=== PATIENT | female | born 1985 | race Two or more races ===

== ENCOUNTER → 2016-07-12 | Outpatient (REF) | payer OTHER ==
[~2016-07-12] MED LIST: ALBU17IN INH; ALBU17IN2; BREO1INH IN; FERR325T3 PO; METH75TA PO; NEUR300C PO; NORC5TAB PO; ONDA4TAB6 PO; ORTHTAB5 PO; PEPC1TAB2 PO; SING10TA32 PO; TAMS0.4C2 PO; TRAM50TA2 PO; VITA50003 PO
== END ==
LOC: M LAB REF 09:48
PROVIDERS: ATTEND Physician Assistant
DX: M54.5 Low back pain (principal)

== ENCOUNTER → 2016-07-21 | Outpatient (CLI) | payer OTHER ==
--- NOTE | 2016-07-28 00:07 | ECWPNPC ---
PATIENT NAME: ABEL COOMBS : 1985 GENDER: FEMALE VISIT DATE: 07/21/2016 DISCHARGE DATE: 07/21/16 1616 VISIT LOCKED DATE TIME: PHYSICIAN: CARTER JAIN RESOURCE: CARTER JAIN REASON FOR APPOINTMENT 1. 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 FALL RISK SCREENING: SCREENING :NO FALLS IN THE PAST YEAR CURRENT MEDICATIONS TAKING ALBUTEROL SULFATE HFA 108 (90 BASE) MCG/ACT AEROSOL SOLUTION 2 PUFFS NEEDED INHALATION EVERY 4 HRS TAKING SINGULAIR 10 MG TABLET 1 ORALLY ONCE A DAY TAKING PEPCID 20 MG TABLET 1 TABLET ORALLY DAILY TAKING BREO ELLIPTA 100-25 MCG/INH AEROSOL POWDER BREATH ACTIVATED 1 PUFF INHALATION ONCE A DAY TAKING VITAMIN D 07107 U TABLET ORALLY WEEKLY TAKING ORTHO TRI-CYCLEN (28) 0.18/0.215/0.25 MG-35 MCG TABLET 1 TABLET ORALLY ONCE A DAY TAKING FERROUS SULFATE TABLET 3 ORALLY ONCE DAILY TAKING ROBAXIN-750 750 MG TABLET 1 TABLET ORALLY BEFORE BEDTIME TAKING TRAMADOL HCL 50 MG TABLET 1-2 ORALLY Q4-6 HR PRN MDD4 TAKING CYMBALTA 30 MG CAPSULE DELAYED RELEASE PARTICLES 1 CAPSULE ORALLY ONCE A DAY TAKING MELOXICAM 7.5 MG TABLET 1 TABLET ORALLY ONCE A DAY NOT-TAKING VALIUM 10 MG TABLET 2 ORALLY 2 TAB 1HR PRE PROC. MDD2 NOT-TAKING OXYCODONE-ACETAMINOPHEN 10-325 MG TABLET 2 ORALLY 2 TAB 1HR PRE PROFC. MDD2 NOT-TAKING KETOROLAC TROMETHAMINE 10 MG TABLET 1 TABLET NEEDED ORALLY EVERY 6 HRS NOT-TAKING HYDROCODONE-ACETAMINOPHEN 5-325 MG TABLET 1 TABLET NEEDED ORALLY EVERY 6 HRS NOT-TAKING ROBAXIN-750 750 MG TABLET 1 TABLET ORALLY EVERY 6 HRS NEEDED, NOTES: LAST WEEK NOT-TAKING LIDOCAINE 5 % OINTMENT 1 APPLICATION TO AFFECTED AREA NEEDED EXTERNALLY NEEDED, NOTES: 2 WEEKS AGO MEDICATION LIST REVIEWED AND RECONCILED WITH THE PATIENT PAST MEDICAL HISTORY ASTHMA SEASONAL ALLERGIES KIDNEY STONE CHRONIC BACK PAIN ALLERGIES LATEX (FOR ALLERGY USE ONLY): RASH: ALLERGY LOBSTER AND CRABMEAT: DIARRHEA: ALLERGY COCONUT OIL: ANAPHYLAXIS: ALLERGY CATS, DOGS: EYES SWELL, ITCHY: ALLERGY SOCIAL HISTORY GENERAL: TOBACCO USE ARE YOU A:NONSMOKER LEARNING BARRIERS / SPECIAL NEEDS ORIENTED TO PLAN OF CARE: PATIENT, PAIN MANAGEMENT PATIENT, ORIENTED TO PLAN OF CARE: PATIENT, PAIN MANAGEMENT PATIENT. NEW PATIENT PAIN DIARY TODAY'S VISITNOTES FROM 0-10, WHAT LEVEL IS YOUR PAIN TODAY?0 PAIN CLINIC PFS, CLERGY, PUBLIC HEALTH REFERRALS PFS REFERRAL NEEDED?NO CLERGY REFERRAL NEEDED?NO PUBLIC HEALTH REFERRAL NEEDED?NO WAS THE PROVIDER NOTIFIED OF ANY PERTINENT INFO?NO PFS REFERRAL NEEDED?NO CLERGY REFERRAL NEEDED?NO PUBLIC HEALTH REFERRAL NEEDED?NO WAS THE PROVIDER NOTIFIED OF ANY PERTINENT INFO?NO REVIEW OF SYSTEMS CONSTITUTIONAL: ANY CHANGE IN YOUR MEDICAL CONDITION? NO . RECENT ILLNESS DENIES . CHILLS NO . FEVER NO . WEIGHT LOSS DENIES . INFECTION: DO YOU HAVE NEW INFECTIONS? NO . DO YOU HAVE HISTORY OF MRSA? NO . MUSCULOSKELETAL: ANY NEW PATTERNS OF PAIN OR NUMBNESS? YES, BACK WENT OUT AND PAIN WON'T FULLY GO AWAY&NBSP;. GASTROENTEROLOGY: ANY NEW CHANGE IN BOWEL CONTROL? NO . GENITOURINARY: ANY NEW CHANGE IN BLADDER CONTROL? NO . IS THERE A CHANCE YOU COULD BE ? NO . HEMATOLOGY/LYMPH: DO YOU TAKE ANY BLOOD THINNERS? (FOR EXAMPLE- COUMADIN, PLAVIX, AGGRENOX, PLATEL, PRADAXA, OR XARELTO) NO . WHEN WAS YOUR LAST DOSE? DATE: TIME: . NEUROLOGY: HAVE YOU FALLEN IN THE PAST 6 MONTHS? NO . ANY NEW EXTREMITY NUMBNESS OR WEAKNESS? NO . CARDIOLOGY: DO YOU HAVE A PACEMAKER OR DEFIBRILLATOR? NO . CHEST PAIN DENIES . SHORTNESS OF BREATH DENIES . RESPIRATORY: HAVE YOU BEEN SICK IN THE PAST WEEK? YES, COLD AND LOST VOICE . FEVER NO . FLU LIKE SYMPTOMS? NO . COUGH NO, DENIES . SHORTNESS OF BREATH DENIES . INTEGUMENTARY: DO YOU HAVE ANY RASHES OR OPEN SORES? NO . ALLERGIC/IMMUNO: ARE YOU ALLERGIC TO SHELLFISH OR IV DYE? YES, SOME SHELLFISH . ANY NEW ALLERGIES? NO . PSYCHIATRIC: DO YOU HAVE THOUGHTS OF HURTING YOURSELF OR SOMEONE ELSE? NO . ARE YOU ABUSED, NEGLECTED, OR IN AN UNSAFE ENVIRONMENT? NO . ENDOCRINOLOGY: ARE YOU DIABETIC? NO . OTHER: DO YOU NEED ANY PRESCRIPTIONS? YES . IF YES, PLEASE LIST: TRAMADOL-NEED A NEW SCRIPT AT PHARMACY . ANY NEW PROBLEMS WITH YOUR MEDICATIONS? NO . WHEN DID YOU LAST EAT? ____ . WHEN DID YOU LAST DRINK? ____ . WHAT DID YOU LAST DRINK? ____ . NAME OF PERSON DRIVING YOU HOME? ____ . DO YOU HAVE ANY OTHER QUESTIONS OR CONCERNS NO . REVIEWED BY: PROVIDER: CARTER LUNA . VITAL SIGNS WT 187 LBS, HT 68 IN, BMI 28.43 INDEX, BP 159/96 MM HG, HR 104 /MIN, RR 16 /MIN, TEMP 97.6 F, OXYGEN SAT % 96, NA INITIALS TL 1516, REVIEWED BY: CS. EXAMINATION GENERAL EXAMINATION: LUNGS:LUNG SOUNDS ARE CLEAR. HEART:HEART RATE REGULAR. MUSCULOSKELETAL:*, MUSCLE STRENGTH TESTING 5/5 BILATERAL LOWER EXTREMITIES.PALPATION:POSITIVE FOR PAIN OVER MID TO LOWER THORACIC SPINE WITH LIGHT PALPATION.OTHERWIS NONTENDER WITH PALPATION OF SPINE.. DIAGNOSTIC: . ASSESSMENTS PAIN IN THORACIC SPINE - M54.6 (PRIMARY) MYALGIA - M79.1 TREATMENT PAIN IN THORACIC SPINE REFILL ROBAXIN-750 TABLET, 750 MG, 1 TABLET, ORALLY, BEFORE BEDTIME, 30 DAY(S), 15, REFILLS 2 INCREASE TRAMADOL HCL TABLET, 50 MG, 2, ORALLY, TID MDD6, 30 DAY(S), 180, REFILLS 0 REFILL CYMBALTA CAPSULE DELAYED RELEASE PARTICLES, 30 MG, 1 CAPSULE, ORALLY, ONCE A DAY, 30 DAY(S), 30 CAPSULE, REFILLS 2 STOP MELOXICAM TABLET, 7.5 MG, 1 TABLET, ORALLY, ONCE A DAY START IBUPROFEN TABLET, 600 MG, 1 TABLET, ORALLY, THREE TIMES A DAY, 30 DAY(S), 90, REFILLS 1 [facility] MRI SPINE,THORACIC WITHOUT [id number] PROCEDURE CODES FA211 ESTABILISHED PATIENT [facility] CHARGE FOLLOW UP 4 WEEKS (REASON: MRI THORACIC SPINE) ELECTRONICALLY SIGNED BY JEREMY COREAS ON 07/27/2016 AT 03:54 PM EST DISCLAIMER : THIS IS A VISIT SUMMARY EXTRACTED FROM THE [employer] CHART. IT IS NOT A COPY OF THE [employer] PROGRESS NOTE. CHARLIE
== END ==
LOC: M PAIN 15:00
PROVIDERS: ATTEND Nurse Practitioner Family
DX: M54.6 Pain in thoracic spine (principal); M79.1 Myalgia; Z79.891 Long term (current) use of opiate analgesic; Z79.899 Other long term (current) drug therapy; Z91.040 Latex allergy status; Z91.018 Allergy to other foods; Z91.09 Other allergy status, other than to drugs and biological substances

== ENCOUNTER → 2016-09-08 | Outpatient (CLI) | payer OTHER ==
--- NOTE | 2016-09-08 23:37 | ECWPNPC ---
PATIENT NAME: ABEL COOMBS : 1985 GENDER: FEMALE VISIT DATE: 09/08/2016 DISCHARGE DATE: 09/08/16 1535 VISIT LOCKED DATE TIME: PHYSICIAN: CARTER JAIN RESOURCE: CARTER JAIN REASON FOR APPOINTMENT 1. 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 PAIN THE PATIENT DESCRIBES THE PAIN... FALL RISK SCREENING: SCREENING :NO FALLS IN THE PAST YEAR CURRENT MEDICATIONS TAKING ALBUTEROL SULFATE HFA 108 (90 BASE) MCG/ACT AEROSOL SOLUTION 2 PUFFS NEEDED INHALATION EVERY 4 HRS TAKING SINGULAIR 10 MG TABLET 1 ORALLY ONCE A DAY TAKING PEPCID 20 MG TABLET 1 TABLET ORALLY DAILY TAKING BREO ELLIPTA 100-25 MCG/INH AEROSOL POWDER BREATH ACTIVATED 1 PUFF INHALATION ONCE A DAY TAKING VITAMIN D 56876 U TABLET ORALLY WEEKLY TAKING ORTHO TRI-CYCLEN (28) 0.18/0.215/0.25 MG-35 MCG TABLET 1 TABLET ORALLY ONCE A DAY TAKING FERROUS SULFATE TABLET 3 ORALLY ONCE DAILY TAKING ROBAXIN-750 750 MG TABLET 1 TABLET ORALLY BEFORE BEDTIME TAKING CYMBALTA 30 MG CAPSULE DELAYED RELEASE PARTICLES 1 CAPSULE ORALLY ONCE A DAY TAKING IBUPROFEN 600 MG TABLET 1 TABLET ORALLY THREE TIMES A DAY NOT-TAKING TRAMADOL HCL 50 MG TABLET 2 ORALLY TID MDD6 NOT-TAKING VALIUM 10 MG TABLET 2 ORALLY 2 TAB 1HR PRE PROC. MDD2 NOT-TAKING OXYCODONE-ACETAMINOPHEN 10-325 MG TABLET 2 ORALLY 2 TAB 1HR PRE PROFC. MDD2 NOT-TAKING KETOROLAC TROMETHAMINE 10 MG TABLET 1 TABLET NEEDED ORALLY EVERY 6 HRS NOT-TAKING HYDROCODONE-ACETAMINOPHEN 5-325 MG TABLET 1 TABLET NEEDED ORALLY EVERY 6 HRS NOT-TAKING ROBAXIN-750 750 MG TABLET 1 TABLET ORALLY EVERY 6 HRS NEEDED, NOTES: LAST WEEK NOT-TAKING LIDOCAINE 5 % OINTMENT 1 APPLICATION TO AFFECTED AREA NEEDED EXTERNALLY NEEDED, NOTES: 2 WEEKS AGO MEDICATION LIST REVIEWED AND RECONCILED WITH THE PATIENT PAST MEDICAL HISTORY ASTHMA SEASONAL ALLERGIES KIDNEY STONE CHRONIC BACK PAIN ALLERGIES LATEX (FOR ALLERGY USE ONLY): RASH: ALLERGY LOBSTER AND CRABMEAT: DIARRHEA: ALLERGY COCONUT OIL: ANAPHYLAXIS: ALLERGY CATS, DOGS: EYES SWELL, ITCHY: ALLERGY SOCIAL HISTORY GENERAL: TOBACCO USE ARE YOU A:NONSMOKER LEARNING BARRIERS / SPECIAL NEEDS ORIENTED TO PLAN OF CARE: PATIENT, PAIN MANAGEMENT PATIENT, ORIENTED TO PLAN OF CARE: PATIENT, PAIN MANAGEMENT PATIENT. NEW PATIENT PAIN DIARY TODAY'S VISITNOTES FROM 0-10, WHAT LEVEL IS YOUR PAIN TODAY?0 PAIN CLINIC PFS, CLERGY, PUBLIC HEALTH REFERRALS PFS REFERRAL NEEDED?NO CLERGY REFERRAL NEEDED?NO PUBLIC HEALTH REFERRAL NEEDED?NO WAS THE PROVIDER NOTIFIED OF ANY PERTINENT INFO?NO PFS REFERRAL NEEDED?NO CLERGY REFERRAL NEEDED?NO PUBLIC HEALTH REFERRAL NEEDED?NO WAS THE PROVIDER NOTIFIED OF ANY PERTINENT INFO?NO REVIEW OF SYSTEMS CONSTITUTIONAL: ANY CHANGE IN YOUR MEDICAL CONDITION? NO . CHILLS NO . FEVER NO . INFECTION: DO YOU HAVE NEW INFECTIONS? NO . DO YOU HAVE HISTORY OF MRSA? NO . MUSCULOSKELETAL: ANY NEW PATTERNS OF PAIN OR NUMBNESS? NO . GASTROENTEROLOGY: ANY NEW CHANGE IN BOWEL CONTROL? NO . GENITOURINARY: ANY NEW CHANGE IN BLADDER CONTROL? NO . IS THERE A CHANCE YOU COULD BE ? NO . HEMATOLOGY/LYMPH: DO YOU TAKE ANY BLOOD THINNERS? (FOR EXAMPLE- COUMADIN, PLAVIX, AGGRENOX, PLATEL, PRADAXA, OR XARELTO) NO . WHEN WAS YOUR LAST DOSE? DATE: TIME: . NEUROLOGY: HAVE YOU FALLEN IN THE PAST 6 MONTHS? NO . ANY NEW EXTREMITY NUMBNESS OR WEAKNESS? NO . CARDIOLOGY: DO YOU HAVE A PACEMAKER OR DEFIBRILLATOR? NO . RESPIRATORY: HAVE YOU BEEN SICK IN THE PAST WEEK? NO . FEVER NO . FLU LIKE SYMPTOMS? NO . COUGH NO . INTEGUMENTARY: DO YOU HAVE ANY RASHES OR OPEN SORES? NO . ALLERGIC/IMMUNO: ARE YOU ALLERGIC TO SHELLFISH OR IV DYE? YES . ANY NEW ALLERGIES? NO . PSYCHIATRIC: DO YOU HAVE THOUGHTS OF HURTING YOURSELF OR SOMEONE ELSE? NO . ARE YOU ABUSED, NEGLECTED, OR IN AN UNSAFE ENVIRONMENT? NO . ENDOCRINOLOGY: ARE YOU DIABETIC? NO . OTHER: DO YOU NEED ANY PRESCRIPTIONS? YES TRAMADOL? . IF YES, PLEASE LIST: ____ . ANY NEW PROBLEMS WITH YOUR MEDICATIONS? NO . WHEN DID YOU LAST EAT? ____ . WHEN DID YOU LAST DRINK? ____ . WHAT DID YOU LAST DRINK? ____ . NAME OF PERSON DRIVING YOU HOME? ____ . DO YOU HAVE ANY OTHER QUESTIONS OR CONCERNS NO . REVIEWED BY: PROVIDER: CARTER LUNA . VITAL SIGNS WT 196.2 LBS, HT 68 IN, BMI 29.83 INDEX, BP 152/96 MM HG, HR 99 /MIN, RR 16 /MIN, TEMP 98.0 F, OXYGEN SAT % 92%, NA INITIALS SC 14:45, REVIEWED BY: YES. EXAMINATION GENERAL EXAMINATION: LUNGS:LUNG SOUNDS ARE CLEAR. HEART:HEART RATE REGULAR. MUSCULOSKELETAL:*, MUSCLE STRENGTH TESTING 5/5 BILATERAL LOWER EXTREMITIES.PALPATION:POSITIVE FOR PAIN OVER MID TO LOWER THORACIC SPINE WITH LIGHT PALPATION.OTHERWIS NONTENDER WITH PALPATION OF SPINE.. DIAGNOSTIC: . ASSESSMENTS CHRONIC BILATERAL LOW BACK PAIN WITH RIGHT-SIDED SCIATICA - M54.41 (PRIMARY) PROTRUSION OF INTERVERTEBRAL DISC OF LUMBOSACRAL REGION - M51.27 CHRONIC PRESCRIPTION OPIATE USE - Z79.899 SACROILIAC JOINT PAIN - M53.3 TREATMENT CHRONIC BILATERAL LOW BACK PAIN WITH RIGHT-SIDED SCIATICA CONTINUE CYMBALTA CAPSULE DELAYED RELEASE PARTICLES, 30 MG, 1 CAPSULE, ORALLY, ONCE A DAY, 30 DAY(S), 30 CAPSULE, REFILLS 3 CONTINUE IBUPROFEN TABLET, 600 MG, 1 TABLET, ORALLY, THREE TIMES A DAY, 30 DAY(S), 90 TABLET, REFILLS 2 REFILL TRAMADOL HCL TABLET, 50 MG, 2, ORALLY, TID MDD6, 30 DAY(S), 180, REFILLS 0 PROCEDURE CODES FA211 ESTABILISHED PATIENT [facility] CHARGE DISPOSITION & COMMUNICATION FOLLOW UP 2 MONTHS (REASON: PLEASE CHECK ON AUTH FOR MRI) ELECTRONICALLY SIGNED BY JEREMY COREAS ON 09/08/2016 AT 03:29 PM EST DISCLAIMER : THIS IS A VISIT SUMMARY EXTRACTED FROM THE [employer] CHART. IT IS NOT A COPY OF THE [employer] PROGRESS NOTE. MTDD
== END ==
LOC: M PAIN 14:20
PROVIDERS: ATTEND Nurse Practitioner Family
DX: M54.41 Lumbago with sciatica, right side (principal); M51.27 Other intervertebral disc displacement, lumbosacral region; Z79.899 Other long term (current) drug therapy; M53.3 Sacrococcygeal disorders, not elsewhere classified; M46.1 Sacroiliitis, not elsewhere classified; G89.29 Other chronic pain; Z79.891 Long term (current) use of opiate analgesic; Z91.040 Latex allergy status; Z91.013 Allergy to seafood; J30.81 Allergic rhinitis due to animal (cat) (dog) hair and dander; Z91.018 Allergy to other foods; J30.2 Other seasonal allergic rhinitis

== ENCOUNTER → 2016-10-01 | Outpatient (CLI) | payer OTHER ==
[2016-10-01 09:20] LABS: BASO % 0.5 % (0.0-1.0); EOS # 0.1 K/mm3 (0.0-0.50); EOS % 1.8 % (0.0-3.0); LYMPH # 1.8 K/mm3 (1.5-4.5); MEAN CORPUSCULAR HEMOGLOBIN 28.9 pg (27.0-33.0); MEAN CORPUSCULAR HGB CONC 32.6 g/dl (32.0-36.5); MEAN CORPUSCULAR VOLUME 88.6 fl (80.0-96.0); MONO # 0.4 K/mm3 (0.0-0.8); MONO % 6.1 % (0.0-5.0); NEUTROPHILS # 4.2 K/mm3 (1.8-7.7); NEUTROPHILS % 62.7 % (36.0-66.0); RED CELL DISTRIBUTION WIDTH 12.3 % (11.5-14.5); WHITE BLOOD COUNT 6.7 K/mm3 (4.0-10.0)
[2016-10-01 09:52] LABS: ALBUMIN 3.3 GM/DL (3.2-5.2); ALKALINE PHOSPHATASE 69 U/L (45-117); ALT/SGPT 29 U/L (12-78); ANION GAP 6 MEQ/L (8-16); AST/SGOT 13 U/L (15-37); BILIRUBIN,TOTAL 0.3 MG/DL (0.2-1.0); BLOOD UREA NITROGEN 14 MG/DL (7-18); CALCIUM LEVEL 8.2 MG/DL (8.5-10.1); CARBON DIOXIDE LEVEL 29 MEQ/L (21-32); CHLORIDE LEVEL 106 MEQ/L (98-107); CHOLESTEROL LEVEL 188 MG/DL (<200); CREATININE FOR GFR 0.61 MG/DL (0.55-1.02); FERRITIN 106 NG/ML (8-252); GLOMERULAR FILTRATION RATE > 60.0 (>60); GLUCOSE, FASTING 88 MG/DL (70-105); POTASSIUM SERUM 3.9 MEQ/L (3.5-5.1); SODIUM LEVEL 141 MEQ/L (136-145); TOTAL PROTEIN 6.6 GM/DL (6.4-8.2); TRIGLYCERIDES LEVEL 126 MG/DL (<150)
== END ==
LOC: M LAB 08:33
PROVIDERS: ATTEND Physician Assistant Medical
DX: D64.9 Anemia, unspecified (principal); E78.2 Mixed hyperlipidemia; E55.9 Vitamin D deficiency, unspecified

== ENCOUNTER → 2016-10-20 | Outpatient (CLI) | payer OTHER ==
[~2016-10-20] MED LIST changes: +CYMB1CAP4 PO; +NORC1TAB4 PO; -NORC5TAB PO; +OMEP40CA2 PO
--- NOTE | 2016-10-21 09:09 | REP ---
MRI thoracic spine without contrast: History: Thoracic pain, mid back pain. Progressive. No comparison thoracic spine imaging. Comparison lateral chest x-ray May 26, 2016. Technique: Sagittal and axial T1 and T2-weighted scans are acquired in the usual fashion with and without fat saturation. Sequences include spin echo, turbo spin-echo, and STIR imaging sequences. MRI findings: Thoracic vertebral body heights are preserved and alignment is normal. There is a hemangioma in the T8 vertebral body to the left of midline. Cortical and medullary bone signal intensity are otherwise normal. Thoracic cord is normal in coarse, caliber and signal intensity on T1 and T2-weighted scans. No cord compressive lesion is seen. No neural foraminal narrowing is seen. There is mild degenerative disc narrowing at the T11-12 disc level with mild diffuse disc bulging at this level. No focal disc herniation is seen. The T8-9 disc shows mild narrowing as well consistent with early degenerative disc disease. Conus medullaris is normal in position and appearance at T12-L1. Exam is otherwise unremarkable. Impression: Minimal degenerative disc changes T8-9 and T11-12. Small hemangioma T8 vertebral body. Otherwise normal. Signed by Sravan Cevallos MD 10/21/2016 01:09 P
== END ==
LOC: M RAD 17:12
PROVIDERS: ATTEND Nurse Practitioner Family
DX: M51.34 Other intervertebral disc degeneration, thoracic region (principal)

== ENCOUNTER 2016-10-25 08:50 | Emergency (ER) | payer OTHER ==
[~2016-10-25] VITALS: Ht 172.7 cm; Wt 91.6 kg
[~2016-10-25 08:50] MED LIST changes: -CYMB1CAP4 PO; -OMEP40CA2 PO
[2016-10-25] MEDS ORDERED: OMEP40CA2 PO (09:31)
[2016-10-25] MEDS ORDERED: CYMB1CAP4 PO (09:31)
[2016-10-25] MEDS ORDERED: KETOROLAC 30 MG/ML VIAL (J1885) IV ONE (10:30)
[2016-10-25 11:48] VITALS: BP 140/82
== END 2016-10-25 12:09 | disposition home or self-care (01) ==
LOC: M ED 10:34
DX: G89.29 Other chronic pain (principal); M54.5 Low back pain; M62.830 Muscle spasm of back; J45.909 Unspecified asthma, uncomplicated; M41.9 Scoliosis, unspecified; Z87.442 Personal history of urinary calculi; Z79.899 Other long term (current) drug therapy; Z79.51 Long term (current) use of inhaled steroids; Z91.040 Latex allergy status; Z91.013 Allergy to seafood; Z91.018 Allergy to other foods
CPT/HCPCS: 96374; 99282; J1885

== ENCOUNTER → 2016-10-29 | Outpatient (CLI) | payer OTHER ==
[~2016-10-29] MED LIST changes: +CYMB1CAP4 PO; +OMEP40CA2 PO
--- NOTE | 2016-11-12 00:01 | ECWPNPC ---
PATIENT NAME: ABEL COOMBS : 1985 GENDER: FEMALE VISIT DATE: 10/29/2016 DISCHARGE DATE: 10/29/16 1553 VISIT LOCKED DATE TIME: PHYSICIAN: CARTER JAIN RESOURCE: CARTER JAIN REASON FOR APPOINTMENT 1. 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 PAIN THE PATIENT DESCRIBES THE PAIN... THE PATIENT DESCRIBES THE PAIN... FALL RISK SCREENING: SCREENING :NO FALLS IN THE PAST YEAR CURRENT MEDICATIONS TAKING ALBUTEROL SULFATE HFA 108 (90 BASE) MCG/ACT AEROSOL SOLUTION 2 PUFFS NEEDED INHALATION EVERY 4 HRS TAKING SINGULAIR 10 MG TABLET 1 ORALLY ONCE A DAY TAKING PEPCID 20 MG TABLET 1 TABLET ORALLY DAILY TAKING BREO ELLIPTA 100-25 MCG/INH AEROSOL POWDER BREATH ACTIVATED 1 PUFF INHALATION ONCE A DAY TAKING VITAMIN D 79144 U TABLET ORALLY WEEKLY TAKING ORTHO TRI-CYCLEN (28) 0.18/0.215/0.25 MG-35 MCG TABLET 1 TABLET ORALLY ONCE A DAY TAKING FERROUS SULFATE TABLET 3 ORALLY ONCE DAILY TAKING IBUPROFEN 600 MG TABLET 1 TABLET ORALLY THREE TIMES A DAY TAKING ROBAXIN-750 750 MG TABLET 1 TABLET ORALLY BEFORE BEDTIME TAKING TRAMADOL HCL 50 MG TABLET 2 ORALLY TID MDD6 TAKING CYMBALTA 30 MG CAPSULE DELAYED RELEASE PARTICLES 1 CAPSULE ORALLY ONCE A DAY TAKING OMEPRAZOLE 10 MG CAPSULE DELAYED RELEASE 1 CAPSULE ORALLY ONCE A DAY NOT-TAKING VALIUM 10 MG TABLET 2 ORALLY 2 TAB 1HR PRE PROC. MDD2 NOT-TAKING OXYCODONE-ACETAMINOPHEN 10-325 MG TABLET 2 ORALLY 2 TAB 1HR PRE PROFC. MDD2 NOT-TAKING KETOROLAC TROMETHAMINE 10 MG TABLET 1 TABLET NEEDED ORALLY EVERY 6 HRS NOT-TAKING HYDROCODONE-ACETAMINOPHEN 5-325 MG TABLET 1 TABLET NEEDED ORALLY EVERY 6 HRS NOT-TAKING ROBAXIN-750 750 MG TABLET 1 TABLET ORALLY EVERY 6 HRS NEEDED, NOTES: LAST WEEK NOT-TAKING LIDOCAINE 5 % OINTMENT 1 APPLICATION TO AFFECTED AREA NEEDED EXTERNALLY NEEDED, NOTES: 2 WEEKS AGO MEDICATION LIST REVIEWED AND RECONCILED WITH THE PATIENT PAST MEDICAL HISTORY ASTHMA SEASONAL ALLERGIES KIDNEY STONE CHRONIC BACK PAIN ALLERGIES LATEX (FOR ALLERGY USE ONLY): RASH: ALLERGY LOBSTER AND CRABMEAT: DIARRHEA: ALLERGY COCONUT OIL: ANAPHYLAXIS: ALLERGY CATS, DOGS: EYES SWELL, ITCHY: ALLERGY SOCIAL HISTORY GENERAL: PAIN CLINIC PFS, CLERGY, PUBLIC HEALTH REFERRALS CLERGY REFERRAL NEEDED?NO WAS THE PROVIDER NOTIFIED OF ANY PERTINENT INFO?NO PFS REFERRAL NEEDED?NO PUBLIC HEALTH REFERRAL NEEDED?NO PATIENT: ____. REVIEW OF SYSTEMS CONSTITUTIONAL: ANY CHANGE IN YOUR MEDICAL CONDITION? NO . CHILLS NO . FEVER NO . INFECTION: DO YOU HAVE NEW INFECTIONS? NO . DO YOU HAVE HISTORY OF MRSA? NO . MUSCULOSKELETAL: ANY NEW PATTERNS OF PAIN OR NUMBNESS? NO . GASTROENTEROLOGY: ANY NEW CHANGE IN BOWEL CONTROL? NO . GENITOURINARY: ANY NEW CHANGE IN BLADDER CONTROL? NO . IS THERE A CHANCE YOU COULD BE ? NO . HEMATOLOGY/LYMPH: DO YOU TAKE ANY BLOOD THINNERS? (FOR EXAMPLE- COUMADIN, PLAVIX, AGGRENOX, PLATEL, PRADAXA, OR XARELTO) NO . WHEN WAS YOUR LAST DOSE? DATE: TIME: . NEUROLOGY: HAVE YOU FALLEN IN THE PAST 6 MONTHS? YES THIS PAST TUESDAY, FELL TO HER KNEES BACK GAVE OUT . ANY NEW EXTREMITY NUMBNESS OR WEAKNESS? NO . CARDIOLOGY: DO YOU HAVE A PACEMAKER OR DEFIBRILLATOR? NO . RESPIRATORY: HAVE YOU BEEN SICK IN THE PAST WEEK? NO . FEVER NO . FLU LIKE SYMPTOMS? NO . COUGH NO . INTEGUMENTARY: DO YOU HAVE ANY RASHES OR OPEN SORES? NO . ALLERGIC/IMMUNO: ARE YOU ALLERGIC TO SHELLFISH OR IV DYE? YES . ANY NEW ALLERGIES? NO . PSYCHIATRIC: DO YOU HAVE THOUGHTS OF HURTING YOURSELF OR SOMEONE ELSE? NO . ARE YOU ABUSED, NEGLECTED, OR IN AN UNSAFE ENVIRONMENT? NO . ENDOCRINOLOGY: ARE YOU DIABETIC? NO . OTHER: DO YOU NEED ANY PRESCRIPTIONS? NO . IF YES, PLEASE LIST: ____ . ANY NEW PROBLEMS WITH YOUR MEDICATIONS? NO . WHEN DID YOU LAST EAT? ____ . WHEN DID YOU LAST DRINK? ____ . WHAT DID YOU LAST DRINK? ____ . NAME OF PERSON DRIVING YOU HOME? ____ . DO YOU HAVE ANY OTHER QUESTIONS OR CONCERNS NO . REVIEWED BY: PROVIDER: CARTER LUNA . VITAL SIGNS WT 200.0 LBS, HT 68 IN, BMI 30.41 INDEX, BP 185/91 MM HG, HR 86 /MIN, RR 20 /MIN, TEMP 97.9 F, OXYGEN SAT % 98%, NA INITIALS SC 15:03. EXAMINATION GENERAL EXAMINATION: LUNGS:LUNG SOUNDS ARE CLEAR. HEART:HEART RATE REGULAR. MUSCULOSKELETAL:*, MUSCLE STRENGTH TESTING 5/5 BILATERAL LOWER EXTREMITIES.PALPATION:POSITIVE FOR PAIN OVER MID TO LOWER THORACIC SPINE WITH LIGHT PALPATION., TRIGGER POINTS:RIGHT LUMBAR PARASPINAL.. DIAGNOSTIC: . ASSESSMENTS CHRONIC BILATERAL LOW BACK PAIN WITH RIGHT-SIDED SCIATICA - M54.41 (PRIMARY) MYALGIA - M79.1 TREATMENT CHRONIC BILATERAL LOW BACK PAIN WITH RIGHT-SIDED SCIATICA CONTINUE ROBAXIN-750 TABLET, 750 MG, 1 TABLET, ORALLY, BEFORE BEDTIME CONTINUE TRAMADOL HCL TABLET, 50 MG, 2, ORALLY, TID MDD6 CONTINUE CYMBALTA CAPSULE DELAYED RELEASE PARTICLES, 30 MG, 1 CAPSULE, ORALLY, ONCE A DAY CONTINUE IBUPROFEN TABLET, 600 MG, 1 TABLET, ORALLY, THREE TIMES A DAY PROCEDURE CODES FA211 ESTABILISHED PATIENT [facility] CHARGE DISPOSITION & COMMUNICATION FOLLOW UP HAS SCHEDULED F/U ELECTRONICALLY SIGNED BY JEREMY COREAS ON 11/11/2016 AT 05:24 PM EDT DISCLAIMER : THIS IS A VISIT SUMMARY EXTRACTED FROM THE [employer] CHART. IT IS NOT A COPY OF THE [employer] PROGRESS NOTE. MTDD
== END ==
LOC: M PAIN 14:40
PROVIDERS: ATTEND Nurse Practitioner Family
DX: G89.29 Other chronic pain (principal); M54.41 Lumbago with sciatica, right side; M79.1 Myalgia; J45.909 Unspecified asthma, uncomplicated; Z91.040 Latex allergy status; Z91.013 Allergy to seafood; Z91.018 Allergy to other foods; L23.81 Allergic contact dermatitis due to animal (cat) (dog) dander; Z79.51 Long term (current) use of inhaled steroids; Z79.1 Long term (current) use of non-steroidal anti-inflammatories (NSAID); Z79.891 Long term (current) use of opiate analgesic; Z79.899 Other long term (current) drug therapy

== ENCOUNTER → 2016-12-02 | Outpatient (CLI) | payer OTHER ==
--- NOTE | 2016-12-25 01:02 | ECWPNPC ---
PATIENT NAME: ABEL COOMBS : 1985 GENDER: FEMALE VISIT DATE: 12/02/2016 DISCHARGE DATE: 12/02/16 1129 VISIT LOCKED DATE TIME: PHYSICIAN: CARTER JAIN RESOURCE: CARTER JAIN REASON FOR APPOINTMENT 1. BACK HISTORY OF PRESENT ILLNESS HISTORY OF PRESENT ILLNESS: HERE FOR F/U OF CHRONIC LOW BACK PAIN.PAIN HAS RETURNED TO BASELINE AFTER RECENT FLARE UP.FINDING CURRENT CHRONIC PAIN MEDIATION ROBAXIN,TRAMADOL,CYMBALTA AND IBUPROFEN EFFECTIVE AT REDUCING PAIN AND KEEPING HER FUNCTIONAL.DESCRIBES PAIN CONSTANT,BUNING AND ACHING.RATING PAIN VAS 4/10. PAIN THE PATIENT DESCRIBES THE PAIN... FALL RISK SCREENING: SCREENING :NO FALLS IN THE PAST YEAR CURRENT MEDICATIONS TAKING ALBUTEROL SULFATE HFA 108 (90 BASE) MCG/ACT AEROSOL SOLUTION 2 PUFFS NEEDED INHALATION EVERY 4 HRS TAKING SINGULAIR 10 MG TABLET 1 ORALLY ONCE A DAY TAKING BREO ELLIPTA 100-25 MCG/INH AEROSOL POWDER BREATH ACTIVATED 1 PUFF INHALATION ONCE A DAY TAKING VITAMIN D 47094 U TABLET ORALLY WEEKLY TAKING FERROUS SULFATE TABLET 3 ORALLY ONCE DAILY TAKING OMEPRAZOLE 10 MG CAPSULE DELAYED RELEASE 1 CAPSULE ORALLY ONCE A DAY TAKING CYMBALTA 30 MG CAPSULE DELAYED RELEASE PARTICLES 1 CAPSULE ORALLY ONCE A DAY TAKING IBUPROFEN 600 MG TABLET 1 TABLET ORALLY THREE TIMES A DAY TAKING TRAMADOL HCL 50 MG TABLET 2 ORALLY TID MDD6 TAKING ROBAXIN-750 750 MG TABLET 1 TABLET ORALLY BEFORE BEDTIME TAKING JULEBER 0.15-30 MG-MCG TABLET 1 TABLET ORALLY ONCE A DAY NOT-TAKING PEPCID 20 MG TABLET 1 TABLET ORALLY DAILY NOT-TAKING ORTHO TRI-CYCLEN (28) 0.18/0.215/0.25 MG-35 MCG TABLET 1 TABLET ORALLY ONCE A DAY NOT-TAKING VALIUM 10 MG TABLET 2 ORALLY 2 TAB 1HR PRE PROC. MDD2 NOT-TAKING OXYCODONE-ACETAMINOPHEN 10-325 MG TABLET 2 ORALLY 2 TAB 1HR PRE PROFC. MDD2 NOT-TAKING KETOROLAC TROMETHAMINE 10 MG TABLET 1 TABLET NEEDED ORALLY EVERY 6 HRS NOT-TAKING HYDROCODONE-ACETAMINOPHEN 5-325 MG TABLET 1 TABLET NEEDED ORALLY EVERY 6 HRS NOT-TAKING ROBAXIN-750 750 MG TABLET 1 TABLET ORALLY EVERY 6 HRS NEEDED, NOTES: LAST WEEK NOT-TAKING LIDOCAINE 5 % OINTMENT 1 APPLICATION TO AFFECTED AREA NEEDED EXTERNALLY NEEDED, NOTES: 2 WEEKS AGO MEDICATION LIST REVIEWED AND RECONCILED WITH THE PATIENT PAST MEDICAL HISTORY ASTHMA SEASONAL ALLERGIES KIDNEY STONE CHRONIC BACK PAIN ALLERGIES LATEX (FOR ALLERGY USE ONLY): RASH: ALLERGY LOBSTER AND CRABMEAT: DIARRHEA: ALLERGY COCONUT OIL: ANAPHYLAXIS: ALLERGY CATS, DOGS: EYES SWELL, ITCHY: ALLERGY SURGICAL HISTORY D & C 09/15 T & A 2010 TEETH EXTRACTION LEEP CERVICAL BIOPSY URETERAL STONE REMOVAL 01/14/2016 HOSPITALIZATION/MAJOR DIAGNOSTIC PROCEDURE ASTHMA [facility] REVIEW OF SYSTEMS CONSTITUTIONAL: ANY CHANGE IN YOUR MEDICAL CONDITION? YES, LEFT MANDIBLE TOOTH PULLED LAST WEEK. . CHILLS NO . FEVER NO . INFECTION: DO YOU HAVE NEW INFECTIONS? NO . DO YOU HAVE HISTORY OF MRSA? NO . MUSCULOSKELETAL: ANY NEW PATTERNS OF PAIN OR NUMBNESS? YES, LEFT MANDIBLE PAIN. LEFT HEEL PAIN, PT STATES FROM WEARING ILL-FITTED BOOTS . GASTROENTEROLOGY: ANY NEW CHANGE IN BOWEL CONTROL? NO . GENITOURINARY: ANY NEW CHANGE IN BLADDER CONTROL? NO . IS THERE A CHANCE YOU COULD BE ? NO . HEMATOLOGY/LYMPH: DO YOU TAKE ANY BLOOD THINNERS? (FOR EXAMPLE- COUMADIN, PLAVIX, AGGRENOX, PLATEL, PRADAXA, OR XARELTO) NO . WHEN WAS YOUR LAST DOSE? DATE: TIME: . NEUROLOGY: HAVE YOU FALLEN IN THE PAST 6 MONTHS? YES. 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 PT STATES SHE WAS TAKEN BY AMBULANCE TO [facility] ER, TX'D WITH TORADOL, DX WITH PULLED BACK MUSCLE.&NBSP;. ANY NEW EXTREMITY NUMBNESS OR WEAKNESS? &NBSP;&NBSP; NO&NBSP;. CARDIOLOGY: DO YOU HAVE A PACEMAKER OR DEFIBRILLATOR? NO, PT STATES HER PCP GRETCHEN CANELA IS AWARE OF ELEVATED BP . RESPIRATORY: HAVE YOU BEEN SICK IN THE PAST WEEK? NO . FEVER NO . FLU LIKE SYMPTOMS? NO . COUGH NO . INTEGUMENTARY: DO YOU HAVE ANY RASHES OR OPEN SORES? YES LEFT HEEL . ALLERGIC/IMMUNO: ARE YOU ALLERGIC TO SHELLFISH OR IV DYE? YES SHELLFISH . ANY NEW ALLERGIES? NO . PSYCHIATRIC: DO YOU HAVE THOUGHTS OF HURTING YOURSELF OR SOMEONE ELSE? NO . ARE YOU ABUSED, NEGLECTED, OR IN AN UNSAFE ENVIRONMENT? NO . ENDOCRINOLOGY: ARE YOU DIABETIC? NO . OTHER: DO YOU NEED ANY PRESCRIPTIONS? NO . IF YES, PLEASE LIST: ____ . ANY NEW PROBLEMS WITH YOUR MEDICATIONS? NO . WHEN DID YOU LAST EAT? ____ . WHEN DID YOU LAST DRINK? ____ . WHAT DID YOU LAST DRINK? ____ . NAME OF PERSON DRIVING YOU HOME? ____ . DO YOU HAVE ANY OTHER QUESTIONS OR CONCERNS NO . REVIEWED BY: PROVIDER: CARTER LUNA . VITAL SIGNS WT 200.6 LBS, HT 68 IN, BMI 30.50 INDEX, BP 164/95 MM HG, HR 94 /MIN, RR 18 /MIN, TEMP 97.0 F, OXYGEN SAT % 97%, SAFE IN ENV? (Y/N) Y, NA INITIALS IL 10:42, REVIEWED BY: EM. EXAMINATION GENERAL EXAMINATION: LUNGS:LUNG SOUNDS ARE CLEAR. HEART:HEART RATE REGULAR. MUSCULOSKELETAL:*, MUSCLE STRENGTH TESTING 5/5 BILATERAL LOWER EXTREMITIES.PALPATION:POSITIVE FOR PAIN OVER MID TO LOWER THORACIC SPINE WITH LIGHT PALPATION., TRIGGER POINTS:RIGHT LUMBAR PARASPINAL.. DIAGNOSTIC: MRI L/S SPINE -07-15-15-REVIEWED. 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 PROCEDURE CODES FA211 ESTABILISHED PATIENT [facility] CHARGE DISPOSITION & COMMUNICATION FOLLOW UP 2WK POST (REASON: I AM GOING TO REQUEST A LUMBAR INTERLAMINAR EPIDURAL STEROID INJECTION L4/5) ELECTRONICALLY SIGNED BY JEREMY COREAS ON 12/24/2016 AT 08:01 PM EDT DISCLAIMER : THIS IS A VISIT SUMMARY EXTRACTED FROM THE [employer] CHART. IT IS NOT A COPY OF THE [employer] PROGRESS NOTE. MTDD
== END ==
LOC: M PAIN 10:20
PROVIDERS: ATTEND Nurse Practitioner Family
DX: G89.29 Other chronic pain (principal); M54.41 Lumbago with sciatica, right side; J45.909 Unspecified asthma, uncomplicated; Z91.040 Latex allergy status; Z91.013 Allergy to seafood; Z91.018 Allergy to other foods; L23.81 Allergic contact dermatitis due to animal (cat) (dog) dander; Z79.51 Long term (current) use of inhaled steroids; Z79.1 Long term (current) use of non-steroidal anti-inflammatories (NSAID); Z79.899 Other long term (current) drug therapy

== ENCOUNTER → 2016-12-20 | Outpatient (CLI) | payer OTHER ==
[~2016-12-20] MED LIST changes: +ISOVUE-M 300 61% 15ML VIAL (Q9967) As Ordered ONE; +LIDOCAINE 1% SDV INJ 30 ML VIAL As Ordered ONE; +diazePAM 5 MG TAB As Ordered ONE; +methylPREDNISolone SUSP 40 MG/ML (DEPO-medrol) VIAL (J1030) As Ordered ONE; +oxyCODONE 5MG TAB As Ordered ONE
--- NOTE | 2016-12-20 14:48 | REP ---
FLUOROSCOPIC-GUIDED SPINAL INJECTION: The films were reviewed with Dr. Aguilar. The patient has a history of low back pain. The portable C-arm was provided in the OR for Dr. Rausch for fluoroscopic guidance. Two intraoperative fluoroscopic spot films were obtained for needle placement verification for lumbar epidural injection. The films are on PACS and are available for review. 8 seconds fluoroscopic time was utilized for this procedure. Reviewed by FABY Almaraz 12/20/2016 05:05 PEdited and Signed by Jack Aguilar MD 12/20/2016 05:15 P
--- NOTE | 2016-12-31 00:45 | ECWPNPC ---
PATIENT NAME: ABEL COOMBS : 1985 GENDER: FEMALE VISIT DATE: 12/20/2016 DISCHARGE DATE: 12/20/16 1328 VISIT LOCKED DATE TIME: PHYSICIAN: MARILEE GAINES RESOURCE: MARILEE GAINES REASON FOR APPOINTMENT 1. INTRALAMINAL LUMBAR EPIDURAL HISTORY OF PRESENT ILLNESS HISTORY OF PRESENT ILLNESS: PAIN THE PATIENT DESCRIBES THE PAIN... FALL RISK SCREENING: SCREENING :NO FALLS IN THE PAST YEAR CURRENT MEDICATIONS TAKING ALBUTEROL SULFATE HFA 108 (90 BASE) MCG/ACT AEROSOL SOLUTION 2 PUFFS NEEDED INHALATION EVERY 4 HRS, NOTES: 1 WEEK AGO TAKING SINGULAIR 10 MG TABLET 1 ORALLY ONCE A DAY, NOTES: 12/20/16614 TAKING BREO ELLIPTA 100-25 MCG/INH AEROSOL POWDER BREATH ACTIVATED 1 PUFF INHALATION ONCE A DAY, NOTES: 12/20/16614 TAKING VITAMIN D 41506 U TABLET ORALLY WEEKLY, NOTES: 12/20/16629 TAKING FERROUS SULFATE TABLET 3 ORALLY ONCE DAILY, NOTES: 12/21/16629 TAKING OMEPRAZOLE 10 MG CAPSULE DELAYED RELEASE 1 CAPSULE ORALLY ONCE A DAY, NOTES: 12/21/16629 TAKING ROBAXIN-750 750 MG TABLET 1 TABLET ORALLY BEFORE BEDTIME, NOTES: 12/20/16 2100 TAKING JULEBER 0.15-30 MG-MCG TABLET 1 TABLET ORALLY ONCE A DAY, NOTES: 12/21/16629 TAKING CYMBALTA 30 MG CAPSULE DELAYED RELEASE PARTICLES 1 CAPSULE ORALLY ONCE A DAY, NOTES: 12/20/16629 TAKING IBUPROFEN 600 MG TABLET 1 TABLET ORALLY THREE TIMES A DAY, NOTES: 12/20/16 1030 TAKING TRAMADOL HCL 50 MG TABLET 2 ORALLY TID MDD6, NOTES: 12/20/16 1020 NOT-TAKING PEPCID 20 MG TABLET 1 TABLET ORALLY DAILY NOT-TAKING ORTHO TRI-CYCLEN (28) 0.18/0.215/0.25 MG-35 MCG TABLET 1 TABLET ORALLY ONCE A DAY NOT-TAKING VALIUM 10 MG TABLET 2 ORALLY 2 TAB 1HR PRE PROC. MDD2 NOT-TAKING OXYCODONE-ACETAMINOPHEN 10-325 MG TABLET 2 ORALLY 2 TAB 1HR PRE PROFC. MDD2 NOT-TAKING KETOROLAC TROMETHAMINE 10 MG TABLET 1 TABLET NEEDED ORALLY EVERY 6 HRS NOT-TAKING HYDROCODONE-ACETAMINOPHEN 5-325 MG TABLET 1 TABLET NEEDED ORALLY EVERY 6 HRS NOT-TAKING ROBAXIN-750 750 MG TABLET 1 TABLET ORALLY EVERY 6 HRS NEEDED, NOTES: LAST WEEK NOT-TAKING LIDOCAINE 5 % OINTMENT 1 APPLICATION TO AFFECTED AREA NEEDED EXTERNALLY NEEDED, NOTES: 2 WEEKS AGO MEDICATION LIST REVIEWED AND RECONCILED WITH THE PATIENT PAST MEDICAL HISTORY ASTHMA SEASONAL ALLERGIES KIDNEY STONE CHRONIC BACK PAIN ALLERGIES LATEX (FOR ALLERGY USE ONLY): RASH: ALLERGY LOBSTER AND CRABMEAT: DIARRHEA: ALLERGY COCONUT OIL: ANAPHYLAXIS: ALLERGY CATS, DOGS: EYES SWELL, ITCHY: ALLERGY SURGICAL HISTORY D & C 09/15 T & A 2010 TEETH EXTRACTION LEEP CERVICAL BIOPSY URETERAL STONE REMOVAL 01/14/2016 SOCIAL HISTORY GENERAL: TOBACCO USE ARE YOU A:NONSMOKER PAIN CLINIC PFS, CLERGY, PUBLIC HEALTH REFERRALS CLERGY REFERRAL NEEDED?NO WAS THE PROVIDER NOTIFIED OF ANY PERTINENT INFO?NO PFS REFERRAL NEEDED?NO PUBLIC HEALTH REFERRAL NEEDED?NO PATIENT: ____. M. HOSPITALIZATION/MAJOR DIAGNOSTIC PROCEDURE ASTHMA [facility] REVIEW OF SYSTEMS REVIEWED BY: PROVIDER: . CONSTITUTIONAL: ANY CHANGE IN YOUR MEDICAL CONDITION? NO . CHILLS NO . FEVER NO . INFECTION: DO YOU HAVE NEW INFECTIONS? NO . DO YOU HAVE HISTORY OF MRSA? NO . MUSCULOSKELETAL: ANY NEW PATTERNS OF PAIN OR NUMBNESS? NO . GASTROENTEROLOGY: ANY NEW CHANGE IN BOWEL CONTROL? NO . GENITOURINARY: ANY NEW CHANGE IN BLADDER CONTROL? NO . IS THERE A CHANCE YOU COULD BE ? NO . HEMATOLOGY/LYMPH: DO YOU TAKE ANY BLOOD THINNERS? (FOR EXAMPLE- COUMADIN, PLAVIX, AGGRENOX, PLATEL, PRADAXA, OR XARELTO) NO . WHEN WAS YOUR LAST DOSE? DATE: TIME: . NEUROLOGY: HAVE YOU FALLEN IN THE PAST 6 MONTHS? YES . ANY NEW EXTREMITY NUMBNESS OR WEAKNESS? NO . CARDIOLOGY: DO YOU HAVE A PACEMAKER OR DEFIBRILLATOR? NO . RESPIRATORY: HAVE YOU BEEN SICK IN THE PAST WEEK? NO . FEVER NO . FLU LIKE SYMPTOMS? NO . COUGH NO . INTEGUMENTARY: DO YOU HAVE ANY RASHES OR OPEN SORES? NO . ALLERGIC/IMMUNO: ARE YOU ALLERGIC TO SHELLFISH OR IV DYE? YES, SOME SHELLFISH, STATES NOT ALLERGIC TO IV DYE, BETADINE, OR IODINE . ANY NEW ALLERGIES? NO . PSYCHIATRIC: DO YOU HAVE THOUGHTS OF HURTING YOURSELF OR SOMEONE ELSE? NO . ARE YOU ABUSED, NEGLECTED, OR IN AN UNSAFE ENVIRONMENT? NO . ENDOCRINOLOGY: ARE YOU DIABETIC? NO . OTHER: DO YOU NEED ANY PRESCRIPTIONS? NO . IF YES, PLEASE LIST: ____ . ANY NEW PROBLEMS WITH YOUR MEDICATIONS? NO . WHEN DID YOU LAST EAT? 2129 . WHEN DID YOU LAST DRINK? 619 . WHAT DID YOU LAST DRINK? [place] . NAME OF PERSON DRIVING YOU HOME? WILLIAM COOMBS JR (FATHER) . DO YOU HAVE ANY OTHER QUESTIONS OR CONCERNS NO . VITAL SIGNS WT 202.4 LBS, HT 68 IN, BMI 30.77 INDEX, BP 154/91 MM HG, HR 91 /MIN, RR 16 /MIN, TEMP 97.0 F, OXYGEN SAT % 96%, NA INITIALS TL 1104, REVIEWED BY: MEKHI. ASSESSMENTS INTERVERTEBRAL DISC DISORDERS WITH RADICULOPATHY, LUMBOSACRAL REGION - M51.17 (PRIMARY) PROCEDURES PRE PROCEDURE DIAGNOSIS LUMBOSACRAL DISC DISORDER WITH RADICULOPATHY POST PROCEDURE DIAGNOSIS LUMBOSACRAL DISC DISORDER WITH RADICULOPATHY PROCEDURE LUMBAR EPIDURAL STEROID INJECTION UNDER FLUOROSCOPIC GUIDANCE SURGEON DR. MARILEE GAINES MOBILE UI/UX DESIGNER NONE ANESTHESIA LOCAL PRE PROCEDURE NOTE THE PATIENT HAS A HISTORY OF CHRONIC LOW BACK PAIN. I EVALUATE THE PATIENT AND REVIEWED THE CHART. I WENT OVER THE RISKS, ALTERNATIVES, AND BENEFITS ASSOCIATED WITH THIS PROCEDURE. THE PATIENT WOULD LIKE TO PROCEED AND GIVE CONSENT TO PERFORMED THE PROCEDURE. THE PATIENT DENIES UNEXPLAINABLE WEIGHT LOSS, FEVER, CHILLS, OR NEW CHANGES IN URINARY OR BOWEL CONTROL DESCRIPTION OF PROCEDURE THE PATIENT WAS BROUGHT TO THE PROCEDURE ROOM AND PLACED IN THE PRONE POSITION. THE LUMBOSACRAL AREA WAS CLEANED WITH BETADINE SOLUTION AND DRAPED ASEPTICALLY. THE PROCEDURE WAS DONE UNDER STERILE CONDITIONS. I CHECKED LATERALITY AND THE LEVEL WHERE THE PROCEDURE WAS GOING TO BE PERFORMED WITH THE PATIENT AND THE SUPPORTING STAFF AT THE MOMENT OF THE TIME OUT IN THE PROCEDURE ROOM. UNDER FLUOROSCOPIC GUIDANCE, THE TARGET POINT WAS SELECTED AT THE INTERLAMINAR LEVEL OF L5-S1. LIDOCAINE WAS USED TO NUMB THE SKIN AND THE SUBCUTANEOUS TISSUE BELOW IT. EPIDURAL TUOHY NEEDLE, 17-GAUGE, WAS ADVANCED UNDER FLUOROSCOPIC GUIDANCE AND FOLLOWING PATIENT FEEDBACK UNTIL THE EPIDURAL SPACE WAS REACHED, 7 CM DEEP INTO THE SKIN BY THE LOSS OF RESISTANCE TECHNIQUE. ISOVUE M DYE 30%, 0.25 ML, WAS INJECTED SHOWING ADEQUATE SPREAD OF THE DYE. THEN, A SOLUTION OF 3 ML OF NORMAL SALINE WITH DEPO-MEDROL 60 MG WAS INJECTED SLOWLY FOLLOWING PATIENT FEEDBACK. THERE WAS NO EVIDENCE OF BLOOD, PARESTHESIA OR CEREBROSPINAL FLUID DURING THE PROCEDURE. THE PATIENT WAS SENT TO THE RECOVERY ROOM. THE PATIENT WAS MOVING THE EXTREMITIES AND DOING WELL. THERE WAS NO COMPLICATION DURING THE PROCEDURE. FLUOROSCOPY TIME WAS 8 SECONDS POST PROCEDURE NOTE THE PATIENT WILL BE SEEN IN A FOLLOW UP IN THE NEXT FEW WEEKS. INSTRUCTIONS WERE GIVEN, QUESTIONS WERE ANSWERED, AND THE PATIENT EXPRESSED UNDERSTANDING AND AGREES WITH THE PLAN. I, JERMAINE YORK, DOCUMENTED THE ABOVE INFORMATION ACTING A SCRIBE FOR DR. GAINES. I HAVE REVIEWED THE ABOVE DOCUMENT, WRITTEN BY JERMAINE YORK SCRIBE AND I VERIFY THAT IT IS [facility] DIAGNOST[facility] FLUORO GUIDE SPINE INJECTION (PAIN)[id number] PROCEDURE CODES 53475 LUMBAR/SACRAL W/ IMAGING 6045F RADXPS IN END [id number] PXD DISPOSITION & COMMUNICATION FOLLOW UP 3 WEEKS ELECTRONICALLY SIGNED BY MARILEE GAINES MD ON 12/30/2016 AT 10:51 AM EDT DISCLAIMER : THIS IS A VISIT SUMMARY EXTRACTED FROM THE [employer] CHART. IT IS NOT A COPY OF THE [employer] PROGRESS NOTE. MTDD
== END ==
LOC: M PAIN 11:00
PROVIDERS: ATTEND Anesthesiology
DX: G89.29 Other chronic pain (principal); M51.17 Intervertebral disc disorders with radiculopathy, lumbosacral region; J45.909 Unspecified asthma, uncomplicated; Z91.040 Latex allergy status; Z91.013 Allergy to seafood; Z91.018 Allergy to other foods; L23.81 Allergic contact dermatitis due to animal (cat) (dog) dander; Z79.51 Long term (current) use of inhaled steroids; Z79.1 Long term (current) use of non-steroidal anti-inflammatories (NSAID); Z79.891 Long term (current) use of opiate analgesic; Z79.899 Other long term (current) drug therapy

== ENCOUNTER → 2016-12-28 | Outpatient (CLI) | payer OTHER ==
[~2016-12-28] MED LIST changes: -ISOVUE-M 300 61% 15ML VIAL (Q9967) As Ordered ONE; -LIDOCAINE 1% SDV INJ 30 ML VIAL As Ordered ONE; -diazePAM 5 MG TAB As Ordered ONE; -methylPREDNISolone SUSP 40 MG/ML (DEPO-medrol) VIAL (J1030) As Ordered ONE; -oxyCODONE 5MG TAB As Ordered ONE
[2016-12-28 14:10] LABS: BASO % 0.4 % (0.0-1.0); EOS # 0.1 K/mm3 (0.0-0.50); EOS % 1.1 % (0.0-3.0); LYMPH # 2.8 K/mm3 (1.5-4.5); MEAN CORPUSCULAR HEMOGLOBIN 29.6 pg (27.0-33.0); MEAN CORPUSCULAR HGB CONC 33.1 g/dl (32.0-36.5); MEAN CORPUSCULAR VOLUME 89.2 fl (80.0-96.0); MONO # 0.6 K/mm3 (0.0-0.8); MONO % 5.4 % (0.0-5.0); NEUTROPHILS # 7.3 K/mm3 (1.8-7.7); NEUTROPHILS % 67.1 % (36.0-66.0); RED CELL DISTRIBUTION WIDTH 12.5 % (11.5-14.5); WHITE BLOOD COUNT 10.8 K/mm3 (4.0-10.0)
[2016-12-28 14:42] LABS: ALBUMIN 3.7 GM/DL (3.2-5.2); ALBUMIN/GLOBULIN RATIO 1.12 (1.00-1.93); ALKALINE PHOSPHATASE 87 U/L (45-117); ALT/SGPT 31 U/L (12-78); ANION GAP 6 MEQ/L (8-16); AST/SGOT 14 U/L (15-37); BILIRUBIN,TOTAL 0.4 MG/DL (0.2-1.0); BLOOD UREA NITROGEN 18 MG/DL (7-18); CALCIUM LEVEL 9.1 MG/DL (8.5-10.1); CARBON DIOXIDE LEVEL 28 MEQ/L (21-32); CHLORIDE LEVEL 107 MEQ/L (98-107); CHOLESTEROL LEVEL 177 MG/DL (<200); CREATININE FOR GFR 0.61 MG/DL (0.55-1.02); FERRITIN 144 NG/ML (8-252); GLOMERULAR FILTRATION RATE > 60.0 (>60); GLUCOSE, FASTING 78 MG/DL (70-105); POTASSIUM SERUM 4.4 MEQ/L (3.5-5.1); SODIUM LEVEL 141 MEQ/L (136-145); TRIGLYCERIDES LEVEL 88 MG/DL (<150)
== END ==
LOC: M LAB 13:10
PROVIDERS: ATTEND Physician Assistant Medical
DX: E78.2 Mixed hyperlipidemia (principal); D64.9 Anemia, unspecified; E55.9 Vitamin D deficiency, unspecified

== ENCOUNTER → 2017-01-03 | Outpatient (CLI) | payer OTHER ==
[~2017-01-03] MED LIST changes: +ORTHTAB14 PO; -ORTHTAB5 PO; +VITA1CAP40 PO; -VITA50003 PO
--- NOTE | 2017-01-04 00:39 | ECWPNPC ---
PATIENT NAME: ABEL COOMBS : 1985 GENDER: FEMALE VISIT DATE: 01/03/2017 DISCHARGE DATE: 01/03/17 1544 VISIT LOCKED DATE TIME: PHYSICIAN: CARTER JAIN RESOURCE: CARTER JAIN REASON FOR APPOINTMENT 1. POST PROCEDURE HISTORY OF PRESENT ILLNESS HISTORY OF PRESENT ILLNESS: HERE FOR FOLLOW UP OF CHRONIC LOW BACK PAIN.HAD LESI L5/S1 ON 12-20-16.REPORTS NO IMPROVEMENT AND SOME AGGREVATION IN PAIN.RATING PAIN VAS 7/10.PAIN HAS GOTTEN WORSE SINCE INJECTION.USING TRAMADOL,ROBAXIN AND IBUPROFEN WITHOUT MUCH IMPROVEMENT.DOES FIND CYMBALTA SOMEWHAT HELPFUL.DISCUSSED MEDICATION AND TREATMENT OPTIONS. PAIN THE PATIENT DESCRIBES THE PAIN... FALL RISK SCREENING: SCREENING :NO FALLS IN THE PAST YEAR CURRENT MEDICATIONS TAKING ALBUTEROL SULFATE HFA 108 (90 BASE) MCG/ACT AEROSOL SOLUTION 2 PUFFS NEEDED INHALATION EVERY 4 HRS TAKING SINGULAIR 10 MG TABLET 1 ORALLY ONCE A DAY TAKING BREO ELLIPTA 100-25 MCG/INH AEROSOL POWDER BREATH ACTIVATED 1 PUFF INHALATION ONCE A DAY TAKING VITAMIN D 40006 U TABLET ORALLY WEEKLY TAKING FERROUS SULFATE TABLET 3 ORALLY ONCE DAILY TAKING OMEPRAZOLE 10 MG CAPSULE DELAYED RELEASE 1 CAPSULE ORALLY ONCE A DAY TAKING ROBAXIN-750 750 MG TABLET 1 TABLET ORALLY BEFORE BEDTIME TAKING JULEBER 0.15-30 MG-MCG TABLET 1 TABLET ORALLY ONCE A DAY TAKING CYMBALTA 30 MG CAPSULE DELAYED RELEASE PARTICLES 1 CAPSULE ORALLY ONCE A DAY TAKING IBUPROFEN 600 MG TABLET 1 TABLET ORALLY THREE TIMES A DAY TAKING TRAMADOL HCL 50 MG TABLET 2 ORALLY TID MDD6 TAKING LISINOPRIL 10 MG TABLET 1 TABLET ORALLY ONCE A DAY NOT-TAKING PEPCID 20 MG TABLET 1 TABLET ORALLY DAILY NOT-TAKING ORTHO TRI-CYCLEN (28) 0.18/0.215/0.25 MG-35 MCG TABLET 1 TABLET ORALLY ONCE A DAY NOT-TAKING VALIUM 10 MG TABLET 2 ORALLY 2 TAB 1HR PRE PROC. MDD2 NOT-TAKING OXYCODONE-ACETAMINOPHEN 10-325 MG TABLET 2 ORALLY 2 TAB 1HR PRE PROFC. MDD2 NOT-TAKING KETOROLAC TROMETHAMINE 10 MG TABLET 1 TABLET NEEDED ORALLY EVERY 6 HRS NOT-TAKING HYDROCODONE-ACETAMINOPHEN 5-325 MG TABLET 1 TABLET NEEDED ORALLY EVERY 6 HRS NOT-TAKING ROBAXIN-750 750 MG TABLET 1 TABLET ORALLY EVERY 6 HRS NEEDED, NOTES: LAST WEEK NOT-TAKING LIDOCAINE 5 % OINTMENT 1 APPLICATION TO AFFECTED AREA NEEDED EXTERNALLY NEEDED, NOTES: 2 WEEKS AGO MEDICATION LIST REVIEWED AND RECONCILED WITH THE PATIENT PAST MEDICAL HISTORY ASTHMA SEASONAL ALLERGIES KIDNEY STONE CHRONIC BACK PAIN HTN ALLERGIES LATEX (FOR ALLERGY USE ONLY): RASH: ALLERGY LOBSTER AND CRABMEAT: DIARRHEA: ALLERGY COCONUT OIL: ANAPHYLAXIS: ALLERGY CATS, DOGS: EYES SWELL, ITCHY: ALLERGY SURGICAL HISTORY D & C 09/15 T & A 2010 TEETH EXTRACTION LEEP CERVICAL BIOPSY URETERAL STONE REMOVAL 01/14/2016 HOSPITALIZATION/MAJOR DIAGNOSTIC PROCEDURE [facility] [place]VIEW OF SYSTEMS REVIEWED BY: PROVIDER: CARTER LUNA . CONSTITUTIONAL: ANY CHANGE IN YOUR MEDICAL CONDITION? NO . CHILLS NO . FEVER NO . INFECTION: DO YOU HAVE NEW INFECTIONS? YES, TUESDAY N/V/D X 3 DAYS . DO YOU HAVE HISTORY OF MRSA? NO . MUSCULOSKELETAL: ANY NEW PATTERNS OF PAIN OR NUMBNESS? NO, PT STATES SHE HAD LESI ON 12/20/16. PT STATES PAIN PRE PROCEDURE WAS 11/17. PT STATES PAIN GOT WORSE POST PROCEDURE NOW 01/17. . GASTROENTEROLOGY: ANY NEW CHANGE IN BOWEL CONTROL? NO . GENITOURINARY: ANY NEW CHANGE IN BLADDER CONTROL? NO . IS THERE A CHANCE YOU COULD BE ? NO . HEMATOLOGY/LYMPH: DO YOU TAKE ANY BLOOD THINNERS? (FOR EXAMPLE- COUMADIN, PLAVIX, AGGRENOX, PLATEL, PRADAXA, OR XARELTO) NO . WHEN WAS YOUR LAST DOSE? DATE: TIME: . NEUROLOGY: HAVE YOU FALLEN IN THE PAST 6 MONTHS? NO . ANY NEW EXTREMITY NUMBNESS OR WEAKNESS? NO . CARDIOLOGY: DO YOU HAVE A PACEMAKER OR DEFIBRILLATOR? NO . RESPIRATORY: HAVE YOU BEEN SICK IN THE PAST WEEK? NO . FEVER NO . FLU LIKE SYMPTOMS? NO . COUGH NO . INTEGUMENTARY: DO YOU HAVE ANY RASHES OR OPEN SORES? NO . ALLERGIC/IMMUNO: ARE YOU ALLERGIC TO SHELLFISH OR IV DYE? YES, SHELLFISH . ANY NEW ALLERGIES? NO . PSYCHIATRIC: DO YOU HAVE THOUGHTS OF HURTING YOURSELF OR SOMEONE ELSE? NO . ARE YOU ABUSED, NEGLECTED, OR IN AN UNSAFE ENVIRONMENT? NO . ENDOCRINOLOGY: ARE YOU DIABETIC? NO . OTHER: DO YOU NEED ANY PRESCRIPTIONS? NO, NOT SURE . IF YES, PLEASE LIST: ____ . ANY NEW PROBLEMS WITH YOUR MEDICATIONS? NO . WHEN DID YOU LAST EAT? ____ . WHEN DID YOU LAST DRINK? ____ . WHAT DID YOU LAST DRINK? ____ . NAME OF PERSON DRIVING YOU HOME? ____ . DO YOU HAVE ANY OTHER QUESTIONS OR CONCERNS NO . VITAL SIGNS WT 199.6 LBS, HT 68 IN, BMI 30.35 INDEX, BP 140/68 MANUAL, HR 93 /MIN, RR 18 /MIN, TEMP 96.9 F, OXYGEN SAT % 98%, SAFE IN ENV? (Y/N) Y, NA INITIALS TL 1440, REVIEWED BY: EM. EXAMINATION GENERAL EXAMINATION: LUNGS:LUNG SOUNDS ARE CLEAR. HEART:HEART RATE REGULAR. MUSCULOSKELETAL:*, MUSCLE STRENGTH TESTING 5/5 BILATERAL LOWER EXTREMITIES.PALPATION:POSITIVE FOR PAIN OVER MID TO LOWER THORACIC SPINE WITH LIGHT PALPATION., TRIGGER POINTS:RIGHT LUMBAR PARASPINAL.. DIAGNOSTIC: MRI L/S SPINE -07-15-15-REVIEWED. ASSESSMENTS CHRONIC BILATERAL LOW BACK PAIN WITH RIGHT-SIDED SCIATICA - M54.41 (PRIMARY) TREATMENT CHRONIC BILATERAL LOW BACK PAIN WITH RIGHT-SIDED SCIATICA INCREASE CYMBALTA CAPSULE DELAYED RELEASE PARTICLES, 60 MG, 1 CAPSULE, ORALLY, ONCE A DAY, 30 DAY(S), 30 CAPSULE, REFILLS 2 REFILL ROBAXIN-750 TABLET, 750 MG, 1 TABLET, ORALLY, BEFORE BEDTIME, 30 DAY(S), 30, REFILLS 3 REFILL TRAMADOL HCL TABLET, 50 MG, 1-2, ORALLY, BID PRN MDD4, 30 DAY(S), 100, REFILLS 1 PROCEDURE CODES FA211 ESTABILISHED PATIENT [facility] CHARGE DISPOSITION & COMMUNICATION FOLLOW UP 6 WEEKS ELECTRONICALLY SIGNED BY JEREMY COREAS ON 01/03/2017 AT 04:23 PM EDT DISCLAIMER : THIS IS A VISIT SUMMARY EXTRACTED FROM THE [employer] CHART. IT IS NOT A COPY OF THE [employer] PROGRESS NOTE. CHARLIE
== END ==
LOC: M PAIN 14:20
PROVIDERS: ATTEND Nurse Practitioner Family
DX: G89.29 Other chronic pain (principal); M54.41 Lumbago with sciatica, right side; J45.909 Unspecified asthma, uncomplicated; J30.2 Other seasonal allergic rhinitis; I10 Essential (primary) hypertension; Z87.442 Personal history of urinary calculi; Z79.51 Long term (current) use of inhaled steroids; Z79.891 Long term (current) use of opiate analgesic; Z79.899 Other long term (current) drug therapy; Z91.040 Latex allergy status; Z91.013 Allergy to seafood

== ENCOUNTER → 2017-03-25 | Outpatient (CLI) | payer OTHER ==
--- NOTE | 2017-04-11 00:36 | ECWPNPC ---
PATIENT NAME: ABEL COOMBS : 1985 GENDER: FEMALE VISIT DATE: 03/25/2017 DISCHARGE DATE: 03/25/17 1610 VISIT LOCKED DATE TIME: PHYSICIAN: CARTER JAIN RESOURCE: CARTER JAIN REASON FOR APPOINTMENT 1. LOW BACK HISTORY OF PRESENT ILLNESS HISTORY OF PRESENT ILLNESS: HERE FOR FOLLOW UP OF CHRONIC LOW BACK PAIN.HAD LESI L5/S1 ON 12-20-16.REPORTED NO IMPROVEMENT AND SOME AGGREVATION IN PAIN.RATING PAIN VAS 5/10.USING TRAMADOL,ROBAXIN ,CYMBALTA AND IBUPROFEN WITH SOME IMPROVEMENT..DISCUSSED MEDICATION AND TREATMENT OPTIONS.DESCRIBES PAIN CONSTANT ACHING AND SORE. PAIN THE PATIENT DESCRIBES THE PAIN... THE PATIENT DESCRIBES THE PAIN... FALL RISK SCREENING: SCREENING :NO FALLS IN THE PAST YEAR CURRENT MEDICATIONS TAKING ALBUTEROL SULFATE HFA 108 (90 BASE) MCG/ACT AEROSOL SOLUTION 2 PUFFS NEEDED INHALATION EVERY 4 HRS TAKING SINGULAIR 10 MG TABLET 1 ORALLY ONCE A DAY TAKING BREO ELLIPTA 100-25 MCG/INH AEROSOL POWDER BREATH ACTIVATED 1 PUFF INHALATION ONCE A DAY TAKING VITAMIN D 37353 U TABLET ORALLY WEEKLY TAKING FERROUS SULFATE TABLET 3 ORALLY ONCE DAILY TAKING OMEPRAZOLE 10 MG CAPSULE DELAYED RELEASE 1 CAPSULE ORALLY ONCE A DAY TAKING JULEBER 0.15-30 MG-MCG TABLET 1 TABLET ORALLY ONCE A DAY TAKING LISINOPRIL 10 MG TABLET 1 TABLET ORALLY ONCE A DAY TAKING TRAMADOL HCL 50 MG TABLET 1-2 ORALLY Q 4 HRS PRN PAIN MDD=6 TAKING CYMBALTA 60 MG CAPSULE DELAYED RELEASE PARTICLES 1 CAPSULE ORALLY ONCE A DAY TAKING IBUPROFEN 600 MG TABLET 1 TABLET ORALLY THREE TIMES A DAY TAKING ROBAXIN-750 750 MG TABLET 1 TABLET ORALLY BEFORE BEDTIME NOT-TAKING PEPCID 20 MG TABLET 1 TABLET ORALLY DAILY NOT-TAKING ORTHO TRI-CYCLEN (28) 0.18/0.215/0.25 MG-35 MCG TABLET 1 TABLET ORALLY ONCE A DAY NOT-TAKING VALIUM 10 MG TABLET 2 ORALLY 2 TAB 1HR PRE PROC. MDD2 NOT-TAKING OXYCODONE-ACETAMINOPHEN 10-325 MG TABLET 2 ORALLY 2 TAB 1HR PRE PROFC. MDD2 NOT-TAKING KETOROLAC TROMETHAMINE 10 MG TABLET 1 TABLET NEEDED ORALLY EVERY 6 HRS NOT-TAKING HYDROCODONE-ACETAMINOPHEN 5-325 MG TABLET 1 TABLET NEEDED ORALLY EVERY 6 HRS NOT-TAKING ROBAXIN-750 750 MG TABLET 1 TABLET ORALLY EVERY 6 HRS NEEDED, NOTES: LAST WEEK NOT-TAKING LIDOCAINE 5 % OINTMENT 1 APPLICATION TO AFFECTED AREA NEEDED EXTERNALLY NEEDED, NOTES: 2 WEEKS AGO MEDICATION LIST REVIEWED AND RECONCILED WITH THE PATIENT PAST MEDICAL HISTORY ASTHMA SEASONAL ALLERGIES KIDNEY STONE CHRONIC BACK PAIN HTN ALLERGIES LATEX (FOR ALLERGY USE ONLY): RASH: ALLERGY LOBSTER AND CRABMEAT: DIARRHEA: ALLERGY COCONUT OIL: ANAPHYLAXIS: ALLERGY CATS, DOGS: EYES SWELL, ITCHY: ALLERGY SURGICAL HISTORY D & C 09/15 T & A 2010 TEETH EXTRACTION LEEP CERVICAL BIOPSY URETERAL STONE REMOVAL 01/14/2016 HOSPITALIZATION/MAJOR DIAGNOSTIC PROCEDURE [facility] REVIEW OF SYSTEMS REVIEWED BY: PROVIDER: CARTER LUNA . CONSTITUTIONAL: ANY CHANGE IN YOUR MEDICAL CONDITION? NO . CHILLS NO . FEVER NO . INFECTION: DO YOU HAVE NEW INFECTIONS? NO . DO YOU HAVE HISTORY OF MRSA? NO . MUSCULOSKELETAL: ANY NEW PATTERNS OF PAIN OR NUMBNESS? NO . GASTROENTEROLOGY: ANY NEW CHANGE IN BOWEL CONTROL? NO . GENITOURINARY: ANY NEW CHANGE IN BLADDER CONTROL? NO . IS THERE A CHANCE YOU COULD BE ? NO . HEMATOLOGY/LYMPH: DO YOU TAKE ANY BLOOD THINNERS? (FOR EXAMPLE- COUMADIN, PLAVIX, AGGRENOX, PLATEL, PRADAXA, OR XARELTO) NO . WHEN WAS YOUR LAST DOSE? DATE: TIME: . NEUROLOGY: HAVE YOU FALLEN IN THE PAST 6 MONTHS? NO . ANY NEW EXTREMITY NUMBNESS OR WEAKNESS? NO . CARDIOLOGY: DO YOU HAVE A PACEMAKER OR DEFIBRILLATOR? NO . RESPIRATORY: HAVE YOU BEEN SICK IN THE PAST WEEK? NO . FEVER NO . FLU LIKE SYMPTOMS? NO . COUGH NO . INTEGUMENTARY: DO YOU HAVE ANY RASHES OR OPEN SORES? NO . ALLERGIC/IMMUNO: ARE YOU ALLERGIC TO SHELLFISH OR IV DYE? YES, SHELLFISH . ANY NEW ALLERGIES? NO . PSYCHIATRIC: DO YOU HAVE THOUGHTS OF HURTING YOURSELF OR SOMEONE ELSE? NO . ARE YOU ABUSED, NEGLECTED, OR IN AN UNSAFE ENVIRONMENT? NO . ENDOCRINOLOGY: ARE YOU DIABETIC? NO . OTHER: DO YOU NEED ANY PRESCRIPTIONS? NO, PT HAS QUESTIONS ON FREQUENCY OF TRAMADOL . IF YES, PLEASE LIST: ____ . ANY NEW PROBLEMS WITH YOUR MEDICATIONS? NO . WHEN DID YOU LAST EAT? ____ . WHEN DID YOU LAST DRINK? ____ . WHAT DID YOU LAST DRINK? ____ . NAME OF PERSON DRIVING YOU HOME? ____ . DO YOU HAVE ANY OTHER QUESTIONS OR CONCERNS NO . VITAL SIGNS WT 203 LBS, HT 68 IN, BMI 30.86 INDEX, BP 131/76 MM HG, HR 80 /MIN, RR 16 /MIN, TEMP 97.7 F, OXYGEN SAT % 96, REVIEWED BY: EM. EXAMINATION GENERAL EXAMINATION: LUNGS:LUNG SOUNDS ARE CLEAR. HEART:HEART RATE REGULAR. MUSCULOSKELETAL:*, MUSCLE STRENGTH TESTING 5/5 BILATERAL LOWER EXTREMITIES.PALPATION:POSITIVE FOR PAIN OVER MID TO LOWER THORACIC SPINE WITH LIGHT PALPATION., TRIGGER POINTS:RIGHT LUMBAR PARASPINAL.. DIAGNOSTIC: MRI L/S SPINE -07-15-15-REVIEWED. ASSESSMENTS CHRONIC BILATERAL LOW BACK PAIN WITH RIGHT-SIDED SCIATICA - M54.41 (PRIMARY) TREATMENT CHRONIC BILATERAL LOW BACK PAIN WITH RIGHT-SIDED SCIATICA REFILL TRAMADOL HCL TABLET, 50 MG, 1-2, ORALLY, BID MDD4, 30 DAY(S), 120, REFILLS 2 REFILL CYMBALTA CAPSULE DELAYED RELEASE PARTICLES, 60 MG, 1 CAPSULE, ORALLY, ONCE A DAY, 30 DAY(S), 30 CAPSULE, REFILLS 2 REFILL IBUPROFEN TABLET, 600 MG, 1 TABLET, ORALLY, THREE TIMES A DAY, 30 DAY(S), 90 TABLET, REFILLS 1 REFILL ROBAXIN-750 TABLET, 750 MG, 1 TABLET, ORALLY, BEFORE BEDTIME, 30 DAY(S), 30, REFILLS 3 PROCEDURE CODES FA211 ESTABILISHED PATIENT [facility] CHARGE DISPOSITION & COMMUNICATION FOLLOW UP 2 MONTHS ELECTRONICALLY SIGNED BY JEREMY COREAS ON 04/10/2017 AT 08:46 PM EDT DISCLAIMER : THIS IS A VISIT SUMMARY EXTRACTED FROM THE [employer] CHART. IT IS NOT A COPY OF THE [employer] PROGRESS NOTE. CHARLIE
== END ==
LOC: M PAIN 14:45
PROVIDERS: ATTEND Nurse Practitioner Family
DX: G89.29 Other chronic pain (principal); M54.41 Lumbago with sciatica, right side; J45.909 Unspecified asthma, uncomplicated; I10 Essential (primary) hypertension; Z91.040 Latex allergy status; Z91.013 Allergy to seafood; L23.81 Allergic contact dermatitis due to animal (cat) (dog) dander; Z91.048 Other nonmedicinal substance allergy status; Z79.51 Long term (current) use of inhaled steroids; Z79.891 Long term (current) use of opiate analgesic; Z79.1 Long term (current) use of non-steroidal anti-inflammatories (NSAID); Z79.899 Other long term (current) drug therapy

== ENCOUNTER → 2017-05-25 | Outpatient (CLI) | payer OTHER ==
--- NOTE | 2017-06-17 01:22 | ECWPNPC ---
PATIENT NAME: ABEL COOMBS : 1985 GENDER: FEMALE VISIT DATE: 05/25/2017 DISCHARGE DATE: 05/25/17 1348 VISIT LOCKED DATE TIME: PHYSICIAN: CARTER JAIN RESOURCE: CARTER JAIN REASON FOR APPOINTMENT 1. LOW BACK HISTORY OF PRESENT ILLNESS HISTORY OF PRESENT ILLNESS: HERE FOR FOLLOW UP OF CHRONIC LOW BACK PAIN.HAD LESI L5/S1 ON 12-20-16.REPORTED NO IMPROVEMENT AND SOME AGGREVATION IN PAIN.RATING PAIN VAS 7/10.USING TRAMADOL,ROBAXIN ,CYMBALTA AND IBUPROFEN WITH SOME IMPROVEMENT..DISCUSSED MEDICATION AND TREATMENT OPTIONS.DESCRIBES PAIN CONSTANT ACHING AND SORE. PAIN THE PATIENT DESCRIBES THE PAIN... THE PATIENT DESCRIBES THE PAIN... THE PATIENT DESCRIBES THE PAIN... FALL RISK SCREENING: SCREENING :NO FALLS IN THE PAST YEAR CURRENT MEDICATIONS TAKING ALBUTEROL SULFATE HFA 108 (90 BASE) MCG/ACT AEROSOL SOLUTION 2 PUFFS NEEDED INHALATION EVERY 4 HRS TAKING SINGULAIR 10 MG TABLET 1 ORALLY ONCE A DAY TAKING BREO ELLIPTA 100-25 MCG/INH AEROSOL POWDER BREATH ACTIVATED 1 PUFF INHALATION ONCE A DAY TAKING VITAMIN D 00292 U TABLET ORALLY WEEKLY TAKING FERROUS SULFATE TABLET 3 ORALLY ONCE DAILY TAKING OMEPRAZOLE 10 MG CAPSULE DELAYED RELEASE 1 CAPSULE ORALLY ONCE A DAY TAKING JULEBER 0.15-30 MG-MCG TABLET 1 TABLET ORALLY ONCE A DAY TAKING LISINOPRIL 10 MG TABLET 1 TABLET ORALLY ONCE A DAY TAKING TRAMADOL HCL 50 MG TABLET 1-2 ORALLY BID MDD4 TAKING CYMBALTA 60 MG CAPSULE DELAYED RELEASE PARTICLES 1 CAPSULE ORALLY ONCE A DAY TAKING IBUPROFEN 600 MG TABLET 1 TABLET ORALLY THREE TIMES A DAY TAKING ROBAXIN-750 750 MG TABLET 1 TABLET ORALLY BEFORE BEDTIME DISCONTINUED PEPCID 20 MG TABLET 1 TABLET ORALLY DAILY DISCONTINUED ORTHO TRI-CYCLEN (28) 0.18/0.215/0.25 MG-35 MCG TABLET 1 TABLET ORALLY ONCE A DAY DISCONTINUED VALIUM 10 MG TABLET 2 ORALLY 2 TAB 1HR PRE PROC. MDD2 DISCONTINUED OXYCODONE-ACETAMINOPHEN 10-325 MG TABLET 2 ORALLY 2 TAB 1HR PRE PROFC. MDD2 DISCONTINUED KETOROLAC TROMETHAMINE 10 MG TABLET 1 TABLET NEEDED ORALLY EVERY 6 HRS DISCONTINUED HYDROCODONE-ACETAMINOPHEN 5-325 MG TABLET 1 TABLET NEEDED ORALLY EVERY 6 HRS DISCONTINUED ROBAXIN-750 750 MG TABLET 1 TABLET ORALLY EVERY 6 HRS NEEDED, NOTES: LAST WEEK DISCONTINUED LIDOCAINE 5 % OINTMENT 1 APPLICATION TO AFFECTED AREA NEEDED EXTERNALLY NEEDED, NOTES: 2 WEEKS AGO MEDICATION LIST REVIEWED AND RECONCILED WITH THE PATIENT PAST MEDICAL HISTORY ASTHMA SEASONAL ALLERGIES KIDNEY STONE CHRONIC BACK PAIN HTN SPINAL STENOSIS CHRONIC LBP ALLERGIES LATEX (FOR ALLERGY USE ONLY): RASH: ALLERGY LOBSTER AND CRABMEAT: DIARRHEA: ALLERGY COCONUT OIL: ANAPHYLAXIS: ALLERGY CATS, DOGS: EYES SWELL, ITCHY: ALLERGY SURGICAL HISTORY D & C 09/15 T & A 2010 TEETH EXTRACTION LEEP CERVICAL BIOPSY URETERAL STONE REMOVAL 01/14/2016 SOCIAL HISTORY GENERAL: TOBACCO USE ARE YOU A:NONSMOKER LATTER DAY [id number] OTHER LANGUAGE LANGUAGES SPOKEN:[place] EDUCATION LEVEL OF EDUCATION:NOT FINISHED HIGH SCHOOL LEARNING BARRIERS / SPECIAL NEEDS BARRIERS TO LEARNING?NO HEARING IMPAIRED?NO VISION IMPAIRED?YES :CORRECTIVE LENSES COGNITIVELY IMPAIRED?NO READINESS TO LEARN?YES LEARNING PREFERENCES?YES :BOOKLETS, HANDOUTS SPECIAL DEVICES?NO PAIN CLINIC PFS, CLERGY, PUBLIC HEALTH REFERRALS PFS REFERRAL NEEDED?NO CLERGY REFERRAL NEEDED?NO PUBLIC HEALTH REFERRAL NEEDED?NO WAS THE PROVIDER NOTIFIED OF ANY PERTINENT INFO?NO HAS THE PATIENT BEEN EDUCATED REGARDING HIS/HER PLAN OF CARE?YES HAS THE PATIENT BEEN EDUCATED REGARDING PAIN, THE RISK FOR PAIN, THE IMPORTANCE OF EFFECTIVE PAIN MANAGEMENT, AND THE PAIN ASSESSMENT PROCESS?YES PATIENT: ____. ADVANCE DIRECTIVES HEALTH CARE PROXY?NO DO YOU HAVE A DNR?NO LIVING WILL?NO POWER OF BUS WASHER?NO M. HOSPITALIZATION/MAJOR DIAGNOSTIC PROCEDURE [facility] REVIEW OF SYSTEMS REVIEWED BY: PROVIDER: CARTER LUNA . CONSTITUTIONAL: ANY CHANGE IN YOUR MEDICAL CONDITION? NO . CHILLS NO . FEVER NO . INFECTION: DO YOU HAVE NEW INFECTIONS? NO . DO YOU HAVE HISTORY OF MRSA? NO . MUSCULOSKELETAL: ANY NEW PATTERNS OF PAIN OR NUMBNESS? NO . GASTROENTEROLOGY: ANY NEW CHANGE IN BOWEL CONTROL? NO . GENITOURINARY: ANY NEW CHANGE IN BLADDER CONTROL? NO . IS THERE A CHANCE YOU COULD BE ? NO . HEMATOLOGY/LYMPH: DO YOU TAKE ANY BLOOD THINNERS? (FOR EXAMPLE- COUMADIN, PLAVIX, AGGRENOX, PLATEL, PRADAXA, OR XARELTO) NO . WHEN WAS YOUR LAST DOSE? DATE: TIME: . NEUROLOGY: HAVE YOU FALLEN IN THE PAST 6 MONTHS? NO . ANY NEW EXTREMITY NUMBNESS OR WEAKNESS? NO . CARDIOLOGY: DO YOU HAVE A PACEMAKER OR DEFIBRILLATOR? NO . RESPIRATORY: HAVE YOU BEEN SICK IN THE PAST WEEK? YES, RESOLVING . FEVER NO . FLU LIKE SYMPTOMS? NO . COUGH NO . INTEGUMENTARY: DO YOU HAVE ANY RASHES OR OPEN SORES? NO . ALLERGIC/IMMUNO: ARE YOU ALLERGIC TO SHELLFISH OR IV DYE? YES, SHELLFISH . ANY NEW ALLERGIES? NO . PSYCHIATRIC: DO YOU HAVE THOUGHTS OF HURTING YOURSELF OR SOMEONE ELSE? NO . ARE YOU ABUSED, NEGLECTED, OR IN AN UNSAFE ENVIRONMENT? NO . ENDOCRINOLOGY: ARE YOU DIABETIC? NO . OTHER: DO YOU NEED ANY PRESCRIPTIONS? YES, TRAMADOL . IF YES, PLEASE LIST: ____ . ANY NEW PROBLEMS WITH YOUR MEDICATIONS? NO . WHEN DID YOU LAST EAT? ____ . WHEN DID YOU LAST DRINK? ____ . WHAT DID YOU LAST DRINK? ____ . NAME OF PERSON DRIVING YOU HOME? ____ . DO YOU HAVE ANY OTHER QUESTIONS OR CONCERNS NO, PT DENIES RECEIVING FLU VACCINE THIS SEASON, NOR DOES SHE PLAN TO. DISCUSSED AVOIDING FLU SHOT WITHIN 1 MONTH OF PROCEDURES WITH US . VITAL SIGNS WT 212.0 LBS, HT 68 IN, BMI 32.23 INDEX, BP 148/95 MM HG, HR 97 /MIN, RR 16 /MIN, TEMP 97.3 F, OXYGEN SAT % 98%, NA INITIALS TL 1318, REVIEWED BY: EM. EXAMINATION GENERAL EXAMINATION: LUNGS:LUNG SOUNDS ARE CLEAR. HEART:HEART RATE REGULAR. MUSCULOSKELETAL:*, MUSCLE STRENGTH TESTING 5/5 BILATERAL LOWER EXTREMITIES.PALPATION:POSITIVE FOR PAIN OVER MID TO LOWER THORACIC SPINE WITH LIGHT PALPATION., TRIGGER POINTS:RIGHT LUMBAR PARASPINAL.. DIAGNOSTIC: MRI L/S SPINE -07-15-15-REVIEWED. ASSESSMENTS CHRONIC BILATERAL LOW BACK PAIN WITH RIGHT-SIDED SCIATICA - M54.41 (PRIMARY) MYALGIA - M79.1 TREATMENT CHRONIC BILATERAL LOW BACK PAIN WITH RIGHT-SIDED SCIATICA REFILL TRAMADOL HCL TABLET, 50 MG, 1-2, ORALLY, BID MDD4, 30 DAY(S), 120, REFILLS 2 CONTINUE CYMBALTA CAPSULE DELAYED RELEASE PARTICLES, 60 MG, 1 CAPSULE, ORALLY, ONCE A DAY CONTINUE IBUPROFEN TABLET, 600 MG, 1 TABLET, ORALLY, THREE TIMES A DAY CONTINUE ROBAXIN-750 TABLET, 750 MG, 1 TABLET, ORALLY, BEFORE BEDTIME NOTES: PT 2XWK X 6WK FOR MYOFASCIAL RELEASE. PROCEDURE CODES FA211 ESTABILISHED PATIENT [facility] CHARGE DISPOSITION & COMMUNICATION FOLLOW UP 2 MONTHS ELECTRONICALLY SIGNED BY JEREMY COREAS ON 06/16/2017 AT 09:13 AM EST DISCLAIMER : THIS IS A VISIT SUMMARY EXTRACTED FROM THE [employer] CHART. IT IS NOT A COPY OF THE [employer] PROGRESS NOTE. CHARLIE
== END ==
LOC: M PAIN 13:00
PROVIDERS: ATTEND Nurse Practitioner Family
DX: M54.41 Lumbago with sciatica, right side (principal); M79.1 Myalgia; G89.29 Other chronic pain; I10 Essential (primary) hypertension; J45.909 Unspecified asthma, uncomplicated; Z79.899 Other long term (current) drug therapy; Z79.891 Long term (current) use of opiate analgesic; Z91.040 Latex allergy status; Z91.013 Allergy to seafood; Z91.018 Allergy to other foods

== ENCOUNTER 2017-06-06 13:24 | Outpatient (RCR) | payer OTHER | END 2017-06-09 | LOC: M PT 13:24 | PROVIDERS: ATTEND Nurse Practitioner Family | DX: Z51.89 Encounter for other specified aftercare (principal); M54.41 Lumbago with sciatica, right side; M79.1 Myalgia ==

== ENCOUNTER 2017-06-15 13:53 | Outpatient (RCR) | payer OTHER | END 2017-07-10 | LOC: M PT 13:53 | DX: Z51.89 Encounter for other specified aftercare (principal); M54.41 Lumbago with sciatica, right side; M79.1 Myalgia | CPT/HCPCS: 97110 ==

== ENCOUNTER → 2017-07-25 | Outpatient (CLI) | payer OTHER ==
[2017-07-25 16:27] LABS: BASO # 0.1 10^3/uL (0.0-0.2); BASO % 0.5 % (0.0-1.0); EOS # 0.1 10^3/uL (0.0-0.50); EOS % 1.1 % (0.0-3.0); HEMATOCRIT 38.3 % (36.0-47.0); HEMOGLOBIN 12.6 g/dl (12.0-16.0); IMMATURE GRANULOCYTE # 0.1 10^3/uL (0-0); IMMATURE GRANULOCYTE % 0.4 % (0-0); LYMPH # 2.6 10^3/uL (1.5-4.5); LYMPH % 21.9 % (24.0-44.0); MEAN CORPUSCULAR HEMOGLOBIN 29.2 pg (27.0-33.0); MEAN CORPUSCULAR HGB CONC 32.9 g/dl (32.0-36.5); MEAN CORPUSCULAR VOLUME 88.7 fl (80.0-96.0); MONO # 0.9 10^3/uL (0.0-0.8); MONO % 7.2 % (0.0-5.0); NEUTROPHILS # 8.1 10^3/uL (1.8-7.7); NEUTROPHILS % 68.9 % (36.0-66.0); PLATELET COUNT, AUTOMATED 267 10^3/uL (150-450); RED BLOOD COUNT 4.32 10^6/uL (4.00-5.40); RED CELL DISTRIBUTION WIDTH 12.6 % (11.5-14.5); WHITE BLOOD COUNT 11.7 10^3/uL (4.0-10.0)
[2017-07-25 18:07] LABS: ALBUMIN 3.8 GM/DL (3.2-5.2); ALBUMIN/GLOBULIN RATIO 1.09 (1.00-1.93); ALKALINE PHOSPHATASE 73 U/L (45-117); ALT/SGPT 29 U/L (12-78); ANION GAP 7 MEQ/L (8-16); AST/SGOT 15 U/L (7-37); BILIRUBIN,TOTAL 0.3 MG/DL (0.2-1.0); BLOOD UREA NITROGEN 15 MG/DL (7-18); CALCIUM LEVEL 8.8 MG/DL (8.5-10.1); CARBON DIOXIDE LEVEL 24 MEQ/L (21-32); CHLORIDE LEVEL 107 MEQ/L (98-107); CHOLESTEROL LEVEL 167 MG/DL (<200); CHOLESTEROL RISK RATIO 3.036 (<5); CREATININE FOR GFR 0.57 MG/DL (0.55-1.02); GLOMERULAR FILTRATION RATE > 60.0 (>60); GLUCOSE, FASTING 109 MG/DL (70-105); HDL CHOLESTEROL 55 MG/DL (>40); LDL CHOLESTEROL 78.8 MG/DL (<100); NON-HDL-C 112 MG/DL; POTASSIUM SERUM 3.9 MEQ/L (3.5-5.1); SODIUM LEVEL 138 MEQ/L (136-145); THYROID STIMULATING HORMONE 0.632 uIU/ML (0.358-3.740); TOTAL PROTEIN 7.3 GM/DL (6.4-8.2); TRIGLYCERIDES LEVEL 166 MG/DL (<150)
== END ==
LOC: M LAB 15:30
DX: I10 Essential (primary) hypertension (principal)
CPT/HCPCS: 84443

== ENCOUNTER → 2017-07-25 | Outpatient (CLI) | payer OTHER | LOC: M PAIN 14:00 | DX: G89.29 Other chronic pain (principal); M46.1 Sacroiliitis, not elsewhere classified; M54.41 Lumbago with sciatica, right side; M79.1 Myalgia; J45.909 Unspecified asthma, uncomplicated; I10 Essential (primary) hypertension; M48.00 Spinal stenosis, site unspecified; Z79.51 Long term (current) use of inhaled steroids; Z79.891 Long term (current) use of opiate analgesic; Z79.1 Long term (current) use of non-steroidal anti-inflammatories (NSAID); Z79.899 Other long term (current) drug therapy; Z91.018 Allergy to other foods; Z91.040 Latex allergy status; Z91.013 Allergy to seafood | CPT/HCPCS: G0463 ==

== ENCOUNTER → 2017-08-09 | Outpatient (CLI) | payer OTHER ==
[~2017-08-09] MED LIST changes: -ALBU17IN INH; -ALBU17IN2; -BREO1INH IN; +BUPIVACAINE HCL 0.25% 30 ML VIAL As Ordered; -CYMB1CAP4 PO; -FERR325T3 PO; +ISOVUE-M 300 61% 15ML VIAL (Q9967) As Ordered; +LIDOCAINE 1% SDV INJ 30 ML VIAL As Ordered; -METH75TA PO; -NEUR300C PO; -NORC1TAB4 PO; -OMEP40CA2 PO; -ONDA4TAB6 PO; -ORTHTAB14 PO; -PEPC1TAB2 PO; -SING10TA32 PO; -TAMS0.4C2 PO; -TRAM50TA2 PO; +TRIAMCINOLONE ACETONIDE SUSP 40 MG/ML VIAL (J3301) As Ordered; -VITA1CAP40 PO; +diazePAM 5 MG TAB As Ordered; +oxyCODONE 5MG TAB As Ordered
== END ==
LOC: M PAIN 10:00
DX: G89.29 Other chronic pain (principal); M46.1 Sacroiliitis, not elsewhere classified; J45.909 Unspecified asthma, uncomplicated; I10 Essential (primary) hypertension; M54.5 Low back pain; Z91.040 Latex allergy status; Z91.013 Allergy to seafood; Z91.048 Other nonmedicinal substance allergy status; Z79.891 Long term (current) use of opiate analgesic; Z79.899 Other long term (current) drug therapy
CPT/HCPCS: J3301

== ENCOUNTER 2017-09-03 09:23 | Emergency (ER) | payer OTHER ==
[2017-09-03] MEDS: LIDOCAINE 1% MDV 20ML VIAL SC (10:03)
[2017-09-03] MEDS: ADACEL/BOOSTRIX VACCINE (DIPHTH/PERTUSS/ACELL/TETANUS)0.5ML SYR (90715) IM (10:04)
[2017-09-03] MEDS: IBUPROFEN 800 MG TAB PO (10:43)
== END 2017-09-03 11:04 | disposition home or self-care (01) ==
LOC: M ED 09:23
DX: S61.012A Laceration without foreign body of left thumb without damage to nail, initial encounter (principal); I10 Essential (primary) hypertension; M79.645 Pain in left finger(s); W26.8XXA Contact with other sharp object(s), not elsewhere classified, initial encounter; Y92.9 Unspecified place or not applicable; Y93.9 Activity, unspecified; Y99.0 Civilian activity done for income or pay; J45.909 Unspecified asthma, uncomplicated; K21.9 Gastro-esophageal reflux disease without esophagitis; Z87.442 Personal history of urinary calculi; Z79.899 Other long term (current) drug therapy; Z79.3 Long term (current) use of hormonal contraceptives; Z91.018 Allergy to other foods; Z91.013 Allergy to seafood; Z91.040 Latex allergy status
CPT/HCPCS: 90715

== ENCOUNTER 2017-09-12 13:54 | Emergency (ER) | payer OTHER | END 2017-09-12 16:00 | disposition home or self-care (01) | LOC: M ED 13:54 | DX: Z48.02 Encounter for removal of sutures (principal) | CPT/HCPCS: 99284 ==

== ENCOUNTER 2017-09-14 20:23 | Emergency (ER) | payer OTHER | END 2017-09-14 23:20 | disposition home or self-care (01) | LOC: M ED 20:23 | DX: A08.4 Viral intestinal infection, unspecified (principal) | CPT/HCPCS: 99283 ==

== ENCOUNTER 2017-12-28 08:00 | Emergency (ER) | payer OTHER ==
[2017-12-28] MEDS: ONDANSETRON 4MG/2ML VIAL (J2405) IV (09:25)
[2017-12-28] MEDS: NS 1,000 ML IV (09:25)
[2017-12-28 09:36] LABS: BASO # 0.1 10^3/uL (0.0-0.2); BASO % 0.6 % (0.0-1.0); EOS # 0.1 10^3/uL (0.0-0.50); EOS % 1.1 % (0.0-3.0); HEMATOCRIT 45.1 % (36.0-47.0); HEMOGLOBIN 14.6 g/dl (12.0-15.5); IMMATURE GRANULOCYTE % 0.5 % (0-3.0); LYMPH # 2.5 10^3/uL (1.5-4.5); LYMPH % 25.5 % (24.0-44.0); MEAN CORPUSCULAR HEMOGLOBIN 28.5 pg (27.0-33.0); MEAN CORPUSCULAR HGB CONC 32.4 g/dl (32.0-36.5); MEAN CORPUSCULAR VOLUME 88.1 fl (80.0-96.0); MONO # 0.8 10^3/uL (0.0-0.8); MONO % 7.6 % (0.0-5.0); NEUTROPHILS # 6.4 10^3/uL (1.8-7.7); NEUTROPHILS % 64.7 % (36.0-66.0); PLATELET COUNT, AUTOMATED 282 10^3/uL (150-450); RED BLOOD COUNT 5.12 10^6/uL (4.00-5.40); RED CELL DISTRIBUTION WIDTH 12.9 % (11.5-14.5)
[2017-12-28 09:42] LABS: KETONE, URINE AUTO RFX TRACE mg/dL (NEGATIVE); LEUKOCYTE ESTERASE UR AUTO RFX NEGATIVE (NEGATIVE); MUCUS, URINE RFX MODERATE (NEGATIVE); NITRITE, URINE AUTO RFX NEGATIVE (NEGATIVE); RBC, URINE AUTO RFX 4 /HPF (0-3); SPECIFIC GRAVITY UR AUTO RFX 1.048 (1.002-1.035); SQUAM EPITHELIAL CELL UR AURFX 2 /HPF (0-6); WBC, URINE AUTO RFX 2 /HPF (0-3)
[2017-12-28 09:46] LABS: CONTROL LINE HCG INT CTR LINE PRESENT; HCG, SERUM QUALITATIVE POSITIVE (NEGATIVE)
[2017-12-28 09:53] LABS: ALBUMIN 3.9 GM/DL (3.2-5.2); ALBUMIN/GLOBULIN RATIO 0.85 (1.00-1.93); ALKALINE PHOSPHATASE 90 U/L (45-117); ALT/SGPT 53 U/L (12-78); AMYLASE 35 U/L (25-115); ANION GAP 10 MEQ/L (8-16); AST/SGOT 18 U/L (7-37); BILIRUBIN,DIRECT < 0.1 MG/DL (0.0-0.2); BILIRUBIN,TOTAL 0.4 MG/DL (0.2-1.0); BLOOD UREA NITROGEN 18 MG/DL (7-18); CARBON DIOXIDE LEVEL 27 MEQ/L (21-32); CHLORIDE LEVEL 104 MEQ/L (98-107); CREATININE FOR GFR 0.78 MG/DL (0.55-1.30); GLOMERULAR FILTRATION RATE > 60.0 (>60); GLUCOSE, FASTING 98 MG/DL (70-100); LIPASE 123 U/L (73-393); SODIUM LEVEL 141 MEQ/L (136-145); TOTAL PROTEIN 8.5 GM/DL (6.4-8.2)
[2017-12-28 11:13] LABS: HCG, SERUM QUANTITATIVE 31 MIU/ML
== END 2017-12-28 12:28 | disposition home or self-care (01) ==
LOC: M ED 08:00
DX: R11.2 Nausea with vomiting, unspecified (principal); R19.7 Diarrhea, unspecified; Z32.01 Encounter for pregnancy test, result positive; R93.5 Abnormal findings on diagnostic imaging of other abdominal regions, including retroperitoneum; Z91.018 Allergy to other foods; Z91.040 Latex allergy status; Z91.013 Allergy to seafood
CPT/HCPCS: J2405

== ENCOUNTER → 2017-12-30 | Outpatient (CLI) | payer OTHER ==
[2017-12-30 11:33] LABS: HCG, SERUM QUANTITATIVE 17 MIU/ML
== END ==
LOC: M LAB 10:28
DX: R10.9 Unspecified abdominal pain (principal)
CPT/HCPCS: 84702

== ENCOUNTER 2017-12-31 08:29 | Emergency (ER) | payer OTHER ==
[2017-12-31] MEDS: NS 1,000 ML IV (09:11)
[2017-12-31 09:15] LABS: HEMATOCRIT 41.8 % (36.0-47.0); HEMOGLOBIN 13.6 g/dl (12.0-15.5); MEAN CORPUSCULAR HEMOGLOBIN 28.5 pg (27.0-33.0); MEAN CORPUSCULAR HGB CONC 32.5 g/dl (32.0-36.5); MEAN CORPUSCULAR VOLUME 87.4 fl (80.0-96.0); PLATELET COUNT, AUTOMATED 303 10^3/uL (150-450); RED BLOOD COUNT 4.78 10^6/uL (4.00-5.40); RED CELL DISTRIBUTION WIDTH 12.9 % (11.5-14.5); WHITE BLOOD COUNT 10.7 10^3/uL (4.0-10.0)
[2017-12-31 09:31] LABS: KETONE, URINE AUTO RFX NEGATIVE (NEGATIVE); LEUKOCYTE ESTERASE UR AUTO RFX NEGATIVE (NEGATIVE); MUCUS, URINE RFX SMALL (NEGATIVE); NITRITE, URINE AUTO RFX NEGATIVE (NEGATIVE); RBC, URINE AUTO RFX 4 /HPF (0-3); SPECIFIC GRAVITY UR AUTO RFX 1.027 (1.002-1.035); SQUAM EPITHELIAL CELL UR AURFX 3 /HPF (0-6); WBC, URINE AUTO RFX 2 /HPF (0-3)
[2017-12-31 09:43] LABS: HCG, SERUM QUANTITATIVE 8 MIU/ML
== END 2017-12-31 11:04 | disposition home or self-care (01) ==
LOC: M ED 08:29
DX: O03.9 Complete or unspecified spontaneous abortion without complication (principal); I10 Essential (primary) hypertension; K21.9 Gastro-esophageal reflux disease without esophagitis; Z87.442 Personal history of urinary calculi; J45.909 Unspecified asthma, uncomplicated; Z79.3 Long term (current) use of hormonal contraceptives; Z79.899 Other long term (current) drug therapy; Z91.013 Allergy to seafood; Z91.040 Latex allergy status; Z91.018 Allergy to other foods
CPT/HCPCS: 76801

== ENCOUNTER 2018-01-22 18:15 | Emergency (ER) | payer OTHER | END 2018-01-22 19:42 | disposition home or self-care (01) | LOC: M ED 18:15 | DX: Z76.0 Encounter for issue of repeat prescription (principal); I10 Essential (primary) hypertension; J45.909 Unspecified asthma, uncomplicated; K21.9 Gastro-esophageal reflux disease without esophagitis; D64.9 Anemia, unspecified; Z79.899 Other long term (current) drug therapy | CPT/HCPCS: 99282 ==

== ENCOUNTER 2018-05-19 06:27 | Emergency (ER) | payer OTHER ==
[2018-05-19] MEDS: IPRATROPIUM 0.5MG/ALBUTEROL 2.5MG INH SOL UD 3ML (DUONEB)(J7620) NEB (07:01)
== END 2018-05-19 07:39 | disposition home or self-care (01) ==
LOC: M ED 06:27
DX: J06.9 Acute upper respiratory infection, unspecified (principal); H66.92 Otitis media, unspecified, left ear; I10 Essential (primary) hypertension; J45.909 Unspecified asthma, uncomplicated; K21.9 Gastro-esophageal reflux disease without esophagitis; D64.9 Anemia, unspecified; M54.9 Dorsalgia, unspecified; Z87.442 Personal history of urinary calculi; Z91.018 Allergy to other foods; Z91.013 Allergy to seafood; Z91.040 Latex allergy status; Z79.899 Other long term (current) drug therapy
CPT/HCPCS: 71046

== ENCOUNTER → 2018-07-12 | Outpatient (CLI) | payer OTHER ==
[~2018-07-12] MED LIST changes: +ALBU17IN INH; +ALBU17IN2; +ALBU83IN NEB; +AMOX500C PO; +BREO1INH IN; +BREO1INH PO; -BUPIVACAINE HCL 0.25% 30 ML VIAL As Ordered; +CYMB1CAP4 PO; +FERR325T3 PO; -ISOVUE-M 300 61% 15ML VIAL (Q9967) As Ordered; +JULE1TAB; -LIDOCAINE 1% SDV INJ 30 ML VIAL As Ordered; +LISI10TA4; +LISI10TA4 PO; +METH1TAB40 PO; +METH75TA PO; +NEUR300C PO; +NORC1TAB4 PO; +OMEP40CA2 PO; +ONDA4TAB6 PO; +ORTH1TAB16 PO; +PEPC1TAB2 PO; +PRENTAB7 PO; +PROM25TA12 PO; +SING10TA32 PO; +TAMS0.4C2 PO; +TRAM50TA2 PO; -TRIAMCINOLONE ACETONIDE SUSP 40 MG/ML VIAL (J3301) As Ordered; +VENTAER INH; +VITA50005 PO; +ZOFR4TAB14 PO; -diazePAM 5 MG TAB As Ordered; -oxyCODONE 5MG TAB As Ordered
--- NOTE | 2018-07-18 12:33 | SLEEPHOME ---
DATE OF PROCEDURE: 07/12/2018 ORDERED BY: Lashon Briseno NP Diagnostic home sleep testing was performed due to concern for the obstructive sleep apnea syndrome in this patient with a history of excessive somnolence, snoring and nonrestorative sleep. For testing a nocturnal T3 respiratory monitoring device was used. Continuous record was made of pulse, oxygen saturation, airflow, chest and abdominal strain and body position. 9 hours and 59 minutes of data were reviewed. There were 8 hours and 25 minutes marked as time in bed. During the interval marked time in bed, there were 45 respiratory events identified of 10 seconds in duration or greater for a respiratory event index of 5.3. The events were primarily obstructive; 5 central and mixed apneas were seen. Baseline pulse rate was 84 beats per minute. Pulse rate ranged from 61-121. Baseline saturation was 94%. Saturations fell to 90%. Testing was performed in both the supine and nonsupine positions. Respiratory events were more frequent but not exclusive to the supine posture. IMPRESSION: Abnormal home sleep testing with repetitive respiratory events and oxygen desaturation to 90% with a respiratory event index of 5.3 is consistent with the obstructive sleep apnea syndrome. RECOMMENDATIONS: Sleep position retraining for avoidance of the supine posture may be sufficient to address the patient's symptoms. If symptoms persist, referral back to the sleep disorder center for pressure titration would be recommended.
== END ==
LOC: M SLEEP HO 11:36
PROVIDERS: ATTEND Nurse Practitioner Adult Health
DX: G47.30 Sleep apnea, unspecified (principal)

== ENCOUNTER → 2018-11-16 | Outpatient (CLI) | payer OTHER ==
[~2018-11-16] MED LIST changes: -NORC1TAB4 PO; +NORC1TAB7 PO; +ORTH1TAB15 PO; -ORTH1TAB16 PO; -PEPC1TAB2 PO; +PEPC40TA12 PO
[2018-11-16 16:52] LABS: BASO # 0.1 10^3/uL (0.0-0.2); BASO % 0.6 % (0.0-1.0); EOS # 0.3 10^3/uL (0.0-0.50); EOS % 2.5 % (0.0-3.0); HEMATOCRIT 44.6 % (36.0-47.0); HEMOGLOBIN 13.7 g/dl (12.0-15.5); LYMPH % 18.6 % (24.0-44.0); MEAN CORPUSCULAR HEMOGLOBIN 27.5 pg (27.0-33.0); MEAN CORPUSCULAR HGB CONC 30.7 g/dl (32.0-36.5); MEAN CORPUSCULAR VOLUME 89.4 fl (80.0-96.0); MONO # 0.7 10^3/uL (0.0-0.8); MONO % 6.7 % (0.0-5.0); NEUTROPHILS # 7.5 10^3/uL (1.8-7.7); NEUTROPHILS % 71.2 % (36.0-66.0); PLATELET COUNT, AUTOMATED 276 10^3/uL (150-450); RED BLOOD COUNT 4.99 10^6/uL (4.00-5.40); WHITE BLOOD COUNT 10.5 10^3/uL (4.0-10.0)
[2018-11-16 17:10] LABS: ALBUMIN 3.5 GM/DL (3.2-5.2); ALT/SGPT 70 U/L (12-78); BILIRUBIN,TOTAL 0.4 MG/DL (0.2-1.0); BLOOD UREA NITROGEN 14 MG/DL (7-18); CALCIUM LEVEL 9.2 MG/DL (8.5-10.1); CARBON DIOXIDE LEVEL 27 MEQ/L (21-32); CHLORIDE LEVEL 105 MEQ/L (98-107); CREATININE FOR GFR 0.64 MG/DL (0.55-1.30); FREE T4 0.96 NG/DL (0.76-1.46); GLOMERULAR FILTRATION RATE > 60.0 (>60); GLUCOSE, FASTING 87 MG/DL (70-100); POTASSIUM SERUM 4.1 MEQ/L (3.5-5.1); SODIUM LEVEL 139 MEQ/L (136-145); THYROID STIMULATING HORMONE 0.553 uIU/ML (0.358-3.740); TOTAL PROTEIN 7.4 GM/DL (6.4-8.2)
--- NOTE | 2018-11-17 02:48 | REP ---
clinical: Cough . Comparison: 05/19/2018 . Technique: PA and lateral. Findings: The mediastinum and cardiac silhouette are normal. The lung castro are clear and without acute consolidation, effusion, or pneumothorax. The skeletal structures are intact and normal. Impression: 1. No acute cardiopulmonary process. Electronically Signed by Idris Weiss MD 11/17/2018 02:40 A
== END ==
LOC: M WUC 12:07
PROVIDERS: ATTEND Physician Assistant
DX: R05 Cough (principal)

== ENCOUNTER → 2019-01-01 | Outpatient (CLI) | payer OTHER ==
--- NOTE | 2019-01-01 12:05 | REP ---
Left lower extremity deep vein duplex ultrasound for left lower extremity pain, stat request: The deep veins of the left lower extremity demonstrate normal compression, normal Doppler color flow and normal Doppler waveforms with respiration and augmentation from the popliteal vein to the common femoral vein. Impression: There is no left lower extremity deep vein thrombus. Electronically Signed by Jack Ureña MD 01/01/2019 11:55 A
== END ==
LOC: M RAD 11:19
PROVIDERS: ATTEND Physician Assistant
DX: M79.662 Pain in left lower leg (principal)

== ENCOUNTER → 2019-01-18 | Outpatient (CLI) | payer OTHER ==
[~2019-01-18] MED LIST changes: +METH750T2 PO; -METH75TA PO; -ORTH1TAB15 PO; +ORTH1TAB8 PO
[2019-01-18 14:28] LABS: BASO % 0.4 % (0.0-1.0); EOS # 0.1 10^3/uL (0.0-0.50); HEMATOCRIT 39.4 % (36.0-47.0); HEMOGLOBIN 12.5 g/dl (12.0-15.5); LYMPH # 2.9 10^3/uL (1.5-4.5); LYMPH % 29.1 % (24.0-44.0); MEAN CORPUSCULAR HEMOGLOBIN 27.4 pg (27.0-33.0); MEAN CORPUSCULAR HGB CONC 31.7 g/dl (32.0-36.5); MEAN CORPUSCULAR VOLUME 86.4 fl (80.0-96.0); MONO # 0.7 10^3/uL (0.0-0.8); MONO % 7.3 % (0.0-5.0); NEUTROPHILS # 6.2 10^3/uL (1.8-7.7); NEUTROPHILS % 61.9 % (36.0-66.0); PLATELET COUNT, AUTOMATED 283 10^3/uL (150-450); RED BLOOD COUNT 4.56 10^6/uL (4.00-5.40); WHITE BLOOD COUNT 10.1 10^3/uL (4.0-10.0)
[2019-01-18 15:05] LABS: ALBUMIN 3.8 GM/DL (3.2-5.2); ALT/SGPT 65 U/L (12-78); BILIRUBIN,TOTAL 0.4 MG/DL (0.2-1.0); BLOOD UREA NITROGEN 16 MG/DL (7-18); CALCIUM LEVEL 9.4 MG/DL (8.5-10.1); CARBON DIOXIDE LEVEL 26 MEQ/L (21-32); CHLORIDE LEVEL 106 MEQ/L (98-107); CHOLESTEROL LEVEL 179 MG/DL (<200); CHOLESTEROL RISK RATIO 2.934 (<5); CREATININE FOR GFR 0.73 MG/DL (0.55-1.30); FERRITIN 193 NG/ML (8-252); FREE T4 1.04 NG/DL (0.76-1.46); GLOMERULAR FILTRATION RATE > 60.0 (>60); GLUCOSE, FASTING 73 MG/DL (70-100); HDL CHOLESTEROL 61 MG/DL (>40); IRON (FE) 61 UG/DL (50-170); LDL CHOLESTEROL 92 MG/DL (<100); NON-HDL-C 118 MG/DL; SODIUM LEVEL 140 MEQ/L (136-145); THYROID STIMULATING HORMONE 0.675 uIU/ML (0.358-3.740); TOTAL PROTEIN 7.6 GM/DL (6.4-8.2); TRIGLYCERIDES LEVEL 129 MG/DL (<150)
[2019-01-18 15:08] LABS: TOTAL 25(OH) VITAMIN D 29.9 NG/ML (30.0-100.0)
[2019-01-18 15:42] LABS: HEMOGLOBIN A1c 6.1 %
== END ==
LOC: M LAB 13:47
PROVIDERS: ATTEND Nurse Practitioner Family
DX: Z00.00 Encounter for general adult medical examination without abnormal findings (principal); D64.9 Anemia, unspecified; E55.9 Vitamin D deficiency, unspecified

== ENCOUNTER → 2019-04-19 | Outpatient (CLI) | payer OTHER, SELFPAY ==
[~2019-04-19] MED LIST changes: -OMEP40CA2 PO; +OMEP40CA97 PO
--- NOTE | 2019-04-21 09:55 | ECGEPIP ---
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
== END ==
LOC: M EKG 13:56
PROVIDERS: ATTEND Orthopaedic Surgery Hand Surgery
DX: Z01.810 Encounter for preprocedural cardiovascular examination (principal); G56.03 Carpal tunnel syndrome, bilateral upper limbs; G56.21 Lesion of ulnar nerve, right upper limb

== ENCOUNTER 2019-06-03 20:39 | Emergency (ER) | payer MEDICAID ==
[~2019-06-03] VITALS: Ht 172.7 cm; Wt 102.3 kg
[2019-06-03] MEDS ORDERED: CYMB60CA3 PO (20:49)
[2019-06-03] MEDS ORDERED: ENSK1TAB3 PO (20:49)
[2019-06-03 21:24] VITALS: BP 143/81
== END 2019-06-03 21:25 | disposition home or self-care (01) ==
LOC: M ED 20:39
DX: Z32.02 Encounter for pregnancy test, result negative (principal); Z79.3 Long term (current) use of hormonal contraceptives; Z79.899 Other long term (current) drug therapy; Z91.040 Latex allergy status; Z91.018 Allergy to other foods; Z91.013 Allergy to seafood

== ENCOUNTER → 2019-06-19 | Outpatient (CLI) | payer OTHER ==
[~2019-06-19] MED LIST changes: +CYMB60CA3 PO; +ENSK1TAB3 PO
--- NOTE | 2019-06-19 16:57 | REP ---
Left foot: Four views. History: Pain. Findings: Overall mineralization pattern is normal. There is a large plantar calcaneal spur. No erosive changes seen. No fractures noted. Impression: Large plantar calcaneal spur. Otherwise negative. Electronically Signed by Sravan Cevallos MD 06/19/2019 04:48 P
== END ==
LOC: M WUC 14:34
PROVIDERS: ATTEND Nurse Practitioner Family
DX: M77.32 Calcaneal spur, left foot (principal)

== ENCOUNTER 2019-08-08 08:28 | Emergency (ER) | payer OTHER ==
[~2019-08-08] VITALS: Ht 172.7 cm; Wt 110.4 kg
[~2019-08-08 08:28] MED LIST changes: -LISI10TA4
[2019-08-08] MEDS ORDERED: BENZ-18 PO (08:39)
[2019-08-08] MEDS ORDERED: ARNU1INH INH (08:39)
[2019-08-08] MEDS ORDERED: methylPREDNISolone INJ 125 MG/2 ML VIAL (J2930) IV ONE (09:00)
[2019-08-08 09:41] LABS: BASO % 0.4 % (0.0-1.0); EOS # 0.1 10^3/uL (0.0-0.5); EOS % 0.9 % (0.0-3.0); HEMATOCRIT 40.3 % (36.0-47.0); HEMOGLOBIN 12.2 g/dl (12.0-15.5); LYMPH # 1.9 10^3/uL (1.5-5.0); LYMPH % 18.9 % (24.0-44.0); MEAN CORPUSCULAR HEMOGLOBIN 26.5 pg (27.0-33.0); MEAN CORPUSCULAR HGB CONC 30.3 g/dl (32.0-36.5); MEAN CORPUSCULAR VOLUME 87.4 fl (80.0-96.0); MONO # 0.8 10^3/uL (0.0-0.8); MONO % 8.4 % (0.0-5.0); NEUTROPHILS # 7.1 10^3/uL (1.5-8.5); NEUTROPHILS % 70.9 % (36.0-66.0); PLATELET COUNT, AUTOMATED 290 10^3/uL (150-450); RED BLOOD COUNT 4.61 10^6/uL (4.00-5.40); WHITE BLOOD COUNT 9.9 10^3/uL (4.0-10.0)
[2019-08-08 10:05] LABS: INFLUENZA A AMPLIFICATION NEGATIVE (NEGATIVE); INFLUENZA B AMPLIFICATION NEGATIVE (NEGATIVE)
[2019-08-08 10:11] LABS: HCG, SERUM QUALITATIVE NEGATIVE (NEGATIVE)
[2019-08-08 10:18] LABS: BLOOD UREA NITROGEN 12 MG/DL (7-18); CALCIUM LEVEL 8.5 MG/DL (8.5-10.1); CARBON DIOXIDE LEVEL 22 MEQ/L (21-32); CHLORIDE LEVEL 109 MEQ/L (98-107); CK-MB VALUE MASS < 1.0 NG/ML (<3.6); CPK CREATINE PHOSPHOKINASE 76 U/L (26-192); CREATININE FOR GFR 0.68 MG/DL (0.55-1.30); GLOMERULAR FILTRATION RATE > 60.0 (>60); GLUCOSE, FASTING 130 MG/DL (70-100); MB/CK RELATIVE INDEX 1.32 (< OR =4); NT-PRO BNP 36 PG/ML (<125); POTASSIUM SERUM 4.1 MEQ/L (3.5-5.1); SODIUM LEVEL 140 MEQ/L (136-145); THYROID STIMULATING HORMONE 0.775 uIU/ML (0.358-3.740); TROPONIN I < 0.02 NG/ML (< 0.10)
[2019-08-08] MEDS ORDERED: ISOVUE-370 76% 100ML VIAL (Q9967) As Ordered ONE (10:20)
[2019-08-08] MEDS ORDERED: GI COCKTAIL 50ML BTL(HYOSCYAMINE/MAALOX/LIDOCAINE VISCOUS)(1:3:1) PO ONE (11:15)
--- NOTE | 2019-08-08 11:21 | REP ---
CT ANGIOGRAM CHEST: TECHNIQUE: Axial contrast enhanced images from the thoracic inlet to the upper abdomen using 100 mL Isovue 370 intravenous contrast material with multiplanar reformations. There is no CT evidence of pulmonary embolism. There is no thoracic aneurysm or dissection. The heart is normal in size. There is no mediastinal, hilar or chest wall lymphadenopathy. There is no pleural or pericardial effusion. No infiltrate is seen in either lung. There is diffuse fatty infiltration of the liver. IMPRESSION: No CT evidence of pulmonary embolism. Diffuse fatty infiltration of the liver. Electronically Signed by Jack Aguilar MD 08/08/2019 10:59 P
[2019-08-08] MEDS ORDERED: MEDR4PAK PO (12:01)
[2019-08-08 12:21] VITALS: BP 132/72
--- NOTE | 2019-08-08 14:45 | ECGEPIP ---
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
== END 2019-08-08 12:22 | disposition home or self-care (01) ==
LOC: M ED 08:28
DX: J45.901 Unspecified asthma with (acute) exacerbation (principal); R94.31 Abnormal electrocardiogram [ECG] [EKG]; K76.0 Fatty (change of) liver, not elsewhere classified; I10 Essential (primary) hypertension; G47.33 Obstructive sleep apnea (adult) (pediatric); M54.9 Dorsalgia, unspecified; G89.29 Other chronic pain; Z79.51 Long term (current) use of inhaled steroids; Z79.899 Other long term (current) drug therapy; Z83.2 Family history of diseases of the blood and blood-forming organs and certain disorders involving the immune mechanism; Z91.018 Allergy to other foods; Z88.0 Allergy status to penicillin; Z91.040 Latex allergy status; Z91.013 Allergy to seafood
CPT/HCPCS: 71275; 80048; 82550; 82553; 83880; 84443; 84703; 85025; 87502; 87880; 93005; 94760; 96374; 99284; J2930; Q9967

== ENCOUNTER 2019-08-08 23:04 | Emergency (ER) | payer OTHER ==
[~2019-08-08] VITALS: Ht 172.7 cm; Wt 110.4 kg
[~2019-08-08 23:04] MED LIST changes: +ARNU1INH INH; +BENZ-18 PO; +MEDR4PAK PO
[2019-08-09 00:12] LABS: ABG BASE EXCESS -5.8 (-2.0-2.0); ABG HCO3 17.9 MEQ/L (22.0-26.0); ABG O2 SATURATION 99.3 % (95.0-99.0); ABG PARTIAL PRESSURE CO2 30.1 mmHg (35.0-45.0); ABG PARTIAL PRESSURE O2 179.2 mmHg (75.0-100.0); ABG STANDARD HCO3 19.8 MEQ/L (22.0-26.0); ABG TOTAL CO2 18.9 MEQ/L (22.0-29.0); ABG pH (ARTERIAL) 7.393 UNITS (7.350-7.450)
[2019-08-09] MEDS ORDERED: methylPREDNISolone INJ 125 MG/2 ML VIAL (J2930) IM ONE (00:45)
--- NOTE | 2019-08-09 01:05 | REP ---
Clinical: Cough and dyspnea. Technique: PA and lateral. Findings: A mild bronchitis / viral pneumonia cannot be excluded. No discrete focal consolidation. No effusion. No pneumothorax. Skeletal structures intact. Impression: No focal consolidation. Very subtle basilar bronchitis cannot be excluded. Electronically Signed by Idris Weiss MD 08/09/2019 12:56 A
[2019-08-09 01:50] VITALS: BP 143/80
== END 2019-08-09 01:58 | disposition home or self-care (01) ==
LOC: M ED 23:04
DX: R06.4 Hyperventilation (principal); I10 Essential (primary) hypertension; J45.909 Unspecified asthma, uncomplicated; F41.9 Anxiety disorder, unspecified; F33.9 Major depressive disorder, recurrent, unspecified; Z79.51 Long term (current) use of inhaled steroids; Z79.899 Other long term (current) drug therapy; Z91.018 Allergy to other foods; Z88.0 Allergy status to penicillin; Z91.040 Latex allergy status; Z91.013 Allergy to seafood
CPT/HCPCS: 36600; 71046; 82803; 96372; 99284; J2930

== ENCOUNTER 2019-08-24 17:27 | Emergency (ER) | payer OTHER ==
[2019-08-24 17:47] VITALS: BP 136/77
[2019-08-24] MEDS ORDERED: OMEP-218 (17:50)
[2019-08-24] MEDS ORDERED: ADACEL/BOOSTRIX VACCINE (DIPHTH/PERTUSS/ACELL/TETANUS)0.5ML SYR (90715) IM ONE (18:15)
--- NOTE | 2019-08-24 18:27 | REP ---
Nickel: Trauma. Technique: AP and lateral views of the left tibia / fibula. Findings: Age-related changes are appreciated at the knee and ankle. Heal spur noted. No acute fracture or dislocation. No subcutaneous emphysema or foreign body. Impression: No acute fracture or dislocation. Electronically Signed by Idris Weiss MD 08/24/2019 06:17 P
[2019-08-24] MEDS ORDERED: NORCO, ANEXSIA 5/325MG TABLET (HYDROcodone/ACETAMINOPHEN) PO ONE (18:30)
== END 2019-08-24 18:52 | disposition home or self-care (01) ==
LOC: EDBD 17:27 → M ED 17:27
DX: S80.12XA Contusion of left lower leg, initial encounter (principal); W22.8XXA Striking against or struck by other objects, initial encounter; Y92.89 Other specified places as the place of occurrence of the external cause; Y93.9 Activity, unspecified; Y99.0 Civilian activity done for income or pay; Z79.3 Long term (current) use of hormonal contraceptives; Z79.899 Other long term (current) drug therapy; Z88.0 Allergy status to penicillin; Z91.013 Allergy to seafood; Z91.040 Latex allergy status; Z91.018 Allergy to other foods

== ENCOUNTER 2019-09-10 14:22 | Emergency (ER) | payer OTHER ==
[~2019-09-10] VITALS: Ht 172.7 cm; Wt 109.1 kg
[~2019-09-10 14:22] MED LIST changes: +OMEP-218
[2019-09-10 15:29] LABS: BASO # 0.1 10^3/uL (0.0-0.2); BASO % 0.5 % (0.0-1.0); EOS # 0.1 10^3/uL (0.0-0.5); EOS % 0.7 % (0.0-3.0); HEMATOCRIT 40.3 % (36.0-47.0); HEMOGLOBIN 12.6 g/dl (12.0-15.5); LYMPH # 3.2 10^3/uL (1.5-5.0); LYMPH % 22.1 % (24.0-44.0); MEAN CORPUSCULAR HEMOGLOBIN 26.8 pg (27.0-33.0); MEAN CORPUSCULAR HGB CONC 31.3 g/dl (32.0-36.5); MEAN CORPUSCULAR VOLUME 85.7 fl (80.0-96.0); MONO # 0.9 10^3/uL (0.0-0.8); MONO % 6.2 % (0.0-5.0); NEUTROPHILS # 10.1 10^3/uL (1.5-8.5); NEUTROPHILS % 69.7 % (36.0-66.0); PLATELET COUNT, AUTOMATED 350 10^3/uL (150-450); WHITE BLOOD COUNT 14.4 10^3/uL (4.0-10.0)
--- NOTE | 2019-09-10 15:52 | REP ---
CHEST, TWO VIEWS: There is no evidence of acute infiltrate. No pleural effusion is seen. The heart is normal in size. The mediastinal silhouette is unremarkable. The visualized osseous structures are intact. IMPRESSION: No acute pulmonary disease. Electronically Signed by Jack Aguilar MD 09/11/2019 07:47 P
[2019-09-10 15:53] LABS: ALBUMIN 3.5 GM/DL (3.2-5.2); ALT/SGPT 49 U/L (12-78); BILIRUBIN,DIRECT < 0.1 MG/DL (0.0-0.2); BILIRUBIN,TOTAL 0.4 MG/DL (0.2-1.0); BLOOD UREA NITROGEN 18 MG/DL (7-18); CALCIUM LEVEL 9.6 MG/DL (8.5-10.1); CARBON DIOXIDE LEVEL 25 MEQ/L (21-32); CHLORIDE LEVEL 106 MEQ/L (98-107); CK-MB VALUE MASS < 1.0 NG/ML (<3.6); CPK CREATINE PHOSPHOKINASE 74 U/L (26-192); CREATININE FOR GFR 0.75 MG/DL (0.55-1.30); GLOMERULAR FILTRATION RATE > 60.0 (>60); GLUCOSE, FASTING 93 MG/DL (70-100); MB/CK RELATIVE INDEX 1.35 (< OR =4); POTASSIUM SERUM 3.8 MEQ/L (3.5-5.1); SODIUM LEVEL 138 MEQ/L (136-145); TOTAL PROTEIN 7.9 GM/DL (6.4-8.2); TROPONIN I < 0.02 NG/ML (< 0.10)
[2019-09-10 16:20] LABS: BACTERIA, URINE AUTO 1+ (NEGATIVE); MUCUS, URINE SMALL (NEGATIVE); RBC, URINE AUTO 6 /HPF (0-3); SQUAMOUS EPITHELIAL CELL UR AU 2 /HPF (0-6); WBC, URINE AUTO 2 /HPF (0-3)
[2019-09-10 16:44] LABS: APPEARANCE, URINE HAZY (CLEAR); BILIRUBIN, URINE AUTO NEGATIVE (NEGATIVE); BLOOD, URINE BLOOD 1+ (NEGATIVE); COLOR, URINE YELLOW (YELLOW); GLUCOSE, URINE (UA) AUTO NEGATIVE (NEGATIVE); KETONE, URINE AUTO 1+ mg/dL (NEGATIVE); LEUKOCYTE ESTERASE, URINE AUTO NEGATIVE (NEGATIVE); NITRITE, URINE AUTO NEGATIVE (NEGATIVE); PROTEIN, URINE AUTO NEGATIVE (NEGATIVE); UROBILINOGEN, URINE AUTO 0.2 mg/dL (0.0-2.0)
[2019-09-10 16:45] LABS: AMPHETAMINES LEVEL URINE NEGATIVE (NEGATIVE); BARBITURATES URINE NEGATIVE (NEGATIVE); BENZODIAZEPINES URINE NEGATIVE (NEGATIVE); CANNABINOIDS URINE NEGATIVE (NEGATIVE); COCAINE METABOLITE URINE NEGATIVE (NEGATIVE); METHADONE URINE NEGATIVE (NEGATIVE); OPIATES URINE NEGATIVE (NEGATIVE); PHENCYCLIDINE URINE NEGATIVE (NEGATIVE)
[2019-09-10] MEDS ORDERED: GI COCKTAIL 50ML BTL(HYOSCYAMINE/MAALOX/LIDOCAINE VISCOUS)(1:3:1) PO ONE (18:30)
[2019-09-10] MEDS ORDERED: NAPROXEN 250 MG TAB PO ONE (19:45)
[2019-09-10 19:51] LABS: CK-MB VALUE MASS < 1.0 NG/ML (<3.6); CPK CREATINE PHOSPHOKINASE 80 U/L (26-192); MB/CK RELATIVE INDEX 1.25 (< OR =4); TROPONIN I < 0.02 NG/ML (< 0.10)
--- NOTE | 2019-09-10 20:58 | ECGEPIP ---
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
[2019-09-10] MEDS ORDERED: ISOVUE-370 76% 100ML VIAL (Q9967) As Ordered ONE (21:23)
--- NOTE | 2019-09-10 21:23 | ECGEPIP ---
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
--- NOTE | 2019-09-10 22:12 | REPVR ---
PROCEDURE INFORMATION: Exam: CT Angiography Chest With Contrast Exam date and time: 09/10/2019 9:39 PM Age: 34 years old Clinical indication: Chest pain; Additional info: SOB, chest pain, elevated d-dimer TECHNIQUE: Imaging protocol: Computed tomographic angiography of the chest with intravenous contrast. 3D rendering: MIP and/or 3D reconstructed images were created by the technologist. Radiation optimization: All CT scans at this facility use at least one of these dose optimization techniques: automated exposure control; mA and/or kV adjustment per patient size (includes targeted exams where dose is matched to clinical indication); or iterative reconstruction. Contrast material: ISOVUE 370; Contrast volume: 75 ml; Contrast route: IV; COMPARISON: CT ANGIO CHEST 08/08/2019 10:27 AM FINDINGS: Pulmonary arteries: Peripheral pulmonary artery evaluation limited by cardiac and respiratory motion artifact. Central pulmonary arteries show no intraluminal defect suggestive of clot. Aorta: No thoracic aortic aneurysm or dissection. Lungs: Pulmonary vascular/interstitial pattern does not suggest active pulmonary edema. Lung parenchyma is unremarkable except for dependent atelectasis. No central endobronchial lesion. No suspicious lung mass or air space process. Pleural space: No pleural effusion or pneumothorax. Heart: No overt cardiac enlargement or abnormal volume of pericardial fluid. Liver: Liver is decreased in density, consistent with fatty infiltration. Lymph nodes: No enlarged lymph nodes. Bones/joints: Bony structures show no acute fracture or destructive process. IMPRESSION: 1. No evidence of acute, central pulmonary embolus. Peripheral pulmonary arterial evaluation is limited by motion artifact 2. No other acute or concerning focal intrathoracic abnormality. 3. Hepatic steatosis Electronically signed by: Graeme Hopper On 09/10/2019 22:11:58 PM
[2019-09-10 22:54] VITALS: BP 131/69
== END 2019-09-10 22:55 | disposition home or self-care (01) ==
LOC: M ED 14:22
DX: R07.89 Other chest pain (principal); D72.829 Elevated white blood cell count, unspecified; R00.0 Tachycardia, unspecified; R11.0 Nausea; R42 Dizziness and giddiness; R07.1 Chest pain on breathing; I10 Essential (primary) hypertension; J45.909 Unspecified asthma, uncomplicated; Z82.49 Family history of ischemic heart disease and other diseases of the circulatory system; K76.0 Fatty (change of) liver, not elsewhere classified; Z79.3 Long term (current) use of hormonal contraceptives; Z79.899 Other long term (current) drug therapy; Z88.0 Allergy status to penicillin; Z91.018 Allergy to other foods; Z91.040 Latex allergy status
CPT/HCPCS: 71046; 71275; 80048; 80076; 80307; 81001; 82550; 82553; 85025; 85379; 93005; 99284; Q9967

== ENCOUNTER 2019-10-07 20:10 | Emergency (ER) | payer OTHER ==
[~2019-10-07] VITALS: Ht 172.7 cm; Wt 111.4 kg
[2019-10-07] MEDS ORDERED: KETOROLAC 30 MG/ML VIAL (J1885) IV ONE (21:00)
[2019-10-07] MEDS ORDERED: METOCLOPRAMIDE INJ 10MG/2ML VIAL (J2765) IV ONE (21:00)
[2019-10-07] MEDS ORDERED: NS 1,000 ML IV ONE (21:00)
--- NOTE | 2019-10-07 21:12 | REPVR ---
PROCEDURE INFORMATION: Exam: CT Head Without Contrast Exam date and time: 10/07/2019 8:59 PM Age: 34 years old Clinical indication: Pain; Dizziness; Headache; Additional info: Dizziness, LEE TECHNIQUE: Imaging protocol: Computed tomography of the head without contrast. Radiation optimization: All CT scans at this facility use at least one of these dose optimization techniques: automated exposure control; mA and/or kV adjustment per patient size (includes targeted exams where dose is matched to clinical indication); or iterative reconstruction. COMPARISON: No relevant prior studies available. FINDINGS: Brain: Normal. No hemorrhage. Unremarkable white matter. No mass effect. Ventricles: Normal. No ventriculomegaly. Bones/joints: Unremarkable. No acute fracture. Sinuses: Visualized sinuses are unremarkable. No fluid levels. Mastoid air cells: Visualized mastoid air cells are well aerated. Soft tissues: Unremarkable. IMPRESSION: No acute intracranial abnormality. Electronically signed by: Rush Ho On 10/07/2019 21:12:24 PM
[2019-10-07 21:29] LABS: BASO # 0.1 10^3/uL (0.0-0.2); BASO % 0.4 % (0.0-1.0); EOS # 0.1 10^3/uL (0.0-0.5); EOS % 1.1 % (0.0-3.0); LYMPH # 3.3 10^3/uL (1.5-5.0); LYMPH % 26.6 % (24.0-44.0); MEAN CORPUSCULAR HEMOGLOBIN 26.8 pg (27.0-33.0); MEAN CORPUSCULAR VOLUME 86.6 fl (80.0-96.0); MONO % 7.9 % (0.0-5.0); NEUTROPHILS # 7.8 10^3/uL (1.5-8.5); NEUTROPHILS % 63.6 % (36.0-66.0); PLATELET COUNT, AUTOMATED 376 10^3/uL (150-450); RED BLOOD COUNT 4.85 10^6/uL (4.00-5.40); WHITE BLOOD COUNT 12.2 10^3/uL (4.0-10.0)
[2019-10-07 21:52] LABS: ALBUMIN 3.3 GM/DL (3.2-5.2); ALT/SGPT 31 U/L (12-78); BILIRUBIN,DIRECT < 0.1 MG/DL (0.0-0.2); BILIRUBIN,TOTAL 0.2 MG/DL (0.2-1.0); LIPASE 110 U/L (73-393); TOTAL PROTEIN 7.2 GM/DL (6.4-8.2)
[2019-10-07 21:55] LABS: INFLUENZA A AMPLIFICATION NEGATIVE (NEGATIVE); INFLUENZA B AMPLIFICATION NEGATIVE (NEGATIVE)
[2019-10-07] MEDS ORDERED: MECLIZINE 25 MG TABLET PO ONE (22:00)
[2019-10-07] MEDS ORDERED: methylPREDNISolone INJ 125 MG/2 ML VIAL (J2930) IV ONE (22:00)
[2019-10-07 22:49] VITALS: BP 126/58
[2019-10-07] MEDS ORDERED: MECL1TAB31 PO (22:57)
== END 2019-10-07 23:16 | disposition home or self-care (01) ==
LOC: M ED 20:10
DX: R42 Dizziness and giddiness (principal); R51 Headache; R11.2 Nausea with vomiting, unspecified; I10 Essential (primary) hypertension; J45.909 Unspecified asthma, uncomplicated; K21.9 Gastro-esophageal reflux disease without esophagitis; D64.9 Anemia, unspecified; Z87.442 Personal history of urinary calculi; Z79.3 Long term (current) use of hormonal contraceptives; Z79.899 Other long term (current) drug therapy; Z91.018 Allergy to other foods; Z91.040 Latex allergy status; Z88.0 Allergy status to penicillin
CPT/HCPCS: 70450; 80047; 80076; 83690; 85025; 87502; 96361; 96374; 96375; 99284; J1885; J2765; J2930

== ENCOUNTER → 2019-10-27 | Outpatient (CLI) | payer OTHER ==
[~2019-10-27] MED LIST changes: +MECL1TAB31 PO
== END ==
LOC: M LABSMTC 09:49
PROVIDERS: ATTEND Family Medicine
DX: Z11.59 Encounter for screening for other viral diseases (principal); Z20.828 Contact with and (suspected) exposure to other viral communicable diseases

== ENCOUNTER 2019-11-08 13:45 | Emergency (ER) | payer OTHER ==
[~2019-11-08] VITALS: Ht 172.7 cm; Wt 113.8 kg
[2019-11-08] MEDS ORDERED: NS 1,000 ML IV ONE (14:30)
[2019-11-08 15:05] LABS: BASO # 0.1 10^3/uL (0.0-0.2); BASO % 0.5 % (0.0-1.0); EOS # 0.1 10^3/uL (0.0-0.5); EOS % 0.9 % (0.0-3.0); HEMATOCRIT 39.1 % (36.0-47.0); LYMPH # 2.7 10^3/uL (1.5-5.0); LYMPH % 22.7 % (24.0-44.0); MEAN CORPUSCULAR HEMOGLOBIN 26.8 pg (27.0-33.0); MEAN CORPUSCULAR HGB CONC 30.7 g/dl (32.0-36.5); MEAN CORPUSCULAR VOLUME 87.3 fl (80.0-96.0); MONO # 0.8 10^3/uL (0.0-0.8); MONO % 7.1 % (0.0-5.0); PLATELET COUNT, AUTOMATED 344 10^3/uL (150-450); RED BLOOD COUNT 4.48 10^6/uL (4.00-5.40); WHITE BLOOD COUNT 11.8 10^3/uL (4.0-10.0)
[2019-11-08 15:16] LABS: BLOOD UREA NITROGEN 10 MG/DL (7-18); CALCIUM LEVEL 9.1 MG/DL (8.5-10.1); CARBON DIOXIDE LEVEL 25 MEQ/L (21-32); CHLORIDE LEVEL 108 MEQ/L (98-107); CREATININE FOR GFR 0.65 MG/DL (0.55-1.30); GLOMERULAR FILTRATION RATE > 60.0 (>60); GLUCOSE, FASTING 107 MG/DL (70-100); SODIUM LEVEL 141 MEQ/L (136-145)
[2019-11-08 15:58] VITALS: BP 171/82
[2019-11-08] MEDS ORDERED: IBUPROFEN 800 MG TAB PO ONE (16:30)
--- NOTE | 2019-11-08 16:50 | REP ---
REASON: Vaginal bleeding. There are no pertinent priors of comparison. Transvesical and transvaginal imaging was obtained. The uterus measures 10 x 6 x 6.4 cm. The endometrial echocomplex is unremarkable in appearance measuring between 4 and 5 mm in its greatest thickness. The right ovary measures 3.3 x 2.1 x 3.6 cm and is within normal limits with an RI of 0.54. The left ovary measures 3.1 x 2.4 x 3 cm and is within normal limits with an RI of 0.62. There is no free fluid in the cul-de-sac. The urinary bladder measures 8 x 8 x 5 cm. IMPRESSION: Pelvic ultrasonography is within normal limits. Electronically Signed by Shane Turk DO 11/09/2019 09:24 A
--- NOTE | 2019-11-09 01:56 | ECGEPIP ---
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
== END 2019-11-08 16:33 | disposition home or self-care (01) ==
LOC: M ED 13:45
DX: N92.0 Excessive and frequent menstruation with regular cycle (principal); R00.0 Tachycardia, unspecified; I10 Essential (primary) hypertension; D64.9 Anemia, unspecified; J45.909 Unspecified asthma, uncomplicated; F41.9 Anxiety disorder, unspecified; F32.9 Major depressive disorder, single episode, unspecified; K21.9 Gastro-esophageal reflux disease without esophagitis; Z87.442 Personal history of urinary calculi; Z88.0 Allergy status to penicillin; Z91.040 Latex allergy status; Z91.018 Allergy to other foods; Z91.013 Allergy to seafood; Z79.899 Other long term (current) drug therapy; Z79.3 Long term (current) use of hormonal contraceptives

== ENCOUNTER 2019-11-11 12:56 | Emergency (ER) | payer OTHER ==
[~2019-11-11] VITALS: Ht 172.7 cm; Wt 113.4 kg
[2019-11-11 13:17] LABS: BASO % 0.4 % (0.0-1.0); EOS # 0.2 10^3/uL (0.0-0.5); EOS % 1.5 % (0.0-3.0); HEMATOCRIT 37.7 % (36.0-47.0); HEMOGLOBIN 11.7 g/dl (12.0-15.5); MEAN CORPUSCULAR HEMOGLOBIN 26.6 pg (27.0-33.0); MEAN CORPUSCULAR VOLUME 85.7 fl (80.0-96.0); MONO # 0.9 10^3/uL (0.0-0.8); MONO % 8.7 % (0.0-5.0); NEUTROPHILS # 6.4 10^3/uL (1.5-8.5); NEUTROPHILS % 60.9 % (36.0-66.0); PLATELET COUNT, AUTOMATED 309 10^3/uL (150-450); WHITE BLOOD COUNT 10.6 10^3/uL (4.0-10.0)
[2019-11-11 13:25] LABS: HCG, SERUM QUALITATIVE NEGATIVE (NEGATIVE)
[2019-11-11] MEDS ORDERED: PROV10TA PO (14:03)
[2019-11-11] MEDS ORDERED: ZOFR8TAB24 PO (14:04)
[2019-11-11] MEDS ORDERED: medroxyPROGESTERone 5MG TABLET PO SCH (14:15)
[2019-11-11] MEDS ORDERED: ONDANSETRON 4 MG ORAL DISINTEGRATING TAB PO ONE (14:15)
[2019-11-11 14:37] VITALS: BP 141/74
[2019-11-12] MEDS ORDERED: medroxyPROGESTERone 5MG TABLET PO SCH (09:00)
== END 2019-11-11 14:38 | disposition home or self-care (01) ==
LOC: M ED 12:56
DX: R10.2 Pelvic and perineal pain (principal); N93.9 Abnormal uterine and vaginal bleeding, unspecified; N92.0 Excessive and frequent menstruation with regular cycle; I10 Essential (primary) hypertension; Z88.1 Allergy status to other antibiotic agents; Z91.040 Latex allergy status; Z91.013 Allergy to seafood; Z79.899 Other long term (current) drug therapy
CPT/HCPCS: 36415; 84703; 85025; 99284; Q0162

== ENCOUNTER → 2019-12-02 | Outpatient (CLI) | payer OTHER ==
[~2019-12-02] MED LIST changes: +PROV10TA PO; +ZOFR8TAB24 PO
== END ==
LOC: M LABSMTC 10:55
PROVIDERS: ATTEND Orthopaedic Surgery
DX: Z11.59 Encounter for screening for other viral diseases (principal)

== ENCOUNTER → 2019-12-05 | Outpatient (REF) | payer OTHER | LOC: M LAB REF 15:03 | PROVIDERS: ATTEND Orthopaedic Surgery | DX: M67.472 Ganglion, left ankle and foot (principal) ==

== ENCOUNTER → 2020-01-21 | Outpatient (CLI) | payer OTHER ==
--- NOTE | 2020-01-21 19:20 | ECGEPIP ---
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 Left axis deviation Somewhat low voltages with incomplete Right bundle branch block and slow R wave progression; body habitus versus pulmonary disease. Change in rhythm with reduction in QRS voltage from 11/08/19 (consider Pleural or pericardial effusion). Electronically Signed on 01-21-2020 19:20:45 EDT by Marco House
== END ==
LOC: M EKG 09:05
PROVIDERS: ATTEND Orthopaedic Surgery
DX: Z01.818 Encounter for other preprocedural examination (principal); I10 Essential (primary) hypertension

== ENCOUNTER → 2020-01-26 | Outpatient (CLI) | payer OTHER | LOC: M LABSMTC 09:43 | PROVIDERS: ATTEND Orthopaedic Surgery | DX: Z01.818 Encounter for other preprocedural examination (principal); Z11.59 Encounter for screening for other viral diseases ==

== ENCOUNTER → 2020-02-18 | Outpatient (CLI) | payer OTHER | LOC: M LABSMTC 10:05 | PROVIDERS: ATTEND Anesthesiology | DX: Z01.812 Encounter for preprocedural laboratory examination (principal); Z20.828 Contact with and (suspected) exposure to other viral communicable diseases | CPT/HCPCS: C9803; U0002 ==

== ENCOUNTER 2020-02-20 09:12 | Day surgery (SDC) | payer OTHER ==
[2020-02-20] MEDS ORDERED: KETOROLAC 60MG 2ML VIAL ONE (09:22)
[2020-02-20] MEDS ORDERED: PHENYLephrine HCL 500 MCG/5 ML (100MCG/ML) SYRINGE (J2370) ONE (09:22)
[2020-02-20] MEDS ORDERED: ePHEDrine SULFATE 25 MG/5 ML(5MG/ML) SYRINGE ONE (09:22)
[2020-02-20] MEDS ORDERED: LIDOCAINE 2% 100MG/5ML SDV (FOR ANES.) ONE (09:22)
[2020-02-20] MEDS ORDERED: dexameTHASONE 4 MG/ML 1ML VIAL (J1100 PER 1MG) ONE (09:22)
[2020-02-20] MEDS ORDERED: ROCURONIUM BROMIDE 50 MG/5 ML VIAL ONE (09:22)
[2020-02-20] MEDS ORDERED: ONDANSETRON 4MG/2ML VIAL ONE (09:22)
[2020-02-20] MEDS ORDERED: SUGAMMADEX SODIUM 500 MG/5 ML VIAL (BRIDION) ONE (09:22)
[2020-02-20] MEDS ORDERED: fentaNYL 250 MCG/5 ML INJECTION (J3010) ONE (09:22)
[2020-02-20] MEDS ORDERED: propofoL 200 MG/20 ML VIAL ONE (09:22)
[2020-02-20] MEDS ORDERED: MIDAZOLAM INJ 2MG/2ML VIAL (J2250 PER 1MG) ONE (09:22)
[2020-02-20] MEDS ORDERED: BUPIVACAINE HCL 0.25% 10ML VIAL ONE (09:56)
[2020-02-20] MEDS ORDERED: ALBUTEROL SULFATE 2.5 MG/0.5 ML INH NEB SOLN ONE (11:19)
[2020-02-20] MEDS ORDERED: fentaNYL 100 MCG/2 ML INJECTION (J3010) ONE (11:27)
[2020-02-20] MEDS ORDERED: PERCOCET 5MG/325MG TAB ONE ×2 (11:53→12:09)
[2020-02-20] MEDS ORDERED: HYDROmorphone HCL 2 MG/ML 1ML VIAL (J1170) ONE (12:41)
[2020-04-13 01:01] LABS: HEMATOCRIT 39.4 % (36.0-47.0); HEMOGLOBIN 12.2 g/dl (12.0-15.5); MEAN CORPUSCULAR HEMOGLOBIN 26.4 pg (27.0-33.0); MEAN CORPUSCULAR VOLUME 85.3 fl (80.0-96.0); PLATELET COUNT, AUTOMATED 287 10^3/uL (150-450); RED BLOOD COUNT 4.62 10^6/uL (4.00-5.40)
== END 2020-02-20 14:05 | disposition home or self-care (01) ==
LOC: M SDC 09:12
PROVIDERS: ATTEND Specialist
DX: Z30.2 Encounter for sterilization (principal); J45.909 Unspecified asthma, uncomplicated; I10 Essential (primary) hypertension; K21.9 Gastro-esophageal reflux disease without esophagitis; G47.30 Sleep apnea, unspecified; Z91.040 Latex allergy status; Z91.013 Allergy to seafood; F41.9 Anxiety disorder, unspecified
CPT/HCPCS: 58661; 85027; 88302; J1100; J1170; J1885; J2250; J2370; J2405; J3010

== ENCOUNTER 2020-02-23 18:37 | Emergency (ER) | payer OTHER ==
[2020-02-23] MEDS ORDERED: medroxyPROGESTERone 5MG TABLET ONE (18:38)
[2020-03-25 14:47] LABS: CHLAMYDIA DNA AMPLIFICATION NEGATIVE (NEGATIVE); GC DNA AMPLIFICATION NEGATIVE (NEGATIVE)
[2020-04-07 12:35] LABS: APPEARANCE, URINE MANUAL CLEAR (CLEAR); BACTERIA, URINE SMALL AMOUNT; BILIRUBIN, URINE MANUAL NEGATIVE (NEGATIVE); BLOOD URINE MANUAL POSITIVE (NEGATIVE); COLOR, URINE MANUAL YELLOW (YELLOW); GLUCOSE, URINE (UA) MANUAL NEGATIVE (NEGATIVE); HYALINE CAST, URINE NONE SEEN /lpf (0-1); KETONE, URINE MANUAL NEGATIVE (NEGATIVE); LEUKOCYTE ESTERASE, URINE MAN NEGATIVE (NEGATIVE); NITRITE, URINE MANUAL NEGATIVE (NEGATIVE); PROTEIN, URINE MANUAL NEGATIVE (NEGATIVE); RBC, URINE TNTC /hpf (0-3); SQUAMOUS EPITHELIAL CELL URINE SMALL AMOUNT /hpf (SMALL AMT); UROBILINOGEN, URINE MANUAL NORMAL (NORMAL); WBC, URINE 0-1 /hpf (0-3)
[2020-04-07 12:36] LABS: INR 0.95; MUCUS, URINE LARGE AMOUNT (NEGATIVE); PARTIAL THROMBOPLASTIN TIME 23.1 SECONDS (24.2-38.5); PROTHROMBIN TIME 12.9 SECONDS (12.5-14.3)
[2020-04-07 14:59] LABS: BASO # 0.1 10^3/uL (0.0-0.2); BASO % 0.5 % (0.0-1.0); EOS # 0.1 10^3/uL (0.0-0.5); EOS % 0.9 % (0.0-3.0); HEMATOCRIT 37.7 % (36.0-47.0); HEMOGLOBIN 11.6 g/dl (12.0-15.5); LYMPH # 2.7 10^3/uL (1.5-5.0); LYMPH % 24.4 % (24.0-44.0); MEAN CORPUSCULAR HEMOGLOBIN 26.2 pg (27.0-33.0); MEAN CORPUSCULAR HGB CONC 30.8 g/dl (32.0-36.5); MEAN CORPUSCULAR VOLUME 85.3 fl (80.0-96.0); MONO # 1.1 10^3/uL (0.0-0.8); MONO % 9.8 % (0.0-5.0); NEUTROPHILS # 7.1 10^3/uL (1.5-8.5); NEUTROPHILS % 63.7 % (36.0-66.0); PLATELET COUNT, AUTOMATED 299 10^3/uL (150-450); RED BLOOD COUNT 4.42 10^6/uL (4.00-5.40); WHITE BLOOD COUNT 11.1 10^3/uL (4.0-10.0)
== END 2020-02-23 19:20 | disposition home or self-care (01) ==
LOC: M ED 18:37
DX: N99.820 Postprocedural hemorrhage of a genitourinary system organ or structure following a genitourinary system procedure (principal); Y83.8 Other surgical procedures as the cause of abnormal reaction of the patient, or of later complication, without mention of misadventure at the time of the procedure; G47.33 Obstructive sleep apnea (adult) (pediatric); K21.9 Gastro-esophageal reflux disease without esophagitis; F32.9 Major depressive disorder, single episode, unspecified; J45.909 Unspecified asthma, uncomplicated; Z79.899 Other long term (current) drug therapy; Z79.51 Long term (current) use of inhaled steroids

== ENCOUNTER 2020-08-08 14:32 | Emergency (ER) | payer OTHER ==
[~2020-08-08] VITALS: Ht 172.7 cm; Wt 114.4 kg
[~2020-08-08 14:32] MED LIST changes: +LISI10TA22 PO; -LISI10TA4 PO; +METH-1164 PO; +METH-1165 PO; -METH1TAB40 PO; -METH750T2 PO
--- OUTSIDE RECORDS SUMMARY | 2020-08-08 14:41 | CCD | Continuity of Care Document ---
Author Author Bryanna ARGUETA P.A. 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 Name Role Phone Cathy Murrell INSPECTOR SCALES-BC AUTM Problems Active Problems Provider Date Essential hypertension Shell Garza PA-C Onset: 02/02/2019 Social History Type Date Description Comments Sex Unknown ETOH Use Rarely consumes alcohol Tobacco Use Start: Unknown End: Unknown Patient is a former smoker Smoking Status Reviewed: 03/07/19 Patient is a former smoker Allergies, Adverse Reactions, Alerts Active Allergies Reaction Severity Comments Date Latex 02/02/2019 Shellfish-Derived Products 0 03/07/2019 Amoxicillin rash 08/24/2019 Medications Active Medications SIG Qnty Indications Ordering Provide r Date Hydrocodone-Acetaminophen 5-325mg Tablets 1 to 2 tabs every 4-6 hours for as needed post op pain. 20tabs Jaxon Rogers MD 12/05/2019 Singulair 10mg Tablets 1 by mouth every day Unknown 08/22/2019 Proair HFA 108(90Base) mcg/Act Aer osol 2 puffs by mouth as needed Unknown [address] 1 by mouth every day Unknown 08/22/2019 Lisinopril 10mg Tablets 1 by mouth every day Unknown 08/22/[address] Part 1 by mouth every day Unknown 08/22/2019 Arnuity Ellipta 100mcg/Act Aerosol 1 puff daily Unknown 08/22/2019 Albuterol Sulfate (2 .5mg/3ML) 0.083% Nebulizer every 4 hours as needed Unknown 08/11 Enskyce 0.15-30mg-mcg Tablets as directed Unknown 08/22/2019 Tobramycin 0.3% Solution Instill 1 2 Drop In The Affected Eye Three Times A Day For 7 Days Unknown Oseltamivir Phosphate 75mg Capsule s Take One Capsule By Mouth Every Twelve Hours For 5 Days Unknown Methylprednisolone 4mg TBPK as Directed Unknown Benzonatate 100mg Capsules Take One Capsule By Mouth Three Times A Day as Needed Unk nown Duloxetine HCL 30mg Caps DR Part Take One Capsule By Mouth Every Day Unknown Oxycodone-Acetaminophen 5-325mg Ta blets Take One Tablet By Mouth Every 6 Hours as Needed For Pain After Surgery Maximum Daily Dose 4 Tablets Unknown 0 Prednisone 20mg Tablets Take Two Tablets By Mouth Every Day For 4 Days Unknown Amoxicillin/Clavulanate Potassium 875-125mg Tablets Take One Tablet By Mouth Twice A Day For 10 Days Unknown Fluticasone Propionate/Salmeterol 232-14mcg/Act Aerosol Inhale One puff By Mouth Twice A Day Unkn own Tizanidine HCL 4mg Tablets Take One Tablet By Mouth Every 8 Hours as Needed Unknown Naproxen 375mg Tablets Take One Tablet By Mouth Three Times A Day as Needed Unknown Polymyxin B Sulfate/Trimethoprim Sulfate 56294-5.1Unit/ML-% Solution Instill 1 Drop In The Affected Eye S Fo ur Times A Day For 5 7 Days as Directed Unknown Olopatadine HCL 0.1% Solution Instill 1 Drop In Each Eye Two Times A Day as Needed Unkno wn Tobramycin-Dexamethasone 0.3-0.1% Suspension Instill One Drop Four Times A Day In Each Eye as Directed Unknown Meclizine HCL 25mg Tablets Take One Tablet By Mouth Every 8 Hours Unknown 0 Ondansetron HCL 8mg Tablets Take One Tablet By Mouth Every Day For Nausea And Vomiting Unknown Medroxyprogesterone Acetate 10mg T ablets Take One Tablet By Mouth Every Day Unknown Tri-Lo-Suzette 0.18/0.2 15/0.25 mg-25 mcg Tablets Take One Tablet By Mouth Every Day Unknow n Ibuprofen 800mg Tablets Take One Tablet By Mouth Every 6 To 8 Hours With Food Unknown Ketorolac Tromethamine 0.5% Soluti on Instill 1 Drop Two Times A Day For Allergy Symptoms And Redness To Eyes Unknown Fluticasone Propionate [place] 24- H our 50mcg/Act Suspension 2 sprays Unknown Enskyce 0.15-30mg-mcg Tablets 1 by mouth every day Unknown Albuterol Sulfate HFA 108(90Base) mcg/Act Aerosol Unknown Immunizations Description No Information Available Vital Signs Date Vital Result Comment 06/25/2020 2:45pm Body Temperature 96.8 F Height 68 inches 5'8" Weight 246.38 lb BMI (Body Mass Index) 37.5 kg/m2 02/14/2020 8:16am Body Temperature 97.9 F Results Test Acquired Date Facility Test Result H/L Range Note Laboratory test finding 01/26/2020 [facility] [address] [place] [address] ([phone] Coronavirus 2019 Nasopharygeal Testing was perf <SEE NOTE> 1 1 Testing was performed using the Aptima SARS-CoV-2 assay. This test was developed and its performance characteristics determined by [facility]. This test has not been FDA cleared or approved. This test has been authorized by FDA under an Emergency Use Authorization (EUA). This test is only authorized for the duration of time the declaration that circumstances exist justifying the authorization of the emergency use of in vitro diagnostic tests for detection of SARS-CoV-2 virus and/or diagnosis of COVID-19 infection under section 564(b)(1) of the Act, 21 U.S.C. 360bbb-3(b)(1), unless the authorization is terminated or revoked sooner. When diagnostic testing is negative, the possibility of a false negative result should be considered in the context of a patient's recent exposures and the presence of clinical signs and symptoms consistent with COVID-19. An individual without symptoms of COVID-19 and who is not shedding SARS-CoV-2 virus would expect to have a negative (not detected) result in this assay. Performed at: - [facility] [address] [id number] Material Chaser: Marli Morelos MD, Phone: [phone] Not Detected Procedures Date Code Description Status 06/25/2020 87037 X-Ray Spine Lumbosacral Complete Inc Bending Views Min Of 6 Completed 06/25/2020 08499 X-Ray Spine Cervical 6 Or More V iews Completed 02/19/2020 89586 Therapeutic Procedure, Each 15 M inutes Completed 02/19/2020 51562 Therapeutic Procedure, Each 15 M inutes Completed 02/19/2020 29476 Ultrasound, Each 15 Min, Constan t Attendance Completed 02/19/2020 66399 Ultrasound, Each 15 Min, Constan t Attendance Completed 02/19/2020 99628 Hot Or Cold Packs Completed 02/19/2020 28988 Hot Or Cold Packs Completed 02/15/2020 66754 Hot Or Cold Packs Completed 02/15/2020 24021 Ultrasound, Each 15 Min, Constan t Attendance Completed 02/15/2020 66319 Therapeutic Procedure, Each 15 M inutes Completed 02/11/2020 06420 Physical Therapy Eval - Low Comp lexity Completed 02/11/2020 69171 Ultrasound, Each 15 Min, Constan t Attendance Completed 01/30/2020 99593 Neuroplasty/Transposition, Ulnar Nerve AT Elbow Completed 01/30/2020 39691 Endoscopy Wrist W/Release Transv erse Carpal Ligament Completed 12/26/2019 98592 X-Ray Wrist Complete Completed 12/26/2019 11364 X-Ray Spine Cervical 6 Or More V iews Completed Medical Devices Description No Information Available Encounters Type Date Location Provider Dx Diagnosis Office Visit 03/25/2020 1:15p Crystal Rogers MD Z47.89 Encounter for other orthopedic aftercare Office Visit 02/14/2020 8:15a Crystal Rogers MD Z47.89 Encounter for other orthopedic aftercare Office Visit 01/24/2020 11:30a Crystal Cordova MD Z47. 89 Encounter for other orthopedic aftercare M79.672 Pain in left foot M25.475 Effusion, left foot Office Visit 12/26/2019 1:00p Crystal Rogers MD G56.01 Carpal tunnel syndrome, right upper limb G56.21 Lesion of ulnar nerve, right upper limb M47.892 Other spondylosis, cervical region Assessments Date Code Description Provider 06/25/2020 M50.30 Other cervical disc degeneration , unspecified cervical region Maurilio Argueta, P.A. 06/25/2020 M43.12 Spondylolisthesis, cervical edwina on Maurilio Argueta, P.A. 06/25/2020 M51.36 Other intervertebral disc degene ration, lumbar region Maurilio Argueta, P.A. 03/25/2020 Z47.89 Encounter for other orthopedic a ftercare Jaxon Rogers MD 02/19/2020 Z47.89 Encounter for other orthopedic a ftercare Janee Ramos, P.T.A. 02/15/2020 Z47.89 Encounter for other orthopedic a ftercare Janee Ramos, P.T.A. 02/14/2020 Z47.89 Encounter for other orthopedic a ftercare Jaxon Rogers MD 02/11/2020 Z47.89 Encounter for other orthopedic a ftercare Merrill Luz P.T. 02/11/2020 M79.672 Pain in left foot Merrill Luz P.T. 02/11/2020 M25.475 Effusion, left foot Merrill sheffield P.T. 01/30/2020 G56.21 Lesion of ulnar nerve, right upp er limb Jaxon Rogers MD 01/30/2020 G56.01 Carpal tunnel syndrome, right up per limb Jaxon Rogers MD 01/24/2020 Z47.89 Encounter for other orthopedic a ftercare Katelyn Cordova MD 01/24/2020 M79.672 Pain in left foot Katelyn faust MD 01/24/2020 M25.475 Effusion, left foot Katelyn metzger MD 12/26/2019 G56.01 Carpal tunnel syndrome, right up per limb Jaxon Rogers MD 12/26/2019 G56.21 Lesion of ulnar nerve, right upp er limb Jaxon Rogers MD 12/26/2019 M47.892 Other spondylosis, cervical edwina on Jaxon Rogers MD Plan of Treatment 06/25/2020 - Maurilio Argueta, P.A.* M50.30 Other cervical disc degeneration, unspecified cervical region* New Xrays:* MRI Cervical Spine, Ordered: 06/25/20 * M43.12 Spondylolisthesis, cervical region * M51.36 Other intervertebral disc degeneration, lumbar region* New Xrays:* MRI Lumbar Spine, Ordered: 06/25/20 * Follow up:* after cervical spine/lumbar spine MRI for results with mkm Functional Status Description No Information Available Mental Status Description No Information Available Referrals Refer to Reason for Referral Status Appt Date Angel Florian MD Auth for physical therapy ev aluation [id number] Left foot UNTIL 04/19/20. Patient coming here, passed to PT Dept. AC Created [address] [place] [address], [address] [place] [phone] Angel Florian MD SURGERY PER [employer] NO AU TH REQUIRED FOR ULNAR NERVE OF CTR(94356 AND 56839) TO BE DONE HERE IN OUR [facility] TO SURGERY NT Created [address] [place] [address], [address] [place] [address] [phone]
--- OUTSIDE RECORDS SUMMARY | 2020-08-08 14:41 | CCD | Continuity of Care Document ---
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 Name Role Phone Shell Merino MD Unavailable Unavailable Allergies, Adverse Reactions, Alerts Substance Reaction Status Criticality amoxicillin Active No Information shellfish derived Active No Information coconut Active No Information orange juice Active No Information latex Active No Information Medications Medication Instructions Dosage Effective Dates (start - stop) Sta tus Comments lisinopril 10 mg tablet - Active OMEPRAZOLE (unknown strength) Not Available - Act paulina FERROUS SULFATE (unknown strength) Not Available - Active CYMBALTA (unknown strength) Not Available - Activ e SINGULAIR (unknown strength) Not Available - Acti ve ALBUTEROL INHALER (unknown strength) Not Available - Active Problems Condition Effective Dates (start - stop) Clinical Status C omments Body mass index (BMI) 35.0-35.9, adult - Body mass index (BMI) 32.0-32.9, adult - Body mass index (BMI) 28.0-28.9, adult - Body mass index (BMI) 30.0-30.9, adult - Obesity - Other sex counseling Encounter for oth general cnsl and advice on contraception Human immunodeficiency virus [HIV] counseling Encounter for surveillance of contraceptive pills Abnormal uterine and vaginal bleeding, unspecified Human immunodeficiency virus [HIV] counseling Other sex counseling Encounter for oth general cnsl and advice on contraception Encounter for surveillance of contraceptive pills Encntr for delivery man exam (general) (routine) w/o abn findings Encounter for test, result negative - Encounter for surveillance of contraceptive pills Human immunodeficiency virus [HIV] counseling Other sex counseling Encounter for oth general cnsl and advice on contraception Encntr screen for infections w sexl mode of transmiss High risk heterosexual behavior Encounter for test, result negative Encntr for delivery man exam (general) (routine) w/o abn findings Encounter for surveillance of contraceptive pills Encounter for test, result negative Encounter for oth general cnsl and advice on contraception Encounter for initial prescription of contraceptive pills Encounter for prescription of emergency contraception High risk heterosexual behavior Acute vaginitis Human immunodeficiency virus [HIV] counseling Encounter for test, result negative Encounter for oth general cnsl and advice on contraception Encounter for surveillance of contraceptive pills Encntr for delivery man exam (general) (routine) w/o abn findings Encntr screen for infections w sexl mode of transmiss Encounter for screening for human immunodeficiency virus High risk heterosexual behavior Encounter for oth screening for malignant neoplasm of breast Other specified noninflammatory disorders of vagina Encntr for cerv smear to cnfrm norm smr fol init abn smear Encounter for oth general cnsl and advice on contraception Encounter for surveillance of contraceptive pills High risk heterosexual behavior Pruritus vulvae Candidiasis of vulva and vagina Encounter for test, result negative Encounter for oth general cnsl and advice on contraception Encounter for surveillance of contraceptive pills High risk heterosexual behavior Irregular menstruation, unspecified Encntr for delivery man exam (general) (routine) w/o abn findings Encounter for screening for malignant neoplasm of cervix Encntr screen for infections w sexl mode of transmiss High risk heterosexual behavior Encounter for surveillance of contraceptive pills Human immunodeficiency virus [HIV] counseling OCP, Surveillance STI Screening GARAGEMAN Exam, Routine WWE HIV Counseling Family Planning Counseling OCP, Start HPV - Human papillomavirus test positive - Active Asthma - Active Chlamydial infection - Active Recurrent urinary tract infection - Active Genital warts - Active Anemia - Active Procedures Procedure Date No Information Results Test Name Date and Time Measure Units Reference Range Abnormal Flag St atus Comments No Information Advance Directives Directive Yes / No Effective Date File Name No Information Encounters Encounter Description Practice Location Reason(s) For Visit Diagnose s Date Provider Providers Copied on Encounter [facility], [address], [place], [id number], [place] tel:[phone] ARMANDO Rivas No Information Wilber Goff. [address] [place], [place], [id number], [place]. tel:[phone] [facility], [address], [place], [id number], [place] tel:[phone] [facility] [place] Other sex counselin gEncounter for oth general cnsl and advice on contraceptionHuman immunodeficiency virus [HIV] counselingEncounter for surveillance of contraceptive pillsAbnormal uterine and vaginal bleeding, unspecified Marlo Hale. [address] [place], [place], [id number], [place]. tel:[phone] Referring Provider: Alexia Sellers, [address] [place], [place], [id number]. tel:[phone] [facility], [address] [place] [address], [id number], [place] tel:[phone] [facility] [place] Human immunodeficie ncy virus [HIV] counselingOther sex counselingEncounter for oth general cnsl and advice on contraceptionEncounter for surveillance of contraceptive pillsEncntr for delivery man exam (general) (routine) w/o abn findingsBody mass index (BMI) 35.0-35.9, adultEncounter for test, result negative John Hale. [address] [place], [place], [id number], [place]. tel:[phone] Referring Provider: Alexia Sellers, [address] [place], [place], [id number]. tel:[phone] [facility] [place], [address], [place], [id number], [place] tel:[phone] [facility] [place] Encounter for surve illance of contraceptive pills Miladys Trujillo. [address] [place], [place], [id number]. tel:[phone] [facility], [address], [place], [id number], [place] tel:[phone] [facility] [place] Human immunodeficie ncy virus [HIV] counselingOther sex counselingEncounter for oth general cnsl and advice on contraceptionEncntr screen for infections w sexl mode of transmissHigh risk heterosexual behaviorEncounter for test, result negativeBody mass index (BMI) 32.0-32.9, adultEncntr for delivery man exam (general) (routine) w/o abn findingsEncounter for surveillance of contraceptive pills Marlo Hale. [address] [place] [address], [id number], [place]. tel:[phone] Referring Provider: Alexia Sellers, [address] [place] [address], [id number]. tel:[phone] [facility], [address] [place] [address], [id number], tel:[phone] [facility] [place] Encounter for pregn aletha test, result negativeEncounter for oth general cnsl and advice on contraceptionEncounter for initial prescription of contraceptive pillsEncounter for prescription of emergency contraceptionHigh risk heterosexual behavior Brandy Davies. [address] [place] [address], [id number]. tel:[phone] Referring Provider: Keke Nava, [address] [place] [address], [id number]. tel:[phone] [facility], [address] [place] [address], [id number], [place] tel:[phone] [facility] [place] Acute vaginitis King Sanjuanita. [address] [place] [address], [id number]. tel:[phone] [facility], [address] [place] [address], [id number], [place] tel:[phone] [facility] [place] Human immunodeficie ncy virus [HIV] counselingEncounter for test, result negativeEncounter for oth general cnsl and advice on contraceptionEncounter for surveillance of contraceptive pillsEncntr for delivery man exam (general) (routine) w/o abn findingsEncntr screen for infections w sexl mode of transmissEncounter for screening for human immunodeficiency virusHigh risk heterosexual behaviorEncounter for oth screening for malignant neoplasm of breastBody mass index (BMI) 28.0-28.9, adultOther specified noninflammatory disorders of vaginaEncntr for cerv smear to cnfrm norm smr fol init abn smear King Sanjuanita. [address] [place], [place], [id number]. tel:[phone] Referring Provider: Sanjuanita De Jesus, [address] [place] [address], [id number]. tel:[phone] [facility], [address] [place] [address], [id number], [place] tel:[phone] [facility] Encounter for oth g eneral cnsl and advice on contraceptionEncounter for surveillance of contraceptive pillsHigh risk heterosexual behaviorPruritus vulvaeCandidiasis of vulva and vagina Jeremy Mccloud. [address] [place] [address], [id number], [place]. tel:[phone] Referring Provider: Ame Luna, [address] [place] [address], [id number]. tel:[phone] [facility], [address] [place] [address], [id number], [place] tel:[phone] [facility] [place] Encounter for pregn aletha test, result negativeEncounter for oth general cnsl and advice on contraceptionEncounter for surveillance of contraceptive pillsHigh risk heterosexual behaviorIrregular menstruation, unspecified Rah Purcell. [address] [place] [address], [id number], [place]. tel:[phone] Referring Provider: Jazzy Valadez , [address] [place] [address], [id number]. tel:[phone] [facility], [address] [place] [address], [id number], tel:[phone] [facility] [place] Body mass index (BM I) 30.0-30.9, adultEncntr for delivery man exam (general) (routine) w/o abn findingsEncounter for screening for malignant neoplasm of cervixEncntr screen for infections w sexl mode of transmissHigh risk heterosexual behaviorEncounter for surveillance of contraceptive pillsHuman immunodeficiency virus [HIV] counseling Bailey Cintrona. [address] [place] [address], [id number]. tel:[phone] [facility], [address] [place] [address], [id number], tel:[phone] [facility] [place] OCP, Surveillance Rah Purcell. [address] [place] [address], [id number], . tel:[phone] [facility], [address] [place] [address], [id number], tel:[phone] [facility] [place] STI ScreeningGYN Ex am, Routine WWEHIV CounselingFamily Planning CounselingOCP, StartObesity Barr Nancy. [address] [place] [address], [id number]. tel:[phone] Family History Family Member Diagnosis Age At Onset Family history of Hypertension Mother No history of Stroke 1st degree relative No hx of coronary heart disease (female <65, male <55) Father Diabetes mellitus Brother Mental illness Family history of High cholesterol Father No history of Myocardial infarction Mother Cancer, ovarian Mother No history of Myocardial infarction Father Myocardial infarction Brother No history of Myocardial infarction Brother No history of Stroke Father No history of Stroke Sister Mental illness Father Hypertension 1st degree relative No hx of venous thromboembolism 1st degree relative No hx of osteoporosis Daughter Mental illness Sister No history of Myocardial infarction Sister No history of Stroke Father High cholesterol Immunizations Vaccine Date Status Comments varicella virus vaccine administered Note: Da noelle Unknown, Attended [facility] [employer] ; Source: Source Unspecified tetanus toxoid, adsorbed administered Note: D ates Unknown, Attended [facility] [employer] ; Source: Source Unspecified measles, mumps and rubella virus vaccine adminis tered Note: Dates Unknown, Attended [facility] [employer] ; Source: Source Unspecified hepatitis B vaccine, adult dosage administered Note: Dates Unknown, Attended [facility] [employer] ; Source: Source Unspecified hepatitis A vaccine, adult dosage administered Note: Dates Unknown, Attended [facility] [employer] ; Source: Source Unspecified hepatitis A and hepatitis B vaccine administered Note: Dates Unknown, Attended [facility] [employer] ; Source: Source Unspecified Payers Payer name Insurance type Covered libertarian ID Authorization(s ) [facility] CI [id number] Social History Type Description Quantity Date Captured Comments Alcohol Use Details Unknown Caffeine Use Details Unknown Tobacco Use Status No Information Smoking Status Never smoker Sex Female Vital Signs Date / Time: Height Weight BMI Pulse Rate Blood Pressure Temperatu re Respiratory Rate Body Surface Area Head Circumference BMI percentile Pulse Ox In haled Ox No Information Chief Complaint And Reason For Visit No Information Reason For Referral Reason For Referral No Information Plan Of Treatment Date Type Action Status Goal Dietary management education, gu idance, and counseling completed Goal Dietary management education, gu idance, and counseling completed Goal Lifestyle education regarding di et completed Goal Dietary management education, gu idance, and counseling completed Goal Dietary management education, gu idance, and counseling completed History Of Present Illness Encounter Date Complaint History Of Present I llness No Information Functional Status Date Functional Assessment No Information Medications Administered Medication Instructions Dosage Effective Dates (start - stop) Sta tus Comments No Information Instructions Date Instruction Additional Informati on Dietary management education, guidance, and counseling Related to Body mass index (BMI) 35.0-35.9, adult Dietary management education, guidance, and counseling Related to Body mass index (BMI) 32.0-32.9, adult Giving encouragement to exercise Related to Body mass index (BMI) 28.0-28.9, adult Lifestyle education regarding diet Relat ed to Body mass index (BMI) 28.0-28.9, adult Dietary management education, guidance, and counseling Related to Body mass index (BMI) 30.0-30.9, adult Dietary management education, guidance, and counseling Related to Obesity, unspecified Assessments Type Assessment Date No Information Goals Health Concern Goal Type Priority Status Date No Information Medical Equipment Description Device Bloomer Device Identifier Effective Lenard es (start - stop) Status No Information Mental Status Date Cognitive Assessment No Information Health Concerns Observation Date No Information Concern Status Date No Information Physical Examination Exam Findings Details No Information
--- OUTSIDE RECORDS SUMMARY | 2020-08-08 14:41 | CCD | Continuity of Care Document ---
Author Author Bryanna ARGUETA P.A. Organization Unknown Address [address] [facility], [facility] [address] [place] [address] Phone [phone] Care Team Providers Care Watch Guard Gate Name Role Phone Cathy Murrell NURSES' AIDE-BC AUTM [phone] Problems Active Problems Provider Date Essential hypertension [...] for as needed post op pain. 20tabs Jaoxn Rogers MD 12/05/2019 Singulair 10mg Tablets 1 [...] as Needed Unknown Polymyxin B Sulfate/Trimethoprim Sulfate 97947-6.1Unit/ML-% Solution Instill 1 Drop In The Affected [...] Redness To Eyes Unknown Fluticasone Propionate Nasal [place] 24- H our 50mcg/Act Suspension 2 sprays [...] H/L Range Note Laboratory test finding [facility]2020 [facility] [address] [place] [address] (315)- - Coronavirus 2019 Nasopharygeal Testing was perf <SEE NOTE> 1 1 Testing was performed using the Aptima SARS-CoV-2 assay. This test was developed and its performance characteristics determined by [employer]. This test has not been FDA cleared [...] detected) result in this assay. Performed at: RN - [facility] [address] [id number] Crm Marketing Analyst: Marli Morelos MD, Phone: [phone] Not Detected Procedures Date Code Description Status 06/25/2020 67606 X-Ray Spine Lumbosacral Complete Inc Bending Views Min Of 6 Completed 06/25/2020 33712 X-Ray Spine Cervical 6 Or More V iews Completed 02/19/2020 37389 Therapeutic Procedure, Each 15 M inutes Completed 02/19/2020 32316 Therapeutic Procedure, Each 15 M inutes Completed 02/19/2020 37070 Ultrasound, Each 15 Min, Constan t Attendance Completed 02/19/2020 00686 Ultrasound, Each 15 Min, Constan t Attendance Completed 02/19/2020 13364 Hot Or Cold Packs Completed 02/19/2020 43568 Hot Or Cold Packs Completed 02/15/2020 47546 Therapeutic Procedure, Each 15 M inutes Completed 02/15/2020 40670 Ultrasound, Each 15 Min, Constan t Attendance Completed 02/15/2020 81321 Hot Or Cold Packs Completed 02/11/2020 04912 Physical Therapy Eval - Low Comp lexity Completed 02/11/2020 25189 Ultrasound, Each 15 Min, Constan t Attendance Completed 01/30/2020 19909 Neuroplasty/Transposition, Ulnar Nerve AT Elbow Completed 01/30/2020 21742 Endoscopy Wrist W/Release Transv erse Carpal Ligament Completed Medical Devices Description No Information Available Encounters Type Date Location Provider Dx Diagnosis Office Visit 06/25/2020 2:30p Seymourmelva Argueta, P.A. M50.30 Other cervical disc degeneration, unsp cervical region M43.12 Spondylolisthesis, cervical region M51.36 Other intervertebral disc de generation, lumbar region Office Visit 03/25/2020 1:15p Crystal Rogers MD Z47.89 Encounter for other orthopedic aftercare Office Visit 02/14/2020 8:15a Crystal Rogers MD Z47.89 Encounter for other orthopedic aftercare Office Visit 01/24/2020 11:30a Crystal Cordova MD Z47. 89 Encounter for other orthopedic aftercare M79.672 Pain in left foot M25.475 Effusion, left foot Assessments Date Code Description Provider 06/25/2020 M50.30 [...] P.T. 02/11/2020 M25.475 Effusion, left foot Merrill Janusz sheffield P.T. 01/30/2020 G56.21 Lesion of ulnar nerve, right upp er limb Jaxon Rogers MD 01/30/2020 G56.01 Carpal tunnel syndrome, right up per limb Jaxon Rogers MD 01/24/2020 Z47.89 Encounter for other orthopedic a ftercare Katelyn Cordova MD 01/24/2020 M79.672 Pain in left foot Katelyn faust MD 01/24/2020 M25.475 Effusion, left foot Katelyn metzger MD Plan of Treatment 06/25/2020 - Maurilio Argueta, P.A.* M50.30 Other cervical disc degeneration, unspecified cervical region * M43.12 Spondylolisthesis, cervical region * M51.36 Other intervertebral disc degeneration, lumbar region* Follow up:* after cervical spine/lumbar spine MRI for results with [facility] Functional Status Description No Information Available Mental Status Description No Information Available Referrals Refer to Reason for Referral Status Appt Date Angel Florian MD [facility] for physical therapy ev aluation [phone] [id number] Left foot UNTIL 04/19/20. Patient coming here, passed to PT Dept. AC Created [address] [facility], [address] [place] [address] [phone]
--- OUTSIDE RECORDS SUMMARY | 2020-08-08 14:42 | CCD ---
Author Author [facility] Organization [facility] Address Unknown Phone Unavailable Care Team Providers Care Clinical Aide Name Role Phone Symenow, Allyson Rylee PA Unavailable Unavailable Symenow, Allyson Rylee PA Unavailable Unavailable Symenow, Allyson Rylee PA Unavailable Unavailable Symenow, Allyson Rylee PA Unavailable Unavailable Symenow, Allyson Rylee PA Unavailable Unavailable Symenow, Allyson Rylee PA Unavailable Unavailable Symenow, Allyson Rylee PA Unavailable Unavailable Symenow, Allyson Rylee PA Unavailable Unavailable Symenow, Allyson Rylee PA Unavailable Unavailable Symenow, Allyson Rylee PA Unavailable Unavailable Symenow, Allyson Rylee PA Unavailable Unavailable Symenow, Allyson Rylee PA Unavailable Unavailable Symenow, Allyson Rylee PA Unavailable Unavailable Symenow, Allyson Rylee PA Unavailable Unavailable Symenow, Allyson Rylee PA Unavailable Unavailable Symenow, Allyson Rylee PA Unavailable Unavailable Symenow, Allyson Rylee PA Unavailable Unavailable Symenow, Allyson Rylee PA Unavailable Unavailable Symenow, Allyson Rylee PA Unavailable Unavailable Symenow, Allyson Rylee PA Unavailable Unavailable Symenow, Allyson Rylee PA Unavailable Unavailable Symenow, Allyson Rylee PA Unavailable Unavailable Symenow, Allyson Rylee PA Unavailable Unavailable Symenow, Allyson Rylee PA Unavailable Unavailable Symenow, Allyson Rylee PA Unavailable Unavailable Symenow, Allyson Rylee PA Unavailable Unavailable Symenow, Allyson Rylee PA Unavailable Unavailable Symenow, Allyson Rylee PA Unavailable Unavailable Symenow, Allyson Rylee PA Unavailable Unavailable Symenow, Allyson Rylee PA Unavailable Unavailable Symenow, Allyson Rylee PA Unavailable Unavailable Symenow, Allyson Rylee PA Unavailable Unavailable Symenow, Allyson Rylee PA Unavailable Unavailable Symenow, Allyson Rylee PA Unavailable Unavailable Symenow, Allyson Rylee PA Unavailable Unavailable Symenow, Allyson Rylee PA Unavailable Unavailable MCELHERAN, DORIAN PA Unavailable Unavailable MCELHERAN, DORIAN PA Unavailable Unavailable MCELHERAN, DORIAN PA Unavailable Unavailable MCELHERAN, DORIAN PA Unavailable Unavailable MCELHERAN, DORIAN PA Unavailable Unavailable MCELHERAN, DORIAN PA Unavailable Unavailable MCELHERAN, DORIAN PA Unavailable Unavailable MCELHERAN, DORIAN PA Unavailable Unavailable MCELHERAN, DORIAN PA Unavailable Unavailable MCELHERAN, DORIAN PA Unavailable Unavailable MCELHERAN, DORIAN PA Unavailable Unavailable MCELHERAN, DORIAN PA Unavailable Unavailable MCELHERAN, DORIAN PA Unavailable Unavailable MCELHERAN, DORIAN PA Unavailable Unavailable MCELHERAN, DORIAN PA Unavailable Unavailable MCELHERAN, DORIAN PA Unavailable Unavailable MCELHERAN, DORIAN PA Unavailable Unavailable MCELHERAN, DORIAN PA Unavailable Unavailable MCELHERAN, DORIAN PA Unavailable Unavailable MCELHERAN, DORIAN PA Unavailable Unavailable MCELHERAN, DORIAN PA Unavailable Unavailable MCELHERAN, DORIAN PA Unavailable Unavailable MCELHERAN, DORIAN PA Unavailable Unavailable MCELHERAN, DORIAN PA Unavailable Unavailable MCELHERAN, DORIAN PA Unavailable Unavailable MCELHERAN, DORIAN PA Unavailable Unavailable MCELHERAN, DORIAN PA Unavailable Unavailable MCELHERAN, DORIAN PA Unavailable Unavailable Aftab Murrell ORACLE SQL DEVELOPER ORACLE SQL DEVELOPER Unavailable Unavailable Sellers, Nishi Alexia ORACLE SQL DEVELOPER Unavailable Unavailable Sellers, Nishi Alexia ORACLE SQL DEVELOPER Unavailable Unavailable Sellers, Nishi Alexia ORACLE SQL DEVELOPER Unavailable Unavailable Sellers, Nishi Alexia ORACLE SQL DEVELOPER Unavailable Unavailable Sellers, Nishi Alexia ORACLE SQL DEVELOPER Unavailable Unavailable Sellers, Nishi Alexia ORACLE SQL DEVELOPER Unavailable Unavailable Vandana Florian MD Unavailable Unavailable Vandana Florian MD Unavailable Unavailable Vandana Florian MD Unavailable Unavailable Vandana Florian MD Unavailable Unavailable Vandana Florian MD Unavailable Unavailable Vandana Florian MD Unavailable Unavailable Vandana Florian MD Unavailable Unavailable Vandana Florian MD Unavailable Unavailable Vandana Florian MD Unavailable Unavailable Vandana Florian MD Unavailable Unavailable Vandana Florian MD Unavailable Unavailable Vandana Florian MD Unavailable Unavailable Vandana Florian MD Unavailable Unavailable Vandana Florian MD Unavailable Unavailable Vandana Florian MD Unavailable Unavailable Heitesau, Vandana Ortiz MD Unavailable Unavailable Heitner, Vandana Ortiz MD Unavailable Unavailable Heitner, Vandana Ortiz MD Unavailable Unavailable Heitner, Vandana Ortiz MD Unavailable Unavailable Heitner, Vandana Ortiz MD Unavailable Unavailable Heitner, Vandana Ortiz MD Unavailable Unavailable Heitner, Vandana Ortiz MD Unavailable Unavailable Heitner, Vandana Ortiz MD Unavailable Unavailable Heitner, Vandana Ortiz MD Unavailable Unavailable [place]au, Vandana Ortiz MD Unavailable Unavailable Murrell, F Aftab ORACLE SQL DEVELOPER-BC Unavailable Unavailable Murrell, F Aftab ORACLE SQL DEVELOPER-BC Unavailable Unavailable Murrell, F Aftab ORACLE SQL DEVELOPER-BC Unavailable Unavailable Murrell, F Aftab ORACLE SQL DEVELOPER-BC Unavailable Unavailable Murrell, F Aftab ORACLE SQL DEVELOPER-BC Unavailable Unavailable Murrell, F Aftab ORACLE SQL DEVELOPER-BC Unavailable Unavailable Murrell, F Aftab ORACLE SQL DEVELOPER-BC Unavailable Unavailable Murrell, F Aftab ORACLE SQL DEVELOPER-BC Unavailable Unavailable Murrell, F Aftab ORACLE SQL DEVELOPER-BC Unavailable Unavailable Murrell, F Aftab ORACLE SQL DEVELOPER-BC Unavailable Unavailable Murrell, F Aftab ORACLE SQL DEVELOPER-BC Unavailable Unavailable Murrell, F Aftab ORACLE SQL DEVELOPER-BC Unavailable Unavailable Murrell, F Aftab ORACLE SQL DEVELOPER-BC Unavailable Unavailable Murrell, F Aftab ORACLE SQL DEVELOPER-BC Unavailable Unavailable Murrell, F Aftab ORACLE SQL DEVELOPER-BC Unavailable Unavailable Murrell, F Aftab ORACLE SQL DEVELOPER-BC Unavailable Unavailable Murrell, F Aftab ORACLE SQL DEVELOPER-BC Unavailable Unavailable Murrell, F Aftab ORACLE SQL DEVELOPER-BC Unavailable Unavailable Murrell, F Aftab ORACLE SQL DEVELOPER-BC Unavailable Unavailable Murrell, F Aftab ORACLE SQL DEVELOPER-BC Unavailable Unavailable Murrell, F Aftab ORACLE SQL DEVELOPER-BC Unavailable Unavailable Murrell, F Aftab ORACLE SQL DEVELOPER-BC Unavailable Unavailable NICKI, KEILY PA Unavailable Unavailable NICKI, KEILY PA Unavailable Unavailable NICKI, KEILY PA Unavailable Unavailable NICKI, KEILY PA Unavailable Unavailable NICKI, KEILY PA Unavailable Unavailable NICKI, KEILY PA Unavailable Unavailable NICKI, KEILY PA Unavailable Unavailable NICKI, KEILY PA Unavailable Unavailable NICKI, KEILY PA Unavailable Unavailable NICKI, KEILY PA Unavailable Unavailable NICKI, KEILY PA Unavailable Unavailable NICKI, KEILY PA Unavailable Unavailable NICKI, KEILY PA Unavailable Unavailable NICKI, KEILY PA Unavailable Unavailable NICKI, KEILY PA Unavailable Unavailable NICKI, KEILY PA Unavailable Unavailable NICKI, KEILY PA Unavailable Unavailable NICKI, KEILY PA Unavailable Unavailable NICKI, KEILY PA Unavailable Unavailable NICKI, KEILY PA Unavailable Unavailable NICKI, KEILY PA Unavailable Unavailable NICKI, KEILY PA Unavailable Unavailable NICKI, KEILY PA Unavailable Unavailable NICKI, KEILY PA Unavailable Unavailable NICKI, KEILY PA Unavailable Unavailable NICKI, KEILY PA Unavailable Unavailable NICKI, KEILY PA Unavailable Unavailable NICKI, KEILY PA Unavailable Unavailable NICKI, KEILY PA Unavailable Unavailable NICKI, KEILY PA Unavailable Unavailable NICKI, KEILY PA Unavailable Unavailable NICKI, KEILY PA Unavailable Unavailable NICKI, KEILY PA Unavailable Unavailable INCKI, KEILY PA Unavailable Unavailable NICKI, KEILY PA Unavailable Unavailable NICKI, KEILY PA Unavailable Unavailable NICKI, KEILY PA Unavailable Unavailable NICKI, KEILY PA Unavailable Unavailable Hale, Susy SOFT METALS ENGRAVER HAND Unavailable Unavailable Hale, Susy SOFT METALS ENGRAVER HAND Unavailable Unavailable Hale, Susy SOFT METALS ENGRAVER HAND Unavailable Unavailable Hale, Susy SOFT METALS ENGRAVER HAND Unavailable Unavailable Hale, Susy SOFT METALS ENGRAVER HAND Unavailable Unavailable Hale, Susy SOFT METALS ENGRAVER HAND Unavailable Unavailable Hale, Susy SOFT METALS ENGRAVER HAND Unavailable Unavailable Hale, Susy SOFT METALS ENGRAVER HAND Unavailable Unavailable Hale, Susy SOFT METALS ENGRAVER HAND Unavailable Unavailable Hale, Susy SOFT METALS ENGRAVER HAND Unavailable Unavailable Hale, Susy SOFT METALS ENGRAVER HAND Unavailable Unavailable LETTIERE, A DORIAN PA Unavailable Unavailable LETTIERE, A DORIAN PA Unavailable Unavailable LETTIERE, A DORIAN PA Unavailable Unavailable LETTIERE, A DORIAN PA Unavailable Unavailable LETTIERE, A DORIAN PA Unavailable Unavailable LETTIERE, A DORIAN PA Unavailable Unavailable LETTIERE, A DORIAN PA Unavailable Unavailable LETTIERE, A DORIAN PA Unavailable Unavailable LETTIERE, A DORIAN PA Unavailable Unavailable LETTIERE, A DORIAN PA Unavailable Unavailable LETTIERE, A DORIAN PA Unavailable Unavailable LETTIERE, A DORIAN PA Unavailable Unavailable LETTIERE, A DORIAN PA Unavailable Unavailable LETTIERE, A DORIAN PA Unavailable Unavailable LETTIERE, A DORIAN PA Unavailable Unavailable LETTIERE, A DORIAN PA Unavailable Unavailable LETTIERE, A DORIAN PA Unavailable Unavailable LETTIERE, A DORIAN PA Unavailable Unavailable LETTIERE, A DORIAN PA Unavailable Unavailable LETTIERE, A DORIAN PA Unavailable Unavailable LETTIERE, A DORIAN PA Unavailable Unavailable LETTIERE, A DORIAN PA Unavailable Unavailable LETTIERE, A DORIAN PA Unavailable Unavailable LETTIERE, A DORIAN PA Unavailable Unavailable LETTIERE, A DORIAN PA Unavailable Unavailable LETTIERE, A DORIAN PA Unavailable Unavailable LETTIERE, A DORIAN PA Unavailable Unavailable LETTIERE, A DORIAN PA Unavailable Unavailable LETTIERE, A DORIAN PA Unavailable Unavailable Wilber, A Shell LIN Unavailable Unavailable Wilber, A Shell LIN Unavailable Unavailable Wilber, A Shell LIN Unavailable Unavailable Wilber, A Shell LIN Unavailable Unavailable Wilber, A Shell LIN Unavailable Unavailable Wilber, A Shell LIN Unavailable Unavailable Wilber, A Shell LIN Unavailable Unavailable Wilber, A Shell LIN Unavailable Unavailable Wilber, A Shell LIN Unavailable Unavailable Wilber, A Shell LIN Unavailable Unavailable Wilber, A Shell LIN Unavailable Unavailable Wilber, A Shell LIN Unavailable Unavailable Wilber, A Shell LIN Unavailable Unavailable Wilber, A Shell LIN Unavailable Unavailable Wilber, A Shell LIN Unavailable Unavailable Wilber, A Shell LIN Unavailable Unavailable Wilber, A Shell LIN Unavailable Unavailable Wilber, A Shell LIN Unavailable Unavailable Wilber, A Shell LIN Unavailable Unavailable Wilber, A Shell LIN Unavailable Unavailable Wilber, A Shell LIN Unavailable Unavailable Wilber, A Shell LIN Unavailable Unavailable Wilber, A Shell LIN Unavailable Unavailable Wilber, A Shell LIN Unavailable Unavailable Wilber, A Shell LIN Unavailable Unavailable Wilber, A Shell LIN Unavailable Unavailable Wilber, A Shell LIN Unavailable Unavailable Wilber, A Shell LIN Unavailable Unavailable Wilber, A Shell LIN Unavailable Unavailable Wilber, A Shell LIN Unavailable Unavailable Wilber, A Shell LIN Unavailable Unavailable Wilber, A Shell LIN Unavailable Unavailable Wilber, A Shell LIN Unavailable Unavailable Wilber, A Shell LIN Unavailable Unavailable Wilber, A Shell LIN Unavailable Unavailable Wilber, A Shell LIN Unavailable Unavailable Wilber, A Shell LIN Unavailable Unavailable Wilber, A Shell LIN Unavailable Unavailable Wilber, A Shell LIN Unavailable Unavailable Wilber, A Shell LIN Unavailable Unavailable Wilber, A Shell LIN Unavailable Unavailable Wilber, A Shell LIN Unavailable Unavailable Wilber, A Shell LIN Unavailable Unavailable Wilber, A Shell LIN Unavailable Unavailable Wilber, A Shell LIN Unavailable Unavailable Wilber, A Shell LIN Unavailable Unavailable Wilber, A Shell LIN Unavailable Unavailable Wilber, A Shell LIN Unavailable Unavailable Wilber, A Shell LIN Unavailable Unavailable Wilber, A Shell LIN Unavailable Unavailable Wilber, A Shell LIN Unavailable Unavailable Wilber, A Shell LIN Unavailable Unavailable Wilber, A Shell LIN Unavailable Unavailable Wilber, A Shell LIN Unavailable Unavailable Wilber, A Shell LIN Unavailable Unavailable Wilber, A Shell LIN Unavailable Unavailable Wilber, A Shell MD Unavailable Unavailable Wilber, Selena Goff MD Unavailable Unavailable Wilber, Selena Goff MD Unavailable Unavailable Wilber, Selena Goff MD Unavailable Unavailable Wilber, Selena Goff MD Unavailable Unavailable Wilber, Selena Goff MD Unavailable Unavailable Wilber, Selena Goff MD Unavailable Unavailable Wilber, Selena Goff MD Unavailable Unavailable Wilber, Selena Goff MD Unavailable Unavailable Wilber, Selena Goff MD Unavailable Unavailable Wilber, Selena Goff MD Unavailable Unavailable Wilber, Selena Goff MD Unavailable Unavailable Wilber, Selena Goff MD Unavailable Unavailable Wilber, Selena Goff MD Unavailable Unavailable Wilber, Selena Goff MD Unavailable Unavailable Wilber, Selena Goff MD Unavailable Unavailable Wilber, Selena Goff MD Unavailable Unavailable Wilber, Selena Goff MD Unavailable Unavailable Wilber, Selena Goff MD Unavailable Unavailable ANTECOL, Maite ROSS MD Unavailable Unavailable ANTECOL, Maite ROSS MD Unavailable Unavailable ANTECOL, Maite ROSS MD Unavailable Unavailable ANTECOL, Maite ROSS MD Unavailable Unavailable ANTECOL, Maite ROSS MD Unavailable Unavailable ANTECOL, Maite ROSS MD Unavailable Unavailable ANTECOL, Maite ROSS MD Unavailable Unavailable ANTECOL, Maite ROSS MD Unavailable Unavailable ANTECOL, Maite ROSS MD Unavailable Unavailable ANTECOL, Maite ROSS MD Unavailable Unavailable ANTECOL, Maite ROSS MD Unavailable Unavailable ANTECOL, Maite ROSS MD Unavailable Unavailable ANTECOL, Maite ROSS MD Unavailable Unavailable ANTECOL, Maite ROSS MD Unavailable Unavailable ANTECOL, Maite ROSS MD Unavailable Unavailable ANTECOL, Maite ROSS MD Unavailable Unavailable ANTECOL, Maite ROSS MD Unavailable Unavailable ANTECOL, Maite ROSS MD Unavailable Unavailable ANTECOL, Maite ROSS MD Unavailable Unavailable ANTECOL, Maite ROSS MD Unavailable Unavailable ANTECOL, Maite ROSS MD Unavailable Unavailable ANTECOL, Maite ROSS MD Unavailable Unavailable ANTECOL, Maite ROSS MD Unavailable Unavailable ANTECOL, Maite ROSS MD Unavailable Unavailable ANTECOL, Maite ROSS MD Unavailable Unavailable ANTECOL, Maite ROSS MD Unavailable Unavailable ANTECOL, Maite ROSS MD Unavailable Unavailable ANTECOL, Maite ROSS MD Unavailable Unavailable ANTECOL, Maite ROSS MD Unavailable Unavailable ANTECOL, Maite ROSS MD Unavailable Unavailable ANTECOL, Maite ROSS MD Unavailable Unavailable ANTECOL, Maite ROSS MD Unavailable Unavailable ANTECOL, Maite ROSS MD Unavailable Unavailable ANTECOL, Maite ROSS MD Unavailable Unavailable ANTECOL, Maite ROSS MD Unavailable Unavailable ANTECOL, Maite ROSS MD Unavailable Unavailable ANTECOL, Maite ROSS MD Unavailable Unavailable ANTECOL, Maite ROSS MD Unavailable Unavailable ANTECOL, Maite ROSS MD Unavailable Unavailable ANTECOL, Maite ROSS MD Unavailable Unavailable ANTECOL, Maite ROSS MD Unavailable Unavailable ANTECOL, Maite ROSS MD Unavailable Unavailable ANTECOL, Maite ROSS MD Unavailable Unavailable ANTECOL, Maite ROSS MD Unavailable Unavailable ANTECOLMaite MD Unavailable Unavailable ANTECOLMaite MD Unavailable Unavailable ANTECOLMaite MD Unavailable Unavailable ANTECOLMaite MD Unavailable Unavailable ANTECOLMaite MD Unavailable Unavailable ANTECOLMaite MD Unavailable Unavailable ANTECOLMaite MD Unavailable Unavailable ANTECOLMaite MD Unavailable Unavailable ANTECOLMaite MD Unavailable Unavailable ANTECOLMaite MD Unavailable Unavailable ANTECOL, Maite ROSS MD Unavailable Unavailable KATELYN FERREIRA MD Unavailable Unavailable KATELYN FERREIRA MD Unavailable Unavailable KATELYN FERREIRA MD Unavailable Unavailable KATELYN FERREIRA MD Unavailable Unavailable KATELYN FERREIRA MD Unavailable Unavailable KATELYN FERREIRA MD Unavailable Unavailable KATELYN FERREIRA MD Unavailable Unavailable KATELYN FERREIRA MD Unavailable Unavailable KATELYN FERREIRA MD Unavailable Unavailable KATELYN FERREIRA MD Unavailable Unavailable KATELYN FERREIRA MD Unavailable Unavailable KATELYN FERREIRA MD Unavailable Unavailable KATELYN FERREIRA MD Unavailable Unavailable KATELYN FERREIRA MD Unavailable Unavailable KATELYN FERREIRA MD Unavailable Unavailable KATELYN FERREIRA MD Unavailable Unavailable KATELYN FERREIRA MD Unavailable Unavailable KATELYN FERREIRA MD Unavailable Unavailable KATELYN FERREIRA MD Unavailable Unavailable KATELYN FERREIRA MD Unavailable Unavailable KATELYN FERREIRA MD Unavailable Unavailable KATELYN FERERIRA MD Unavailable Unavailable KATELYN FERREIRA MD Unavailable Unavailable KATELYN FERREIRA MD Unavailable Unavailable KATELYN FERREIRA MD Unavailable Unavailable KATELYN FERREIRA MD Unavailable Unavailable KATELYN FERREIRA MD Unavailable Unavailable KATELYN FERREIRA MD Unavailable Unavailable KATELYN FERREIRA MD Unavailable Unavailable KATELYN FERREIRA MD Unavailable Unavailable HORACE, E AFTAB SOFT METALS ENGRAVER HAND Unavailable Unavailable HORACE, E AFTAB SOFT METALS ENGRAVER HAND Unavailable Unavailable HORACE, E AFTAB SOFT METALS ENGRAVER HAND Unavailable Unavailable HORACE, E AFTAB SOFT METALS ENGRAVER HAND Unavailable Unavailable HORACE, E AFTAB SOFT METALS ENGRAVER HAND Unavailable Unavailable HORACE, E AFTAB SOFT METALS ENGRAVER HAND Unavailable Unavailable HORACE, E AFTAB SOFT METALS ENGRAVER HAND Unavailable Unavailable HORACE, E AFTAB SOFT METALS ENGRAVER HAND Unavailable Unavailable HORACE, E AFTAB SOFT METALS ENGRAVER HAND Unavailable Unavailable HORACE, E AFTAB SOFT METALS ENGRAVER HAND Unavailable Unavailable HORACE, E AFTAB SOFT METALS ENGRAVER HAND Unavailable Unavailable HORACE, E AFTAB SOFT METALS ENGRAVER HAND Unavailable Unavailable HORACE, E AFTAB SOFT METALS ENGRAVER HAND Unavailable Unavailable RING, K ESTRDAA PA Unavailable Unavailable RING, K ESTRADA PA Unavailable Unavailable RING, K ESTRADA PA Unavailable Unavailable RING, K ESTRADA PA Unavailable Unavailable RING, K ESTRADA PA Unavailable Unavailable RING, K ESTRADA PA Unavailable Unavailable RING, K ESTRADA PA Unavailable Unavailable RING, K ESTRADA PA Unavailable Unavailable RING, K ESTRADA PA Unavailable Unavailable RING, K ESTRADA PA Unavailable Unavailable RING, K ESTRADA PA Unavailable Unavailable RING, K ESTRADA PA Unavailable Unavailable RING, K ESTRADA PA Unavailable Unavailable RING, K ESTRADA PA Unavailable Unavailable RING, K ESTRADA PA Unavailable Unavailable RING, K ESTRADA PA Unavailable Unavailable RING, K ESTRADA PA Unavailable Unavailable RING, K ESTRADA PA Unavailable Unavailable RING, K ESTRADA PA Unavailable Unavailable RING, K ESTRADA PA Unavailable Unavailable Rogers, L Jaxon LIN Unavailable Unavailable Rogers, L Jaxon LIN Unavailable Unavailable Rogers, L Jaxon LIN Unavailable Unavailable Rogers, L Jaxon LIN Unavailable Unavailable Rogers, L Jaxon LIN Unavailable Unavailable Rogers, L Jaxon LIN Unavailable Unavailable Rogers, L Jaxon LIN Unavailable Unavailable Rogers, L Jaxon LIN Unavailable Unavailable Rogers, L Jaxon LNI Unavailable Unavailable Rogers, L Jaxon LIN Unavailable Unavailable Rogers, L Jaxon LIN Unavailable Unavailable Rogers, L Jaxon LIN Unavailable Unavailable Rogers, L Jaxon LIN Unavailable Unavailable Rogers, L Jaxon LIN Unavailable Unavailable Rogers, L Jaxon LIN Unavailable Unavailable Rogers, L Jaxon LIN Unavailable Unavailable Rogers, L Jaxon LIN Unavailable Unavailable Rogers, L Jaxon LIN Unavailable Unavailable Rogers, L Jaxon LIN Unavailable Unavailable Rogers, L Jaxon LIN Unavailable Unavailable Rogers, L Jaxon LIN Unavailable Unavailable Rogers, L Jaxon LIN Unavailable Unavailable Rogers, L Jaxon LIN Unavailable Unavailable Rogers, L Jaxon LIN Unavailable Unavailable Rogers, L Jaxon LIN Unavailable Unavailable Rogers, L Jaxon LIN Unavailable Unavailable Rogers, L Jaxon LIN Unavailable Unavailable Rogers, L Jaxon LIN Unavailable Unavailable Rogers, L Jaxon LIN Unavailable Unavailable Rogers, L Jaxon LIN Unavailable Unavailable Rogers, L Jaxon LIN Unavailable Unavailable Rogers, L Jaxon LIN Unavailable Unavailable Rogers, L Jaxon LIN Unavailable Unavailable Rogers, L Jaxon LIN Unavailable Unavailable Rogers, L Jaxon LIN Unavailable Unavailable Rogers, L Jaxon LIN Unavailable Unavailable Rogers, L Jaxon LIN Unavailable Unavailable Rogers, L Jaxon LIN Unavailable Unavailable Rogers, L Jaxon LIN Unavailable Unavailable Rogers, L Jaxon LIN Unavailable Unavailable Rogers, L Jaxon LIN Unavailable Unavailable Rogers, L Jaxon LIN Unavailable Unavailable Rogers, L Jaxon LIN Unavailable Unavailable Rogers, L Jaxon LIN Unavailable Unavailable Rogers, L Jaxon LIN Unavailable Unavailable Rogers, L Jaxon LIN Unavailable Unavailable Rogers, L Jaxon LIN Unavailable Unavailable FERREIRA, KATELYN MD Unavailable Unavailable FERREIRA, KATELYN MD Unavailable Unavailable FERREIRA, KATELYN MD Unavailable Unavailable FERREIRA, KATELYN MD Unavailable Unavailable FERREIRA, KATELYN MD Unavailable Unavailable FERREIRA, KATELYN MD Unavailable Unavailable FERREIRA, KATELYN MD Unavailable Unavailable FERREIRA, KATELYN MD Unavailable Unavailable FERREIRA, KATELYN MD Unavailable Unavailable FERREIRA, KATELYN MD Unavailable Unavailable FERREIRA, KATELYN MD Unavailable Unavailable FERREIRA, KATELYN MD Unavailable Unavailable FERREIAR, KATELYN MD Unavailable Unavailable FERREIRA, KATELYN MD Unavailable Unavailable FERREIRA, KATELYN MD Unavailable Unavailable FERREIRA, KATELYN MD Unavailable Unavailable FERREIRA, KATELYN MD Unavailable Unavailable FERREIRA, KATELYN MD Unavailable Unavailable FERREIRA, KATELYN MD Unavailable Unavailable FERREIRA, KATELYN MD Unavailable Unavailable FERREIRA, KATELYN MD Unavailable Unavailable FERREIRA, KATELYN MD Unavailable Unavailable FERREIRA, KATELYN MD Unavailable Unavailable FERREIRA, KATELYN MD Unavailable Unavailable FERREIRA, KATELYN MD Unavailable Unavailable FERREIRA, KATELYN MD Unavailable Unavailable FERREIRA, KATELYN MD Unavailable Unavailable FERREIRA, KATELYN MD Unavailable Unavailable FERREIRA, KATELYN MD Unavailable Unavailable FERREIRA, KATELYN MD Unavailable Unavailable Re-disclosure Warning The records that you are about to access may contain information from federally-assisted alcohol or drug abuse programs. If such information is present, then the following federally mandated warning applies: This information has been disclosed to you from records protected by federal confidentiality rules (42 CFR part 2). The federal rules prohibit you from making any further disclosure of this information unless further disclosure is expressly permitted by the written consent of the person to whom it pertains or as otherwise permitted by 42 CFR part 2. A general authorization for the release of medical or other information is NOT sufficient for this purpose. The Federal rules restrict any use of the information to criminally investigate or prosecute any alcohol or drug abuse patient.The records that you are about to access may contain highly sensitive health information, the redisclosure of which is protected by Article 27-F of the [facility] Public Health law. If you continue you may have access to information: Regarding HIV / AIDS; Provided by facilities licensed or operated by the [facility] Office of Mental Health; or Provided by the [facility] Office for People With Developmental Disabilities. If such information is present, then the following [facility] mandated warning applies: This information has been disclosed to you from confidential records which are protected by state law. State law prohibits you from making any further disclosure of this information without the specific written consent of the person to whom it pertains, or as otherwise permitted by law. Any unauthorized further disclosure in violation of state law may result in a fine or chcf sentence or both. A general authorization for the release of medical or other information is NOT sufficient authorization for further disc losure. Allergies and Adverse Reactions Type Description Substance Reaction Status Data Source(s ) Drug allergy Amoxicillin Amoxicillin vaginal itching Active eCW1 ([facility]) Lobster and crabmeat Lobster and crabmeat Lobster and crabmeat diarrh ea Active eCW1 ([facility]) cats, dogs cats, dogs cats, dogs eyes swell, itchy Active eCW1 ( [facility]) Drug allergy amoxicillin Amoxicillin Active [facility] ([facility] Family History Family Member Name Family Member Gender Family Member Status Date o f Status Description Data Source(s) Unknown Female Diagnosis 07/29/2016 12:00:00 AM EST [facility] ([facility]) Unknown Female Diagnosis 07/10/2015 12:00:00 AM EST [facility] ([facility]) Unknown Female Diagnosis 07/10/2015 12:00:00 AM EST [facility] ([facility]) Encounters Encounter Providers Location Date Indications Data Source(s ) Outpatient Attender: DORIAN MONTANA Physical Therapy 06/25/2020 01:30:00 PM EST [facility] ([facility]) [place]: [place] [id number] 07/29/2019 09:32:00 AM EST - 05/29/2020 09:32:00 AM EST [facility] ([facility]) Attender: Shell ROBERTS [place] 11:56:00 AM EDT - 04/30/2020 11:56:00 AM EDT [facility] ([facility]) [place] [address] [facility] [facility] [address] 04/30/2020 12:00:00 AM EDT eCW1 ([facility]) Office Visit Attender: Jaxon Rogers MD Physical Therapy 2019 01:15:00 PM EDT [facility] ([facility]) Office Visit Attender: Jaxon Rogers MD Physical Therapy 2019 08:15:00 AM EDT [facility] ([facility]) Outpatient Attender: Aftab KNOX 02/05/2020 08: 52:00 PM EDT [facility] Outpatient Attender: Aftab KNOX 01/27/2020 08: 22:01 PM EDT [facility] Office Visit Attender: KATELYN FERREIRA MD Physical Therapy 11:30:00 AM EDT [facility] ([facility]) Outpatient Attender: Aftab KNOX 01/22/2020 10: 36:02 PM EDT [facility] Outpatient [address] [facility] [id number] 01/02/2020 12:00:00 AM EDT eCW1 ([facility]) Outpatient Attender: Jaxon Rogers MD Physical Therapy 12/26/2019 0 1:00:00 PM EDT [facility] ([facility]) Office Visit Attender: KATELYN FERREIRA MD Physical Therapy 09:15:00 AM EDT [facility] ([facility]) Outpatient Attender: JEREMY KNOX 12/08/2019 12:02:51 AM EDT [facility] [address] [place] [address] 12/04/2019 12:00:00 AM EDT eCW1 ([facility]) Outpatient Attender: KATELYN FERREIRA MD Physical Therapy 11:30:00 AM EDT [facility] ([facility]) Outpatient Referrer: KATELYN FERREIRA MD 11/22/2019 08:46:0 0 PM EDT [facility] [address] [place] [address] 11/14/2019 12:00:00 AM EDT eCW1 ([facility]) Outpatient Attender: Aftab KNOX 11/09/2019 01: 46:00 PM EDT [facility] Attender: AFTAB Rivas 01:00:00 PM EDT - 11/08/2019 01:00:00 PM EDT [facility] ([facility]) Outpatient Attender: JEREMY LUNA FP 11/07/2019 09:57:01 AM EDT [facility] OutpatientOFFICE VISIT, EST Attender: Alexia LUNA PPNCN Y [place] 10/31/2019 02:45:00 PM EDT - 10/31/2019 02:45:00 PM EDT Abnormal uterine and vaginal bleeding, unspecifiedEncounter for surveillance of contraceptive pillsHuman immunodeficiency virus [HIV] counselingEncounter for oth general cnsl and advice on contraceptionOther sex counseling [facility] ([facility]) Abnormal uterine and vaginal bleeding, u nspecified Encounter for surveillance of contracept paulina pills Human immunodeficiency virus [HIV] couns eling Encounter for oth general cnsl and advic e on contraception Other sex counseling Outpatient Referrer: KATELYN FERREIRA MD 10/27/2019 07:41:0 0 AM EDT [facility] Outpatient Attender: DORIAN gtz 10/12/2019 12:15:00 PM EDT [facility] ([facility]) Outpatient Referrer: KATELYN FERREIRA MD 10/07/2019 10:02:0 0 AM EDT [facility] Outpatient Attender: Rylee MONTANA Main Office 10/01/2019 09:45:00 AM EDT [facility] ([facility]) Outpatient Attender: Aftab LUNA-BC FP 09/28/2019 01: 05:01 PM EDT [facility] Outpatient Attender: JEREMY LUNA FP 09/24/2019 10:45:02 AM EDT [facility] Outpatient Attender: KEILY walls 09/24/2019 09:05:00 AM EDT [facility] ([facility]) Outpatient Attender: Susy fung 09/21/2019 12:00:00 PM EDT [facility] ([facility]) Outpatient Attender: JEREMY LUNA FP 09/17/2019 04:18:00 PM EDT [facility] Outpatient Referrer: KATELYN FERREIRA MD 09/13/2019 02:08:0 0 PM EST [facility] Attender: KATELYN FERREIRA MD Physical Therapy 01:30:00 PM EST [facility] ([facility]) Outpatient Attender: JEREMY LUNA FP 09/11/2019 02:36:01 PM EST [facility] Outpatient Attender: Susy fung 09/10/2019 01:30:00 PM EST [facility] ([facility]) Outpatient Attender: DORIAN gtz 09/05/2019 10:50:00 AM EST [facility] ([facility]) Outpatient Referrer: KATELYN FERREIRA MD 08/31/2019 03:44:0 0 PM EST [facility] Referrer: KATELYN FERREIRA MD 08/31/2019 03:43:0 0 PM EST [facility] Referrer: KATELYN FERREIRA MD 08/31/2019 02:18:0 0 PM EST [facility] Out[facility] Referrer: KATELYN FERREIRA MD 08/28/2019 12:08:0 0 PM EST [facility] Referrer: KATELYN FERREIRA MD 08/28/2019 08:34:0 0 AM EST [facility] Referrer: KATELYN FERREIRA MD 08/27/2019 10:47:0 0 AM EST [facility] 08/27/2019 10:44:00 AM EST [facility] 08/27/2019 10:36:00 AM EST [facility] Attender: VANDANA PALMER MD Main Office 08/23/2019 12:30:00 PM EST [facility] ([facility]) Outpatient 08/23/2019 09:45:00 AM EST [facility] 08/23/2019 09:40:00 AM EST [facility] 08/21/2019 12:14:00 PM EST [facility] Attender: Angel Florian MD Physical Therapy 11/2019 12:45:00 PM EST [facility] ([facility]) Outpatient 08/15/2019 09:07:00 AM EST [facility] Outpatient 08/13/2019 02:56:00 PM EST [facility] Outpatient 08/13/2019 02:14:00 PM [facility] Outpatient Attender: Aftab CRAIG FP 08/12/2019 04: 46:02 PM [facility] Outpatient Attender: ESTRADA Genao Primary 08/10/2019 08:35:00 AM EST [facility] ([facility] Outpatient Attender: KATELYN FERREIRA MD Physical Therapy 09:15:00 AM EST [facility] ([facility]) Outpatient Attender: JEREMY LUNA FP 08/07/2019 09:01:00 PM [facility] Outpatient Attender: JEREMY KNOX 08/07/2019 02:36:01 PM [facility] Outpatient Attender: JEREMY KNOX 08/07/2019 02:30:05 PM [facility] Outpatient Attender: JEREMY KNOX 08/07/2019 02:26:00 PM [facility] Outpatient Attender: JEREMY KNOX 08/07/2019 02:25:00 PM [facility] Outpatient Attender: JEREMY KNOX 08/07/2019 02:23:01 PM [facility] Outpatient Attender: JEREMY KNOX 08/03/2019 03:29:00 PM [facility] Outpatient Attender: Angel Florian MD Physical Therapy 12:30:00 PM EST [facility] ([facility]) Outpatient Attender: JEREMY KNOX 07/16/2019 01:58:00 PM [facility] Outpatient Attender: JEREMY KNOX 07/02/2019 02:50:01 PM [facility] Outpatient Attender: Aftab CRAIG FP 07/02/2019 02: 48:59 PM [facility] Outpatient Attender: JEREMY KNOX 06/28/2019 09:01:01 PM [facility] Outpatient 06/28/2019 08:00:00 PM [facility] Outpatient Attender: Susyhussein Petit antonieta 06/19/2019 02:05:00 PM EST [facility] ([facility]) Medications Medication Brand Name Start Date Product Form Dose Route Admi nistrative Instructions Pharmacy Instructions Status Indications Reaction Description Data Source(s) 20 mg 06/22/2020 12:00:00 AM EST capsule,delayed release (DR/EC) 30 TAKE ONE CAPSULE BY MOUTH EVERY DAY TAKE ONE CAPSULE BY MOUTH EVERY DAY SOLD: 07/23/2020 [facility] 20 mg 06/22/2020 12:00:00 AM EST capsule,delayed release (DR/EC) 30 TAKE ONE CAPSULE BY MOUTH EVERY DAY TAKE ONE CAPSULE BY MOUTH EVERY DAY SOLD: 06/23/2020 [facility] 90 mcg/actuation 06/22/2020 12:00:00 AM EST HFA aerosol inha ler 18 INHALE TWO PUFFS BY MOUTH EVERY 4 HOURS NEEDED FOR SHORTNESS OF BREATH INHALE TWO PUFFS BY MOUTH EVERY 4 HOURS NEEDED FOR SHORTNESS OF BREATH SOLD: 06/23/2020 [facility] 60 mg 05/21/2020 12:00:00 AM EST capsule,delayed release (DR/EC) 30 TAKE ONE CAPSULE BY MOUTH EVERY DAY TAKE ONE CAPSULE BY MOUTH EVERY DAY SOLD: 07/23/2020 [facility] 60 mg 05/21/2020 12:00:00 AM EST capsule,delayed release (DR/EC) 30 TAKE ONE CAPSULE BY MOUTH EVERY DAY TAKE ONE CAPSULE BY MOUTH EVERY DAY SOLD: 05/25/2020 [facility] 60 mg 05/21/2020 12:00:00 AM EST capsule,delayed release (DR/EC) 30 TAKE ONE CAPSULE BY MOUTH EVERY DAY TAKE ONE CAPSULE BY MOUTH EVERY DAY SOLD: 06/23/2020 [facility] 10 mg 04/24/2020 12:00:00 AM EDT tablet 30 TAKE ONE TABLET BY MOUTH EVERY DAY TAKE ONE TABLET BY MOUTH EVERY DAY SOLD: 06/23/2020 [facility] 10 mg 04/24/2020 12:00:00 AM EDT tablet 30 TAKE ONE TABLET BY MOUTH EVERY DAY TAKE ONE TABLET BY MOUTH EVERY DAY SOLD: 05/25/2020 [facility] 10 mg 04/24/2020 12:00:00 AM EDT tablet 30 TAKE ONE TABLET BY MOUTH EVERY DAY TAKE ONE TABLET BY MOUTH EVERY DAY SOLD: 04/25/2020 [facility] 10 mg 04/24/2020 12:00:00 AM EDT tablet 30 TAKE ONE TABLET BY MOUTH EVERY DAY TAKE ONE TABLET BY MOUTH EVERY DAY SOLD: 07/23/2020 [facility] 90 mcg/actuation 03/11/2020 12:00:00 AM EDT HFA aerosol inha ler 8 INHALE 2 PUFFS BY MOUTH 4 TIMES A DAY NEEDED INHALE 2 PUFFS BY MOUTH 4 TIMES A DAY NEEDED SOLD: 06/19/2020 [facility] 90 mcg/actuation 03/11/2020 12:00:00 AM EDT HFA aerosol inha ler 8 INHALE 2 PUFFS BY MOUTH 4 TIMES A DAY NEEDED INHALE 2 PUFFS BY MOUTH 4 TIMES A DAY NEEDED SOLD: 03/21/2020 [facility] 90 mcg/actuation 03/11/2020 12:00:00 AM EDT HFA aerosol inha ler 8 INHALE 2 PUFFS BY MOUTH 4 TIMES A DAY NEEDED INHALE 2 PUFFS BY MOUTH 4 TIMES A DAY NEEDED SOLD: 07/23/2020 [facility] montelukast 10 MG Oral Tablet MONTELUKAST SODIUM 03/06/2020 12:0 0:00 AM EDT tablet 24 TAKE ONE TABLET BY MOUTH EVERY D AY TAKE ONE TABLET BY MOUTH EVERY DAY SOLD: 04/25/2020 [facility] montelukast 10 MG Oral Tablet MONTELUKAST SODIUM 03/06/2020 12:0 0:00 AM EDT tablet 11 TAKE ONE TABLET BY MOUTH EVERY D AY TAKE ONE TABLET BY MOUTH EVERY DAY SOLD: 06/19/2020 [facility] montelukast 10 MG Oral Tablet MONTELUKAST SODIUM 03/06/2020 12:0 0:00 AM EDT tablet 24 TAKE ONE TABLET BY MOUTH EVERY D AY TAKE ONE TABLET BY MOUTH EVERY DAY SOLD: 05/20/2020 [facility] montelukast 10 MG Oral Tablet MONTELUKAST SODIUM 03/06/2020 12:0 0:00 AM EDT tablet 30 TAKE ONE TABLET BY MOUTH EVERY D AY TAKE ONE TABLET BY MOUTH EVERY DAY SOLD: 07/23/2020 [facility] montelukast 10 MG Oral Tablet MONTELUKAST SODIUM 03/06/2020 12:0 0:00 AM EDT tablet 30 TAKE ONE TABLET BY MOUTH EVERY D AY TAKE ONE TABLET BY MOUTH EVERY DAY SOLD: 03/06/2020 [facility] montelukast 10 MG Oral Tablet MONTELUKAST SODIUM 03/06/2020 12:0 0:00 AM EDT tablet 30 TAKE ONE TABLET BY MOUTH EVERY D AY TAKE ONE TABLET BY MOUTH EVERY DAY SOLD: 03/31/2020 [facility] 200 mcg/actuation 03/05/2020 12:00:00 AM EDT blister with de vice 30 INHALE ONE PUFF BY MOUTH EVERY DAY INHALE ONE PUFF BY MOUTH EVERY DAY SOLD: 05/25/2020 [facility] 200 mcg/actuation 03/05/2020 12:00:00 AM EDT blister with de vice 30 INHALE ONE PUFF BY MOUTH EVERY DAY INHALE ONE PUFF BY MOUTH EVERY DAY SOLD: 06/23/2020 [facility] 200 mcg/actuation 03/05/2020 12:00:00 AM EDT blister with de vice 30 INHALE ONE PUFF BY MOUTH EVERY DAY INHALE ONE PUFF BY MOUTH EVERY DAY SOLD: 04/25/2020 [facility] 200 mcg/actuation 03/05/2020 12:00:00 AM EDT blister with de vice 30 INHALE ONE PUFF BY MOUTH EVERY DAY INHALE ONE PUFF BY MOUTH EVERY DAY SOLD: 03/06/2020 [facility] 200 mcg/actuation 03/05/2020 12:00:00 AM EDT blister with de vice 30 INHALE ONE PUFF BY MOUTH EVERY DAY INHALE ONE PUFF BY MOUTH EVERY DAY SOLD: 07/23/2020 [facility] 10 mg 02/24/2020 12:00:00 AM EDT tablet 14 TAKE ONE TABLET BY MOUTH EVERY DAY TAKE ONE TABLET BY MOUTH EVERY DAY SOLD: 02/24/2020 [facility] 800 mg 02/20/2020 12:00:00 AM EDT tablet 21 TAKE ONE TABLET BY MOUTH THREE TIMES A DAY TAKE ONE TABLET BY MOUTH THREE TIMES A DAY SOLD: 02/20/2020 [facility] 5-325 mg 02/20/2020 12:00:00 AM EDT tablet 15 TAKE ONE TABLET BY MOUTH EVERY 6 HOURS NEEDED FOR PAIN MAXIMUM DAILY DOSE = FOUR TABLETS TAKE ONE TABLET BY MOUTH EVERY 6 HOURS NEEDED FOR PAIN MAXIMUM DAILY DOSE = FOUR TABLETS SOLD: 02/20/2020 [facility] 20 mg 02/06/2020 12:00:00 AM EDT capsule,delayed release (DR/EC) 30 TAKE ONE CAPSULE BY MOUTH EVERY DAY TAKE ONE CAPSULE BY MOUTH EVERY DAY SOLD: 05/25/2020 [facility] 20 mg 02/06/2020 12:00:00 AM EDT capsule,delayed release (DR/EC) 30 TAKE ONE CAPSULE BY MOUTH EVERY DAY TAKE ONE CAPSULE BY MOUTH EVERY DAY SOLD: 03/21/2020 [facility] 20 mg 02/06/2020 12:00:00 AM EDT capsule,delayed release (DR/EC) 30 TAKE ONE CAPSULE BY MOUTH EVERY DAY TAKE ONE CAPSULE BY MOUTH EVERY DAY SOLD: 02/09/2020 [facility] 20 mg 02/06/2020 12:00:00 AM EDT capsule,delayed release (DR/EC) 30 TAKE ONE CAPSULE BY MOUTH EVERY DAY TAKE ONE CAPSULE BY MOUTH EVERY DAY SOLD: 04/25/2020 [facility] 5-325 mg 01/30/2020 12:00:00 AM EDT tablet 20 TAKE 1 TO 2 TABLETS EVERY 4 TO 6 HOURS NEEDED FOR POST OP PAIN. MAXIMUM DAILY DOSE = 6 TAKE 1 TO 2 TABLETS EVERY 4 TO 6 HOURS NEEDED FOR POST OP PAIN. MAXIMUM DAILY DOSE = 6 SOLD: 01/30/2020 [facility] 90 mcg/actuation 01/28/2020 12:00:00 AM EDT HFA aerosol inha ler 6 2 PUFFS EVERY 4 HOURS NEEDED FOR SHORTNESS OF BREATH 2 PUFFS EVERY 4 HOURS NEEDED FOR SHORTNESS OF BREATH SOLD: 01/30/2020 [facility] 90 mcg/actuation 01/28/2020 12:00:00 AM EDT HFA aerosol inha ler 6 2 PUFFS EVERY 4 HOURS NEEDED FOR SHORTNESS OF BREATH 2 PUFFS EVERY 4 HOURS NEEDED FOR SHORTNESS OF BREATH SOLD: 02/25/2020 [facility] 100 mcg/actuation 01/28/2020 12:00:00 AM EDT blister with de vice 30 INHALE ONE PUFF BY MOUTH EVERY DAY INHALE ONE PUFF BY MOUTH EVERY DAY SOLD: 01/30/2020 [facility] 90 mcg/actuation 01/28/2020 12:00:00 AM EDT HFA aerosol inha ler 6 2 PUFFS EVERY 4 HOURS NEEDED FOR SHORTNESS OF BREATH 2 PUFFS EVERY 4 HOURS NEEDED FOR SHORTNESS OF BREATH SOLD: 05/25/2020 [facility] 100 mcg/actuation 01/28/2020 12:00:00 AM EDT blister with de vice 30 INHALE ONE PUFF BY MOUTH EVERY DAY INHALE ONE PUFF BY MOUTH EVERY DAY SOLD: 03/31/2020 [facility] 90 mcg/actuation 01/28/2020 12:00:00 AM EDT HFA aerosol inha ler 6 2 PUFFS EVERY 4 HOURS NEEDED FOR SHORTNESS OF BREATH 2 PUFFS EVERY 4 HOURS NEEDED FOR SHORTNESS OF BREATH SOLD: 04/25/2020 [facility] 100 mcg/actuation 01/28/2020 12:00:00 AM EDT blister with de vice 30 INHALE ONE PUFF BY MOUTH EVERY DAY INHALE ONE PUFF BY MOUTH EVERY DAY SOLD: 02/24/2020 [facility] 60 mg 01/25/2020 12:00:00 AM EDT capsule,delayed release (DR/EC) 30 TAKE ONE CAPSULE BY MOUTH EVERY DAY TAKE ONE CAPSULE BY MOUTH EVERY DAY SOLD: 01/25/2020 [facility] 60 mg 01/25/2020 12:00:00 AM EDT capsule,delayed release (DR/EC) 30 TAKE ONE CAPSULE BY MOUTH EVERY DAY TAKE ONE CAPSULE BY MOUTH EVERY DAY SOLD: 03/21/2020 [facility] 60 mg 01/25/2020 12:00:00 AM EDT capsule,delayed release (DR/EC) 30 TAKE ONE CAPSULE BY MOUTH EVERY DAY TAKE ONE CAPSULE BY MOUTH EVERY DAY SOLD: 02/21/2020 [facility] 60 mg 01/25/2020 12:00:00 AM EDT capsule,delayed release (DR/EC) 30 TAKE ONE CAPSULE BY MOUTH EVERY DAY TAKE ONE CAPSULE BY MOUTH EVERY DAY SOLD: 04/25/2020 [facility] montelukast 10 MG Oral Tablet MONTELUKAST SODIUM 12/12/2019 12:0 0:00 AM EDT tablet 13 TAKE ONE TABLET BY MOUTH EVERY D AY TAKE ONE TABLET BY MOUTH EVERY DAY SOLD: 02/20/2020 [facility] montelukast 10 MG Oral Tablet MONTELUKAST SODIUM 12/12/2019 12:0 0:00 AM EDT tablet 30 TAKE ONE TABLET BY MOUTH EVERY D AY TAKE ONE TABLET BY MOUTH EVERY DAY SOLD: 12/20/2019 [facility] montelukast 10 MG Oral Tablet MONTELUKAST SODIUM 12/12/2019 12:0 0:00 AM EDT tablet 6 TAKE ONE TABLET BY MOUTH EVERY D AY TAKE ONE TABLET BY MOUTH EVERY DAY SOLD: 01/25/2020 [facility] Acetaminophen 325 MG / Hydrocodone Bitartrate 5 MG Ora l Tablet Hydrocodone-Acetaminophen 12/05/2019 12:00:00 AM EDT active [facility] ([facility]) 5-325 mg 12/05/2019 12:00:00 AM EDT tablet 20 TAKE ONE TO TWO TABLETS BY MOUTH EVERY 4 TO 6 HOURS NEEDED FOR POST OP PAIN MAXIMUM DAILY DOSE = 6 TAKE ONE TO TWO TABLETS BY MOUTH EVERY 4 TO 6 HOURS NEEDED FOR POST OP PAIN MAXIMUM DAILY DOSE = 6 SOLD: 12/05/2019 [facility] 0.5 % 11/28/2019 12:00:00 AM EDT drops 5 INSTILL 1 DROP TWO TIMES A DAY FOR ALLERGY SYMPTOMS AND REDNESS TO EYES INSTILL 1 DROP TWO TIMES A DAY FOR ALLER GY SYMPTOMS AND REDNESS TO EYES SOLD: 11/29/2019 [employer] Tri-Lo-Suzette 28 Day Pack 0.18/0.215/0.25 mg-25 mcg NORG ESTIMATE-ETHINYL ESTRADIOL 11/14/2019 12:00:00 AM EDT tablet 28 TAKE ONE TABLET BY MOUTH EVERY DAY TAKE ONE TABLET BY MOUTH EVERY DAY SOLD: 11/15/2019 [employer] Norgestim-Eth Estrad Triphasic 0.18/0.215/0.25 MG-25 M CG Norgestim-Eth Estrad Triphasic 0.18/0.215/0.25 MG-25 MCG 11/14/2019 12:00:00 AM EDT active 1 tablet eCW1 ([facility]) Norgestim-Eth Estrad Triphasic 0.18/0.215/0.25 MG-25 M CG Norgestim-Eth Estrad Triphasic 0.18/0.215/0.25 MG-25 MCG 11/14/2019 12:00:00 AM EDT 1.0 {tablet} active Norgestim-Eth Estrad Trip hasic 0.18/0.215/0.25 MG-25 MCG eCW1 ([facility]) Norgestim-Eth Estrad Triphasic 0.18/0.215/0.25 MG-25 M CG Norgestim-Eth Estrad Triphasic 0.18/0.215/0.25 MG-25 MCG 11/14/2019 12:00:00 AM EDT 1.0 {tablet} active Norgestim-Eth Estrad Trip hasic 0.18/0.215/0.25 MG-25 MCG eCW1 ([facility]) 10 mg 11/11/2019 12:00:00 AM EDT tablet 9 TAKE ONE TABLET BY MOUTH EVERY DAY TAKE ONE TABLET BY MOUTH EVERY DAY SOLD: 11/12/2019 [facility] 8 mg 11/11/2019 12:00:00 AM EDT tablet 9 TAKE ONE TABLET BY MOUTH EVERY DAY FOR NAUSEA AND VOMITING TAKE ONE TABLET BY MOUTH EVERY DAY FOR N AUSEA AND VOMITING SOLD: 11/12/2019 [facility] 20 mg 10/23/2019 12:00:00 AM EDT capsule,delayed release (DR/EC) 30 TAKE ONE CAPSULE BY MOUTH EVERY DAY TAKE ONE CAPSULE BY MOUTH EVERY DAY SOLD: 11/06/2019 [facility] 800 mg 10/12/2019 12:00:00 AM EDT tablet 50 TAKE ONE TABLET BY MOUTH EVERY 6 TO 8 HOURS WITH FOOD TAKE ONE TABLET BY MOUTH EVERY 6 TO 8 HOURS WITH FOOD SOLD: 11/14/2019 [facility] Ibuprofen 800 MG Oral Tablet Ibuprofen 10/12/2019 12:00:00 AM EDT active [facility] ([facility]) 10 mg 10/12/2019 12:00:00 AM EDT tablet 30 TAKE ONE TABLET BY MOUTH EVERY DAY TAKE ONE TABLET BY MOUTH EVERY DAY SOLD: 12/20/2019 [facility] 800 mg 10/12/2019 12:00:00 AM EDT tablet 50 TAKE ONE TABLET BY MOUTH EVERY 6 TO 8 HOURS WITH FOOD TAKE ONE TABLET BY MOUTH EVERY 6 TO 8 HOURS WITH FOOD SOLD: 01/02/2020 [facility] 10 mg 10/12/2019 12:00:00 AM EDT tablet 30 TAKE ONE TABLET BY MOUTH EVERY DAY TAKE ONE TABLET BY MOUTH EVERY DAY SOLD: 11/06/2019 [facility] 10 mg 10/12/2019 12:00:00 AM EDT tablet 30 TAKE ONE TABLET BY MOUTH EVERY DAY TAKE ONE TABLET BY MOUTH EVERY DAY SOLD: 10/16/2019 [facility] 10 mg 10/12/2019 12:00:00 AM EDT tablet 30 TAKE ONE TABLET BY MOUTH EVERY DAY TAKE ONE TABLET BY MOUTH EVERY DAY SOLD: 02/09/2020 [facility] 800 mg 10/12/2019 12:00:00 AM EDT tablet 50 TAKE ONE TABLET BY MOUTH EVERY 6 TO 8 HOURS WITH FOOD TAKE ONE TABLET BY MOUTH EVERY 6 TO 8 HOURS WITH FOOD SOLD: 10/16/2019 [facility] 25 mg 10/08/2019 12:00:00 AM EDT tablet 30 TAKE ONE TABLET BY MOUTH EVERY 8 HOURS TAKE ONE TABLET BY MOUTH EVERY 8 HOURS SOLD: 10/08/2019 [facility] 60 mg 09/29/2019 12:00:00 AM EDT capsule,delayed release (DR/EC) 30 TAKE ONE CAPSULE BY MOUTH EVERY DAY TAKE ONE CAPSULE BY MOUTH EVERY DAY SOLD: 10/07/2019 [facility] 60 mg 09/29/2019 12:00:00 AM EDT capsule,delayed release (DR/EC) 30 TAKE ONE CAPSULE BY MOUTH EVERY DAY TAKE ONE CAPSULE BY MOUTH EVERY DAY SOLD: 12/05/2019 [facility] 100 mcg/actuation 09/29/2019 12:00:00 AM EDT blister with de vice 30 INHALE ONE PUFF BY MOUTH EVERY DAY INHALE ONE PUFF BY MOUTH EVERY DAY SOLD: 12/05/2019 [facility] 20 mg 09/29/2019 12:00:00 AM EDT capsule,delayed release (DR/EC) 30 TAKE ONE CAPSULE BY MOUTH EVERY DAY TAKE ONE CAPSULE BY MOUTH EVERY DAY SOLD: 12/05/2019 [facility] 100 mcg/actuation 09/29/2019 12:00:00 AM EDT blister with de vice 30 INHALE ONE PUFF BY MOUTH EVERY DAY INHALE ONE PUFF BY MOUTH EVERY DAY SOLD: 10/07/2019 [facility] 20 mg 09/29/2019 12:00:00 AM EDT capsule,delayed release (DR/EC) 30 TAKE ONE CAPSULE BY MOUTH EVERY DAY TAKE ONE CAPSULE BY MOUTH EVERY DAY SOLD: 01/02/2020 [facility] 20 mg 09/29/2019 12:00:00 AM EDT capsule,delayed release (DR/EC) 30 TAKE ONE CAPSULE BY MOUTH EVERY DAY TAKE ONE CAPSULE BY MOUTH EVERY DAY SOLD: 11/06/2019 [facility] 60 mg 09/29/2019 12:00:00 AM EDT capsule,delayed release (DR/EC) 20 TAKE ONE CAPSULE BY MOUTH EVERY DAY TAKE ONE CAPSULE BY MOUTH EVERY DAY SOLD: 01/02/2020 [facility] 60 mg 09/29/2019 12:00:00 AM EDT capsule,delayed release (DR/EC) 30 TAKE ONE CAPSULE BY MOUTH EVERY DAY TAKE ONE CAPSULE BY MOUTH EVERY DAY SOLD: 11/06/2019 [facility] 20 mg 09/29/2019 12:00:00 AM EDT capsule,delayed release (DR/EC) 30 TAKE ONE CAPSULE BY MOUTH EVERY DAY TAKE ONE CAPSULE BY MOUTH EVERY DAY SOLD: 10/07/2019 [facility] 100 mcg/actuation 09/29/2019 12:00:00 AM EDT blister with de vice 30 INHALE ONE PUFF BY MOUTH EVERY DAY INHALE ONE PUFF BY MOUTH EVERY DAY SOLD: 11/06/2019 [facility] 100 mcg/actuation 09/29/2019 12:00:00 AM EDT blister with de vice 30 INHALE ONE PUFF BY MOUTH EVERY DAY INHALE ONE PUFF BY MOUTH EVERY DAY SOLD: 01/02/2020 [facility] 90 mcg/actuation 09/28/2019 12:00:00 AM EDT HFA aerosol inha ler 18 INHALE TWO PUFFS BY MOUTH EVERY 4 HOURS NEEDED FOR FOR SHORTNESS OF BREATH INHALE TWO PUFFS BY MOUTH EVERY 4 HOURS NEEDED FOR FOR SHORTNESS OF BREATH SOLD: 11/29/2019 [facility] 90 mcg/actuation 09/28/2019 12:00:00 AM EDT HFA aerosol inha ler 18 INHALE TWO PUFFS BY MOUTH EVERY 4 HOURS NEEDED FOR FOR SHORTNESS OF BREATH INHALE TWO PUFFS BY MOUTH EVERY 4 HOURS NEEDED FOR FOR SHORTNESS OF BREATH SOLD: 10/07/2019 [facility] 90 mcg/actuation 09/28/2019 12:00:00 AM EDT HFA aerosol inha ler 18 INHALE TWO PUFFS BY MOUTH EVERY 4 HOURS NEEDED FOR FOR SHORTNESS OF BREATH INHALE TWO PUFFS BY MOUTH EVERY 4 HOURS NEEDED FOR FOR SHORTNESS OF BREATH SOLD: 11/06/2019 [facility] 90 mcg/actuation 09/28/2019 12:00:00 AM EDT HFA aerosol inha ler 18 INHALE TWO PUFFS BY MOUTH EVERY 4 HOURS NEEDED FOR FOR SHORTNESS OF BREATH INHALE TWO PUFFS BY MOUTH EVERY 4 HOURS NEEDED FOR FOR SHORTNESS OF BREATH SOLD: 01/02/2020 [facility] 0.5 % 09/26/2019 12:00:00 AM EDT drops 5 INSTILL 1 DROP IN THE AFFECTED EYE(S) TWO TIMES A DAY NEEDED FOR ALLERGY SYMPTOMS / REDNESS INSTILL 1 DROP IN THE AFFECTED EYE(S) TWO TIMES A DAY NEEDED FOR ALLERGY SYMPTOMS / REDNESS SOLD: 09/27/2019 [facility] 0.3-0.1 % 09/25/2019 12:00:00 AM EDT drops,suspension 5 INSTILL ONE DROP FOUR TIMES A DAY IN EACH EYE DIRECTED INSTILL ONE DROP FOUR TIMES A DAY IN EACH EYE DIRECTED SOLD: 09/27/2019 [facility] olopatadine 1 MG/ML Ophthalmic Solution 0.1 % OLOPATADINE HC L 09/24/2019 12:00:00 AM EDT drops 5 INSTILL 1 DROP IN EACH EY E TWO TIMES A DAY NEEDED INSTILL 1 DROP IN EACH EYE TWO TIMES A DAY NEEDED SOLD: 09/24/2019 [facility] Acetaminophen 325 MG / Hydrocodone Bitartrate 5 MG Ora l Tablet Hydrocodone-Acetaminophen 09/24/2019 12:00:00 AM EDT completed [facility] ([facility]) olopatadine 1 MG/ML Ophthalmic Solution Olopatadine HCL 09/24/2019 12:00:00 AM EDT OPHTHALMIC active [facility] ([facility]) 10,000 unit- 1 mg/mL 09/21/2019 12:00:00 AM EDT drops 10 INSTILL 1 DROP IN THE AFFECTED EYE(S) FOUR TIMES A DAY FOR 5-7 DAYS DIRECTED INSTILL 1 DROP IN THE AFFECTED EYE(S) FOUR TIMES A DAY FOR 5-7 DAYS DIRECTED SOLD: 09/21/2019 [facility] Polymyxin B 35200 UNT/ML / Trimethoprim 1 MG/ML Ophtha lmic Solution Polymyxin B Sulfate/Trimethoprim Sulfate 09/21/2019 12:00:00 AM EDT completed [facility] ([facility]) Ketorolac Tromethamine 5 MG/ML Ophthalmic Solution Ketorolac Tromethamine 09/21/2019 12:00:00 AM EDT completed [facility] ([facility]) 0.5 % 09/05/2019 12:00:00 AM EST drops 5 INSTILL 1 DROP TWO TIMES A DAY FOR ALLERGY SYMPTOMS AND REDNESS TO EYES INSTILL 1 DROP TWO TIMES A DAY FOR ALLER GY SYMPTOMS AND REDNESS TO EYES SOLD: 09/05/2019 [facility] 0.3 % 09/05/2019 12:00:00 AM EST drops 5 INSTILL 1-2 DROP IN THE AFFECTED EYE THREE TIMES A DAY FOR 7 DAYS INSTILL 1-2 DROP IN THE AFFECTED EYE THR EE TIMES A DAY FOR 7 DAYS SOLD: 09/05/2019 [facility] Ketorolac Tromethamine 5 MG/ML Ophthalmic Solution Ketorolac Tromethamine 09/05/2019 12:00:00 AM EST completed [facility] ([facility]) Tobramycin 3 MG/ML Ophthalmic Solution Tobramycin 09/05/2019 12:0 0:00 AM EST completed [facility] ([facility]) 0.5 % 09/05/2019 12:00:00 AM EST drops 5 INSTILL 1 DROP TWO TIMES A DAY FOR ALLERGY SYMPTOMS AND REDNESS TO EYES INSTILL 1 DROP TWO TIMES A DAY FOR ALLER GY SYMPTOMS AND REDNESS TO EYES SOLD: 11/06/2019 [facility] 0.5 % 09/05/2019 12:00:00 AM EST drops 5 INSTILL 1 DROP TWO TIMES A DAY FOR ALLERGY SYMPTOMS AND REDNESS TO EYES INSTILL 1 DROP TWO TIMES A DAY FOR ALLER GY SYMPTOMS AND REDNESS TO EYES SOLD: 10/07/2019 [employer] Albuterol 0.83 MG/ML Inhalant Solution Albuterol Sulfate 0 08/22/2019 12:00:00 AM EST active [facility] ([facility]) Enskyce Enskyce 08/22/2019 12:00:00 AM EST complet ed [facility] ([facility] ) Omeprazole 20 MG Delayed Release Oral Capsule Omeprazole 08/22/2019 12:00:00 AM EST ORAL active [facility] ([facility]) 200 ACTUAT Albuterol 0.09 MG/ACTUAT Metered Dose Inhaler [Pr oAir] Proair HFA 08/22/2019 12:00:00 AM EST ORAL active [facility] ([facility]) montelukast 10 MG Oral Tablet [Singulair] Singulair 2019 12:00:00 AM EST ORAL active [facility] ( [facility] ) benzonatate 100 MG Oral Capsule [Tessalon Perles] Tessalon P erles 08/22/2019 12:00:00 AM EST ORAL completed [facility] ([facility] ) 14 ACTUAT fluticasone furoate 0.1 MG/ACTUAT Dry Powder Inhaler [Arnuity] Arnuity Ellipta 08/22/2019 12:00:00 AM EST RESPIRATORY active [facility] ([facility] ) duloxetine 60 MG Delayed Release Oral Capsule [Cymbalta] Cym domonique 08/22/2019 12:00:00 AM EST ORAL active M EDENT ([facility]) Lisinopril 10 MG Oral Tablet Lisinopril 08/22/2019 12:00:00 AM EST ORAL active [facility] ([facility]) 200 ACTUAT Albuterol 0.09 MG/ACTUAT Metered Dose Inhaler [Pr oAir] Proair HFA 08/22/2019 12:00:00 AM EST ORAL active [facility] ([facility]) Omeprazole 20 MG Delayed Release Oral Capsule Omeprazole 08/22/2019 12:00:00 AM EST ORAL active [facility]) Lisinopril 10 MG Oral Tablet Lisinopril 08/22/2019 12:00:00 AM EST ORAL active [facility] ([facility]) duloxetine 60 MG Delayed Release Oral Capsule [Cymbalta] Cym domonique 08/22/2019 12:00:00 AM EST ORAL active M ED[facility] ([facility]) 14 ACTUAT fluticasone furoate 0.1 MG/ACTUAT Dry Powder Inhaler [Arnuity] Arnuity Ellipta 08/22/2019 12:00:00 AM EST RESPIRATORY active [facility] ([facility]) benzonatate 100 MG Oral Capsule [Tessalon Perles] Tessalon P erles 08/22/2019 12:00:00 AM EST ORAL completed [facility] ([facility]) Enskyce Enskyce 08/22/2019 12:00:00 AM EST active [facility] ([facility]) Albuterol 0.83 MG/ML Inhalant Solution Albuterol Sulfate 0 08/22/2019 12:00:00 AM EST active [facility] ([facility] Enskyce Enskyce 08/22/2019 12:00:00 AM EST active [facility] ([facility]) montelukast 10 MG Oral Tablet [Singulair] Singulair 2019 12:00:00 AM EST ORAL active [facility] ( [facility]) Oseltamivir 75 MG Oral Capsule Oseltamivir Phosphate 08/10/2019 12:00:00 AM EST ORAL completed [facility] ([facility]) Nebulizer Compressor Model 2655D 08/10/2019 12:00:00 AM EST completed [facility] ([facility]) Albuterol 0.83 MG/ML Inhalant Solution Albuterol Sulfate 0 08/10/2019 12:00:00 AM EST ORAL completed [facility] ([facility]) 90 mcg/actuation 08/08/2019 12:00:00 AM EST HFA aerosol inha ler 18 INHALE TWO PUFFS BY MOUTH EVERY 4 HOURS NEEDED FOR FOR SHORTNESS OF BREATH INHALE TWO PUFFS BY MOUTH EVERY 4 HOURS NEEDED FOR FOR SHORTNESS OF BREATH SOLD: 08/27/2019 [facility] montelukast 10 MG Oral Tablet MONTELUKAST SODIUM 08/08/2019 12:0 0:00 AM EST tablet 30 TAKE ONE TABLET BY MOUTH EVERY D AY TAKE ONE TABLET BY MOUTH EVERY DAY SOLD: 11/06/2019 [facility] 100 mcg/actuation 08/08/2019 12:00:00 AM EST blister with de vice 30 INHALE ONE PUFF BY MOUTH EVERY DAY INHALE ONE PUFF BY MOUTH EVERY DAY SOLD: 09/11/2019 [facility] 4 mg 08/08/2019 12:00:00 AM EST tablets,dose pack 21 DIRECTED DIRECTED SOLD: 08/08/2019 [facility] 10 mg 08/08/2019 12:00:00 AM EST tablet 30 TAKE ONE TABLET BY MOUTH EVERY DAY TAKE ONE TABLET BY MOUTH EVERY DAY SOLD: 10/23/2019 [facility] 90 mcg/actuation 08/08/2019 12:00:00 AM EST HFA aerosol inha ler 18 INHALE TWO PUFFS BY MOUTH EVERY 4 HOURS NEEDED FOR FOR SHORTNESS OF BREATH INHALE TWO PUFFS BY MOUTH EVERY 4 HOURS NEEDED FOR FOR SHORTNESS OF BREATH SOLD: 09/11/2019 [facility] 10 mg 08/08/2019 12:00:00 AM EST tablet 30 TAKE ONE TABLET BY MOUTH EVERY DAY TAKE ONE TABLET BY MOUTH EVERY DAY SOLD: 08/13/2019 [facility] 10 mg 08/08/2019 12:00:00 AM EST tablet 30 TAKE ONE TABLET BY MOUTH EVERY DAY TAKE ONE TABLET BY MOUTH EVERY DAY SOLD: 01/09/2020 [facility] 90 mcg/actuation 08/08/2019 12:00:00 AM EST HFA aerosol inha ler 18 INHALE TWO PUFFS BY MOUTH EVERY 4 HOURS NEEDED FOR FOR SHORTNESS OF BREATH INHALE TWO PUFFS BY MOUTH EVERY 4 HOURS NEEDED FOR FOR SHORTNESS OF BREATH SOLD: 08/13/2019 [facility] montelukast 10 MG Oral Tablet MONTELUKAST SODIUM 08/08/2019 12:0 0:00 AM EST tablet 30 TAKE ONE TABLET BY MOUTH EVERY D AY TAKE ONE TABLET BY MOUTH EVERY DAY SOLD: 12/05/2019 [facility] montelukast 10 MG Oral Tablet MONTELUKAST SODIUM 08/08/2019 12:0 0:00 AM EST tablet 30 TAKE ONE TABLET BY MOUTH EVERY D AY TAKE ONE TABLET BY MOUTH EVERY DAY SOLD: 08/13/2019 [facility] 10 mg 08/08/2019 12:00:00 AM EST tablet 30 TAKE ONE TABLET BY MOUTH EVERY DAY TAKE ONE TABLET BY MOUTH EVERY DAY SOLD: 11/29/2019 [facility] montelukast 10 MG Oral Tablet MONTELUKAST SODIUM 08/08/2019 12:0 0:00 AM EST tablet 30 TAKE ONE TABLET BY MOUTH EVERY D AY TAKE ONE TABLET BY MOUTH EVERY DAY SOLD: 10/07/2019 [facility] 90 mcg/actuation 08/08/2019 12:00:00 AM EST HFA aerosol inha ler 18 INHALE TWO PUFFS BY MOUTH EVERY 4 HOURS NEEDED FOR FOR SHORTNESS OF BREATH INHALE TWO PUFFS BY MOUTH EVERY 4 HOURS NEEDED FOR FOR SHORTNESS OF BREATH SOLD: 09/24/2019 [facility] 100 mcg/actuation 08/08/2019 12:00:00 AM EST blister with de vice 30 INHALE ONE PUFF BY MOUTH EVERY DAY INHALE ONE PUFF BY MOUTH EVERY DAY SOLD: 08/13/2019 [facility] benzonatate 100 MG Oral Capsule BENZONATATE 08/07/2019 12:00:00 AM EST capsule 30 TAKE ONE CAPSULE BY MOUTH THREE TIMES A DAY NEEDED TAKE ONE CAPSULE BY MOUTH THREE TIMES A DAY NEEDED SOLD: 08/08/2019 [facility] 0.15-0.03 mg 07/25/2019 12:00:00 AM EST tablet 84 TAKE ONE TABLET BY MOUTH EVERY DAY TAKE ONE TABLET BY MOUTH EVERY DAY SOLD: 07/25/2019 [facility] Isibloom 28 Day Pack 0.15-0.03 mg DESOGESTREL-ETHINYL ESTRAD IOL 07/25/2019 12:00:00 AM EST tablet 84 TAKE ONE TABLET BY MOUTH EVERY DAY TAKE ONE TABLET BY MOUTH EVERY DAY SOLD: 01/09/2020 [facility] Isibloom 28 Day Pack 0.15-0.03 mg DESOGESTREL-ETHINYL ESTRAD IOL 07/25/2019 12:00:00 AM EST tablet 84 TAKE ONE TABLET BY MOUTH EVERY DAY TAKE ONE TABLET BY MOUTH EVERY DAY SOLD: 10/16/2019 [facility] Juleber 0.15 mg-0.03 mg tablet {21 (desogestrel 0.15 M G / ethinyl estradiol 0.03 MG Oral Tablet) / 7 (inert ingredients 1 MG Oral Tablet) } Pack 2019 12:00:00 AM EST active Juleber 28 Day Pack [facility] ([facility]) 60 mg 02/28/2019 12:00:00 AM EDT capsule,delayed release (DR/EC) 30 TAKE ONE CAPSULE BY MOUTH EVERY DAY TAKE ONE CAPSULE BY MOUTH EVERY DAY SOLD: 07/31/2019 [facility] montelukast 10 MG Oral Tablet MONTELUKAST SODIUM 02/28/2019 12:0 0:00 AM EDT tablet 30 TAKE ONE TABLET BY MOUTH EVERY D AY TAKE ONE TABLET BY MOUTH EVERY DAY SOLD: 07/19/2019 [facility] 20 mg 02/28/2019 12:00:00 AM EDT capsule,delayed release (DR/EC) 18 TAKE ONE CAPSULE BY MOUTH EVERY DAY TAKE ONE CAPSULE BY MOUTH EVERY DAY SOLD: 08/27/2019 [facility] 60 mg 02/28/2019 12:00:00 AM EDT capsule,delayed release (DR/EC) 30 TAKE ONE CAPSULE BY MOUTH EVERY DAY TAKE ONE CAPSULE BY MOUTH EVERY DAY SOLD: 07/01/2019 [facility] 60 mg 02/28/2019 12:00:00 AM EDT capsule,delayed release (DR/EC) 18 TAKE ONE CAPSULE BY MOUTH EVERY DAY TAKE ONE CAPSULE BY MOUTH EVERY DAY SOLD: 09/11/2019 [facility] 20 mg 02/28/2019 12:00:00 AM EDT capsule,delayed release (DR/EC) 30 TAKE ONE CAPSULE BY MOUTH EVERY DAY TAKE ONE CAPSULE BY MOUTH EVERY DAY SOLD: 07/01/2019 [facility] 10 mg 02/28/2019 12:00:00 AM EDT tablet 30 TAKE ONE TABLET BY MOUTH EVERY DAY TAKE ONE TABLET BY MOUTH EVERY DAY SOLD: 09/05/2019 [facility] montelukast 10 MG Oral Tablet MONTELUKAST SODIUM 02/28/2019 12:0 0:00 AM EDT tablet 30 TAKE ONE TABLET BY MOUTH EVERY D AY TAKE ONE TABLET BY MOUTH EVERY DAY SOLD: 09/05/2019 [facility] 20 mg 02/28/2019 12:00:00 AM EDT capsule,delayed release (DR/EC) 18 TAKE ONE CAPSULE BY MOUTH EVERY DAY TAKE ONE CAPSULE BY MOUTH EVERY DAY SOLD: 09/11/2019 [facility] 10 mg 02/28/2019 12:00:00 AM EDT tablet 30 TAKE ONE TABLET BY MOUTH EVERY DAY TAKE ONE TABLET BY MOUTH EVERY DAY SOLD: 07/19/2019 [facility] 10 mg 02/28/2019 12:00:00 AM EDT tablet 30 TAKE ONE TABLET BY MOUTH EVERY DAY TAKE ONE TABLET BY MOUTH EVERY DAY SOLD: 06/15/2019 [facility] 20 mg 02/28/2019 12:00:00 AM EDT capsule,delayed release (DR/EC) 30 TAKE ONE CAPSULE BY MOUTH EVERY DAY TAKE ONE CAPSULE BY MOUTH EVERY DAY SOLD: 09/27/2019 [facility] 10 mg 02/28/2019 12:00:00 AM EDT tablet 30 TAKE ONE TABLET BY MOUTH EVERY DAY TAKE ONE TABLET BY MOUTH EVERY DAY SOLD: 06/15/2019 [facility] 20 mg 02/28/2019 12:00:00 AM EDT capsule,delayed release (DR/EC) 30 TAKE ONE CAPSULE BY MOUTH EVERY DAY TAKE ONE CAPSULE BY MOUTH EVERY DAY SOLD: 07/31/2019 [facility] 60 mg 02/28/2019 12:00:00 AM EDT capsule,delayed release (DR/EC) 18 TAKE ONE CAPSULE BY MOUTH EVERY DAY TAKE ONE CAPSULE BY MOUTH EVERY DAY SOLD: 08/27/2019 [facility] 30 mg 02/02/2019 12:00:00 AM EDT capsule,delayed release (DR/EC) 30 TAKE ONE CAPSULE BY MOUTH EVERY DAY TAKE ONE CAPSULE BY MOUTH EVERY DAY SOLD: 06/15/2019 [facility] Methocarbamol 500 MG Oral Tablet METHOCARBAMOL (unknow n strength) METHOCARBAMOL (unknown strength) completed [facility] ([facility]) Insurance Providers Payer name Policy type / Coverage type Policy ID Covered green party ID Covered green party's relationship to hurst Policy [place] Plan Information [facility]UNITY [facility] [id number] SP [id number] [facility]) O [id number] S [id number] [facility] - [facility] Community Plan P [id number] S [id number] Medicaid S [id number] S [id number] Managed [facility] - [facility] Community Plan P [id number] S [id number] MEDICAID [id number] SP [id number] Managed Care - [facility] Community Plan P [id number] S [id number] Medicaid S [id number] S [id number] SELF PAY ONLY [id number] SP [id number] Managed Care - [facility] Community Plan P [id number] S [id number] Medicaid S [id number] S [id number] [facility] Community Plan Commercial [id number] Self [id number] Managed Care - Community Plan United [employer] P [id number] S [id number] [facility] (HMO) [id number] Self [id number] [facility] [employer] [facility] (HMO) [id number] Self [id number] [facility] Community Plan Commercial [id number] Self [id number] Managed Care - Community Plan United [employer] P [id number] S [id number] Medicaid S [id number] S [id number] ANSI-Medicaid [id number] Managed Care - Community Plan United [employer] P [id number] S [id number] Medicaid S [id number] S [id number] [employer] COMP SP [id number] SP [id number] [facility] Hmo Commercial [id number] [facility] [id number] [facility] (HMO) [id number] Self [id number] [facility] Care Hmo Commercial Self [facility] (HMO) Self Managed Care - Community Plan United [employer] S [id number] S [id number] Managed Care BCBS P [id number] S [id number] Medicaid Dental P [id number] S [id number] Managed Care United Healthcare O [id number] S [id number] Medicaid S [id number] S [id number] UNITED HEALTHCARE [id number] SP [id number] Medicaid [place] Medigap Part B Self [facility] Christopher/M[facility] Health Maintenance Organization (HMO) Self MEDICAID M [id number] S [id number] UNITED HE[employer]CARE O [id number] S [id number] Managed Care - Community Plan United Healthcare P [id number] S [id number] Medicaid S [id number] S [id number] Managed Care - Community Plan United [employer] O [id number] S [id number] Medicaid Dental S [id number] S [id number] Managed Care [facility] O [id number] S [id number] [employer] [place] [employer] [id number] SP [id number] Medicaid S [id number] S [id number] D [facility] O [id number] S [id number] Managed Care - Community Plan United [employer] P [id number] S [id number] Managed Care - Community Plan United Healthcare P UNAVAILABLE S UNAVAILABLE D Managed Care [facility] P [id number] S [id number] HMO BLUE [id number] SP [id number] HMO BLUE P [id number] S [id number] Problems, Conditions, and Diagnoses Code Display Name Description Problem Type Effective Dates Data Source(s) N92.1 [id number] Prolonged menstrual cycle Problem 11/14/2019 12:00:00 AM EDT eCW1 ([facility]) N92.1 [id number] Prolonged menstrual cycle Problem 11/14/2019 12:00:00 AM EDT [facility] ([facility]) 785.1 Palpitations Palpitations 08/07/2019 02:34:09 P M EST [facility] [employer] V70.0 Health Screening Health Screening 08/07/2019 02 :29:39 PM EST [facility] [employer] 786.2 Cough Cough 08/07/2019 02:29:39 PM ES T [facility] Surgeries/Procedures Procedure Description Date Indications Data Source(s) RADEX SPINE CRV COMPL W/OBLQ&FLEX&/XTN STDS 06/25/2020 12:00:00 AM EST [facility] ([facility]) X-Ray Spine Lumbosacral Complete Inc Bending Views Min Of 6 06/25/2020 12:00:00 AM EST [facility] ([facility] ) APPLICATION MODALITY 1/> AREAS HOT/COLD PACKS 02/19/20 20 12:00:00 AM EDT [facility] ([facility] ) APPLICATION MODALITY 1/> AREAS HOT/COLD PACKS 02/19/20 20 12:00:00 AM EDT [facility] ([facility] ) Ultrasound, Each 15 Min, Constant Attendance 0 12:00:00 AM EDT [facility] ([facility] ) Ultrasound, Each 15 Min, Constant Attendance 0 12:00:00 AM EDT [facility] ([facility] ) THERAPEUTIC PX 1/> AREAS EACH 15 MIN EXERCISES 12:00:00 AM EDT [facility] ([facility] ) THERAPEUTIC PX 1/> AREAS EACH 15 MIN EXERCISES 12:00:00 AM EDT [facility] ([facility] ) APPLICATION MODALITY 1/> AREAS HOT/COLD PACKS 02/15/20 12:00:00 AM EDT [facility] ([facility] ) Ultrasound, Each 15 Min, Constant Attendance 0 12:00:00 AM EDT [facility] ([facility] ) THERAPEUTIC PX 1/> AREAS EACH 15 MIN EXERCISES 12:00:00 AM EDT [facility] ([facility] ) Ultrasound, Each 15 Min, Constant Attendance 0 12:00:00 AM EDT [facility] ([facility] ) Physical Therapy Eval - Low Complexity 02/11/2020 12:0 0:00 AM EDT [facility] ([facility] ) Endoscopy Wrist W/Release Transverse Carpal Ligament 01/30/2020 12:00:00 AM EDT [facility] ([facility] ) Neuroplasty/Transposition, Ulnar Nerve AT Elbow 2019 12:00:00 AM EDT [facility] ([facility] ) RADEX SPINE CRV COMPL W/OBLQ&FLEX&/XTN STDS 12/26/2019 12:00:00 AM EDT [facility] ([facility] ) RADEX WRIST COMPLETE MINIMUM 3 VIEWS 12/26/2019 12:00: 00 AM EDT [facility] ([facility] ) Excision Lesion Foot (Cyst/Ganglion) 12/05/2019 12:00: 00 AM EDT [facility] ([facility]) CVR Life Trainer.Svc. Other 10/31/2019 12:00:00 AM EDT - 2019 12:00:00 AM EDT [facility] ([facility]) CVR Life Trainer.Svc. Contraceptive 10/31/2019 12 :00:00 AM EDT - 10/31/2019 12:00:00 AM EDT [facility] ([facility]) CVR Med.Svc. Height/Weight 10/31/2019 12 :00:00 AM EDT - 10/31/2019 12:00:00 AM EDT [facility] ([facility]) CVR Blood Pressure 10/31/2019 12:00:00 AM EDT - 2019 12:00:00 AM EDT [facility] ([facility]) HCS Without Test 10/31/2019 12:00:00 AM EDT - 10/31/19 20 12:00:00 AM EDT [facility] ([facility]) OFFICE VISIT, EST 10/31/2019 12:00:00 AM EDT - 020 12:00:00 AM EDT [facility] ([facility]) ECG ROUTINE ECG W/LEAST 12 LDS W/I&R 10/01/2019 12:00: 00 AM EDT [facility] ([facility]) XTRNL ECG < 48 HR RECORDING 09/12/2019 12:00:00 AM EST [facility] ([facility]) XTRNL ECG CONTINUOUS RHYTHM PHYS REVIEW&INTERPJ 2019 12:00:00 AM EST [facility] ([facility]) ECG ROUTINE ECG W/LEAST 12 LDS W/I&R 09/10/2019 12:00: 00 AM EST [facility] ([facility]) ECG ROUTINE ECG W/LEAST 12 LDS W/I&R 08/23/2019 12:00: 00 AM EST [facility] ([facility]) Results ID Date Data Source [id number] 01/26/2020 10:32:00 AM EDT [facility] ([facility]) Name Value Range Interpretation Code Description Data Julia rce(s) Supporting Document(s) Coronavirus 2019 Nasopharygeal Laboratory test result [facility] ([facility]) Testing was performed using the iPosition S ARS-CoV-2 assay. This test was developed and its performance characteristics determined by [employer]. This test has not been FDA cleared [...] detected) result in this assay. Performed at: [facility] [address] [id number] [employer]: Marli Morelos MD, Phone: [phone] Not Detected ID Date Data Source [id number] 01/26/2020 12:00:00 AM EDT [facility] Name Value Range Interpretation Code Description Data Julia rce(s) Supporting Document(s) SARS coronavirus 2 RNA [facility] This lab was ordered by [facility] and reported by [facility]. ID Date Data Source [id number] 12/27/2019 10:17:00 AM EDT [facility] ([facility]) Name Value Range Interpretation Code Description Data Julia rce(s) Supporting Document(s) Laboratory test finding (navigational concept) Laboratory test result [facility] ([facility]) ID Date Data Source [id number] 12/05/2019 01:05:00 PM EDT [facility] ([facility]) Name Value Range Interpretation Code Description Data Julia rce(s) Supporting Document(s) Surgical pathology study Laboratory test result [facility] ([facility]) <content>FINAL DIAGNOSIS</content>
< content></content>
<content>Left foot ganglion cyst, excision:</content>
<content>Non-diagnostic specimen.</content>
<content>12/07/2019 - 1403</content>
<content></content>
<content>CLINICAL DIAGNOSIS</content>
<content></content>
<content>Left foot ganglion cyst</content>
<content>12/06/2019 - 1437</content>
<content></content>
<content>GROSS DIAGNOSIS</content>
<content></content>
<content>Received in formalin labeled "left foot ganglion cyst" consists of tiny</content>
<content>fragment of tissue-like material, <0.1mm. No significant tissue is</content>
<content>identified in the container. All in one.</content>
<content>-OA</content>
<content>12/07/2019 - 1403</content>
<content></content>
<content>Signed SUSHMA GUALLPA MD 12/07/2019 1402</content>
<content></content> ID Date Data Source [id number] 12/02/2019 12:35:00 PM EDT [facility] ([facility] ) Name Value Range Interpretation Code Description Data Julia rce(s) Supporting Document(s) Laboratory test finding (navigational concept) Laboratory test result [facility] ([facility]) Testing was performed using the elizabeth(R) SARS-CoV-2 test. This test was developed and its performance characteristics determined by [employer]. This test has not been FDA cleared [...] detected) result in this assay. Performed at: [facility] [address] [id number] Sugar Refiner: Marli Morelos MD, Phone: [phone] Not Detected ID Date Data Source [id number] 12/02/2019 12:00:00 AM EDT [facility] Name Value Range Interpretation Code Description Data Julia rce(s) Supporting Document(s) SARS CORONAVIRUS 2 RNA [facility] This lab was ordered by [facility] and reported by [facility]. ID Date Data Source [id number] 10/27/2019 10:00:00 AM EDT [facility] Name Value Range Interpretation Code Description Data Julia rce(s) Supporting Document(s) SARS CORONAVIRUS 2 RNA [facility] This lab was ordered by [facility] and reported by [facility]. ID Date Data Source [id number] 09/13/2019 11:20:00 AM EST [facility] ([facility]) Name Value Range Interpretation Code Description Data Julia rce(s) Supporting Document(s) Laboratory test finding (navigational concept) <pending> [facility] ([facility]) ID Date Data Source [id number] 08/31/2019 12:00:00 AM EST [facility] Katelyn Ferreira MD Patient Name: ABEL COOMBS [address] [facility] Date of : 1985[place] [address] Date of Exam: 08/31/2019PH#: Fax: [phone] EXAM: MRI FOOT LEFT WITHOUT CONTRASTCLINICAL INFORMATION: Evaluate ganglion.Comparison tib/fib radiographs 08/24/2019.TECHNIQUE:Skin markers are affixed to the skin at the site of the palpable lump onthe dorsum of the foot. Axial, coronal and sagittal imaging planes areutilized. T1 and T2 weighted scans are included with and without fatsaturation.MRI FINDINGS:In the dorsal soft tissues of the mid-foot, between the skin markers, thereis a high T2, low T1 signal intensity cyst consistent with a ganglion.This measures 13 mm in craniocaudal x 5 mm in czfwcft-[id number] x 6 gxeafbb-lf-cprj. It appears to be deep to the extensor tendons. There issome soft tissue edema in the dorsolateral forefoot, mild in degree.Cortical and medullary bone signal intensity are normal. No otherjuxta-articular cyst or mass is seen. There is some thickening and asliver of fluid at the plantar fascia attachment on the calcaneus withcalcaneal spurring. Plantar fascia is otherwise smooth. The tibialplafond and talar dome appear intact. No visible tendinopathy or ligamentdisruption.IMPRESSION:Small dorsal mid-foot ganglion cyst as described above.Accredited by the [employer] in MR.FALGUNI Lopez/Flaco you for referring ABEL COOMBS to our office. Electronically Signed - NEVILLE LEON MD 09/03/19 18:41 Name Value Range Interpretation Code Description Data Julia rce(s) Supporting Document(s) ID Date Data Source [id number] 08/15/2019 01:12:00 PM EST FELICIANO ([facility]) Name Value Range Interpretation Code Description Data Julia rce(s) Supporting Document(s) Hemoglobin A1c/Hemoglobin.total in Blood 6.1 MEDSE ([facility]) ID Date Data Source [id number] 08/15/2019 01:12:00 PM EST MEDENT ([facility]) Name Value Range Interpretation Code Description Data Julia rce(s) Supporting Document(s) Thyroid Stimulating Hormone 0.675 ME DENT ([facility]) Free T4 1.04 MEDENT ([facility]) ID Date Data Source [id number] 08/15/2019 01:12:00 PM EST MEDENT ([facility]) Name Value Range Interpretation Code Description Data Julia rce(s) Supporting Document(s) Triglycerides 129 MEDENT ([facility]) Cholesterol 179 MEDENT ([facility]) HDL 61 [facility] Cholesterol in LDL [Mass/volume] in Serum or Plasma by calculation 11 8 MEDENT ([facility]) Chol/HDL Ratio 2.934 MEDENT ([facility]) ID Date Data Source [id number] 08/08/2019 01:13:00 PM EST MEDENT ([facility]) Name Value Range Interpretation Code Description Data Julia rce(s) Supporting Document(s) White Blood Count 9.9 4.0-10.0 MEDENT ([facility]) Hemoglobin 12.2 MEDENT ([facility]) Platelets 290 172-450 MEDENT ([facility]) Red Blood Count 4.61 4.00-5.40 MEDENT ([facility]) Hematocrit 40.3 MEDENT ([facility]) ID Date Data Source [id number] 08/08/2019 01:13:00 PM EST [facility] ([facility]) Name Value Range Interpretation Code Description Data Julia rce(s) Supporting Document(s) Troponin <0.02 MEDENT ([facility]) Natriuretic peptide.B prohormone N-Terminal [Mass/volu me] in Serum or Plasma 36 MEDENT ([facility]) Thyroid Stimulating Hormone 0.775 ME DENT ([facility]) ID Date Data Source [id number] 08/08/2019 01:13:00 PM EST MEDENT ([facility]) Name Value Range Interpretation Code Description Data Julia rce(s) Supporting Document(s) Creatine kinase [Enzymatic activity/volume] in Serum or Plasma 76 MEDENT ([facility]) CPK-MB <1.0 MEDENT ([facility]) ID Date Data Source [id number] 08/08/2019 01:13:00 PM EST MEDENT ([facility]) Name Value Range Interpretation Code Description Data Juila rce(s) Supporting Document(s) Blood Urea Nitrogen 12 7-18 MEDENT ([facility]) Creatinine 0.68 0.6-1.0 MEDENT ([facility]) Glucose 130 70-100 MEDENT ([facility]) Chloride 109 98-107 MEDENT ([facility]) Sodium 140 136-145 MEDENT ([facility]) Potassium 4.1 3.5-5.1 MEDENT ([facility]) Calcium 8.5 8.2-9.6 MEDENT ([facility]) Carbon Dioxide 22 21-32 MEDENT ([facility]) Glomerular filtration rate/1.73 sq M.pre dicted [Volume Rate/Area] in Serum or Plasma by Creatinine-based formula (MDRD) >60.0 MEDENT ([facility]) ID Date Data Source [id number] 08/07/2019 01:27:58 PM [facility] Measurements & CalculationsHeight: 67 inches (5 ft. 7 in.) 170.18 cm Weight: 242 pounds 110 kg Body Mass Index (BMI): 38.04BMI Interpretation: ObeseBody Surface Area (BSA): 2.19Weight Management Education Done (Nutrition/Physical Activity)Vital SignsTemperature: 97.0FPulse Rate: 99 beats/minuteRespiratory Rate: 17 respirations/minuteBlood Pressure: 138/75 O2 Saturation: 97% Vital Signs performed by: Minoo Cowan MA, August 07, 2019 1:35 PMMultiple Vital SignsInitial BP: 144/91Vitals #2BP: 138/75 (primary)Initial Intake Information from: patientRoom #: 12Infectious Disease- Travel Have you or your sexual partner travelled outside of the country recently? NoSmoking, Tobacco or Smoke Exposure StatusSmoke Status: never smokerTobacco Use: NoPassive Smoke Exposure: NoPatient History Social/Personal History: Smoking Status: never smokerChief ComplaintmedsHistory of Present Illness (HPI)34 yo female patient h ere for follow up visit. Pt also concerned with nasal congession and Pt states she thinks she may being getting sick. Pt states she has been feeling sick since yesterday.Pt states have been prescribed Airduo, but it doesnt work. Pt states have had breo in the past but her insurance no longer covers. Pt states uses CPap at night.Pt follows with pulmonary. Pt states also intermittent chest palpitations. Pt denies chest palpitations at this time. HPI performed by: Laura LUNA, August 07, 2019 1:52 PMProblem ReviewProblem List was reviewed and/or updated during this visit.Medication Reconciliation & ReviewMedication List was reviewed and/or updated during this visit, including review of any snct-gxx-txhgwhl medications, herbal therapies, and/or supplements.Allergy ReviewAllergy List was reviewed and/or updated during this visit.Adult Preventive CareProvider Calculated and Reviewed all Clinical Protocols for patient today. Labs/Meds/Other Counseling-Nutrition and Physical Activity:BMI Interpretation: Obese (08/07/2019) Counseling: Done (08/07/2019) Physical Activity: Done (08/07/2019)Review of Systems General: Denies loss of appetite, chills, dizziness, fatigue, fever, continued fever, headache, feeling ill, sweats, night sweats, sleep disturbances, weight loss. Eyes: Denies blurring of vision, double vision, irritation, discharge, vision loss, eye pain, eye swelling, droopy eyelid, sensitivity to light, redness, itching. Ears/Nose/Throat: Complains of nasal congestion. Cardiovascular: Denies chest pain, palpitations, feeling faint, trouble breathing w/exertion, SOB upon lying down, SOB at night, peripheral edema, elevated blood pressure, decreased heart rate. Respiratory: Complains of cough. Denies difficulty breathing, shortness of breath, excessive sputum, coughing up blood, wheezing, chest pain. Gastrointestinal: Denies nausea, vomiting, bleeding, burning, itching, irritation, cramps, diarrhea, constipation. Musculoskeletal: Denies back pain, joint pain, leg pain, joint swelling, body aches, muscle aches, muscle cramps, muscle weakness, stiffness, recent injury. Neurologic: Denies muscle impairment, weakness, numbness/tingling, seizures, slurred speech, feeling faint, tremors, vertigo, paralysis on one side, paralysis on both sides. Psychiatric: Denies depression, anxiety, memory loss, mental disturbance, suicidal ideation, homicidal ideation, hallucinations, paranoia, feeling stressed, hearing voices. Endocrine: Denies cold intolerance, heat intolerance, excessive thirst, excessive hunger, excessive urination, weight loss, weight gain. Physical ExamGeneral Appearance: well nourished, well hydrated, no acute distressEyes, External: conjunctivae and lids normal, EOMIRespiratory, Auscultation: clear to auscultation bilaterally; no rales, rhonchi, or wh eezesRespiratory, Effort: no intercostal retractions or use of accessory musclesCardiovascular, Auscultation: S1, S2 audible; no murmur, rub, or gallop; RRRPeripheral Circulation: no clubbing, cyanosis, edema, or varicositiesAbdomen: soft, non-tender, no masses, bowel sounds normalGait & Station: normalSkin, Inspection: no rashes, lesions, or ulcerationsOrientation: oriented to time, place, and personMood & Affect: no depression, anxiety, or agitationJudgment & Insight: intactAssessment & Plan Problems:Added: Health Screening (ICD-V70.0) (AWO73-Y21.9) Assessment: Instructions: We have ordered fasting labs for you today. Please fast for 8-10 hours prior.Cough (ICD-786.2) ([id number]) Assessment: Instructions: We have sent a prescription to your pharmacy today. Please contine to maintain adequate fluid hydration.Palpitations (ICD-785.1) (WGC84-M71.2) Assessment: Instructions: We have made a referral for you today. We will contacr you to set this up.Assessed:Essential hypertension (ICD- 401.9) (USQ87-N64) Assessment: Instructions: Please continue medication as prescribed.ASTHMA (ICD-493.90) (WNA11-B29.909) Assessment: Instructions: Please con luis to brennen with your specialist. Please continue medications as prescribed.Encounter for general adult medical examination with abnormal findings (ICD-V70.0) (EXS82-R07.01) Assessment: Instructions: You have had a physical exam done today.Patient Instructions/Care Plan: Health Screening: We have ordered fasting labs for you today. Please fast for 8-10 hours prior.Cough: We have sent a prescription to your pharmacy today. Please contine to maintain adequate fluid hydration.Essential hypertension: Please continue medication as prescribed.ASTHMA: Please con luis to brennen with your specialist. Please con tinue medications as prescribed.Palpitations: We have made a referral for you today. We will contacr you to set this up.Encounter for general adult medical examination with abnormal findings: You have had a physical exam done today. Plan developed in collaboration with patient and/or familyMedications:TESSALON PERLES 100 MG ORAL CAPSULEARNUITY ELLIPTA 100 MCG/ACT INHALATION AEROSOL POWDER BREATH ACTIVATEDCYMBALTA 60 MG ORAL CAPSULE DELAYED RELEASE PARTICLESPRINIVIL 10 MG ORAL TABLETCVS OMEPRAZOLE 20 MG ORAL TABLET DELAYED RELEASEPROVENTIL HFA 108 (90 BASE) MCG/ACT INHALATION AEROSOL SOLUTIO NSINGULAIR 10 MG ORAL TABLETMedication Changes:Refilled:SINGULAIR 10 MG ORAL TABLET-1 tab po daily Qty: 30[Tablet] Refills: 3 Method: ElectronicPROVENTIL HFA 108 (90 BASE) MCG/ACT INHALATION AEROSOL SOLUTION-2 puffs q4h prn SOB Qty: 1[Inhaler] Refills: 3 Method: ElectronicCVS OMEPRAZOLE 20 MG ORAL TABLET DELAYED RELEASE-take 1 tab po qd Qty: 30[Tablet] Refills: 3 Method: ElectronicPRINIVIL 10 MG ORAL TABLET-take 1 tab po qd Qty: 30[Tablet] Refills: 3 Method: ElectronicCYMBALTA 60 MG ORAL CAPSULE DELAYED RELEASE PARTICLES- Take one tab po QD Qty: 30[Capsule] Refills: 3 Method: ElectronicNew Prescription:ARNUITY ELLIPTA 100 MCG/ACT INHALATION AEROSOL POWDER BREATH ACTIVATED-take one puff by mouth daily Qty: 1[Inhaler] Refills: 1 Method: ElectronicTESSALON PERLES 100 MG ORAL CAPSULE-take one tablet by mouth three times daily as needed Qty: 30[Capsule] Refills: 0 Method: ElectronicRemoved:NAPROXEN 375 MG ORAL TABLET-prn, TIZANIDINE HCL 4 MG ORAL TABLET-prn, CYMBALTA 30 MG ORAL CAPSULE DELAYED RELEASE PARTICLES-take one tab po daily Qty: 30[Capsule] Refills: 5, AIRDUO RESPICLICK 232/14 232-14 MCG/ACT INH AEPB-One INH bid. Qty: 1[Inhaler] Refills: 5Changed: To: PROVENTIL HFA 108 (90 BASE) MCG/ACT INHALATION AEROSOL SOLUTION-2 puffs q4h prn SOB Qty: 1[Inhaler] Refills: 3From: ORAL PRINIVIL 10 MG ORAL TABLET Qty: [id number] Refills: 30[Tablet] To: PRINIVIL 10 MG ORAL TABLET-take 1 tab po qd Qty: 30[Tablet] Refills: 3Allergies:* SHELLFISH (Critical)* LATEX (Severe)Orders:COMP METABOLIC PANEL [CPT-72195] CBC W/DIFF [CPT-26642] HgBA1c [CPT-59041] LIPID PANEL [CPT-29432] TSH [CPT-07036] T-4 free [CPT-91326] Vitamin D 250H Unspecified [CPT-73630] URINALYSIS [CPT-83647] Cardiology Consult [CPT-79312] Adult - Ofc Vst, EST, Level IV [CPT-46118] Follow-Up Return to clinic: 6 weeks for follow up Clinical Visit Summary Completed Name Value Range Interpretation Code Description Data Julia rce(s) Supporting Document(s) Procedure Social History Code Duration Value Status Description Data Source(s ) Smoking 05/29/2020 12:00:00 AM EST Never smoker completed Never s moker NextGen ([facility]) Smoking 01/02/2020 12:00:00 AM EDT Never Smoker completed Never S moker eCW1 ([facility]) Smoking 01/02/2020 12:00:00 AM EDT Never Smoker completed Never S momer eCW1 ([facility]) Vital Signs ID Date Data Source UNK Name Value Range Interpretation Code Description Data Source(s) Body mass index (BMI) [Ratio] 37.5 kg/m2 37.5 k g/m2 MEDENT ([facility]) Body weight 246.38 [lb_av] 246.38 [lb_av] MEDEN T ([facility]) Body height 68 [in_i] 68 [in_i] MEDENT ([facility]) 5'8" Body temperature 96.8 [degF] 96.8 [degF] MEDENT ([facility] ) Body temperature 97.9 [degF] 97.9 [degF] MEDENT ([facility] ) Diastolic blood pressure 84 mm[Hg] 84 mm[Hg] eCW1 ([facility]) Systolic blood pressure 134 mm[Hg] 134 mm[Hg] e CW1 ([facility]) Body mass index (BMI) [Ratio] 39.1 kg/m2 39.1 k g/m2 W1 ([facility]) Body height 68 [in_i] 68 [in_i] W1 ([facility]) Body weight 257.2 [lb_av] 257.2 [lb_av] eCW1 ([facility]) Body mass index (BMI) [Ratio] 39.0 kg/m2 39.0 k g/m2 MEDENT ([facility]) Body weight 256.38 [lb_av] 256.38 [lb_av] MEDEN T ([facility]) Body height 68 [in_i] 68 [in_i] MEDENT ([facility]) 5'8" Body temperature 97.6 [degF] 97.6 [degF] MEDENT ([facility]) Body mass index (BMI) [Ratio] 36.6 kg/m2 36.6 k g/m2 MEDENT ([facility]) Body weight 233.50 [lb_av] 233.50 [lb_av] MEDEN T ([facility]) Body height 67 [in_i] 67 [in_i] MEDENT ([facility]) 5'7" Body temperature 95.5 [degF] 95.5 [degF] MEDENT ([facility]) Diastolic blood pressure 70 mm[Hg] 70 mm[Hg] eCW1 ([facility]) Systolic blood pressure 118 mm[Hg] 118 mm[Hg] e CW1 ([facility]) Body mass index (BMI) [Ratio] 37.86 kg/m2 37.86 kg/m2 eCW1 ([facility]) Body height 68 [in_us] 68 [in_us] eCW1 ([facility]) Body weight Measured 249 [lb_av] 249 [lb_av] eC W1 ([facility]) Body height 172.72 cm 172.72 cm NextGen ([facility]) Body mass index (BMI) [Ratio] 37.2 kg/m2 37.2 k g/m2 MEDENT ([facility]) Body height 68 [in_i] 68 [in_i] MEDENT ([facility]) 5'8" Body weight 245.00 [lb_av] 245.00 [lb_av] MEDEN T ([facility], [facility]) Body temperature 98.9 [degF] 98.9 [degF] MEDENT ([facility]) Oxygen saturation in Arterial blood by Pulse oximetry 98 % 98 % MEDENT ([facility], [facility]) Respiratory rate 16 /min 16 /min MEDENT ( [facility], [facility]) Heart rate 99 /min 99 /min MEDENT ([facility], [facility]) Diastolic blood pressure 97 mm[Hg] 97 mm[Hg] MEDENT ([facility], [facility]) Systolic blood pressure 139 mm[Hg] 139 mm[Hg] M EDENT ([facility], [facility]) Diastolic blood pressure 80 mm[Hg] 80 mm[Hg] MEDENT ([facility]) sitting Systolic blood pressure 128 mm[Hg] 128 mm[Hg] M EDENT ([facility]) sitting Diastolic blood pressure 80 mm[Hg] 80 mm[Hg] MEDENT ([facility]) sitting, large cuff Systolic blood pressure 134 mm[Hg] 134 mm[Hg] M EDENT ([facility]) sitting, large cuff Respiratory rate 16 /min 16 /min MEDENT ( [facility]) Heart rate 88 /min 88 /min MEDENT ([facility]) Regular Body mass index (BMI) [Ratio] 36.9 kg/m2 36.9 k g/m2 MEDENT ([facility]) Body height 68 [in_i] 68 [in_i] MEDENT ([facility]) 5'8" Body weight 243.00 [lb_av] 243.00 [lb_av] MEDEN T ([facility]) Body mass index (BMI) [Ratio] 36.5 kg/m2 36.5 k g/m2 MEDENT ([facility]) Body height 68 [in_i] 68 [in_i] MEDENT ([facility], [facility]) 5'8" Body weight 240.00 [lb_av] 240.00 [lb_av] MEDEN T ([facility], [facility]) Body temperature 98.1 [degF] 98.1 [degF] [facility]) Oxygen saturation in Arterial blood by Pulse oximetry 97 % 97 % [facility] ([facility], [facility]) Respiratory rate 16 /min 16 /min [facility] ( [facility], [facility]) Heart rate 89 /min 89 /min MEDENT ([facility], [facility]) Diastolic blood pressure 102 mm[Hg] 102 mm[Hg] MEDENT ([facility], [facility]) Systolic blood pressure 167 mm[Hg] 167 mm[Hg] [facility]) Body mass index (BMI) [Ratio] 36.5 kg/m2 36.5 k g/m2 MEDENT ([facility], [facility]) Body height 68 [in_i] 68 [in_i] MEDENT ([facility], [facility]) 5'8" Body weight 240.00 [lb_av] 240.00 [lb_av] MEDEN T ([facility], [facility]) Body temperature 98.9 [degF] 98.9 [degF] [facility] ([facility], [facility]) Oxygen saturation in Arterial blood by Pulse oximetry 99 % 99 % MEDENT ([facility], [facility]) Respiratory rate 16 /min 16 /min MEDENT ( [facility], [facility]) Heart rate 105 /min 105 /min [facility] ([facility], [facility]) Diastolic blood pressure 95 mm[Hg] 95 mm[Hg] [facility] Systolic blood pressure 138 mm[Hg] 138 mm[Hg] [facility] ([facility], [facility]) Body mass index (BMI) [Ratio] 36.3 kg/m2 36.3 k g/m2 [facility] ([facility], [facility]) Body height 68 [in_i] 68 [in_i] [facility] ([facility]) 5'8" Body weight 239.00 [lb_av] 239.00 [lb_av] MEDEN T ([facility], [facility]) Body temperature 96.9 [degF] 96.9 [degF] [facility] ([facility], [facility]) Oxygen saturation in Arterial blood by Pulse oximetry 97 % 97 % [facility] ([facility], [facility]) Respiratory rate 22 /min 22 /min MEDENT ( [facility], [facility]) Heart rate 113 /min 113 /min [facility] ([facility], [facility]) Diastolic blood pressure 85 mm[Hg] 85 mm[Hg] [facility] ([facility], [facility]) Systolic blood pressure 134 mm[Hg] 134 mm[Hg] [facility]) Body mass index (BMI) [Ratio] 36.3 kg/m2 36.3 k g/m2 [facility] ([facility], [facility]) Body height 68 [in_i] 68 [in_i] [facility] ([facility]) 5'8" Body weight 239.00 [lb_av] 239.00 [lb_av] MEDEN T ([facility], [facility]) Body temperature 98.2 [degF] 98.2 [degF] [facility] ([facility], [facility]) Oxygen saturation in Arterial blood by Pulse oximetry 96 % 96 % MEDENT ([facility], [facility]) Respiratory rate 18 /min 18 /min MEDENT ( [facility], [facility]) Heart rate 108 /min 108 /min MEDENT ([facility], [facility]) Diastolic blood pressure 84 mm[Hg] 84 mm[Hg] MEDENT ([facility], [facility]) Systolic blood pressure 129 mm[Hg] 129 mm[Hg] M EDENT ([facility], [facility]) Diastolic blood pressure--sitting 81 mm[Hg] 81 mm[Hg] MEDENT ([facility]) [employer] adult cuff, [place] Systolic blood pressure--sitting 120 mm[Hg] 120 mm[Hg] MEDENT ([facility]) [employer] adult cuff, [place] Heart rate 97 /min 97 /min MEDENT ([facility]) Body mass index (BMI) [Ratio] 36.2 kg/m2 36.2 k g/m2 MEDENT ([facility]) Body height 68 [in_i] 68 [in_i] [facility] ([facility] 5'8" Body weight 238.00 [lb_av] 238.00 [lb_av] MEDEN T ([facility]) Body mass index (BMI) [Ratio] 36.3 kg/m2 36.3 k g/m2 MEDENT ([facility], [facility]) Body height 68 [in_i] 68 [in_i] MEDENT ([facility] 5'8" Body weight 239.00 [lb_av] 239.00 [lb_av] MEDEN T ([facility], [facility]) Body temperature 97.3 [degF] 97.3 [degF] MEDENT ([facility], [facility]) Oxygen saturation in Arterial blood by Pulse oximetry 98 % 98 % MEDENT ([facility], [facility]) Respiratory rate 24 /min 24 /min MEDENT ( [facility], [facility]) Heart rate 91 /min 91 /min [facility] ([facility], [facility]) Diastolic blood pressure 97 mm[Hg] 97 mm[Hg] [facility] ([facility], [facility]) Systolic blood pressure 152 mm[Hg] 152 mm[Hg] [facility] ([facility], [facility]) Body mass index (BMI) [Ratio] 36.0 kg/m2 36.0 k g/m2 [facility] ([facility] ) Body weight 233.50 [lb_av] 233.50 [lb_av] [facility] ([facility] ) Body height 67.5 [in_i] 67.5 [in_i] [facility] ([facility] ) 5'7.50" Body temperature 98.1 [degF] 98.1 [degF] [facility] ([facility] ) Body mass index (BMI) [Ratio] 34.2 kg/m2 34.2 k g/m2 [facility] ([facility], [facility]) Body height 68 [in_i] 68 [in_i] [facility] ([facility], [facility]) 5'8" Body weight 225.00 [lb_av] 225.00 [lb_av] [facility] ([facility], [facility]) Body temperature 97.0 [degF] 97.0 [degF] [facility] ([facility], [facility]) Oxygen saturation in Arterial blood by Pulse oximetry 97 % 97 % [facility] ([facility], [facility]) Respiratory rate 18 /min 18 /min [facility] ( [facility], [facility]) Heart rate 122 /min 122 /min [facility] ([facility], [facility]) Diastolic blood pressure 94 mm[Hg] 94 mm[Hg] [facility] ([facility], [facility]) Systolic blood pressure 148 mm[Hg] 148 mm[Hg] [facility] ([facility], [facility]) Patient Treatment Plan of Care Planned Activity Planned Date Details Description Data Source (s) Norgestim-Eth Estrad Triphasic 0.18/0.215/0.25 MG-25 M 11/14/2019 12:00:00 AM EDT [email or web address] ([facility]) Juleber 0.15 mg-0.03 mg tablet 2019 12:00:00 AM EST [facility] ([facility]) Methocarbamol 500 MG Oral Tablet [facility] ([facility])
[2020-08-08 15:43] LABS: BASO % 0.3 % (0.0-1.0); EOS # 0.1 10^3/uL (0.0-0.5); EOS % 0.9 % (0.0-3.0); HEMATOCRIT 37.6 % (36.0-47.0); HEMOGLOBIN 11.4 g/dl (12.0-15.5); LYMPH # 2.3 10^3/uL (1.5-5.0); MEAN CORPUSCULAR HEMOGLOBIN 25.2 pg (27.0-33.0); MEAN CORPUSCULAR HGB CONC 30.3 g/dl (32.0-36.5); MEAN CORPUSCULAR VOLUME 83.2 fl (80.0-96.0); MONO # 0.8 10^3/uL (0.0-0.8); MONO % 6.7 % (0.0-5.0); NEUTROPHILS # 8.4 10^3/uL (1.5-8.5); NEUTROPHILS % 71.5 % (36.0-66.0); PLATELET COUNT, AUTOMATED 333 10^3/uL (150-450); RED BLOOD COUNT 4.52 10^6/uL (4.00-5.40); WHITE BLOOD COUNT 11.7 10^3/uL (4.0-10.0)
--- OUTSIDE RECORDS SUMMARY | 2020-08-08 15:43 | CCD ---
Author Author [facility] Organization [facility] Address Unknown Phone Unavailable Care Team Providers Care Aircraft Avionics Technician Name Role Phone Symenow, Allyson Rylee PA [...] MCELHERAN, DORIAN PA Unavailable Unavailable Aftab Murrell TRANSMISSION LINE ENGINEER TRANSMISSION LINE ENGINEER Unavailable Unavailable Sellers, Nishi Alexia TRANSMISSION LINE ENGINEER Unavailable Unavailable Sellers, Nishi Alexia TRANSMISSION LINE ENGINEER Unavailable Unavailable Sellers, Nishi Alexia TRANSMISSION LINE ENGINEER Unavailable Unavailable Sellers, Nishi Alexia TRANSMISSION LINE ENGINEER Unavailable Unavailable Sellers, Nishi Alexia TRANSMISSION LINE ENGINEER Unavailable Unavailable Sellers, Nishi Alexia TRANSMISSION LINE ENGINEER Unavailable Unavailable Vandana Florian MD Unavailable Unavailable [...] Ortiz MD Unavailable Unavailable Murrell, F Aftab TRANSMISSION LINE ENGINEER-BC Unavailable Unavailable Murrell, F Aftab TRANSMISSION LINE ENGINEER-BC Unavailable Unavailable Murrell, F Aftab TRANSMISSION LINE ENGINEER-BC Unavailable Unavailable Murrell, F Aftab TRANSMISSION LINE ENGINEER-BC Unavailable Unavailable Murrell, F Aftab TRANSMISSION LINE ENGINEER-BC Unavailable Unavailable Murrell, F Aftab TRANSMISSION LINE ENGINEER-BC Unavailable Unavailable Murrell, F Aftab TRANSMISSION LINE ENGINEER-BC Unavailable Unavailable Murrell, F Aftab TRANSMISSION LINE ENGINEER-BC Unavailable Unavailable Murrell, F Aftab TRANSMISSION LINE ENGINEER-BC Unavailable Unavailable Murrell, F Aftab TRANSMISSION LINE ENGINEER-BC Unavailable Unavailable Murrell, F Aftab TRANSMISSION LINE ENGINEER-BC Unavailable Unavailable Murrell, F Aftab TRANSMISSION LINE ENGINEER-BC Unavailable Unavailable Mrurell, F Aftab TRANSMISSION LINE ENGINEER-BC Unavailable Unavailable Murrell, F Aftab TRANSMISSION LINE ENGINEER-BC Unavailable Unavailable Murrell, F Aftab TRANSMISSION LINE ENGINEER-BC Unavailable Unavailable Murrell, F Aftab TRANSMISSION LINE ENGINEER-BC Unavailable Unavailable Murrell, F Aftab TRANSMISSION LINE ENGINEER-BC Unavailable Unavailable Mrurell, F Aftab TRANSMISSION LINE ENGINEER-BC Unavailable Unavailable Murrell, F Aftab TRANSMISSION LINE ENGINEER-BC Unavailable Unavailable Murrell, F Aftab TRANSMISSION LINE ENGINEER-BC Unavailable Unavailable Murrell, F Aftab TRANSMISSION LINE ENGINEER-BC Unavailable Unavailable Murrell, F Aftab TRANSMISSION LINE ENGINEER-BC Unavailable Unavailable NICKI, KEILY PA Unavailable Unavailable [...] NICKI, KEILY PA Unavailable Unavailable Hale, Susy METER AND SERVICE LINE INSPECTOR Unavailable Unavailable Hale, Susy METER AND SERVICE LINE INSPECTOR Unavailable Unavailable Hale, Susy METER AND SERVICE LINE INSPECTOR Unavailable Unavailable Hale, Susy METER AND SERVICE LINE INSPECTOR Unavailable Unavailable Hale, Susy METER AND SERVICE LINE INSPECTOR Unavailable Unavailable Hale, Susy METER AND SERVICE LINE INSPECTOR Unavailable Unavailable Hale, Susy METER AND SERVICE LINE INSPECTOR Unavailable Unavailable Hale, Susy METER AND SERVICE LINE INSPECTOR Unavailable Unavailable Hale, Susy METER AND SERVICE LINE INSPECTOR Unavailable Unavailable Hale, Susy METER AND SERVICE LINE INSPECTOR Unavailable Unavailable Hale, Susy METER AND SERVICE LINE INSPECTOR Unavailable Unavailable LETTIERE, A DORIAN PA Unavailable [...] FERREIRA MD Unavailable Unavailable HORACE, E AFTAB METER AND SERVICE LINE INSPECTOR Unavailable Unavailable HORACE, E AFTAB METER AND SERVICE LINE INSPECTOR Unavailable Unavailable HORACE, E AFTAB METER AND SERVICE LINE INSPECTOR Unavailable Unavailable HORACE, E AFTAB METER AND SERVICE LINE INSPECTOR Unavailable Unavailable HORACE, E AFTAB METER AND SERVICE LINE INSPECTOR Unavailable Unavailable HORACE, E AFTAB METER AND SERVICE LINE INSPECTOR Unavailable Unavailable HORACE, E AFTAB METER AND SERVICE LINE INSPECTOR Unavailable Unavailable HORACE, E AFTAB METER AND SERVICE LINE INSPECTOR Unavailable Unavailable HORACE, E AFTAB METER AND SERVICE LINE INSPECTOR Unavailable Unavailable HORACE, E AFTAB METER AND SERVICE LINE INSPECTOR Unavailable Unavailable HORACE, E AFTAB METER AND SERVICE LINE INSPECTOR Unavailable Unavailable HORACE, E AFTAB METER AND SERVICE LINE INSPECTOR Unavailable Unavailable HORACE, E AFTAB METER AND SERVICE LINE INSPECTOR Unavailable Unavailable RING, K ESTRADA PA Unavailable [...] is protected by Article 27-F of the [facility] Public Health law. If you continue you may have access to information: Regarding HIV / AIDS; Provided by facilities licensed or operated by the [facility] Office of Mental Health; or Provided by the [facility] Office for People With Developmental Disabilities. If such information is present, then the following [facility] mandated warning applies: This information has been [...] law may result in a fine or halfway sentence or both. A general authorization for the release of medical or other information is NOT sufficient authorization for further disc losure. Allergies and Adverse Reactions Type Description Substance Reaction Status Data Source(s ) Drug allergy Amoxicillin Amoxicillin vaginal itching Active eCW1 ([facility]) Lobster and crabmeat Lobster and crabmeat Lobster and crabmeat diarrh ea Active eCW1 ([facility]) cats, dogs cats, dogs cats, dogs eyes swell, itchy Active eCW1 ( [facility]) Drug allergy amoxicillin Amoxicillin Active [facility] ([facility] Family History Family Member Name Family Member Gender Family Member Status Date o f Status Description Data Source(s) Unknown Female Diagnosis 07/29/2016 12:00:00 AM EST Next[facility] ([facility]) Unknown Female Diagnosis 07/10/2015 12:00:00 AM EST [facility] ([facility]) Unknown Female Diagnosis 07/10/2015 12:00:00 AM EST Next[facility] ([facility]) Encounters Encounter Providers Location Date Indications Data Source(s ) Outpatient Attender: DORIAN MONTANA Physical Therapy 06/25/2020 01:30:00 PM EST [facility] ([facility]) Attender: [place] [address] 07/29/2019 09:32:00 AM EST - 05/29/2020 09:32:00 AM EST NextGen ([facility]) Attender: Shell ROBERTS [place] 11:56:00 AM EDT - 04/30/2020 11:56:00 AM EDT [facility] ([facility]) Unknown [address] [facility] [address] 04/30/2020 12:00:00 AM EDT eCW1 ([facility]) Office Visit Attender: Jaxon Rogers MD Physical Therapy 2019 01:15:00 PM EDT [facility] ([facility]) Office Visit Attender: Jaxon Rogers MD Physical Therapy 2019 08:15:00 AM EDT [facility] ([facility]) Outpatient Attender: Aftab KONX 02/05/2020 08: 52:00 PM EDT [facility] Outpatient Attender: Aftab KNOX 01/27/2020 08: 22:01 PM EDT [facility] Office Visit Attender: KATELYN FERREIRA MD Physical Therapy 11:30:00 AM EDT [facility] ([facility]) Outpatient Attender: Aftab KNOX 01/22/2020 10: 36:02 PM EDT [facility] Outpatient [address] [facility] [address] 01/02/2020 12:00:00 AM EDT eCW1 ([facility]) Outpatient Attender: Jaxon Rogers MD Physical Therapy 12/26/2019 0 1:00:00 PM EDT [facility] ([facility]) Office Visit Attender: KATELYN FERREIRA MD Physical Therapy 09:15:00 AM EDT [facility] ([facility]) Outpatient Attender: JEREMY KNOX 12/08/2019 12:02:51 AM EDT [facility] [address] [place] [address] 12/04/2019 12:00:00 AM EDT eCW1 ([facility]) Outpatient Attender: KATELYN FERREIRA MD Physical Therapy 11:30:00 AM EDT [facility] ([facility]) Outpatient Referrer: KATELYN FERREIRA MD 11/22/2019 08:46:0 0 PM EDT [facility] [address] [place] [address] 11/14/2019 12:00:00 AM EDT eCW1 ([facility]) Outpatient Attender: Aftab KNOX 11/09/2019 01: 46:00 PM EDT [facility] Attender: AFTAB Rivas 01:00:00 PM EDT - 11/08/2019 01:00:00 PM EDT Next[facility] ([facility]) Outpatient Attender: JEREMY LUNA FP 11/07/2019 09:57:01 AM EDT [facility] OutpatientOFFICE VISIT, EST Attender: Alexia LUNA PPNCN Y [place] 10/31/2019 02:45:00 PM EDT - 10/31/2019 02:45:00 PM EDT Abnormal uterine and vaginal bleeding, unspecifiedEncounter for surveillance of contraceptive pillsHuman immunodeficiency virus [HIV] counselingEncounter for oth general cnsl and advice on contraceptionOther sex counseling NextGen ([facility]) Abnormal uterine and vaginal bleeding, u nspecified Encounter for surveillance of contracept paulina pills Human immunodeficiency virus [HIV] couns eling Encounter for oth general cnsl and advic e on contraception Other sex counseling Outpatient Referrer: KATELYN FERREIRA MD 10/27/2019 07:41:0 0 AM EDT [facility] Outpatient Attender: DORIAN gtz 10/12/2019 12:15:00 PM EDT [facility] ([facility]) Outpatient Referrer: KATELYN FERREIRA MD 10/07/2019 10:02:0 0 AM EDT [facility] Outpatient Attender: Rylee MONTANA Main Office 10/01/2019 09:45:00 AM EDT [facility] ([facility]) Outpatient Attender: Aftab LUNA-BC FP 09/28/2019 01: 05:01 PM EDT [facility] Outpatient Attender: JEREMY LUNA FP 09/24/2019 10:45:02 AM EDT [facility] Outpatient Attender: KEILY walls 09/24/2019 09:05:00 AM EDT [facility] ([facility]) Outpatient Attender: Susy fung 09/21/2019 12:00:00 PM EDT [facility] ([facility]) Outpatient Attender: JEREMY LUNA FP 09/17/2019 04:18:00 PM EDT [facility] Outpatient Referrer: KATELYN FERREIRA MD 09/13/2019 02:08:0 0 PM EST [facility] Attender: KATELYN FERREIRA MD Physical Therapy 01:30:00 PM EST [facility] ([facility]) Outpatient Attender: JEREMY LUNA FP 09/11/2019 02:36:01 PM EST [facility] Outpatient Attender: Susy fung 09/10/2019 01:30:00 PM EST [facility] ([facility]) Outpatient Attender: DORIAN gtz 09/05/2019 10:50:00 AM EST [facility] ([facility]) Outpatient Referrer: KATELYN [...] 08/23/2019 12:30:00 PM EST [facility] ([facility]) Outpatient 08/23/2019 09:45:00 AM EST [facility] 08/23/2019 09:40:00 AM EST [facility] 08/21/2019 12:14:00 PM EST [facility] Attender: Angel Florian MD Physical Therapy 11/2019 12:45:00 PM EST [facility] ([facility]) Outpatient 08/15/2019 09:07:00 AM EST [facility] Outpatient 08/13/2019 02:56:00 PM EST [facility] 08/13/2019 02:14:00 PM [facility] Outpatient Attender: Aftab CRAIG FP 08/12/2019 04: 46:02 PM [facility] Outpatient Attender: ESTRADA Genao Primary 08/10/2019 08:35:00 AM EST [facility] ([facility] Outpatient Attender: KATELYN FERREIRA MD Physical Therapy 09:15:00 AM EST [facility] ([facility]) Outpatient Attender: JEREMY LUNA FP 08/07/2019 09:01:00 PM [facility] Outpatient Attender: JEREMY KNOX 08/07/2019 02:36:01 PM [facility] Outpatient Attender: JEREMY KNOX 08/07/2019 02:30:05 PM [facility] Outpatient Attender: JEREMY KNOX 08/07/2019 02:26:00 PM [facility] Outpatient Attender: JEREMY KNOX 08/07/2019 02:25:00 PM [facility] Outpatient Attender: JEREMY KNOX 08/07/2019 02:23:01 PM [facility] Outpatient Attender: JEREMY KNOX 08/03/2019 03:29:00 PM [facility] Outpatient Attender: Angel Florian MD Physical Therapy 12:30:00 PM EST [facility] ([facility]) Outpatient Attender: JEREMY KNOX 07/16/2019 01:58:00 PM [facility] Outpatient Attender: JEREMY KNOX 07/02/2019 02:50:01 PM [facility] Outpatient Attender: Aftab CRAIG FP 07/02/2019 02: 48:59 PM [facility] Outpatient Attender: JEREMY KNOX 06/28/2019 09:01:01 PM [facility] 06/28/2019 08:00:00 PM [facility] Outpatient Attender: Susyhussein Petit an[place] 06/19/2019 02:05:00 PM EST [facility] ([facility]) Medications Medication Brand [...] MAXIMUM DAILY DOSE = 6 SOLD: 12/05/2019 [facility] 0.5 % 11/28/2019 12:00:00 AM EDT drops 5 INSTILL 1 DROP TWO TIMES A DAY FOR ALLERGY SYMPTOMS AND REDNESS TO EYES INSTILL 1 DROP TWO TIMES A DAY FOR ALLER GY SYMPTOMS AND REDNESS TO EYES SOLD: 11/29/2019 [facility] Tri-Lo-Suzette 28 Day Pack 0.18/0.215/0.25 mg-25 mcg NORG ESTIMATE-ETHINYL ESTRADIOL 11/14/2019 12:00:00 AM EDT tablet 28 TAKE ONE TABLET BY MOUTH EVERY DAY TAKE ONE TABLET BY MOUTH EVERY DAY SOLD: 11/15/2019 [facility] Norgestim-Eth Estrad Triphasic 0.18/0.215/0.25 MG-25 M CG Norgestim-Eth Estrad Triphasic 0.18/0.215/0.25 MG-25 MCG 11/14/2019 12:00:00 AM EDT active 1 tablet eCW1 ([facility]) Norgestim-Eth Estrad Triphasic 0.18/0.215/0.25 MG-25 M CG Norgestim-Eth Estrad Triphasic 0.18/0.215/0.25 MG-25 MCG 11/14/2019 12:00:00 AM EDT 1.0 {tablet} active Norgestim-Eth Estrad Trip hasic 0.18/0.215/0.25 MG-25 MCG eCW1 ([facility]) Norgestim-Eth Estrad Triphasic 0.18/0.215/0.25 MG-25 M CG Norgestim-Eth Estrad Triphasic 0.18/0.215/0.25 MG-25 MCG 11/14/2019 12:00:00 AM EDT 1.0 {tablet} active Norgestim-Eth Estrad Trip hasic 0.18/0.215/0.25 MG-25 MCG eCW1 ([facility]) 10 mg 11/11/2019 12:00:00 AM EDT tablet 9 TAKE ONE TABLET BY MOUTH EVERY DAY TAKE ONE TABLET BY MOUTH EVERY DAY SOLD: 11/12/2019 [facility] 8 mg 11/11/2019 12:00:00 AM EDT [...] Ibuprofen 10/12/2019 12:00:00 AM EDT active MEDENT ([facility]) 10 mg 10/12/2019 12:00:00 AM EDT tablet [...] Hydrocodone-Acetaminophen 09/24/2019 12:00:00 AM EDT completed MEDENT ([facility]) olopatadine 1 MG/ML Ophthalmic Solution Olopatadine HCL 09/24/2019 12:00:00 AM EDT OPHTHALMIC active [facility] ([facility]) 10,000 unit- 1 mg/mL 09/21/2019 12:00:00 AM EDT drops 10 INSTILL 1 DROP IN THE AFFECTED EYE(S) FOUR TIMES A DAY FOR 5-7 DAYS DIRECTED INSTILL 1 DROP IN THE AFFECTED EYE(S) FOUR TIMES A DAY FOR 5-7 DAYS DIRECTED SOLD: 09/21/2019 [facility] Polymyxin B 44899 UNT/ML / Trimethoprim 1 MG/ML Ophtha lmic Solution Polymyxin B Sulfate/Trimethoprim Sulfate 09/21/2019 12:00:00 AM EDT completed [facility] ([facility]) Ketorolac Tromethamine 5 MG/ML Ophthalmic Solution Ketorolac Tromethamine 09/21/2019 12:00:00 AM EDT completed [facility] ([facility]) 0.5 % 09/05/2019 12:00:00 AM EST drops [...] DAY FOR 7 DAYS SOLD: 09/05/2019 [facility] Ketorolac Tromethamine 5 MG/ML Ophthalmic Solution Ketorolac Tromethamine 09/05/2019 12:00:00 AM EST completed [facility] ([facility]) Tobramycin 3 MG/ML Ophthalmic Solution Tobramycin 09/05/2019 12:0 0:00 AM EST completed MEDENT ([facility]) 0.5 % 09/05/2019 12:00:00 AM EST drops 5 INSTILL 1 DROP TWO TIMES A DAY FOR ALLERGY SYMPTOMS AND REDNESS TO EYES INSTILL 1 DROP TWO TIMES A DAY FOR ALLER GY SYMPTOMS AND REDNESS TO EYES SOLD: 11/06/2019 [facility] 0.5 % 09/05/2019 12:00:00 AM EST drops 5 INSTILL 1 DROP TWO TIMES A DAY FOR ALLERGY SYMPTOMS AND REDNESS TO EYES INSTILL 1 DROP TWO TIMES A DAY FOR ALLER GY SYMPTOMS AND REDNESS TO EYES SOLD: 10/07/2019 [facility] Albuterol 0.83 MG/ML Inhalant Solution Albuterol Sulfate 0 08/22/2019 12:00:00 AM EST active [facility] ([facility]) Enskyce Enskyce 08/22/2019 12:00:00 AM EST complet ed MED[facility] ([facility] Omeprazole 20 MG Delayed Release Oral Capsule Omeprazole 08/22/2019 12:00:00 AM EST ORAL active [facility] ([facility]) 200 ACTUAT Albuterol 0.09 MG/ACTUAT Metered Dose Inhaler [Pr oAir] Proair HFA 08/22/2019 12:00:00 AM EST ORAL active [facility] ([facility]) montelukast 10 MG Oral Tablet [Singulair] Singulair 2019 12:00:00 AM EST ORAL active [facility] ( [facility] benzonatate 100 MG Oral Capsule [Tessalon Perles] Tessalon P erles 08/22/2019 12:00:00 AM EST ORAL completed [facility] ([facility] 14 ACTUAT fluticasone furoate 0.1 MG/ACTUAT Dry Powder Inhaler [Arnuity] Arnuity Ellipta 08/22/2019 12:00:00 AM EST RESPIRATORY active MED[facility] ([facility] ) duloxetine 60 MG Delayed Release Oral Capsule [Cymbalta] Cym domonique 08/22/2019 12:00:00 AM EST ORAL active M EDENT ([facility]) Lisinopril 10 MG Oral Tablet Lisinopril 08/22/2019 12:00:00 AM EST ORAL active MED[facility] ([facility]) 200 ACTUAT Albuterol 0.09 MG/ACTUAT Metered Dose Inhaler [Pr oAir] Proair HFA 08/22/2019 12:00:00 AM EST ORAL active [facility] ([facility]) Omeprazole 20 MG Delayed Release Oral Capsule Omeprazole 08/22/2019 12:00:00 AM EST ORAL active [facility] Lisinopril 10 MG Oral Tablet Lisinopril 08/22/2019 12:00:00 AM EST ORAL active [facility] ([facility]) duloxetine 60 MG Delayed Release Oral Capsule [Cymbalta] Cym domonique 08/22/2019 12:00:00 AM EST ORAL active M EDENT ([facility]) 14 ACTUAT fluticasone furoate 0.1 MG/ACTUAT Dry Powder Inhaler [Arnuity] Arnuity Ellipta 08/22/2019 12:00:00 AM EST RESPIRATORY active [facility] ([facility]) benzonatate 100 MG Oral Capsule [Tessalon Perles] Tessalon P erles 08/22/2019 12:00:00 AM EST ORAL completed [facility] ([facility]) Enskyce Enskyce 08/22/2019 12:00:00 AM EST active [facility] ([facility]) Albuterol 0.83 MG/ML Inhalant Solution Albuterol Sulfate 0 08/22/2019 12:00:00 AM EST active [facility] ([facility] Enskyce Enskyce 08/22/2019 12:00:00 AM EST active [facility] ([facility]) montelukast 10 MG Oral Tablet [Singulair] Singulair 2019 12:00:00 AM EST ORAL active [facility] ( [facility]) Oseltamivir 75 MG Oral Capsule Oseltamivir Phosphate 08/10/2019 12:00:00 AM EST ORAL completed MEDENT ([facility]) Nebulizer Compressor Model [id number] 08/10/2019 12:00:00 AM EST completed [facility] ([facility]) Albuterol 0.83 MG/ML Inhalant Solution Albuterol Sulfate 0 08/10/2019 12:00:00 AM EST ORAL completed [facility] ([facility]) 90 mcg/actuation 08/08/2019 12:00:00 AM EST HFA [...] Day Pack NextGen ([facility]) 60 mg 02/28/2019 12:00:00 AM EDT [...] strength) completed NextGen ([facility]) Insurance Providers Payer name Policy type / Coverage type Policy ID Covered democrat ID Covered democrat's relationship to hurst Policy [place]st Plan Information [facility] COMMUNITY PL[facility] [id number] SP [id number] [facility](MCAID) O [id number] S [id number] Managed Care - [facility] Community Plan P [id number] S [id number] Medicaid S [id number] S [id number] Managed Care - [facility] Community Plan P [id number] S [id number] MEDICAID [id number] SP [id number] Managed Care - [facility] Community Plan P [id number] S [id number] Medicaid S [id number] S [id number] SELF PAY ONLY [id number] SP [id number] Managed Care - [facility] Community Plan P [id number] S [id number] Medicaid S [id number] [facility] Community Plan Commercial [id number] Self [id number] Managed Care - Community Plan [employer] P [id number] S [id number] [facility] Maintenance Organization (HMO) [id number] Self [id number] [facility] [employer] Maintenance Organization (HMO) [id number] Self [id number] [facility] Community Plan Commercial [id number] Self [id number] Managed Care - Community Plan United [employer] P [id number] S [id number] Medicaid S [id number] S [id number] ANSI-Medicaid [id number] Managed Care - Community Plan United [employer] P [id number] S [id number] Medicaid S [id number] S [id number] [employer] COMP SP KBS [id number] SP [id number] [facility] Hmo Commercial [id number] Self [id number] [facility] [employer] Maintenance Organization (HMO) [id number] Self [id number] [facility] Hmo Commercial Self [facility] Maintenance [facility] (HMO) Self Managed Care - Community Plan United [employer] S [id number] S [id number] Managed Care BCBS P [id number] S [id number] Medicaid Dental P [id number] S [id number] Managed Care United Healthcare O [id number] S [id number] Medicaid S [id number] S [id number] UNITED HEALTHCARE [id number] SP [id number] Medicaid [place] Medigap Part B Self [facility] Health Maintenance Organization (HMO) Self MEDICAID M [id number] S [id number] UNITED HEALTHCARE O [id number] S [id number] Managed Care - Community Plan United Healthcare P [id number] S [id number] Medicaid S [id number] S [id number] Managed Care - Community Plan United Healthcare O [id number] S [id number] Medicaid Dental S [id number] S [id number] D Managed Care [facility] O [id number] S [id number] [employer]UE [employer] [place] PLAN [id number] SP [id number] Medicaid S [id number] S [id number] D [facility] O [id number] S [id number] Managed Care - Community Plan United [employer] P [id number] S [id number] Managed Care - Community Plan United Healthcare P UNAVAILABLE S UNAVAILABLE D Managed Care [facility] P [id number] S [id number] HMO BLUE [id number] SP [id number] HMO BLUE P [id number] S [id number] Problems, Conditions, and Diagnoses Code Display Name Description Problem Type Effective Dates Data Source(s) N92.1 [id number] Prolonged menstrual cycle Problem 11/14/2019 12:00:00 AM EDT eCW1 ([facility]) N92.1 [id number] Prolonged menstrual cycle Problem 11/14/2019 12:00:00 AM EDT [facility] ([facility]) 785.1 Palpitations Palpitations 08/07/2019 02:34:09 P M EST [facility] V70.0 Health Screening Health Screening 08/07/2019 02 :29:39 PM EST [facility] 786.2 Cough Cough 08/07/2019 02:29:39 PM ES T [facility] Surgeries/Procedures Procedure Description Date Indications Data Source(s) RADEX SPINE CRV COMPL W/OBLQ&FLEX&/XTN STDS 06/25/2020 12:00:00 AM EST [facility] ([facility]) X-Ray Spine Lumbosacral Complete Inc Bending Views Min Of 6 06/25/2020 12:00:00 AM EST [facility] ([facility] ) APPLICATION MODALITY 1/> AREAS HOT/COLD PACKS 02/19/20 20 12:00:00 AM EDT [facility] ([facility] ) APPLICATION MODALITY 1/> AREAS HOT/COLD PACKS 02/19/20 20 12:00:00 AM EDT MEDENT ([facility] ) Ultrasound, Each 15 Min, Constant Attendance 0 12:00:00 AM EDT MEDENT ([facility] ) Ultrasound, Each 15 Min, Constant Attendance 0 12:00:00 AM EDT MEDENT ([facility] ) THERAPEUTIC PX 1/> AREAS EACH 15 MIN EXERCISES 12:00:00 AM EDT MEDENT ([facility] ) THERAPEUTIC PX 1/> AREAS EACH 15 MIN EXERCISES 12:00:00 AM EDT MEDENT ([facility] ) APPLICATION MODALITY 1/> AREAS HOT/COLD PACKS 02/15/20 12:00:00 AM EDT MEDENT ([facility] ) Ultrasound, Each 15 Min, Constant Attendance 0 12:00:00 AM EDT MEDENT ([facility] ) THERAPEUTIC PX 1/> AREAS EACH 15 MIN EXERCISES 12:00:00 AM EDT MEDENT ([facility] ) Ultrasound, Each 15 Min, Constant Attendance 0 12:00:00 AM EDT MEDENT ([facility] ) Physical Therapy Eval - Low Complexity 02/11/2020 12:0 0:00 AM EDT MEDENT ([facility] ) Endoscopy Wrist W/Release Transverse Carpal Ligament 01/30/2020 12:00:00 AM EDT MEDENT ([facility] ) Neuroplasty/Transposition, Ulnar Nerve AT Elbow 2019 12:00:00 AM EDT MEDENT ([facility] ) RADEX SPINE CRV COMPL W/OBLQ&FLEX&/XTN STDS 12/26/2019 12:00:00 AM EDT MEDENT ([facility] ) RADEX WRIST COMPLETE MINIMUM 3 VIEWS 12/26/2019 12:00: 00 AM EDT MEDENT ([facility] ) Excision Lesion Foot (Cyst/Ganglion) 12/05/2019 12:00: 00 AM EDT MEDENT ([facility]) CVR Shank Rander.Svc. Other 10/31/2019 12:00:00 AM EDT - 2019 12:00:00 AM EDT [facility] ([facility]) CVR Shank Rander.Svc. Contraceptive 10/31/2019 12 :00:00 AM EDT - 10/31/2019 12:00:00 AM EDT [facility] ([facility]) CVR Med.Svc. Height/Weight 10/31/2019 12 :00:00 AM EDT - 10/31/2019 12:00:00 AM EDT [facility] ([facility]) CVR Blood Pressure 10/31/2019 12:00:00 AM EDT - 2019 12:00:00 AM EDT [facility] ([facility]) HCS Without Test 10/31/2019 12:00:00 AM EDT - 10/31/19 20 12:00:00 AM EDT [facility] ([facility]) OFFICE VISIT, EST 10/31/2019 12:00:00 AM EDT - 020 12:00:00 AM EDT [facility] ([facility]) ECG ROUTINE ECG W/LEAST 12 LDS W/I&R 10/01/2019 12:00: 00 AM EDT MEDENT ([facility]) XTRNL ECG < 48 HR RECORDING 09/12/2019 12:00:00 AM EST MEDENT ([facility]) XTRNL ECG CONTINUOUS RHYTHM PHYS REVIEW&INTERPJ 2019 12:00:00 AM EST MEDENT ([facility]) ECG ROUTINE ECG W/LEAST 12 LDS W/I&R 09/10/2019 12:00: 00 AM EST MEDENT ([facility]) ECG ROUTINE ECG W/LEAST 12 LDS W/I&R 08/23/2019 12:00: 00 AM EST MEDENT ([facility]) Results ID Date Data Source [id number] 01/26/2020 10:32:00 AM EDT MEDENT ([facility]) Name Value Range Interpretation Code Description Data Julia rce(s) Supporting Document(s) Coronavirus 2019 Nasopharygeal Laboratory test result MEDENT ([facility]) Testing was performed using the [employer] S ARS-CoV-2 assay. This test was developed and its performance characteristics determined by [employer]. This test has not been FDA cleared [...] detected) result in this assay. Performed at: [facility] [id number] [employer] St[employer] Builder: Marli Morelos MD, Phone: [phone] Not Detected ID Date Data Source [id number] 01/26/2020 12:00:00 AM EDT [facility] Name Value Range Interpretation Code Description Data Julia rce(s) Supporting Document(s) SARS coronavirus 2 RNA [facility] This lab was ordered by [facility] and reported by [facility]. ID Date Data Source [id number] 12/27/2019 10:17:00 AM EDT [facility]) Name Value Range Interpretation Code Description Data Julia rce(s) Supporting Document(s) Laboratory test finding (navigational concept) Laboratory test result MEDENT ([facility]) ID Date Data Source [id number] 12/05/2019 01:05:00 PM EDT MEDENT ([facility]) Name Value Range Interpretation Code Description Data Julia rce(s) Supporting Document(s) Surgical pathology study Laboratory test result MEDENT ([facility]) <content>FINAL DIAGNOSIS</content>
< content></content>
[...] 1403</content>
<content></content>
<content>Signed SUSHMA GUALLPA MD 12/07/2019 1403</content>
<content></content> ID Date Data Source [id number] 12/02/2019 12:35:00 PM EDT [facility] ) Name Value Range Interpretation Code Description Data Julia rce(s) Supporting Document(s) Laboratory test finding (navigational concept) Laboratory test result [facility]) Testing was performed using the elizabeth(R) SARS-CoV-2 test. This test was developed and its performance characteristics determined by [employer]. This test has not been FDA cleared [...] detected) result in this assay. Performed at: [facility] [id number] [employer] Builder: Marli Morelos MD, Phone: [phone] Not Detected ID Date Data Source [id number] 12/02/2019 12:00:00 AM EDT [facility] Name Value Range Interpretation Code Description Data Julia rce(s) Supporting Document(s) SARS CORONAVIRUS 2 RNA [facility] This lab was ordered by [facility] and reported by [facility]. ID Date Data Source [id number] 10/27/2019 10:00:00 AM EDT [facility] Name Value Range Interpretation Code Description Data Julia rce(s) Supporting Document(s) SARS CORONAVIRUS 2 RNA [facility] This lab was ordered by [facility] and reported by [facility]. ID Date Data Source [id number] 09/13/2019 11:20:00 AM EST MEDENT ([facility]) Name Value Range Interpretation Code Description Data Julia rce(s) Supporting Document(s) Laboratory test finding (navigational concept) <pending> MEDENT ([facility]) ID Date Data Source [id number] 08/31/2019 12:00:00 AM EST [facility] Katelyn Ferreira MD Patient Name: ABEL OCOMBS [address] [facility] Date of : 1985[place] [address] Date of Exam: 08/31/2019PH#: Fax: [phone] EXAM: [...] mm in craniocaudal x 5 mm in fqeasfq-ju-qjnvhd x 6 scdujje-ak-ebrw. It appears to be deep to the [...] ganglion cyst as described above.Accredited by the [employer] in MR.FALGUNI Lopez/Flaco you for referring BAEL COOMBS to our office. Electronically Signed - NEVILLE LEON MD 09/03/19 18:41 Name Value Range Interpretation Code Description Data Julia rce(s) Supporting Document(s) ID Date Data Source [id number] 08/15/2019 01:12:00 PM EST [facility] ([facility]) Name Value Range Interpretation Code Description Data Julia rce(s) Supporting Document(s) Hemoglobin A1c/Hemoglobin.total in Blood 6.1 MEDSE ([facility]) ID Date Data Source [id number] 08/15/2019 01:12:00 PM EST [facility] ([facility]) Name Value Range Interpretation Code Description Data Julia rce(s) Supporting Document(s) Thyroid Stimulating Hormone 0.675 ME DENT ([facility]) Free T4 1.04 [facility] ([facility]) ID Date Data Source [id number] 08/15/2019 01:12:00 PM EST [facility] ([facility]) Name Value Range Interpretation Code Description Data Julia rce(s) Supporting Document(s) Triglycerides 129 MED[facility] ([facility]) Cholesterol 179 MED[facility] ([facility]) HDL 61 [facility] Cholesterol in LDL [Mass/volume] in Serum or Plasma by calculation 11 8 MEDENT ([facility]) Chol/HDL Ratio 2.934 MED[facility] ([facility]) ID Date Data Source [id number] 08/08/2019 01:13:00 PM EST MEDENT ([facility]) Name Value Range Interpretation Code Description Data Julia rce(s) Supporting Document(s) White Blood Count 9.9 4.0-10.0 MEDENT ([facility]) Hemoglobin 12.2 MED[facility] ([facility]) Platelets 290 172-450 MEDENT ([facility]) Red Blood Count 4.61 4.00-5.40 MED[facility] ([facility]) Hematocrit 40.3 MEDENT ([facility]) ID Date Data Source [id number] 08/08/2019 01:13:00 PM EST [facility] Name Value Range Interpretation Code Description Data Julia rce(s) Supporting Document(s) Troponin <0.02 MED[facility] ([facility] Natriuretic peptide.B prohormone N-Terminal [Mass/volu me] in Serum or Plasma 36 MEDENT ([employer]) Thyroid Stimulating Hormone 0.775 ME DENT ([facility]) ID Date Data Source [id number] 08/08/2019 01:13:00 PM EST MEDENT ([facility]) Name Value Range Interpretation Code Description Data Julia rce(s) Supporting Document(s) Creatine kinase [Enzymatic activity/volume] in Serum or Plasma 76 MEDENT ([facility]) CPK-MB <1.0 MED[facility] ([facility]) ID Date Data Source [id number] 08/08/2019 01:13:00 PM EST MEDENT ([facility]) Name Value Range Interpretation Code Description Data Julia rce(s) Supporting Document(s) Blood Urea Nitrogen 12 7-18 MEDENT ([facility]) Creatinine 0.68 0.6-1.0 MEDENT ([facility]) Glucose 130 70-100 MED[facility] ([facility] Chloride 109 98-107 MED[facility] ([facility] Sodium 140 136-145 MED[facility] ([facility]) Potassium 4.1 3.5-5.1 MED[facility] ([facility]) Calcium 8.5 8.2-9.6 MED[facility] ([facility]) Carbon Dioxide 22 21-32 MEDENT ([facility]) Glomerular filtration rate/1.73 sq M.pre dicted [Volume Rate/Area] in Serum or Plasma by Creatinine-based formula (MDRD) >60.0 MEDENT ([facility]) ID Date Data Source [id number] 08/07/2019 01:27:58 PM [facility] Measurements & CalculationsHeight: 67 inches (5 [...] during this visit, including review of any xvoc-xkm-jfhtujv medications, herbal therapies, and/or supplements.Allergy ReviewAllergy List [...] intactAssessment & Plan Problems:Added: Health Screening (ICD-V70.0) (MTT49-Y75.9) Assessment: Instructions: We have ordered fasting labs for you today. Please fast for 8-10 hours prior.Cough (ICD-786.2) ([id number]) Assessment: Instructions: We have sent a prescription to your pharmacy today. Please contine to maintain adequate fluid hydration.Palpitations (ICD-785.1) (QSW26-Q09.2) Assessment: Instructions: We have made a referral for you today. We will contacr you to set this up.Assessed:Essential hypertension (ICD- 401.9) (GMY27-V84) Assessment: Instructions: Please continue medication as prescribed.ASTHMA (ICD-493.90) (RUX25-M25.909) Assessment: Instructions: Please con luis to brennen with your specialist. Please continue medications as prescribed.Encounter for general adult medical examination with abnormal findings (ICD-V70.0) (GBT49-T74.01) Assessment: Instructions: You have had a physical [...] ORAL PRINIVIL 10 MG ORAL TABLET Qty: [id number] Refills: 30[Tablet] To: PRINIVIL 10 MG ORAL TABLET-take 1 tab po qd Qty: 30[Tablet] Refills: 3Allergies:* SHELLFISH (Critical)* LATEX (Severe)Orders:COMP METABOLIC PANEL [CPT-93769] CBC W/DIFF [CPT-12358] HgBA1c [CPT-79228] LIPID PANEL [CPT-76479] TSH [CPT-53712] T-4 free [CPT-79075] Vitamin D 250H Unspecified [CPT-38131] URINALYSIS [CPT-14163] Cardiology Consult [CPT-76379] Adult - Ofc Vst, EST, Level IV [CPT-97318] Follow-Up Return to clinic: 6 weeks for follow up Clinical Visit Summary Completed Name Value Range Interpretation Code Description Data Julia rce(s) Supporting Document(s) Procedure Social History Code Duration Value Status Description Data Source(s ) Smoking 05/29/2020 12:00:00 AM EST Never smoker completed Never s moker [facility] ([facility]) Smoking 01/02/2020 12:00:00 AM EDT Never Smoker completed Never S moker eCW1 ([facility]) Smoking 01/02/2020 12:00:00 AM EDT Never Smoker completed Never S momer eCW1 ([facility]) Vital Signs ID Date Data Source [id number] Name Value Range Interpretation Code Description Data Source(s) Body mass index (BMI) [Ratio] 37.5 kg/m2 37.5 k g/m2 MED[facility] ([facility]) Body weight 246.38 [lb_av] 246.38 [lb_av] MEDEN T ([facility]) Body height 68 [in_i] 68 [in_i] MED[facility] ([facility]) 5'8" Body temperature 96.8 [degF] 96.8 [degF] MEDENT ([facility] ) Body temperature 97.9 [degF] 97.9 [degF] MEDENT ([facility] ) Diastolic blood pressure 84 mm[Hg] 84 mm[Hg] eCW1 ([facility]) Systolic blood pressure 134 mm[Hg] 134 mm[Hg] e CW1 ([facility]) Body mass index (BMI) [Ratio] 39.1 kg/m2 39.1 k g/m2 W1 ([facility]) Body height 68 [in_i] 68 [in_i] W1 ([facility]) Body weight 257.2 [lb_av] 257.2 [lb_av] eCW1 ([facility]) Body mass index (BMI) [Ratio] 39.0 kg/m2 39.0 k g/m2 MEDENT ([facility]) Body weight 256.38 [lb_av] 256.38 [lb_av] MEDEN T ([facility]) Body height 68 [in_i] 68 [in_i] MED[facility] ([facility]) 5'8" Body temperature 97.6 [degF] 97.6 [degF] MED[facility] ([facility]) Body mass index (BMI) [Ratio] 36.6 kg/m2 36.6 k g/m2 MED[facility] ([facility]) Body weight 233.50 [lb_av] 233.50 [lb_av] MEDEN T ([facility]) Body height 67 [in_i] 67 [in_i] MED[facility] ([facility]) 5'7" Body temperature 95.5 [degF] 95.5 [degF] MED[facility] ([facility]) Diastolic blood pressure 70 mm[Hg] 70 mm[Hg] eCW1 ([facility]) Systolic blood pressure 118 mm[Hg] 118 mm[Hg] e CW1 ([facility]) Body mass index (BMI) [Ratio] 37.86 kg/m2 37.86 kg/m2 eCW1 ([facility]) Body height 68 [in_us] 68 [in_us] eCW1 ([facility]) Body weight Measured 249 [lb_av] 249 [lb_av] eC W1 ([facility]) Body height 172.72 cm 172.72 cm [facility] ([facility] Body mass index (BMI) [Ratio] 37.2 kg/m2 37.2 k g/m2 MEDENT ([facility]) Body height 68 [in_i] 68 [in_i] MEDENT ([facility]) 5'8" Body weight 245.00 [lb_av] 245.00 [lb_av] MEDEN T ([facility]) Body temperature 98.9 [degF] 98.9 [degF] MEDENT ([facility]) Oxygen saturation in Arterial blood by Pulse oximetry 98 % 98 % MEDENT ([facility]) Respiratory rate 16 /min 16 /min MEDENT ( [facility]) Heart rate 99 /min 99 /min MEDENT ([facility]) Diastolic blood pressure 97 mm[Hg] 97 mm[Hg] MEDENT ([facility]) Systolic blood pressure 139 mm[Hg] 139 mm[Hg] M EDENT ([facility]) Diastolic blood pressure 80 mm[Hg] 80 mm[Hg] MEDENT ([facility]) sitting Systolic blood pressure 128 mm[Hg] 128 mm[Hg] M EDENT ([facility]) sitting Diastolic blood pressure 80 mm[Hg] 80 mm[Hg] MEDENT ([facility]) sitting, large cuff Systolic blood pressure 134 mm[Hg] 134 mm[Hg] M EDENT ([facility]) sitting, large cuff Respiratory rate 16 /min 16 /min MEDENT ( [facility]) Heart rate 88 /min 88 /min MEDENT ([facility]) Regular Body mass index (BMI) [Ratio] 36.9 kg/m2 36.9 k g/m2 MEDENT ([facility]) Body height 68 [in_i] 68 [in_i] MEDENT ([facility]) 5'8" Body weight 243.00 [lb_av] 243.00 [lb_av] MEDEN T ([facility]) Body mass index (BMI) [Ratio] 36.5 kg/m2 36.5 k g/m2 MEDENT ([facility]) Body height 68 [in_i] 68 [in_i] MEDENT ([facility]) 5'8" Body weight 240.00 [lb_av] 240.00 [lb_av] MEDEN T ([facility]) Body temperature 98.1 [degF] 98.1 [degF] [facility] ([facility]) Oxygen saturation in Arterial blood by Pulse oximetry 97 % 97 % [facility] ([facility], [facility]) Respiratory rate 16 /min 16 /min [facility] ( [facility], [facility]) Heart rate 89 /min 89 /min MEDENT ([facility], [facility]) Diastolic blood pressure 102 mm[Hg] 102 mm[Hg] MEDENT ([facility], [facility]) Systolic blood pressure 167 mm[Hg] 167 mm[Hg] [facility], [facility]) Body mass index (BMI) [Ratio] 36.5 kg/m2 36.5 k g/m2 MEDENT ([facility], [facility]) Body height 68 [in_i] 68 [in_i] MEDENT ([facility], [facility]) 5'8" Body weight 240.00 [lb_av] 240.00 [lb_av] MEDEN T ([facility]) Body temperature 98.9 [degF] 98.9 [degF] [facility] ([facility], [facility]) Oxygen saturation in Arterial blood by Pulse oximetry 99 % 99 % MEDENT ([facility], [facility]) Respiratory rate 16 /min 16 /min MEDENT ( [facility]) Heart rate 105 /min 105 /min [facility] ([facility], [facility]) Diastolic blood pressure 95 mm[Hg] 95 mm[Hg] [facility]) Systolic blood pressure 138 mm[Hg] 138 mm[Hg] M [facility] ([facility], [facility]) Body mass index (BMI) [Ratio] 36.3 kg/m2 36.3 k g/m2 [facility] ([facility], [facility]) Body height 68 [in_i] 68 [in_i] [facility] ([facility]) 5'8" Body weight 239.00 [lb_av] 239.00 [lb_av] MEDEN T ([facility]) Body temperature 96.9 [degF] 96.9 [degF] [facility] ([facility], [facility]) Oxygen saturation in Arterial blood by Pulse oximetry 97 % 97 % [facility] ([facility], [facility]) Respiratory rate 22 /min 22 /min MEDENT ( [facility], [facility]) Heart rate 113 /min 113 /min [facility] ([facility], [facility]) Diastolic blood pressure 85 mm[Hg] 85 mm[Hg] [facility] ([facility]) Systolic blood pressure 134 mm[Hg] 134 mm[Hg] [facility], [facility]) Body mass index (BMI) [Ratio] 36.3 kg/m2 36.3 k g/m2 [facility] ([facility], [facility]) Body height 68 [in_i] 68 [in_i] [facility] ([facility]) 5'8" Body weight 239.00 [lb_av] 239.00 [lb_av] MEDEN T ([facility]) Body temperature 98.2 [degF] 98.2 [degF] [facility] ([facility], [facility]) Oxygen saturation in Arterial blood by Pulse oximetry 96 % 96 % MEDENT ([facility], [facility]) Respiratory rate 18 /min 18 /min MEDENT ( [facility], [facility]) Heart rate 108 /min 108 /min MED[facility] ([facility], [facility]) Diastolic blood pressure 84 mm[Hg] 84 mm[Hg] MEDENT ([facility]) Systolic blood pressure 129 mm[Hg] 129 mm[Hg] M EDENT ([facility], [facility]) Diastolic blood pressure--sitting 81 mm[Hg] 81 mm[Hg] MEDENT ([facility]) [employer] adult cuff, [place] Systolic blood pressure--sitting 120 mm[Hg] 120 mm[Hg] MEDENT ([facility]) [employer] adult cuff, [place] Heart rate 97 /min 97 /min MEDENT ([facility]) Body mass index (BMI) [Ratio] 36.2 kg/m2 36.2 k g/m2 MEDENT ([facility]) Body height 68 [in_i] 68 [in_i] MEDENT ([facility]) 5'8" Body weight 238.00 [lb_av] 238.00 [lb_av] MEDEN T ([facility]) Body mass index (BMI) [Ratio] 36.3 kg/m2 36.3 k g/m2 MEDENT ([facility], [facility]) Body height 68 [in_i] 68 [in_i] MEDENT ([facility]) 5'8" Body weight 239.00 [lb_av] 239.00 [lb_av] MEDEN T ([facility], [facility]) Body temperature 97.3 [degF] 97.3 [degF] MEDENT ([facility], [facility]) Oxygen saturation in Arterial blood by Pulse oximetry 98 % 98 % MED[facility] ([facility], [facility]) Respiratory rate 24 /min 24 /min MED[facility] ( [facility] [facility] Heart rate 91 /min 91 /min [facility], [facility]) Diastolic blood pressure 97 mm[Hg] 97 mm[Hg] [facility] ([facility], [facility]) Systolic blood pressure 152 mm[Hg] 152 mm[Hg] [facility]) Body mass index (BMI) [Ratio] 36.0 kg/m2 36.0 k g/m2 [facility] ([facility] ) Body weight 233.50 [lb_av] 233.50 [lb_av] [facility] T ([facility] ) Body height 67.5 [in_i] 67.5 [in_i] [facility] ([facility] ) 5'7.50" Body temperature 98.1 [degF] 98.1 [degF] [facility] ([facility] ) Body mass index (BMI) [Ratio] 34.2 kg/m2 34.2 k g/m2 [facility] ([facility], [facility]) Body height 68 [in_i] 68 [in_i] [facility] ([facility], [facility]) 5'8" Body weight 225.00 [lb_av] 225.00 [lb_av] [facility] T ([facility], [facility]) Body temperature 97.0 [degF] 97.0 [degF] [facility] ([place], [facility]) Oxygen saturation in Arterial blood by Pulse oximetry 97 % 97 % [facility] ([facility], [facility]) Respiratory rate 18 /min 18 /min [facility] ( [facility], [facility]) Heart rate 122 /min 122 /min [facility] ([facility], [facility]) Diastolic blood pressure 94 mm[Hg] 94 mm[Hg] [facility] ([facility], [facility]) Systolic blood pressure 148 mm[Hg] 148 mm[Hg] [facility] Patient Treatment Plan of Care Planned Activity Planned Date Details Description Data Source (s) Norgestim-Eth Estrad Triphasic 0.18/0.215/0.25 MG-25 M 11/14/2019 12:00:00 AM EDT [email or web address] ([facility]) Juleber 0.15 mg-0.03 mg tablet 2019 12:00:00 AM EST [facility] ([facility]) Methocarbamol 500 MG Oral Tablet [facility] ([facility])
[2020-08-08 16:02] LABS: BLOOD UREA NITROGEN 10 MG/DL (7-18); CALCIUM LEVEL 9.2 MG/DL (8.5-10.1); CARBON DIOXIDE LEVEL 26 MEQ/L (21-32); CHLORIDE LEVEL 103 MEQ/L (98-107); CREATININE FOR GFR 0.76 MG/DL (0.55-1.30); GLOMERULAR FILTRATION RATE > 60.0 (>60); GLUCOSE, FASTING 187 MG/DL (70-100); POTASSIUM SERUM 3.9 MEQ/L (3.5-5.1); SODIUM LEVEL 138 MEQ/L (136-145)
[2020-08-08 16:05] LABS: INR 0.98; PROTHROMBIN TIME 13.2 SECONDS (12.5-14.3)
[2020-08-08 16:06] LABS: PARTIAL THROMBOPLASTIN TIME 28.1 SECONDS (24.2-38.5)
--- NOTE | 2020-08-08 16:30 | REP ---
INDICATION: abnormal vaginal bleeding. COMPARISON: None. TECHNIQUE: Transabdominal scanning was performed. Patient declined transvaginal imaging.. FINDINGS: Uterine dimensions are increased at 11.2 x 6.0 x 5.9 cm. Endometrial echo is 1.2 cm thick and centrally placed. No free fluid is seen in the cul-de-sac. Visualized bladder stauffer are smooth. No free fluid. The right ovary has dimensions of 3.6 x 2.5 x 4.4 cm. It's Doppler flow is normal with a resistive index of 0.56. The left ovary dimensions are normal as well at 4.4 x 2.6 x 3.6 cm. It's Doppler flow was normal with resistive index of 0.55. IMPRESSION: Enlarged uterus. Normal ovaries. Otherwise negative. No acute abnormality.. <Electronically signed by Bertin Cevallos > 08/08/20 [id number]
[2020-08-08] MEDS ORDERED: PROV10TA PO (17:08)
[2020-08-08 17:22] VITALS: BP 178/83
== END 2020-08-08 17:24 | disposition home or self-care (01) ==
LOC: M ED 14:32
DX: N93.8 Other specified abnormal uterine and vaginal bleeding (principal); N92.0 Excessive and frequent menstruation with regular cycle; N85.2 Hypertrophy of uterus; K21.9 Gastro-esophageal reflux disease without esophagitis; I10 Essential (primary) hypertension; J45.909 Unspecified asthma, uncomplicated; D64.9 Anemia, unspecified; Z79.899 Other long term (current) drug therapy; Z91.018 Allergy to other foods; Z88.0 Allergy status to penicillin; Z91.040 Latex allergy status; Z91.013 Allergy to seafood

== ENCOUNTER 2020-08-26 11:05 | Emergency (ER) | payer OTHER ==
[~2020-08-26] VITALS: Ht 172.7 cm; Wt 112.9 kg
--- OUTSIDE RECORDS SUMMARY | 2020-08-26 11:20 | CCD ---
Author Author [facility] Organization [facility] Address Unknown Phone Unavailable Care Team Providers Care Sports Equipment Supervisor Name Role Phone Symenow, Allyson Rylee PA [...] Symenow, Allyson Rylee PA Unavailable Unavailable MCELHERAN, DOIRAN PA Unavailable Unavailable MCELHERAN, DORIAN PA Unavailable [...] MCELHERAN, DORIAN PA Unavailable Unavailable Aftab Murrell CRANBERRY GROWER CRANBERRY GROWER Unavailable Unavailable Sellers, Nishi Alexia CRANBERRY GROWER Unavailable Unavailable Sellers, Nishi Alexia CRANBERRY GROWER Unavailable Unavailable Sellers, Nishi Alexia CRANBERRY GROWER Unavailable Unavailable Sellers, Nishi Alexia CRANBERRY GROWER Unavailable Unavailable Sellers, Nishi Alexia CRANBERRY GROWER Unavailable Unavailable Sellers, Nishi Alexia CRANBERRY GROWER Unavailable Unavailable Vandana Florian MD Unavailable Unavailable [...] Unavailable Heitesau, Vandana Ortiz MD Unavailable Unavailable Heitesau, Vandana Ortiz MD Unavailable Unavailable Murrell, F Aftab CRANBERRY GROWER-BC Unavailable Unavailable Murrell, F Aftab CRANBERRY GROWER-BC Unavailable Unavailable Murrell, F Aftab CRANBERRY GROWER-BC Unavailable Unavailable Murrell, F Aftab CRANBERRY GROWER-BC Unavailable Unavailable Murrell, F Aftab CRANBERRY GROWER-BC Unavailable Unavailable Murrell, F Aftab CRANBERRY GROWER-BC Unavailable Unavailable Murrell, F Aftab CRANBERRY GROWER-BC Unavailable Unavailable Murrell, F Aftab CRANBERRY GROWER-BC Unavailable Unavailable Murrell, F Aftab CRANBERRY GROWER-BC Unavailable Unavailable Murrell, F Aftab CRANBERRY GROWER-BC Unavailable Unavailable Murrell, F Aftab CRANBERRY GROWER-BC Unavailable Unavailable Murrell, F Aftab CRANBERRY GROWER-BC Unavailable Unavailable Murrell, F Aftab CRANBERRY GROWER-BC Unavailable Unavailable Murrell, F Aftab CRANBERRY GROWER-BC Unavailable Unavailable Murrell, F Aftab CRANBERRY GROWER-BC Unavailable Unavailable Murrell, F Aftab CRANBERRY GROWER-BC Unavailable Unavailable Murrell, F Aftab CRANBERRY GROWER-BC Unavailable Unavailable Murrell, F Aftab CRANBERRY GROWER-BC Unavailable Unavailable Murrell, F Aftab CRANBERRY GROWER-BC Unavailable Unavailable Murrell, F Aftab CRANBERRY GROWER-BC Unavailable Unavailable Murrell, F Aftab CRANBERRY GROWER-BC Unavailable Unavailable Murrell, F Aftab CRANBERRY GROWER-BC Unavailable Unavailable NICKI, KEILY PA Unavailable Unavailable [...] NICKI, KEILY PA Unavailable Unavailable Hale, Susy ORAL AND MAXILLOFACIAL SURGERY Unavailable Unavailable Hale, Susy ORAL [facility] MAXILLOFACIAL SURGERY Unavailable Unavailable Hale, Susy ORAL AND MAXILLOFACIAL SURGERY Unavailable Unavailable Hale, Susy ORAL AND MAXILLOFACIAL SURGERY Unavailable Unavailable Hale, Susy ORAL AND MAXILLOFACIAL SURGERY Unavailable Unavailable Hale, Susy ORAL AND MAXILLOFACIAL SURGERY Unavailable Unavailable Hale, Susy ORAL AND MAXILLOFACIAL SURGERY Unavailable Unavailable Hale, Susy ORAL AND MAXILLOFACIAL SURGERY Unavailable Unavailable Hale, Susy ORAL AND MAXILLOFACIAL SURGERY Unavailable Unavailable Hale, Susy ORAL AND MAXILLOFACIAL SURGERY Unavailable Unavailable Hale, Susy [facility] MAXILLOFACIAL SURGERY Unavailable Unavailable LETTIERE, A DORIAN PA Unavailable [...] A DORIAN PA Unavailable Unavailable LETTIERE, A DORAIN PA Unavailable Unavailable LETTIERE, A DORIAN PA Unavailable Unavailable LETTIERE, A DORIAN PA Unavailable Unavailable LETTIERE, A DORIAN PA Unavailable Unavailable LETTIERE, A DORIAN PA Unavailable Unavailable LETTIERE, A DORIAN PA Unavailable Unavailable LETTIERE, A DORIAN PA Unavailable Unavailable Wilber, A Shell LIN Unavailable Unavailable Wilber, A Shell LIN Unavailable Unavailable Wilber, A Shell LIN Unavailable Unavailable Wilber, A Shell ILN Unavailable Unavailable Wilber, A Shell LIN Unavailable [...] Wilber, A Shell LIN Unavailable Unavailable Wilber, Selena Goff MD Unavailable [...] Maite ROSS MD Unavailable Unavailable ANTECOL, Maite ORSS MD Unavailable Unavailable ANTECOL, Maite ROSS MD [...] MD Unavailable Unavailable ANTECOLMaite MD Unavailable Unavailable KATELYN FERREIRA MD Unavailable [...] FERREIRA MD Unavailable Unavailable HORACE, E AFTAB ORAL [facility] MAXILLOFACIAL SURGERY Unavailable Unavailable HORACE, E AFTAB ORAL AND MAXILLOFACIAL SURGERY Unavailable Unavailable HORACE, E AFTAB ORAL AND MAXILLOFACIAL SURGERY Unavailable Unavailable HORACE, E AFTAB ORAL AND MAXILLOFACIAL SURGERY Unavailable Unavailable HORACE, E AFTAB ORAL AND MAXILLOFACIAL SURGERY Unavailable Unavailable HORACE, E AFTAB ORAL AND MAXILLOFACIAL SURGERY Unavailable Unavailable HORACE, E AFTAB ORAL AND MAXILLOFACIAL SURGERY Unavailable Unavailable HORACE, E AFTAB ORAL AND MAXILLOFACIAL SURGERY Unavailable Unavailable HORACE, E AFTAB ORAL AND MAXILLOFACIAL SURGERY Unavailable Unavailable HORACE, E AFTAB ORAL AND MAXILLOFACIAL SURGERY Unavailable Unavailable HORACE, E AFTAB ORAL AND MAXILLOFACIAL SURGERY Unavailable Unavailable HORACE, E AFTAB ORAL AND MAXILLOFACIAL SURGERY Unavailable Unavailable HORACE, E AFTAB ORAL AND MAXILLOFACIAL SURGERY Unavailable Unavailable RING, K ESTRADA PA Unavailable [...] is protected by Article 27-F of the [facility] Public Health law. If you continue you may have access to information: Regarding HIV / AIDS; Provided by facilities licensed or operated by the [facility] Office of Mental Health; or Provided by the [facility] Office for People With Developmental Disabilities. If such information is present, then the following [facility] mandated warning applies: This information has been [...] law may result in a fine or senior care sentence or both. A general authorization for the release of medical or other information is NOT sufficient authorization for further disc losure. Allergies and Adverse Reactions Type Description Substance Reaction Status Data Source(s ) Drug allergy Amoxicillin Amoxicillin vaginal itching Active eCW1 ([facility]) Lobster and crabmeat Lobster and crabmeat Lobster and crabmeat diarrh ea Active eCW1 ([facility]) cats, dogs cats, dogs cats, dogs eyes swell, itchy Active eCW1 ( [facility]) Drug allergy amoxicillin Amoxicillin Active NextGen ([facility] Family History Family Member Name Family Member Gender Family Member Status Date o f Status Description Data Source(s) Unknown Female Diagnosis 07/29/2016 12:00:00 AM EST NextGen ([facility]) Unknown Female Diagnosis 07/10/2015 12:00:00 AM EST [facility] ([facility]) Unknown Female Diagnosis 07/10/2015 12:00:00 AM EST NextGen ([facility]) Encounters Encounter Providers Location Date Indications Data Source(s ) Outpatient Attender: DORIAN MONTANA Physical Therapy 06/25/2020 01:30:00 PM EST [facility] ([facility]) Attender: Shell Rivas 1 07/29/2019 09:32:00 AM EST - 05/29/2020 09:32:00 AM EST NextGen ([facility]) Attender: Shell Rojas 11:56:00 AM EDT - 04/30/2020 11:56:00 AM EDT [facility] ([facility]) Unknown [address] [place] [address] 04/30/2020 12:00:00 AM EDT eCW1 ([facility]) Office Visit Attender: Jaxon Rogers MD Physical Therapy 2019 01:15:00 PM EDT MED[facility] ([facility]) Office Visit Attender: Jaxon Rogers MD Physical Therapy 2019 08:15:00 AM EDT [facility] ([facility]) Outpatient Attender: Aftab CRAIG FP 02/05/2020 08: 52:00 PM EDT [facility] Outpatient Attender: Aftab CRAIG FP 01/27/2020 08: 22:01 PM EDT [facility] Office Visit Attender: KATELYN FERREIRA MD Physical Therapy 11:30:00 AM EDT [facility] ([facility]) Outpatient Attender: Aftab CRAIG 01/22/2020 10: 36:02 PM EDT [facility] Outpatient [address] [facility] [address] 01/02/2020 12:00:00 AM EDT eCW1 ([facility]) Outpatient Attender: Jaxon Rogers MD Physical Therapy 12/26/2019 0 1:00:00 PM EDT [facility] ([facility]) Office Visit Attender: KATELYN FERREIRA MD Physical Therapy 09:15:00 AM EDT [facility] ([facility]) Outpatient Attender: JEREMY LUNA 12/08/2019 12:02:51 AM EDT [facility] [address] [place] [address] 12/04/2019 12:00:00 AM EDT eCW1 ([facility]) Outpatient Attender: KATELYN FERREIRA MD Physical Therapy 11:30:00 AM EDT [facility] ([facility]) Outpatient Referrer: KATELYN FERREIRA MD 11/22/2019 08:46:0 0 PM EDT [facility] [address] [place] [address] 11/14/2019 12:00:00 AM EDT eCW1 ([facility]) Outpatient Attender: Aftab KNOX 11/09/2019 01: 46:00 PM EDT [facility] Attender: AFTAB Rivas 01:00:00 PM EDT - 11/08/2019 01:00:00 PM EDT NextGen ([facility]) Outpatient Attender: JEREMY LUNA FP 11/07/2019 09:57:01 AM EDT [facility] OutpatientOFFICE VISIT, EST Attender: Alexia LUNA PPTAMMYN Y [facility] 10/31/2019 02:45:00 PM EDT - 10/31/2019 02:45:00 PM EDT Abnormal uterine and vaginal bleeding, unspecifiedEncounter for surveillance of contraceptive pillsHuman immunodeficiency virus [HIV] counselingEncounter for oth general cnsl and advice on contraceptionOther sex counseling NextGen ([facility]) Abnormal uterine and vaginal bleeding, u nspecified Encounter for surveillance of contracept paulina pills Human immunodeficiency virus [HIV] couns eling Encounter for oth general cnsl and advic e on contraception Other sex counseling Outpatient Referrer: KATELYN FERREIRA MD 10/27/2019 07:41:0 0 AM EDT [facility] Outpatient Attender: DORIAN gtz 10/12/2019 12:15:00 PM EDT [facility] ([facility]) Outpatient Referrer: KATELYN FERREIRA MD 10/07/2019 10:02:0 0 AM EDT [facility] Outpatient Attender: Rylee MONTANA Main Office 10/01/2019 09:45:00 AM EDT [facility] ([facility]) Outpatient Attender: Aftab CRAIG FP 09/28/2019 01: 05:01 PM EDT [facility] Outpatient Attender: JEREMY KNOX 09/24/2019 10:45:02 AM EDT [facility] Outpatient Attender: KEILY walls 09/24/2019 09:05:00 AM EDT [facility] ([facility]) Outpatient Attender: Susy fung 09/21/2019 12:00:00 PM EDT [facility] ([facility]) Outpatient Attender: JEREMY LUNA 09/17/2019 04:18:00 PM EDT [facility] Outpatient Referrer: KATELYN FERREIRA MD 09/13/2019 02:08:0 0 PM EST [facility] Attender: KATELYN FERREIRA MD Physical Therapy 01:30:00 PM EST [facility] ([facility]) Outpatient Attender: JEREMY LUNA 09/11/2019 02:36:01 PM EST [facility] Outpatient Attender: Susy Petit antonieta 09/10/2019 01:30:00 PM EST [facility] ([facility]) Outpatient Attender: DORIAN sorianoy 09/05/2019 10:50:00 AM EST [facility] ([facility]) Outpatient Referrer: KATELYN FERREIRA MD 08/31/2019 03:44:0 0 PM EST [facility] Outpatient Referrer: KATELYN FERREIRA MD 08/31/2019 03:43:0 0 PM EST [facility] Outpatient Referrer: KATELYN FERREIRA MD 08/31/2019 02:18:0 0 PM EST [facility] Outpatient Referrer: KTAELYN FERREIRA MD 08/28/2019 12:08:0 0 PM EST [...] 08/23/2019 12:30:00 PM EST [facility] ([facility]) Outpatient 08/23/2019 09:45:00 AM EST [facility] 08/23/2019 09:40:00 AM EST [facility] 08/21/2019 12:14:00 PM EST [facility] Outpatient Attender: Angel Florian MD Physical Therapy 11/2019 12:45:00 PM EST [facility] ([facility]) Outpatient 08/15/2019 09:07:00 AM EST [facility] 08/13/2019 02:56:00 PM EST [facility] 08/13/2019 02:14:00 PM EST [facility] Outpatient Attender: Aftab CRAIG FP 08/12/2019 04: 46:02 PM [facility] Outpatient Attender: ESTRADA Genao Primary 08/10/2019 08:35:00 AM EST [facility] ([facility]) Outpatient Attender: KATELYN FERREIRA MD Physical Therapy 09:15:00 AM EST [facility] ([facility]) Outpatient Attender: JEREMY LUNA FP 08/07/2019 09:01:00 PM [facility] Outpatient Attender: JEREMY KNOX 08/07/2019 02:36:01 PM [facility] Outpatient Attender: JEREMY KNOX 08/07/2019 02:30:05 PM [facility] Outpatient Attender: JEREMY KNOX 08/07/2019 02:26:00 PM [facility] Outpatient Attender: JEREMY KNOX 08/07/2019 02:25:00 PM [facility] Outpatient Attender: JEREMY KNOX 08/07/2019 02:23:01 PM [facility] Outpatient Attender: JEREMY KNOX 08/03/2019 03:29:00 PM [facility] Outpatient Attender: Angel Florian MD Physical Therapy 12:30:00 PM EST [facility] ([facility]) Outpatient Attender: JEREMY KNOX 07/16/2019 01:58:00 PM [facility] Outpatient Attender: JEREMY KNOX 07/02/2019 02:50:01 PM [facility] Outpatient Attender: Aftab CRAIG FP 07/02/2019 02: 48:59 PM [facility] Outpatient Attender: JEREMY KNOX 06/28/2019 09:01:01 PM [facility] 06/28/2019 08:00:00 PM EST [facility] Medications Medication Brand Name Start Date Product Form Dose Route Admi nistrative Instructions Pharmacy Instructions Status Indications Reaction Description Data Source(s) 10 mg 08/18/2020 12:00:00 AM EST tablet 30 TAKE ONE TABLET BY MOUTH EVERY DAY TAKE ONE TABLET BY MOUTH EVERY DAY SOLD: 08/18/2020 [facility] 10 mg 08/08/2020 12:00:00 AM EST tablet 10 TAKE ONE TABLET BY MOUTH EVERY DAY TAKE ONE TABLET BY MOUTH EVERY DAY SOLD: 08/09/2020 [facility] 20 mg 06/22/2020 12:00:00 AM EST capsule,delayed release (DR/EC) 30 TAKE ONE CAPSULE BY MOUTH EVERY DAY TAKE ONE CAPSULE BY MOUTH EVERY DAY SOLD: 07/23/2020 [facility] 20 mg 06/22/2020 12:00:00 AM EST capsule,delayed release (DR/EC) 30 TAKE ONE CAPSULE BY MOUTH EVERY DAY TAKE ONE CAPSULE BY MOUTH EVERY DAY SOLD: 06/23/2020 [facility] 20 mg 06/22/2020 12:00:00 AM EST capsule,delayed release (DR/EC) 30 TAKE ONE CAPSULE BY MOUTH EVERY DAY TAKE ONE CAPSULE BY MOUTH EVERY DAY SOLD: 08/18/2020 [facility] 90 mcg/actuation 06/22/2020 12:00:00 AM [...] ONE CAPSULE BY MOUTH EVERY DAY SOLD: 08/18/2020 [facility] 60 mg 05/21/2020 12:00:00 AM [...] MOUTH 4 TIMES A DAY NEEDED SOLD: 08/18/2020 [facility] 90 mcg/actuation 03/11/2020 12:00:00 [...] ONE TABLET BY MOUTH EVERY DAY SOLD: 08/18/2020 [facility] montelukast 10 MG Oral [...] TABLET BY MOUTH EVERY DAY SOLD: 03/31/2020 [facility] 200 mcg/actuation 03/05/2020 12:00:00 AM EDT blister with de vice 30 INHALE ONE PUFF BY MOUTH EVERY DAY INHALE ONE PUFF BY MOUTH EVERY DAY SOLD: 08/18/2020 [facility] 200 mcg/actuation 03/05/2020 12:00:00 AM [...] MAXIMUM DAILY DOSE = 6 SOLD: 12/05/2019 [facility] 0.5 % 11/28/2019 12:00:00 AM EDT drops 5 INSTILL 1 DROP TWO TIMES A DAY FOR ALLERGY SYMPTOMS AND REDNESS TO EYES INSTILL 1 DROP TWO TIMES A DAY FOR ALLER GY SYMPTOMS AND REDNESS TO EYES SOLD: 11/29/2019 [employer] Tri-Lo-Suzette 28 Day Pack 0.18/0.215/0.25 mg-25 mcg NORG ESTIMATE-ETHINYL ESTRADIOL 11/14/2019 12:00:00 AM EDT tablet 28 TAKE ONE TABLET BY MOUTH EVERY DAY TAKE ONE TABLET BY MOUTH EVERY DAY SOLD: 11/15/2019 [facility] Norgestim-Eth Estrad Triphasic 0.18/0.215/0.25 MG-25 M CG Norgestim-Eth Estrad Triphasic 0.18/0.215/0.25 MG-25 MCG 11/14/2019 12:00:00 AM EDT active 1 tablet eCW1 ([facility]) Norgestim-Eth Estrad Triphasic 0.18/0.215/0.25 MG-25 M CG Norgestim-Eth Estrad Triphasic 0.18/0.215/0.25 MG-25 MCG 11/14/2019 12:00:00 AM EDT 1.0 {tablet} active Norgestim-Eth Estrad Trip hasic 0.18/0.215/0.25 MG-25 MCG eCW1 ([facility]) Norgestim-Eth Estrad Triphasic 0.18/0.215/0.25 MG-25 M CG Norgestim-Eth Estrad Triphasic 0.18/0.215/0.25 MG-25 MCG 11/14/2019 12:00:00 AM EDT 1.0 {tablet} active Norgestim-Eth Estrad Trip hasic 0.18/0.215/0.25 MG-25 MCG eCW1 ([facility]) 10 mg 11/11/2019 12:00:00 AM EDT tablet 9 TAKE ONE TABLET BY MOUTH EVERY DAY TAKE ONE TABLET BY MOUTH EVERY DAY SOLD: 11/12/2019 [facility] 8 mg 11/11/2019 12:00:00 AM EDT tablet 9 TAKE ONE TABLET BY MOUTH EVERY DAY FOR NAUSEA AND VOMITING TAKE ONE TABLET BY MOUTH EVERY DAY FOR N AUSEA AND VOMITING SOLD: 11/12/2019 [facility] 20 mg 10/23/2019 12:00:00 AM [...] Ibuprofen 10/12/2019 12:00:00 AM EDT active MEDENT ([facility]) 10 mg 10/12/2019 12:00:00 AM EDT tablet [...] FOR ALLERGY SYMPTOMS / REDNESS SOLD: 09/27/2019 [facility] 0.3-0.1 % 09/25/2019 12:00:00 AM EDT drops,suspension 5 INSTILL ONE DROP FOUR TIMES A DAY IN EACH EYE DIRECTED INSTILL ONE DROP FOUR TIMES A DAY IN EACH EYE DIRECTED SOLD: 09/27/2019 [facility] olopatadine 1 MG/ML Ophthalmic Solution 0.1 % OLOPATADINE HC L 09/24/2019 12:00:00 AM EDT drops 5 INSTILL 1 DROP IN EACH EY E TWO TIMES A DAY NEEDED INSTILL 1 DROP IN EACH EYE TWO TIMES A DAY NEEDED SOLD: 09/24/2019 [facility] Acetaminophen 325 MG / Hydrocodone Bitartrate 5 MG Ora l Tablet Hydrocodone-Acetaminophen 09/24/2019 12:00:00 AM EDT completed MEDENT ([facility]) olopatadine 1 MG/ML Ophthalmic Solution Olopatadine HCL 09/24/2019 12:00:00 AM EDT OPHTHALMIC active MEDENT ([facility]) 10,000 unit- 1 mg/mL 09/21/2019 12:00:00 AM EDT drops 10 INSTILL 1 DROP IN THE AFFECTED EYE(S) FOUR TIMES A DAY FOR 5-7 DAYS DIRECTED INSTILL 1 DROP IN THE AFFECTED EYE(S) FOUR TIMES A DAY FOR 5-7 DAYS DIRECTED SOLD: 09/21/2019 [facility] Polymyxin B 54372 UNT/ML / Trimethoprim 1 MG/ML Ophtha lmic Solution Polymyxin B Sulfate/Trimethoprim Sulfate 09/21/2019 12:00:00 AM EDT completed MED[facility] ([facility]) Ketorolac Tromethamine 5 MG/ML Ophthalmic Solution Ketorolac Tromethamine 09/21/2019 12:00:00 AM EDT completed MED[facility] ([facility]) 0.5 % 09/05/2019 12:00:00 AM EST drops [...] DAY FOR 7 DAYS SOLD: 09/05/2019 [facility] Ketorolac Tromethamine 5 MG/ML Ophthalmic Solution Ketorolac Tromethamine 09/05/2019 12:00:00 AM EST completed [facility] ([facility]) Tobramycin 3 MG/ML Ophthalmic Solution Tobramycin 09/05/2019 12:0 0:00 AM EST completed [facility] ([facility]) 0.5 % 09/05/2019 12:00:00 AM EST drops 5 INSTILL 1 DROP TWO TIMES A DAY FOR ALLERGY SYMPTOMS AND REDNESS TO EYES INSTILL 1 DROP TWO TIMES A DAY FOR ALLER GY SYMPTOMS AND REDNESS TO EYES SOLD: 11/06/2019 [facility] 0.5 % 09/05/2019 12:00:00 AM EST drops 5 INSTILL 1 DROP TWO TIMES A DAY FOR ALLERGY SYMPTOMS AND REDNESS TO EYES INSTILL 1 DROP TWO TIMES A DAY FOR ALLER GY SYMPTOMS AND REDNESS TO EYES SOLD: 10/07/2019 [facility] Albuterol 0.83 MG/ML Inhalant Solution Albuterol Sulfate 0 08/22/2019 12:00:00 AM EST active [facility] ([facility] Enskyce Enskyce 08/22/2019 12:00:00 AM EST complet ed MEDENT ([facility]) Omeprazole 20 MG Delayed Release Oral Capsule Omeprazole 08/22/2019 12:00:00 AM EST ORAL active [facility] ([facility] ) 200 ACTUAT Albuterol 0.09 MG/ACTUAT Metered Dose Inhaler [Pr oAir] Proair HFA 08/22/2019 12:00:00 AM EST ORAL active MED[facility] ([facility]) montelukast 10 MG Oral Tablet [Singulair] Singulair 2019 12:00:00 AM EST ORAL active [facility] ( [facility]) benzonatate 100 MG Oral Capsule [Tessalon Perles] Tessalon P erles 08/22/2019 12:00:00 AM EST ORAL completed MED[facility] ([facility]) 14 ACTUAT fluticasone furoate 0.1 MG/ACTUAT Dry Powder Inhaler [Arnuity] Arnuity Ellipta 08/22/2019 12:00:00 AM EST RESPIRATORY active MEDENT ([facility]) duloxetine 60 MG Delayed Release Oral Capsule [Cymbalta] Cym domonique 08/22/2019 12:00:00 AM EST ORAL active M EDENT ([facility]) Lisinopril 10 MG Oral Tablet Lisinopril 08/22/2019 12:00:00 AM EST ORAL active [facility]ENT ([facility]) 200 ACTUAT Albuterol 0.09 MG/ACTUAT Metered Dose Inhaler [Pr oAir] Proair HFA 08/22/2019 12:00:00 AM EST ORAL active MEDENT ([facility]) Omeprazole 20 MG Delayed Release Oral Capsule Omeprazole 08/22/2019 12:00:00 AM EST ORAL active [facility] ([facility]) Lisinopril 10 MG Oral Tablet Lisinopril 08/22/2019 12:00:00 AM EST ORAL active [facility] ([facility]) duloxetine 60 MG Delayed Release Oral Capsule [Cymbalta] Cym domonique 08/22/2019 12:00:00 AM EST ORAL active M EDENT ([facility]) 14 ACTUAT fluticasone furoate 0.1 MG/ACTUAT Dry Powder Inhaler [Arnuity] Arnuity Ellipta 08/22/2019 12:00:00 AM EST RESPIRATORY active [facility] ([facility]) benzonatate 100 MG Oral Capsule [Tessalon Perles] Tessalon P erles 08/22/2019 12:00:00 AM EST ORAL completed [facility] ([facility]) Enskyce Enskyce 08/22/2019 12:00:00 AM EST active [facility] ([facility]) Albuterol 0.83 MG/ML Inhalant Solution Albuterol Sulfate 0 08/22/2019 12:00:00 AM EST active [facility] ([facility]) Enskyce Enskyce 08/22/2019 12:00:00 AM EST active [facility] ([facility]) montelukast 10 MG Oral Tablet [Singulair] Singulair 2019 12:00:00 AM EST ORAL active MED[facility] ( [facility]) Oseltamivir 75 MG Oral Capsule Oseltamivir Phosphate 08/10/2019 12:00:00 AM EST ORAL completed MED[facility] ([facility]) Nebulizer Compressor Model 2655D 08/10/2019 12:00:00 AM EST completed MEDENT ([facility]) Albuterol 0.83 MG/ML Inhalant Solution Albuterol Sulfate 0 08/10/2019 12:00:00 AM EST ORAL completed [facility] ([facility]) 90 mcg/actuation 08/08/2019 12:00:00 AM EST HFA [...] } Pack 2019 12:00:00 AM EST active Sandra 28 Day Pack NextGen ([facility]) 60 mg 02/28/2019 12:00:00 AM EDT [...] MOUTH EVERY DAY SOLD: 07/19/2019 [facility] 20 mg 02/28/2019 12:00:00 AM EDT capsule,delayed release (DR/EC) 30 TAKE ONE CAPSULE BY MOUTH EVERY DAY TAKE ONE CAPSULE BY MOUTH EVERY DAY SOLD: 09/27/2019 [facility] 20 mg 02/28/2019 12:00:00 AM EDT capsule,delayed release (DR/EC) 30 TAKE ONE CAPSULE BY MOUTH EVERY DAY TAKE ONE CAPSULE BY MOUTH EVERY DAY SOLD: 07/31/2019 [facility] 60 mg 02/28/2019 12:00:00 AM EDT capsule,delayed release (DR/EC) 18 TAKE ONE CAPSULE BY MOUTH EVERY DAY TAKE ONE CAPSULE BY MOUTH EVERY DAY SOLD: 08/27/2019 [facility] Methocarbamol 500 MG Oral Tablet METHOCARBAMOL (unknow n strength) METHOCARBAMOL (unknown strength) completed NextGen ([facility]) Insurance Providers Payer name Policy type / Coverage type Policy ID Covered constitution party ID Covered constitution party's relationship to hurst Policy Hurst Plan Information [id number] SP [id number] [facility](MCAID) O [id number] S [id number] Managed Care - [facility] Community Plan P [id number] S [id number] Medicaid S [id number] S [id number] Managed Care - [facility] Community Plan P [id number] S [id number] MEDICAID [id number] SP [id number] Managed Care - [facility] Community Plan P [id number] S [id number] Medicaid S [id number] S [id number] SELF PAY ONLY [id number] SP [id number] Managed Care - [facility] Community Plan P [id number] S [id number] Medicaid S [id number] S [id number] [facility] Community Plan Commercial [id number] Self [id number] Managed Care - Community Plan [facility] P [id number] S [id number] [facility] Health Maintenance Organization (HMO) [id number] Self [id number] [facility] Health Maintenance Organization (HMO) [id number] Self [id number] [facility] Community Plan Commercial [id number] Self [id number] Managed Care - Community Plan [facility] P [id number] S [id number] Medicaid S [id number] S [id number] ANSI-Medicaid [id number] Managed Care - Community Plan [employer] P [id number] S [id number] Medicaid S [id number] S [id number] 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 [id number] SP [id number] United Healthcare Hmo Commercial [id number] Self [id number] [facility] Health Maintenance Organization (HMO) [id number] Self [id number] United[employer] Care Hmo Commercial Self [facility] Maintenance Organization (HMO) Self Managed Care - Community Plan United [employer] S [id number] S [id number] Managed Care BCBS P [id number] S [id number] Medicaid Dental P [id number] S [id number] Managed Care United [employer] O [id number] S [id number] Medicaid S [id number] S [id number] UNITED HEALTHCARE [id number] SP [id number] Medicaid [place] Medigap Part B Self United Healthcare [facility] Health Maintenance Organization (HMO) Self MEDICAID M [id number] S [id number] UNITED HEALTHCARE O [id number] S [id number] Managed Care - Community Plan United [employer] P [id number] S [id number] Medicaid S [id number] S [id number] Managed Care - Community Plan United [employer] O [id number] S [id number] Medicaid Dental S [id number] S [id number] D Managed Care [facility] O [id number] S [id number] BLUE CROSS [place] PLAN [id number] SP [id number] Medicaid S [id number] S [id number] D [facility] O [id number] S [id number] Managed Care - Community Plan United [employer] P [id number] S [id number] Managed Care - Community Plan United [employer] P UNAVAILABLE S UNAVAILABLE D Managed Care [facility] P [id number] S [id number] HMO BLUE [id number] SP [id number] HMO BLUE P [id number] S [id number] Problems, Conditions, and Diagnoses Code Display Name Description Problem Type Effective Dates Data Source(s) N92.1 [id number] Prolonged menstrual cycle Problem 11/14/2019 12:00:00 AM EDT eCW1 ([facility]) N92.1 [id number] Prolonged menstrual cycle Problem 11/14/2019 12:00:00 AM EDT eCW1 ([facility]) 785.1 Palpitations Palpitations 08/07/2019 02:34:09 P M EST [facility] V70.0 Health Screening Health Screening 08/07/2019 02 :29:39 PM EST [facility] 786.2 Cough Cough 08/07/2019 02:29:39 PM ES T [facility] Surgeries/Procedures Procedure Description Date Indications Data Source(s) RADEX SPINE CRV COMPL W/OBLQ&FLEX&/XTN STDS 06/25/2020 12:00:00 AM EST MED[facility] ([facility] ) X-Ray Spine Lumbosacral Complete Inc Bending Views Min Of 6 06/25/2020 12:00:00 AM EST [facility] ([facility]) APPLICATION MODALITY 1/> AREAS HOT/COLD PACKS 02/19/20 20 12:00:00 AM EDT MED[facility] ([facility] ) APPLICATION MODALITY 1/> AREAS HOT/COLD PACKS 02/19/20 20 12:00:00 AM EDT [facility] ([facility]) Ultrasound, Each 15 Min, Constant Attendance 0 12:00:00 AM EDT MED[facility] ([facility] ) Ultrasound, Each 15 Min, Constant Attendance 0 12:00:00 AM EDT MED[facility] ([facility] ) THERAPEUTIC PX 1/> AREAS EACH 15 MIN EXERCISES 12:00:00 AM EDT MED[facility] ([facility]) THERAPEUTIC PX 1/> AREAS EACH 15 MIN EXERCISES 12:00:00 AM EDT MED[facility] ([facility] ) APPLICATION MODALITY 1/> AREAS HOT/COLD PACKS 02/15/20 20 12:00:00 AM EDT [facility] ([facility] ) Ultrasound, Each 15 Min, Constant Attendance 0 12:00:00 AM EDT [facility] ([facility] ) THERAPEUTIC PX 1/> AREAS EACH 15 MIN EXERCISES 12:00:00 AM EDT [facility] ([facility] ) Ultrasound, Each 15 Min, Constant Attendance 0 12:00:00 AM EDT [facility] ([facility] ) Physical Therapy Eval - Low Complexity 02/11/2020 12:0 0:00 AM EDT [facility] ([facility] ) Endoscopy Wrist W/Release Transverse Carpal Ligament 01/30/2020 12:00:00 AM EDT [facility] ([facility] ) Neuroplasty/Transposition, Ulnar Nerve AT Elbow 2019 12:00:00 AM EDT [facility] ([facility] ) RADEX SPINE CRV COMPL W/OBLQ&FLEX&/XTN STDS 12/26/2019 12:00:00 AM EDT [facility] ([facility] ) RADEX WRIST COMPLETE MINIMUM 3 VIEWS 12/26/2019 12:00: 00 AM EDT MED[facility] ([facility] ) Excision Lesion Foot (Cyst/Ganglion) 12/05/2019 12:00: 00 AM EDT [facility] ([facility] ) CVR Editor Producer.Svc. Other 10/31/2019 12:00:00 AM EDT - 2019 12:00:00 AM EDT [facility] ([facility]) CVR Editor Producer.Svc. Contraceptive 10/31/2019 12 :00:00 AM EDT - 10/31/2019 12:00:00 AM EDT [facility] ([facility]) CVR Med.Svc. Height/Weight 10/31/2019 12 :00:00 AM EDT - 10/31/2019 12:00:00 AM EDT [facility] ([facility]) CVR Blood Pressure 10/31/2019 12:00:00 AM EDT - 2019 12:00:00 AM EDT [facility] ([facility]) HCS Without Test 10/31/2019 12:00:00 AM EDT - 10/31/19 20 12:00:00 AM EDT [facility] ([facility]) OFFICE VISIT, EST 10/31/2019 12:00:00 AM EDT - 020 12:00:00 AM EDT [facility] ([facility]) ECG ROUTINE ECG W/LEAST 12 LDS W/I&R 10/01/2019 12:00: 00 AM EDT MEDENT ([facility]) XTRNL ECG < 48 HR RECORDING 09/12/2019 12:00:00 AM EST [facility] ([facility]) XTRNL ECG CONTINUOUS RHYTHM PHYS REVIEW&INTERPJ 2019 12:00:00 AM EST [facility] ([facility]) ECG ROUTINE ECG W/LEAST 12 LDS W/I&R 09/10/2019 12:00: 00 AM EST MED[facility] ([facility]) ECG ROUTINE ECG W/LEAST 12 LDS W/I&R 08/23/2019 12:00: 00 AM EST MED[facility] ([facility]) Results ID Date Data Source [id number] 01/26/2020 10:32:00 AM EDT [facility] ([facility]) Name Value Range Interpretation Code Description Data Julia rce(s) Supporting Document(s) Coronavirus 2019 Nasopharygeal Laboratory test result [facility] ([facility]) Testing was performed using the Jelli S ARS-CoV-2 assay. This test was developed and its performance characteristics determined by [facility]. This test has not been FDA cleared [...] detected) result in this assay. Performed at: [facility] [address] [id number] Turn Out Worker: Marli Morelos MD, Phone: [phone] Not Detected ID Date Data Source [id number] 01/26/2020 12:00:00 AM EDT [facility] Name Value Range Interpretation Code Description Data Julia rce(s) Supporting Document(s) SARS coronavirus 2 RNA [facility] This lab was ordered by [facility] and reported by [facility]. ID Date Data Source [id number] 12/27/2019 10:17:00 AM EDT [facility] ([facility]) Name Value Range Interpretation Code Description Data Julia rce(s) Supporting Document(s) Laboratory test finding (navigational concept) Laboratory test result [facility] ([facility]) ID Date Data Source [id number] 12/05/2019 01:05:00 PM EDT [facility] ([facility]) Name Value Range Interpretation Code Description Data Julia rce(s) Supporting Document(s) Surgical pathology study Laboratory test result [facility] ([facility] ) <content>FINAL DIAGNOSIS</content>
< content></content>
<content>Left foot ganglion cyst, excision:</content>
<content>Non-diagnostic specimen.</content>
<content>12/07/2019 - 1402</content>
<content></content>
<content>CLINICAL DIAGNOSIS</content>
<content></content>
<content>Left foot ganglion cyst</content>
<content>12/06/2019 - 1437</content>
<content></content>
<content>GROSS DIAGNOSIS</content>
<content></content>
<content>Received in formalin labeled "left foot ganglion cyst" consists of tiny</content>
<content>fragment of tissue-like material, <0.1mm. No significant tissue is</content>
<content>identified in the container. All in one.</content>
<content>-OA</content>
<content>12/07/2019 - 1402</content>
<content></content>
<content>Signed SUSHMA GUALLPA MD 12/07/2019 1404</content>
<content></content> ID Date Data Source [id number] 12/02/2019 12:35:00 PM EDT [facility] ([facility]) Name Value Range Interpretation Code Description Data Julia rce(s) Supporting Document(s) Laboratory test finding (navigational concept) Laboratory test result [facility] ([facility]) Testing was performed using the elizabeth(R) SARS-CoV-2 test. This test was developed and its performance characteristics determined by [facility]. This test has not been FDA cleared [...] detected) result in this assay. Performed at: [address] [id number] Turn Out Worker: Marli Morelos MD, Phone: [phone] Not Detected ID Date Data Source [id number] 12/02/2019 12:00:00 AM EDT [facility] Name Value Range Interpretation Code Description Data Julia rce(s) Supporting Document(s) SARS CORONAVIRUS 2 RNA [facility] This lab was ordered by [facility] and reported by [facility]. ID Date Data Source [id number] 10/27/2019 10:00:00 AM EDT [facility] Name Value Range Interpretation Code Description Data Julia rce(s) Supporting Document(s) SARS CORONAVIRUS 2 RNA [facility] This lab was ordered by [facility] and reported by [facility]. ID Date Data Source [id number] 09/13/2019 11:20:00 AM EST [facility] ([facility]) Name Value Range Interpretation Code Description Data Julia rce(s) Supporting Document(s) Laboratory test finding (navigational concept) <pending> [facility] ([facility]) ID Date Data Source [id number] 08/31/2019 12:00:00 AM EST [facility] Katelyn Ferreira MD Patient Name: ABEL COOMBS [id number] [facility] 1985[facility] [place] [address] Date of Exam: 08/31/2019PH#: Fax: [phone] EXAM: [...] mm in craniocaudal x 5 mm in shmuizj-dp-ysqcuw x 6 hsjsvmg-yb-ehdt. It appears to be deep to the [...] ganglion cyst as described above.Accredited by the [employer] in MR.FALGUNI Lopez/Flaco ayala for referring ABEL COOMBS to our office. Electronically Signed - NEVILLE LEON MD 09/03/19 18:41 Name Value Range Interpretation Code Description Data Julia rce(s) Supporting Document(s) ID Date Data Source [id number] 08/15/2019 01:12:00 PM EST [facility] ([facility]) Name Value Range Interpretation Code Description Data Julia rce(s) Supporting Document(s) Hemoglobin A1c/Hemoglobin.total in Blood 6.1 [facility] ([facility]) ID Date Data Source [id number] 08/15/2019 01:12:00 PM EST [facility] ([facility] Name Value Range Interpretation Code Description Data Julia rce(s) Supporting Document(s) Thyroid Stimulating Hormone 0.675 ME DENT ([facility]) Free T4 1.04 [facility] ([facility]) ID Date Data Source [id number] 08/15/2019 01:12:00 PM EST [facility] ([facility]) Name Value Range Interpretation Code Description Data Julia rce(s) Supporting Document(s) Triglycerides 129 [facility] ([facility]) Cholesterol 179 [facility] ([facility]) HDL 61 [facility] ([facility]) Cholesterol in LDL [Mass/volume] in Serum or Plasma by calculation 11 8 [facility] ([facility]) Chol/HDL Ratio 2.934 [facility] ([facility]) ID Date Data Source [id number] 08/08/2019 01:13:00 PM EST [facility] ([facility] Name Value Range Interpretation Code Description Data Julia rce(s) Supporting Document(s) White Blood Count 9.9 4.0-10.0 [facility] ([facility]) Hemoglobin 12.2 [facility] ([facility]) Platelets 290 172-450 [facility] ([facility] Red Blood Count 4.61 4.00-5.40 [facility] ([facility]) Hematocrit 40.3 [facility] ([facility]) ID Date Data Source [id number] 08/08/2019 01:13:00 PM EST [facility] ([facility]) Name Value Range Interpretation Code Description Data Julia rce(s) Supporting Document(s) Troponin <0.02 [facility] ([facility]) Natriuretic peptide.B prohormone N-Terminal [Mass/volu me] in Serum or Plasma 36 MEDENT ([facility]) Thyroid Stimulating Hormone 0.775 ME DENT ([facility]) ID Date Data Source [id number] 08/08/2019 01:13:00 PM EST [facility] ([facility]) Name Value Range Interpretation Code Description Data Julia rce(s) Supporting Document(s) Creatine kinase [Enzymatic activity/volume] in Serum or Plasma 76 MED[facility] ([facility]) CPK-MB <1.0 [facility] ([facility]) ID Date Data Source [id number] 08/08/2019 01:13:00 PM EST [facility] ([facility]) Name Value Range Interpretation Code Description Data Julia rce(s) Supporting Document(s) Blood Urea Nitrogen 12 7-18 MEDENT ([facility]) Creatinine 0.68 0.6-1.0 [facility] ([facility]) Glucose 130 70-100 MED[facility] ([facility]) Chloride 109 98-107 [facility] ([facility]) Sodium 140 136-145 [facility] Potassium 4.1 3.5-5.1 [facility] Calcium 8.5 8.2-9.6 [facility] Carbon Dioxide 22 21-32 MED[facility] ([facility]) Glomerular filtration rate/1.73 sq M.pre dicted [Volume Rate/Area] in Serum or Plasma by Creatinine-based formula (MDRD) >60.0 MED[facility] ([facility]) ID Date Data Source [id number] 08/07/2019 01:27:58 PM [facility] Measurements & CalculationsHeight: 67 inches (5 ft. [...] during this visit, including review of any xeum-ffq-zxetnsz medications, herbal therapies, and/or supplements.Allergy ReviewAllergy List [...] intactAssessment & Plan Problems:Added: Health Screening (ICD-V70.0) (KMV22-S09.9) Assessment: Instructions: We have ordered fasting labs for you today. Please fast for 8-10 hours prior.Cough (ICD-786.2) (SGC81-F13) Assessment: Instructions: We have sent a prescription to your pharmacy today. Please contine to maintain adequate fluid hydration.Palpitations (ICD-785.1) (YXS16-O87.2) Assessment: Instructions: We have made a referral for you today. We will contacr you to set this up.Assessed:Essential hypertension (ICD- 401.9) (QZB39-L82) Assessment: Instructions: Please continue medication as prescribed.ASTHMA (ICD-493.90) (IZR07-S72.909) Assessment: Instructions: Please con luis to brennen with your specialist. Please continue medications as prescribed.Encounter for general adult medical examination with abnormal findings (ICD-V70.0) (BPP50-W30.01) Assessment: Instructions: You have had a physical [...] ORAL PRINIVIL 10 MG ORAL TABLET Qty: [id number] Refills: 30[Tablet] To: PRINIVIL 10 MG ORAL TABLET-take 1 tab po qd Qty: 30[Tablet] Refills: 3Allergies:* SHELLFISH (Critical)* LATEX (Severe)Orders:COMP METABOLIC PANEL [CPT-39797] CBC W/DIFF [CPT-32854] HgBA1c [CPT-94812] LIPID PANEL [CPT-60734] TSH [CPT-96245] T-4 free [CPT-51585] Vitamin D 250H Unspecified [CPT-92263] URINALYSIS [CPT-83725] Cardiology Consult [CPT-39059] Adult - Ofc Vst, EST, Level IV [CPT-62817] Follow-Up Return to clinic: 6 weeks for follow up Clinical Visit Summary Completed Name Value Range Interpretation Code Description Data Julia rce(s) Supporting Document(s) Procedure Social History Code Duration Value Status Description Data Source(s ) Smoking 05/29/2020 12:00:00 AM EST Never smoker completed Never s moker [facility] ([facility]) Smoking 01/02/2020 12:00:00 AM EDT Never Smoker completed Never S moker eCW1 ([facility]) Smoking 01/02/2020 12:00:00 AM EDT Never Smoker completed Never S moker eCW1 ([facility]) Vital Signs ID Date Data Source UNK Name Value Range Interpretation Code Description Data Source(s) Body mass index (BMI) [Ratio] 37.5 kg/m2 37.5 k g/m2 MED[facility] ([facility]) Body weight 246.38 [lb_av] 246.38 [lb_av] MEDEN T ([facility]) Body height 68 [in_i] 68 [in_i] MEDENT ([facility]) 5'8" Body temperature 96.8 [degF] 96.8 [degF] MEDENT ([facility]) Body temperature 97.9 [degF] 97.9 [degF] MED[facility] ([facility]) Diastolic blood pressure 84 mm[Hg] 84 mm[Hg] eCW1 ([facility]) Systolic blood pressure 134 mm[Hg] 134 mm[Hg] e CW1 ([facility]) Body mass index (BMI) [Ratio] 39.1 kg/m2 39.1 k g/m2 eCW1 ([facility]) Body height 68 [in_i] 68 [in_i] eCW1 ([facility]) Body weight 257.2 [lb_av] 257.2 [lb_av] eCW1 ([facility]) Body mass index (BMI) [Ratio] 39.0 kg/m2 39.0 k g/m2 [facility] ([facility]) Body weight 256.38 [lb_av] 256.38 [lb_av] MEDEN T ([facility]) Body height 68 [in_i] 68 [in_i] MED[facility] ([facility]) 5'8" Body temperature 97.6 [degF] 97.6 [degF] MED[facility] ([facility]) Body mass index (BMI) [Ratio] 36.6 kg/m2 36.6 k g/m2 MED[facility] ([facility]) Body weight 233.50 [lb_av] 233.50 [lb_av] MEDEN T ([facility]) Body height 67 [in_i] 67 [in_i] [facility] ([facility]) 5'7" Body temperature 95.5 [degF] 95.5 [degF] [facility] ([facility]) Diastolic blood pressure 70 mm[Hg] 70 mm[Hg] eCW1 ([facility]) Systolic blood pressure 118 mm[Hg] 118 mm[Hg] e CW1 ([facility]) Body mass index (BMI) [Ratio] 37.86 kg/m2 37.86 kg/m2 eCW1 ([facility]) Body height 68 [in_us] 68 [in_us] eCW1 ([facility]) Body weight Measured 249 [lb_av] 249 [lb_av] eC W1 ([facility]) Body height 172.72 cm 172.72 cm [facility] ([facility]) Body mass index (BMI) [Ratio] 37.2 kg/m2 37.2 k g/m2 MEDENT ([facility], [facility]) Body height 68 [in_i] 68 [in_i] MEDENT ([facility], [facility]) 5'8" Body weight 245.00 [lb_av] 245.00 [lb_av] MEDEN T ([facility]) Body temperature 98.9 [degF] 98.9 [degF] MEDENT ([facility]) Oxygen saturation in Arterial blood by Pulse oximetry 98 % 98 % MEDENT ([facility]) Respiratory rate 16 /min 16 /min MEDENT ( [facility]) Heart rate 99 /min 99 /min MEDENT ([facility], [facility]) Diastolic blood pressure 97 mm[Hg] 97 mm[Hg] MEDENT ([facility]) Systolic blood pressure 139 mm[Hg] 139 mm[Hg] M EDENT ([facility]) Diastolic blood pressure 80 mm[Hg] 80 mm[Hg] MEDENT ([facility]) sitting Systolic blood pressure 128 mm[Hg] 128 mm[Hg] M EDENT ([facility]) sitting Diastolic blood pressure 80 mm[Hg] 80 mm[Hg] MEDENT ([facility]) sitting, large cuff Systolic blood pressure 134 mm[Hg] 134 mm[Hg] M EDENT ([facility]) sitting, large cuff Respiratory rate 16 /min 16 /min MEDENT ( [facility]) Heart rate 88 /min 88 /min MED[facility] ([facility]) Regular Body mass index (BMI) [Ratio] 36.9 kg/m2 36.9 k g/m2 MEDENT ([facility]) Body height 68 [in_i] 68 [in_i] MED[facility] ([facility]) 5'8" Body weight 243.00 [lb_av] 243.00 [lb_av] MEDEN T ([facility]) Body mass index (BMI) [Ratio] 36.5 kg/m2 36.5 k g/m2 MEDENT ([facility]) Body height 68 [in_i] 68 [in_i] MEDENT ([facility]) 5'8" Body weight 240.00 [lb_av] 240.00 [lb_av] MEDEN T ([facility]) Body temperature 98.1 [degF] 98.1 [degF] MEDENT ([facility], [facility]) Oxygen saturation in Arterial blood by Pulse oximetry 97 % 97 % [facility], [facility]) Respiratory rate 16 /min 16 /min [facility] ( [facility], [facility]) Heart rate 89 /min 89 /min [facility] ([facility], [facility]) Diastolic blood pressure 102 mm[Hg] 102 mm[Hg] [facility] ([facility], [facility]) Systolic blood pressure 167 mm[Hg] 167 mm[Hg] [facility] ([facility], [facility]) Body mass index (BMI) [Ratio] 36.5 kg/m2 36.5 k g/m2 [facility] ([facility], [facility]) Body height 68 [in_i] 68 [in_i] [facility] ([facility]) 5'8" Body weight 240.00 [lb_av] 240.00 [lb_av] [facility] ([facility], [facility]) Body temperature 98.9 [degF] 98.9 [degF] [facility] ([facility], [facility]) Oxygen saturation in Arterial blood by Pulse oximetry 99 % 99 % [facility] ([facility], [facility]) Respiratory rate 16 /min 16 /min [facility] ( [facility], [facility]) Heart rate 105 /min 105 /min [facility] ([facility], [facility]) Diastolic blood pressure 95 mm[Hg] 95 mm[Hg] [facility] ([facility], [facility]) Systolic blood pressure 138 mm[Hg] 138 mm[Hg] [facility] ([facility], [facility]) Body mass index (BMI) [Ratio] 36.3 kg/m2 36.3 k g/m2 [facility] ([facility], [facility]) Body height 68 [in_i] 68 [in_i] [facility] ([facility]) 5'8" Body weight 239.00 [lb_av] 239.00 [lb_av] [facility] ([facility], [facility]) Body temperature 96.9 [degF] 96.9 [degF] [facility] ([facility], [facility]) Oxygen saturation in Arterial blood by Pulse oximetry 97 % 97 % [facility] ([facility], [facility]) Respiratory rate 22 /min 22 /min [facility] ( [facility], [facility]) Heart rate 113 /min 113 /min [facility] ([facility], [facility]) Diastolic blood pressure 85 mm[Hg] 85 mm[Hg] [facility] ([facility], [facility]) Systolic blood pressure 134 mm[Hg] 134 mm[Hg] [facility] ([facility], [facility]) Body mass index (BMI) [Ratio] 36.3 kg/m2 36.3 k g/m2 [facility] ([facility], [facility]) Body height 68 [in_i] 68 [in_i] [facility] ([facility], [facility]) 5'8" Body weight 239.00 [lb_av] 239.00 [lb_av] [facility] ([facility], [facility]) Body temperature 98.2 [degF] 98.2 [degF] [facility] ([facility], [facility]) Oxygen saturation in Arterial blood by Pulse oximetry 96 % 96 % [facility] ([facility], [facility]) Respiratory rate 18 /min 18 /min [facility] ( [facility], [facility]) Heart rate 108 /min 108 /min [facility] ([facility], [facility]) Diastolic blood pressure 84 mm[Hg] 84 mm[Hg] [facility] ([facility], [facility]) Systolic blood pressure 129 mm[Hg] 129 mm[Hg] [facility] ([facility], [facility]) Diastolic blood pressure--sitting 81 mm[Hg] 81 mm[Hg] [facility] ([facility]) [place] adult cuff, [place] Systolic blood pressure--sitting 120 mm[Hg] 120 mm[Hg] [facility] ([facility]) [place] adult cuff[place] Heart rate 97 /min 97 /min [facility] ([facility]) Body mass index (BMI) [Ratio] 36.2 kg/m2 36.2 k g/m2 [facility] ([facility]) Body height 68 [in_i] 68 [in_i] [facility] ([facility]) 5'8" Body weight 238.00 [lb_av] 238.00 [lb_av] [facility] ([facility]) Body mass index (BMI) [Ratio] 36.3 kg/m2 36.3 k g/m2 [facility] ([facility], [facility]) Body height 68 [in_i] 68 [in_i] [facility] ([facility], [facility]) 5'8" Body weight 239.00 [lb_av] 239.00 [lb_av] [facility] ([facility], [facility]) Body temperature 97.3 [degF] 97.3 [degF] [facility] ([facility], [facility]) Oxygen saturation in Arterial blood by Pulse oximetry 98 % 98 % [facility] ([facility], [facility]) Respiratory rate 24 /min 24 /min [facility] ( [facility], [facility]) Heart rate 91 /min 91 /min [facility] ([facility], [facility]) Diastolic blood pressure 97 mm[Hg] 97 mm[Hg] [facility] ([facility], [facility]) Systolic blood pressure 152 mm[Hg] 152 mm[Hg] [facility] ([facility], [facility]) Body mass index (BMI) [Ratio] 36.0 kg/m2 36.0 k g/m2 [facility] ([facility]) Body weight 233.50 [lb_av] 233.50 [lb_av] [facility] ([facility] ) Body height 67.5 [in_i] 67.5 [in_i] [facility] ([facility] ) 5'7.50" Body temperature 98.1 [degF] 98.1 [degF] [facility] ([facility] ) Patient Treatment Plan of Care Planned Activity Planned Date Details Description Data Source (s) Norgestim-Eth Estrad Triphasic 0.18/0.215/0.25 MG-25 M CG 11/14/2019 12:00:00 AM EDT eCW1 ([facility]) Juleber 0.15 mg-0.03 mg tablet 2019 12:00:00 AM EST [facility] ([facility]) Methocarbamol 500 MG Oral Tablet [facility] ([facility])
[2020-08-26] MEDS ORDERED: LOES1TAB7 PO (12:01)
[2020-08-26 12:17] VITALS: BP 128/64
== END 2020-08-26 12:15 | disposition home or self-care (01) ==
LOC: M ED 11:05
DX: N93.8 Other specified abnormal uterine and vaginal bleeding (principal); I10 Essential (primary) hypertension; J45.909 Unspecified asthma, uncomplicated; K21.9 Gastro-esophageal reflux disease without esophagitis; M54.9 Dorsalgia, unspecified; F41.9 Anxiety disorder, unspecified; E66.9 Obesity, unspecified; Z87.442 Personal history of urinary calculi; Z79.899 Other long term (current) drug therapy; Z88.0 Allergy status to penicillin; Z91.040 Latex allergy status; Z91.018 Allergy to other foods; Z91.013 Allergy to seafood

== ENCOUNTER 2020-09-16 14:03 | Emergency (ER) | payer OTHER ==
[~2020-09-16] VITALS: Ht 172.7 cm; Wt 113.2 kg
[~2020-09-16 14:03] MED LIST changes: +LOES1TAB7 PO
[2020-09-16 14:38] LABS: BASO # 0.1 10^3/uL (0.0-0.2); BASO % 0.6 % (0.0-1.0); EOS # 0.1 10^3/uL (0.0-0.5); EOS % 0.8 % (0.0-3.0); HEMATOCRIT 36.6 % (36.0-47.0); HEMOGLOBIN 11.2 g/dl (12.0-15.5); LYMPH # 3.2 10^3/uL (1.5-5.0); LYMPH % 23.2 % (24.0-44.0); MEAN CORPUSCULAR HEMOGLOBIN 25.5 pg (27.0-33.0); MEAN CORPUSCULAR HGB CONC 30.6 g/dl (32.0-36.5); MEAN CORPUSCULAR VOLUME 83.4 fl (80.0-96.0); MONO % 7.2 % (2.0-8.0); NEUTROPHILS # 9.4 10^3/uL (1.5-8.5); NEUTROPHILS % 67.3 % (36.0-66.0); PLATELET COUNT, AUTOMATED 365 10^3/uL (150-450); RED BLOOD COUNT 4.39 10^6/uL (4.00-5.40)
[2020-09-16 15:02] LABS: ALBUMIN 3.2 GM/DL (3.2-5.2); ALT/SGPT 26 U/L (12-78); BILIRUBIN,DIRECT < 0.1 MG/DL (0.0-0.2); BILIRUBIN,TOTAL 0.2 MG/DL (0.2-1.0); LIPASE 129 U/L (73-393); TOTAL PROTEIN 7.8 GM/DL (6.4-8.2)
--- NOTE | 2020-09-16 15:59 | REP ---
INDICATION: left flank pain; hx of stones COMPARISON: 01/14/2016 TECHNIQUE: Axial noncontrast images from the lung bases to the pubic symphysis with coronal and sagittal reformations. This CT examination was performed using the following dose reduction techniques: Automated exposure control, adjustment of mA and/or kv according to the patient's size, and use of iterative reconstruction technique. FINDINGS: Mild fatty infiltration to the liver noted. Spleen, pancreas, gallbladder, bilateral adrenal glands are normal. Right kidney/ureter is normal. Left kidney includes 4 mm nonobstructing nephrolith without perinephric stranding, hydroureteronephrosis or obstructing ureteral calculus. The enteric system is without obstruction or acute inflammatory process. Pelvis demonstrates normal bladder and age-appropriate uterus/adnexa. No ascites. No free air. No adenopathy. Abdominal aorta without aneurysm. Musculoskeletal structures are intact. Lung bases are clear. IMPRESSION: No acute abdominopelvic pathology appreciated. 4 mm nonobstructing left renal calculus. No acute uropathy. Hepatosteatosis. <Electronically signed by Idris Weiss > 09/16/20 [id number]
[2020-09-16] MEDS ORDERED: KETAMINE HCL IV ONE (17:00)
[2020-09-16] MEDS ORDERED: NS IV ONE (17:00)
[2020-09-16] MEDS ORDERED: CIPR-249 PO (17:06)
[2020-09-16] MEDS ORDERED: CIPROFLOXACIN 500MG TABLET PO ONE (17:10)
[2020-09-16 17:23] VITALS: BP 136/78
== END 2020-09-16 17:28 | disposition home or self-care (01) ==
LOC: EDBD 14:03 → M ED 14:03
DX: N39.0 Urinary tract infection, site not specified (principal); N20.0 Calculus of kidney; N23 Unspecified renal colic; K76.0 Fatty (change of) liver, not elsewhere classified; I10 Essential (primary) hypertension; J45.909 Unspecified asthma, uncomplicated; M54.9 Dorsalgia, unspecified; F41.9 Anxiety disorder, unspecified; F32.9 Major depressive disorder, single episode, unspecified; D64.9 Anemia, unspecified; Z87.442 Personal history of urinary calculi; Z79.899 Other long term (current) drug therapy; Z91.018 Allergy to other foods; Z91.040 Latex allergy status; Z91.013 Allergy to seafood; Z88.0 Allergy status to penicillin

== ENCOUNTER → 2020-09-18 | Outpatient (CLI) | payer OTHER ==
[~2020-09-18] MED LIST changes: +BREO1INH INH; +CIPR-249 PO; -OMEP-218; +OMEP-218 PO; +PROV2.5T PO
--- NOTE | 2020-09-18 10:59 | REP ---
INDICATION: MODERATE PERSISTENT ASTHMA, UNCOMPLICATED COMPARISON: 09/10/2019 TECHNIQUE: PA and lateral. FINDINGS: The mediastinum and cardiac silhouette are normal. The lung castro are clear and without acute consolidation, effusion, or pneumothorax. The skeletal structures are intact and normal. IMPRESSION: No acute cardiopulmonary process. <Electronically signed by Idris Weiss > 09/18/20 105
== END ==
LOC: M RAD 10:37
PROVIDERS: ATTEND Nurse Practitioner Adult Health
DX: J45.40 Moderate persistent asthma, uncomplicated (principal)

== ENCOUNTER → 2020-09-28 | Outpatient (CLI) | payer OTHER | LOC: M LABSMTC 09:47 | PROVIDERS: ATTEND Anesthesiology | DX: Z01.812 Encounter for preprocedural laboratory examination (principal); Z20.822 Contact with and (suspected) exposure to COVID-19 ==

== ENCOUNTER 2020-10-03 07:56 | Day surgery (SDC) | payer OTHER ==
[~2020-10-03] VITALS: Ht 172.7 cm; Wt 113.4 kg
[~2020-10-03 07:56] MED LIST changes: +LR 1,000 ML IV ONE; +ceFAZolin SOD 2 GM in IV 1 EA IV ONE
[2020-10-03 08:44] LABS: HEMATOCRIT 36.2 % (36.0-47.0); HEMOGLOBIN 10.9 g/dl (12.0-15.5); MEAN CORPUSCULAR HEMOGLOBIN 25.5 pg (27.0-33.0); MEAN CORPUSCULAR HGB CONC 30.1 g/dl (32.0-36.5); MEAN CORPUSCULAR VOLUME 84.6 fl (80.0-96.0); PLATELET COUNT, AUTOMATED 389 10^3/uL (150-450); RED BLOOD COUNT 4.28 10^6/uL (4.00-5.40); WHITE BLOOD COUNT 13.8 10^3/uL (4.0-10.0)
[2020-10-03] MEDS ORDERED: SCOPOLAMINE 1MG TRANSDERMAL PATCH TOP ONE (09:20)
[2020-10-03] MEDS ORDERED: BUPIVACAINE HCL 0.25% 10ML VIAL As Ordered ONE (09:24)
[2020-10-03] MEDS ORDERED: ONDANSETRON 4MG/2ML VIAL As Ordered ONE (09:42)
[2020-10-03] MEDS ORDERED: dexameTHASONE 4 MG/ML 1ML VIAL (J1100 PER 1MG) As Ordered ONE (09:42)
[2020-10-03] MEDS ORDERED: MIDAZOLAM INJ 2MG/2ML VIAL (J2250 PER 1MG) As Ordered ONE (09:42)
[2020-10-03] MEDS ORDERED: propofoL 200 MG/20 ML VIAL As Ordered ONE (09:42)
[2020-10-03] MEDS ORDERED: SUGAMMADEX SODIUM 500 MG/5 ML VIAL (BRIDION) As Ordered ONE (09:42)
[2020-10-03] MEDS ORDERED: ROCURONIUM BROMIDE 50 MG/5 ML VIAL As Ordered ONE (09:42)
[2020-10-03] MEDS ORDERED: LIDOCAINE 2% 100MG/5ML SDV (FOR ANES.) As Ordered ONE (09:42)
[2020-10-03] MEDS ORDERED: KETOROLAC 60MG 2ML VIAL As Ordered ONE (09:42)
[2020-10-03] MEDS ORDERED: METOCLOPRAMIDE INJ 10MG/2ML VIAL (J2765 PER 1) As Ordered ONE (09:42)
[2020-10-03] MEDS ORDERED: fentaNYL 250 MCG/5 ML INJECTION (J3010) As Ordered ONE (09:42)
[2020-10-03] MEDS ORDERED: ACETAMINOPHEN 1000MG 100ML IV BTL (OFIRMEV) (J0131 PER 10MG) As Ordered ONE (10:00)
[2020-10-03] MEDS ORDERED: fentaNYL 100 MCG/2 ML INJECTION (J3010) As Ordered ONE (11:34)
[2020-10-03] MEDS: fentaNYL 100 MCG/2 ML INJECTION (J3010) IV PRN ×4 (11:35→11:50)
[2020-10-03] MEDS ORDERED: LEVALBUTEROL 1.25 MG/0.5 ML CONCENTRATE NEB As Ordered ONE (11:53)
[2020-10-03] MEDS ORDERED: MORPHINE 2 MG/ML 1ML VIAL (J2270) As Ordered ONE ×2 (11:53→12:13)
[2020-10-03] MEDS: MORPHINE 2 MG/ML 1ML VIAL (J2270) IV PRN ×4 (11:58→12:43)
--- NOTE | 2020-10-03 12:00 | ROOPDOC ---
[facility] Report Of Operation Report of Operation DATE OF PROCEDURE: 10/03/20 OPERATIVE REPORT: Preoperative diagnosis: Menorrhagia. Postoperative diagnosis: Same. Procedure: Robotic-assisted laparoscopic hysterectomy, cystoscopy. Surgeon: Wang Perrin M.D. Sample Maker Hand: Pearl Winters NP Findings: Mildly enparged uterus, absent fallopian tubes. Normal ovaries. EBL: 200 mL's. Urine output: 100 mL's. Operative summary: Patient was taken to the operating room where general en dotracheal anesthesia was induced. She was prepped and draped in sterile fashion in the dorsal lithotomy position. A Pruett Catheter was placed. A V care uterine manipulator was placed. A Periumbilical incision was made with a scalpel. A Veress needle was placed through this incision. Intra-abdominal location of Veress needle was assessed with saline filled syringe. A pneumoperitoneum was created. The Veress needle was removed. An 8 mm trocar using the Visiport was inserted through this incision. Three 8 mm suprapubic ports were placed under direct visualization The patient was placed in Trendelenburg position. The da Aviva surgical robot was docked to the ports. Using the fenestrated bipolar instrument and vessel sealer, the utero-ovarian ligaments and broad ligaments were coagulated and incised. The round ligaments were coagulated and incised. The anterior and posterior leaves of the broad ligament were . Bladder flap was created. The uterine vessels were coagulated and incised using monopolar Endo Luz Elena. A colpotomy was created in the upper vagina at the level of the V care Cup. The specimen including the uterus and cervix was removed through the vagina. The vaginal cuff was closed with #1 V lock suture in running fashion. A surgical clip was placed on the left uterine artery to prevent possible future bleeding. Cystoscopy was performed using a 70 cystoscope. Bilateral ureteral jets were identified. No evidence of injury to the bladder. The cystoscope was removed. All instruments removed. The skin was closed with 4-0 Monocryl subcuticular sutures. Pearl Winters NP assisted with all aspects of the procedure. She helped position the patient. She helped insert the ports and manipulate the uterus. She removed the specimen. WANG PERRIN MD Oct 03, 2020 12:00
[2020-10-03] MEDS ORDERED: OXYC1TAB23 PO (12:01)
[2020-10-03] MEDS ORDERED: IBUP-1022 PO (12:02)
[2020-10-03] MEDS ORDERED: LR 1,000 ML IV SCH ×2 (12:15→15:10)
[2020-10-03] MEDS ORDERED: ONDANSETRON 4MG/2ML VIAL IV PRN ×2 (12:15→13:15)
[2020-10-03] MEDS ORDERED: LEVALBUTEROL 1.25 MG/0.5 ML CONCENTRATE NEB INH ONE (12:20)
[2020-10-03] MEDS: oxyCODONE 5MG TAB PO PRN ×2 (12:28→13:00)
[2020-10-03] MEDS: HYDROMORPHONE HCL 0.5 MG/ 0.5 ML SYRINGE (J1170 PER 1) IV PRN ×3 (12:57→13:30)
[2020-10-03] MEDS ORDERED: MORPHINE 4 MG/ML 1ML VIAL/SYRINGE (J2270) IV PRN (13:15)
[2020-10-03] MEDS ORDERED: PERCOCET 5MG/325MG TAB PO PRN (13:15)
[2020-10-03 14:30] VITALS: BP 151/86
[2020-10-03] MEDS: DOCUSATE SODIUM 100MG CAPSULE PO SCH ×2 (15:22→19:43)
[2020-10-03 15:50] VITALS: BP 141/68
[2020-10-03 16:50] VITALS: BP 136/70
[2020-10-03] MEDS ORDERED: KETOROLAC 30 MG/ML 1ML VIAL IV PRN (17:00)
[2020-10-03 17:47] VITALS: BP 136/72
[2020-10-03 18:40] VITALS: BP 134/74
[2020-10-03] MEDS: PERCOCET 5MG/325MG TAB PO PRN (19:43)
[2020-10-03 22:28] VITALS: BP 130/76
[2020-10-04 02:00] VITALS: BP 135/74
[2020-10-04 06:00] VITALS: BP 124/64
[2020-10-04 06:18] LABS: HEMATOCRIT 31.5 % (36.0-47.0); HEMOGLOBIN 9.4 g/dl (12.0-15.5); MEAN CORPUSCULAR HEMOGLOBIN 25.2 pg (27.0-33.0); MEAN CORPUSCULAR HGB CONC 29.8 g/dl (32.0-36.5); MEAN CORPUSCULAR VOLUME 84.5 fl (80.0-96.0); PLATELET COUNT, AUTOMATED 340 10^3/uL (150-450); RED BLOOD COUNT 3.73 10^6/uL (4.00-5.40); WHITE BLOOD COUNT 16.9 10^3/uL (4.0-10.0)
[2020-10-04] MEDS: DOCUSATE SODIUM 100MG CAPSULE PO SCH (08:51)
[2020-10-04] MEDS: PERCOCET 5MG/325MG TAB PO PRN (08:51)
== END 2020-10-04 11:30 | disposition home or self-care (01) ==
LOC: M SDC 07:56 → M MS5PR 14:00 → M SDC 10-04 11:30
PROVIDERS: ATTEND Specialist
DX: N92.0 Excessive and frequent menstruation with regular cycle (principal); N80.0 Endometriosis of uterus; J45.909 Unspecified asthma, uncomplicated; D64.9 Anemia, unspecified; K21.9 Gastro-esophageal reflux disease without esophagitis; I10 Essential (primary) hypertension; Z79.899 Other long term (current) drug therapy; G47.33 Obstructive sleep apnea (adult) (pediatric); Z91.013 Allergy to seafood; Z91.018 Allergy to other foods; Z88.0 Allergy status to penicillin; Z91.040 Latex allergy status
CPT/HCPCS: 36415; 58570; 85027; 86850; 86900; 86901; 88307; J0131; J0690; J1100; J1170; J1885; J2250; J2270; J2405; J2765; J3010; S2900

== ENCOUNTER 2020-10-27 06:00 | Day surgery (SDC) | payer OTHER ==
[~2020-10-27] VITALS: Ht 172.7 cm; Wt 113.7 kg
[~2020-10-27 06:00] MED LIST changes: +IBUP-1022 PO; -LR 1,000 ML IV ONE; +OXYC1TAB23 PO; -ceFAZolin SOD 2 GM in IV 1 EA IV ONE
[2020-10-27] MEDS ORDERED: ONDANSETRON 4MG/2ML VIAL IV ONE (06:40)
[2020-10-27] MEDS ORDERED: KETOROLAC 30 MG/ML 1ML VIAL IV ONE (06:40)
[2020-10-27] MEDS ORDERED: NS 1,000 ML IV ONE (06:40)
[2020-10-27 07:06] LABS: BASO # 0.1 10^3/uL (0.0-0.2); BASO % 0.5 % (0.0-1.0); EOS # 0.2 10^3/uL (0.0-0.5); EOS % 1.4 % (0.0-3.0); HEMATOCRIT 34.7 % (36.0-47.0); HEMOGLOBIN 10.4 g/dl (12.0-15.5); LYMPH # 2.7 10^3/uL (1.5-5.0); LYMPH % 23.9 % (24.0-44.0); MEAN CORPUSCULAR HEMOGLOBIN 24.2 pg (27.0-33.0); MEAN CORPUSCULAR VOLUME 80.9 fl (80.0-96.0); MONO % 8.9 % (2.0-8.0); NEUTROPHILS # 7.3 10^3/uL (1.5-8.5); NEUTROPHILS % 64.6 % (36.0-66.0); PLATELET COUNT, AUTOMATED 413 10^3/uL (150-450); RED BLOOD COUNT 4.29 10^6/uL (4.00-5.40); WHITE BLOOD COUNT 11.3 10^3/uL (4.0-10.0)
[2020-10-27] MEDS ORDERED: MORPHINE 4 MG/ML 1ML VIAL/SYRINGE (J2270) IV ONE (07:15)
[2020-10-27 07:26] LABS: BLOOD UREA NITROGEN 17 MG/DL (7-18); CALCIUM LEVEL 9.3 MG/DL (8.5-10.1); CARBON DIOXIDE LEVEL 26 MEQ/L (21-32); CHLORIDE LEVEL 105 MEQ/L (98-107); CREATININE FOR GFR 0.88 MG/DL (0.55-1.30); GLOMERULAR FILTRATION RATE > 60.0 (>60); GLUCOSE, FASTING 145 MG/DL (70-100); POTASSIUM SERUM 4.2 MEQ/L (3.5-5.1); SODIUM LEVEL 138 MEQ/L (136-145)
--- NOTE | 2020-10-27 08:14 | REP ---
INDICATION: left flank pain COMPARISON: Correlation with CT dated 09/16/2020 TECHNIQUE: Real time coates scale ultrasound examination using curved array transducer. FINDINGS: Bilateral kidneys are normal in contour, size, echogenicity, and reniform shape without hydronephrosis, nephrolithiasis, cystic or renal mass lesion. No perinephric fluid collections are identified. Right kidney measures 13.2 x 5.3 x 5.9 cm. Left kidney measures 14.3 x 5.2 x 6.8 cm. Bladder is grossly unremarkable. IMPRESSION: 1. There is no evidence for hydronephrosis and the previously identified 3.5 mm calculus in the left kidney on CT dated 09/16/2020 is not visualized by ultrasound. Correlation is recommended and if necessary, noncontrast CT should be considered for further investigation. <Electronically signed by Idris Weiss > 10/27/20 0838
[2020-10-27] MEDS ORDERED: MORPHINE 2 MG/ML 1ML VIAL (J2270) IV ONE (08:45)
--- NOTE | 2020-10-27 09:22 | REP ---
INDICATION: left flank pain, hx stones--recent hysterectomy COMPARISON: None TECHNIQUE: Axial noncontrast images from the lung bases to the pubic symphysis with coronal and sagittal reformations. This CT examination was performed using the following dose reduction techniques: Automated exposure control, adjustment of mA and/or kv according to the patient's size, and use of iterative reconstruction technique. FINDINGS: Mild acute left-sided obstructive uropathy with mild hydroureteronephrosis and subtle Jo ureteral stranding secondary to a 4 mm calculus in the distal ureter approximately 1.5 cm from the ureterovesical junction (series 201 images 137-138). 1 mm nonobstructing left renal calculus identified. Right kidney/ureter appear normal. Hepatosteatosis. Spleen, pancreas, gallbladder, and bilateral adrenal glands are normal. The enteric system is without obstruction or acute inflammatory process. Normal terminal ileum and appendix identified in the right lower quadrant. Pelvis demonstrates relatively normal bladder and evidence for prior hysterectomy. No ascites. No free air. No adenopathy. Abdominal aorta without aneurysm. Musculoskeletal structures are intact. IMPRESSION: 1. Mild acute left-sided obstructive uropathy with a 4 mm calculus in the distal left ureter. <Electronically signed by Idris Weiss > 10/27/20 0919
[2020-10-27] MEDS ORDERED: VENTAER INH (11:17)
[2020-10-27] MEDS ORDERED: NS 1,000 ML IV SCH (11:25)
[2020-10-27] MEDS ORDERED: ACETAMINOPHEN TAB 650MG DOSE (2X325MG) PO PRN (11:25)
[2020-10-27] MEDS ORDERED: TAMSULOSIN 0.4 MG CAP PO ONE (11:25)
[2020-10-27] MEDS ORDERED: ONDANSETRON 4MG/2ML VIAL IV PRN ×2 (11:25→19:35)
[2020-10-27] MEDS ORDERED: ALBUTEROL 90 MCG/ACT 8GM HFA INHALER INH PRN (11:25)
[2020-10-27] MEDS: MORPHINE 2 MG/ML 1ML VIAL (J2270) IV PRN ×3 (12:15→20:29)
[2020-10-27] MEDS: PERCOCET 5MG/325MG TAB PO PRN (12:15)
[2020-10-27 13:12] VITALS: BP 141/81
[2020-10-27 16:00] VITALS: BP 145/79
[2020-10-27] MEDS ORDERED: CONRAY-60 60% 50ML VIAL (Q9961) As Ordered ONE (17:52)
[2020-10-27] MEDS ORDERED: ceFAZolin 2 GM/D5W 50 ML IV BAG (J0690 PER 500MG) As Ordered ONE (18:07)
[2020-10-27] MEDS ORDERED: MIDAZOLAM INJ 2MG/2ML VIAL (J2250 PER 1MG) As Ordered ONE (18:09)
[2020-10-27] MEDS ORDERED: propofoL 200 MG/20 ML VIAL As Ordered ONE (18:09)
[2020-10-27] MEDS ORDERED: fentaNYL 100 MCG/2 ML INJECTION (J3010) As Ordered ONE ×2 (18:09→18:36)
[2020-10-27] MEDS ORDERED: LIDOCAINE 2% 100MG/5ML SDV (FOR ANES.) As Ordered ONE (18:09)
[2020-10-27] MEDS ORDERED: ceFAZolin SOD 2 GM in IV 1 EA IV ONE (18:10)
--- NOTE | 2020-10-27 18:11 | SMCUROLCON ---
Urology Consultation General Date of Consultation 10/27/20 Reason For Consultation This patient is seen for Left Ureteral Calculus. History of Present Illness This is a 35 y/o F w/ a PMH significant for kidney stones, HTN, and asthma, who presented to the ER today w/ acute onset L flank pain and nausea. A noncontrast CT A/P obtained in the ER was notable for an obstructing 4mm distal L ureteral stone w/ moderate L hydroureteronephrosis. Despite several doses of IV pain medication, her pain has not been controlled. She denies dysuria. She denies fevers or chills. Past Medical History Medical History see HPI Surgical Hstory hysterectomy URS w/ basket extraction Medications Current Medications Current Medications Medications (Trade) Dose Ordered Sig/Olga Lidia Route PRN Reason Start Time Stop Time Status Last Admin Dose Admin Acetaminophen (Tylenol Tab) 650 mg Q4HP PRN PO MILD PAIN or TEMP > 101 10/27/20 11:25 Albuterol Sulfate (Proventil, Ventolin Hfa) 2 puff Q6HP PRN INH SHORTNESS OF BREATH 10/27/20 11:25 Docusate Sodium (Colace) 100 mg BID PO 10/27/20 21:00 Home Med (Med Rec Complete!) ASDIRECTED XX 10/27/20 11:20 10/27/20 11:22 DC Morphine Sulfate (Morphine Sulfate Inj) 2 mg Q3HP PRN IV SEVERE PAIN (PS 8-10) 10/27/20 11:25 10/27/20 15:28 Ondansetron HCl (ZOFRAN INJection) 4 mg Q6HP PRN IV NAUSEA OR VOMITING 10/27/20 11:25 Oxycodone/ Acetaminophen (Percocet 5mg/ 325mg Tablet) 1 tab Q4H PRN PO MODERATE PAIN (PS 5-7) 10/27/20 11:25 10/27/20 12:15 Sodium Chloride 1,000 ml @ 75 mls/hr [id number] IV 10/27/20 11:25 10/27/20 14:17 Allergies Allergies: Coded Allergies: Coconut (Verified Allergy, Severe, throat swelling , 09/24/20) shellfish derived (Verified Allergy, Intermediate, facial swelling , 09/24/20) latex (Verified Allergy, Mild, rash, 09/24/20) amoxicillin (Verified Adverse Reaction, Mild, Itching, no hives., 09/24/20) Itching, no hives. Review of Systems Constitutional: Denies: Fever, Chills, Sweats, Weakness, Malaise Skin: Denies: Rash, Lesions, Breakdown, Nail Changes Pulmonary: Denies: Dyspnea, Cough Cardiovascular: Denies Chest Pain, Denies Palpitations Gastrointestinal: Reports: Nausea; Denies: Vomiting Genitourinary: Reports: Frequency; Denies: Dysuria Musculoskeletal: Reports: Back Pain (L flank) Neurological: Denies: Weakness, Numbness, Incoordination, Change in Speech Psych: Reports: Mood Normal; Denies: Anxiety, Depression Physical Examination General Exam: Alert, Cooperative Chest Exam: Normal air movement Heart Exam: Rate Normal Abdomen Exam: Soft, Tenderness (LLQ) Skin Exam: Nl turgor and temperature Neuro Exam: Normal Speech Psych Exam: Mental status NL, Mood NL Vital Signs/I&O Vital Signs Date Time Temp Pulse Resp B/P (MAP) Pulse Ox O2 Delivery O2 Flow Rate FiO2 10/27/20 16:00 98.4 99 17 145/79 (101) 95 Room Air Laboratory Data 24H Labs Laboratory Tests 2 10/27/20 06:38: Immature Granulocyte % (Auto) 0.7, Neutrophils (%) (Auto) 64.6, Lymphocytes (%) (Auto) 23.9L, Monocytes (%) (Auto) 8.9H, Eosinophils (%) (Auto) 1.4, Basophils (%) (Auto) 0.5, Neutrophils # (Auto) 7.3, Lymphocytes # (Auto) 2.7, Monocytes # (Auto) 1.0H, Eosinophils # (Auto) 0.2, Basophils # (Auto) 0.1, Nucleated Red Blood Cells % (auto) 0.0, Anion Gap 7L, Glomerular Filtration Rate > 60.0, Calcium Level 9.3 10/27/20 06:44: Urine Color YELLOW, Urine Appearance HAZY, Urine pH 5.0, Urine Specific Rock 1.028, Urine Protein 1+H, Urine Glucose (UA) NEGATIVE, Urine Ketones NEGATIVE, Urine Blood 1+H, Urine Nitrite NEGATIVE, Urine Bilirubin NEGATIVE, Urine Urobilinogen 2.0H, Urine Leukocyte Esterase NEGATIVE, Urine WBC (Auto) 2, Urine RBC (Auto) 22H, Urine Hyaline Casts (Auto) 1, Urine Bacteria (Auto) 1+H, Urine Squamous Epithelial Cells 8, Urine Mucus (Auto) SMALL, Urine Sperm (Auto) CBC/BMP Laboratory Tests 10/27/20 06:38 Microbiology Microbiology 10/27/20 Respiratory Virus Panel (PCR) ([facility]) - Final, Complete Assessment This is a 35 y/o F w/ intractable pain 2/2 an obstructing 4mm distal L ureteral stone. I recommended that we take her to the OR now for cystoscopy, L ureteroscopy w/ laser lithotripsy, and L ureteral stent placement. After a discussion of the risks and benefits of surgery, informed consent was signed. 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
[2020-10-27] MEDS ORDERED: KETOROLAC 60MG 2ML VIAL As Ordered ONE (18:35)
[2020-10-27] MEDS ORDERED: dexameTHASONE 4 MG/ML 1ML VIAL (J1100 PER 1MG) As Ordered ONE (18:35)
[2020-10-27] MEDS ORDERED: ONDANSETRON 4MG/2ML VIAL As Ordered ONE (18:35)
[2020-10-27] MEDS ORDERED: ACETAMINOPHEN 1000MG 100ML IV BTL (OFIRMEV) (J0131 PER 10MG) As Ordered ONE (18:36)
[2020-10-27] MEDS ORDERED: KETOROLAC 30 MG/ML 1ML VIAL IV PRN (18:58)
[2020-10-27] MEDS ORDERED: OXYB5TAB10 PO (19:18)
--- NOTE | 2020-10-27 19:34 | REP ---
INDICATION: LEFT STENT PLACEMENT. COMPARISON: None. TECHNIQUE: Two intraoperative fluoroscopic images using C-arm technique. FINDINGS: Patient is status post left ureteral stent placement. Total fluoroscopic time 10 seconds. IMPRESSION: Satisfactory left ureteral stent placement. <Electronically signed by Idris Weiss > 10/27/20 1280
[2020-10-27] MEDS ORDERED: LR 1,000 ML IV SCH (19:35)
[2020-10-27] MEDS: oxyCODONE 5MG TAB PO PRN ×2 (19:46→20:15)
[2020-10-27] MEDS: fentaNYL 100 MCG/2 ML INJECTION (J3010) IV PRN ×4 (20:09→20:25)
[2020-10-27 21:15] VITALS: BP 146/70
[2020-10-27] MEDS: DOCUSATE SODIUM 100MG CAPSULE PO SCH (21:28)
[2020-10-27 21:45] VITALS: BP 144/66
[2020-10-27 22:15] VITALS: BP 140/67
[2020-10-27 23:15] VITALS: BP 148/71
[2020-10-28 00:15] VITALS: BP 148/72
[2020-10-28 01:15] VITALS: BP 140/72
[2020-10-28] MEDS: MORPHINE 2 MG/ML 1ML VIAL (J2270) IV PRN ×2 (01:24→04:26)
[2020-10-28 02:15] VITALS: BP 160/74
[2020-10-28] MEDS: PERCOCET 5MG/325MG TAB PO PRN (02:36)
[2020-10-28] MEDS: oxyBUTYnin 5 MG TAB PO PRN ×2 (03:21→13:01)
[2020-10-28] MEDS ORDERED: KETOROLAC 30 MG/ML 1ML VIAL IV ONE ×2 (05:40→11:50)
[2020-10-28 06:00] VITALS: BP 128/60
--- NOTE | 2020-10-28 07:53 | RO ---
OPERATIVE NOTE DATE OF OPERATION: 10/27/2020 PREOPERATIVE DIAGNOSIS: Obstructing left ureteral stone. POSTOPERATIVE DIAGNOSIS: Obstructing left ureteral stone. PROCEDURE: Cystoscopy, left ureteroscopy with laser lithotripsy and basket extraction of stone, left retrograde pyelogram with intraop interpretation of images, left ureteral stent placement. SURGEON: Harvey Edmondson MD PORTER BATH: None. ANESTHESIA: General. OPERATIVE INDICATIONS: This is a 35-year-old female who was admitted for intractable pain secondary to an obstructing 4 mm distal left ureteral stone. She was brought to the operating room today for treatment. DESCRIPTION OF PROCEDURE: The patient was brought to the operating room and general anesthesia was induced. Prophylactic antibiotics were infused. She was placed in the dorsal lithotomy position and prepped and draped in the usual sterile fashion. A rigid cystoscope was inserted in the urethral meatus and advanced into the bladder. A guidewire was advanced up the left collecting system. I went up the left collecting system with a short semi-rigid ureteroscope and impacted within the distal ureter was a 4 mm stone. The stone was fragmented into smaller pieces using 272 micron laser fiber. All the fragments were then removed using a basket. I then examined the more proximal ureter and no additional stones were seen. A retrograde pyelogram was performed and notable for moderate left hydroureteronephrosis with no extravasation. I then withdrew the ureteroscope and utilized the guidewire to advance a 6-Malay x 22-32 cm JJ ureteral stent into the left collecting system. The wire was removed and there were adequate curls of the stent in left renal pelvis and in the bladder. The bladder was emptied of all fluids and this marked the conclusion of the procedure. The patient was taken out of dorsal lithotomy position, awakened from anesthesia and transported to the recovery room in stable condition. ESTIMATED BLOOD LOSS: 5 mL. COMPLICATIONS: None. SPECIMEN: Kidney stone fragments. PLAN: The patient will go back to the regular nursing floor and if her pain is controlled she can be discharged home. I will have her follow up in urology clinic in a few weeks for stent removal. CHARLIE
[2020-10-28 08:00] VITALS: BP 136/79
[2020-10-28] MEDS ORDERED: traMADol 50 MG TAB PO PRN ×2 (08:15)
--- NOTE | 2020-10-28 08:19 | IPNPDOC ---
Subjective Review oF Systems Chief Complaint The patient is a 35-year-old female admitted with a reason for visit of Left Ureteral Calculus. Events since Last Encounter Patient had moderate LLQ pain o/n, not well-controlled w/ percocet or morphine. She denied n/v. Voiding well. No f/c/ns. Objective Physical Examination General Exam: Alert, Cooperative, No Acute Distress ABDOMEN EXAM: Soft, Tenderness (LLQ) Skin Exam: Nl turgor and temperature Neuro Exam: Normal Speech Psych Exam: Mental status NL, Mood NL Vital Signs/I&O Vital Signs Date Time Temp Pulse Resp B/P (MAP) Pulse Ox O2 Delivery O2 Flow Rate FiO2 10/28/20 06:00 98.2 79 18 128/60 (82) 98 Room Air 10/27/20 22:15 2.0 I&O- Last 24 Hours up to 6 AM 10/28/20 06:00 Intake Total 2344 ml Output Total 710 ml Balance 1634 ml Laboratory Data Labs 24H Laboratory Tests 2 10/27/20 19:03: Microbiology Microbiology 10/27/20 Respiratory Virus Panel (PCR) ([facility]) - Final, Complete Assessment/Plan Date Seen The patient was seen on 10/28/20. Patient Summary This is a 35 y/o F POD1 s/p cysto, L URS w/ laser lithotripsy and basket extraction of stones, L ureteral stent placement. She has had moderate difficulty w/ pain control o/n. Percocet and morphine did not help much. Oxybutynin was given in case bladder spasms were causing her pain, and this did not help. Toradol did ease her pain a lot, but did not last very long. Plan/VTE VTE Prophylaxis Ordered?: Yes VTE Exclusion Mechanical Proph: N/A:VTE Prophy Ordered Plan - d/c percocet and morphine - ultram prn pain - ambulate - strict I/Os - regular diet - discharge home once stent pain is better controlled WAI NOLAN MD Oct 28, 2020 08:19
[2020-10-28] MEDS: DOCUSATE SODIUM 100MG CAPSULE PO SCH (08:33)
[2020-10-28 12:00] VITALS: BP 134/58
[2020-10-28] MEDS ORDERED: KETO10TAB PO (13:21)
[2020-10-28] MEDS ORDERED: TRAM50TA2 PO (13:21)
== END 2020-10-28 13:55 | disposition home or self-care (01) ==
LOC: M ED 06:00 → M SDC 06:01 → UNDOADMIN 11:24 → M ED INP 11:24 → ENRESERV 12:08 → M PED 13:12 → M ED INP 13:12 → UNDODISIN 10-28 13:55 → M SDC 10-28 13:55
PROVIDERS: ATTEND Urology
DX: N20.1 Calculus of ureter (principal); I10 Essential (primary) hypertension; J45.909 Unspecified asthma, uncomplicated; K21.9 Gastro-esophageal reflux disease without esophagitis; M54.5 Low back pain; Z91.018 Allergy to other foods; Z88.0 Allergy status to penicillin; Z91.040 Latex allergy status; Z79.51 Long term (current) use of inhaled steroids; Z91.013 Allergy to seafood
CPT/HCPCS: 52356; 74420; 76775; 80048; 81001; 82365; 85025; 87798; 88300; 96361; 96374; 96375; 96376; 99284; C1769; C2617; J0131; J0690; J1100; J1885; J2250; J2270; J2405; J3010; Q9961

== ENCOUNTER 2021-02-02 22:18 | Emergency (ER) | payer OTHER ==
[~2021-02-02] VITALS: Ht 172.7 cm; Wt 111.0 kg
[2021-02-02 22:18] VITALS: BP 148/75
[~2021-02-02 22:18] MED LIST changes: +KETO10TAB PO; +OMEP40CA4 PO; -OMEP40CA97 PO; +OXYB5TAB10 PO
--- NOTE | 2021-02-03 07:38 | ECGEPIP ---
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
== END 2021-02-03 01:15 | disposition left against medical advice (07) ==
LOC: M ED 22:18
DX: Z53.21 Procedure and treatment not carried out due to patient leaving prior to being seen by health care provider (principal)

== ENCOUNTER → 2021-07-07 | Outpatient (CLI) | payer OTHER ==
[~2021-07-07] MED LIST changes: -CYMB60CA3 PO; +CYMB60CA4 PO; +VITAD400CA PO
--- NOTE | 2021-07-08 10:50 | REPVR ---
PROCEDURE INFORMATION: Exam: MR Cervical Spine Without Contrast Exam date and time: 07/07/2021 1:09 PM Age: 36 years old Clinical indication: Neck pain; Additional info: Ddd TECHNIQUE: Imaging protocol: Multiplanar magnetic resonance images of the cervical spine without contrast. COMPARISON: None available. FINDINGS: Vertebrae: There is straightening of the normal cervical lordosis. There is no fracture or listhesis. Spinal cord: Normal signal. No cord compression. C2-C3: No significant disc disease. No significant spinal stenosis. C3-C4: There is a shallow disc osteophyte complex asymmetric to the left. There is mild facet hypertrophy. There is mild left neural foraminal narrowing. C4-C5: There is a shallow disc osteophyte complex. There is mild facet hypertrophy. There is mild bilateral neural foraminal narrowing. C5-C6: There is a shallow disc osteophyte complex. There is mild facet hypertrophy. The spinal canal and neural foramina are patent. C6-C7: There is a shallow disc osteophyte complex. There is mild facet hypertrophy. There is mild left neural foraminal narrowing. C7-T1: No significant disc disease. No significant spinal stenosis. Soft tissues: Unremarkable. Vertebral arteries: Expected flow voids in the vertebral arteries. IMPRESSION: Mild degenerative disc disease and spondylosis without canal or neural foraminal compromise. Electronically signed by: Karyna Galvan On 07/08/2021 10:50:01 AM
--- NOTE | 2021-07-08 13:07 | REPVR ---
PROCEDURE INFORMATION: Exam: MR Lumbar Spine Without Contrast Exam date and time: 07/07/2021 1:29 PM Age: 36 years old Clinical indication: Low back pain; Additional info: Disc degeneration, lumbar reg/cervical reg TECHNIQUE: Imaging protocol: Multiplanar magnetic resonance images of the lumbar spine without intravenous contrast. COMPARISON: MRI-Spine, L.S. without con 07/15/2015 2:17 PM FINDINGS: Vertebrae: There is no fracture or listhesis. There is a hemangioma at L2. Marrow signal is otherwise within normal limits. Spinal cord: Normal signal. No cord compression. L1-L2: There is shallow disc bulging. There is mild facet hypertrophy. The spinal canal and neural foramina are patent. L2-L3: There is shallow disc bulging. There is mild facet hypertrophy. There is mild canal stenosis. The neural foramina are patent. L3-L4: There is diffuse disc bulging. There is moderate facet hypertrophy. There is mild canal stenosis. There is mild bilateral neural foraminal narrowing. L4-L5: There is shallow disc bulging. There is moderate facet hypertrophy. The spinal canal and neural foramina are patent. L5-S1: There is diffuse disc bulging. There is mild facet hypertrophy. The spinal canal and neural foramina are patent. Soft tissues: Unremarkable. IMPRESSION: Mild degenerative disc disease and spondylosis. At L3/4, changes contribute to mild canal stenosis and mild bilateral neural foraminal narrowing. Electronically signed by: aKryna Galvan On 07/08/2021 13:07:25 PM
== END ==
LOC: M PLAIMG 12:30
PROVIDERS: ATTEND Physician Assistant
DX: M51.36 Other intervertebral disc degeneration, lumbar region (principal); M50.30 Other cervical disc degeneration, unspecified cervical region; M51.26 Other intervertebral disc displacement, lumbar region; M47.817 Spondylosis without myelopathy or radiculopathy, lumbosacral region; M48.061 Spinal stenosis, lumbar region without neurogenic claudication

== ENCOUNTER → 2021-09-02 | Outpatient (CLI) | payer OTHER ==
[~2021-09-02] MED LIST changes: +OMEP-173 PO; -OMEP-218 PO
[2021-09-02 10:11] LABS: PLATELET COUNT, AUTOMATED 312 10^3/uL (150-450)
[2021-09-02 10:22] LABS: INR 0.95; PARTIAL THROMBOPLASTIN TIME 27.8 SECONDS (25.9-37.0); PROTHROMBIN TIME 13.1 SECONDS (12.7-14.5)
[2021-09-02 10:38] LABS: COLLAGEN EPINEPHRINE 196 SECONDS (74-162)
[2021-09-02 10:42] LABS: HCG, SERUM QUALITATIVE NEGATIVE (NEGATIVE)
[2021-09-02 11:10] LABS: COLLAGEN ADP 116 SECONDS (56-103)
== END ==
LOC: M LAB 09:36
PROVIDERS: ATTEND Physician Assistant
DX: M51.26 Other intervertebral disc displacement, lumbar region (principal)

== ENCOUNTER → 2021-09-04 | Outpatient (CLI) | payer OTHER ==
[2021-09-04 08:21] LABS: COLLAGEN EPINEPHRINE 166 SECONDS (74-162)
[2021-09-04 08:49] LABS: COLLAGEN ADP 114 SECONDS (56-103)
== END ==
LOC: M LAB 07:31
PROVIDERS: ATTEND Physical Medicine & Rehabilitation
DX: Z01.812 Encounter for preprocedural laboratory examination (principal)

== ENCOUNTER 2021-10-28 09:31 | Inpatient (IN) | payer OTHER ==
[2021-10-28] VITALS (7 sets, daily range): BP systolic 127–159; BP diastolic 68–88
[~2021-10-28] VITALS: Ht 172.7 cm; Wt 116.0 kg
[~2021-10-28 09:31] MED LIST changes: +OMEP40CA5 PO
[2021-10-28] MEDS ORDERED: AMPICILLIN SOD/SULBACTAM SOD 3 GM in D5W MINI-BAG PLUS 100 ML IV ONE (10:50)
[2021-10-28] MEDS ORDERED: ALBUTEROL SULFATE 2.5 MG/0.5 ML INH NEB SOLN As Ordered ONE (11:21)
[2021-10-28] MEDS ORDERED: fentaNYL 100 MCG/2 ML INJECTION As Ordered ONE ×2 (11:35→12:51)
[2021-10-28] MEDS ORDERED: MIDAZOLAM INJ 2MG/2ML VIAL (J2250 PER 1MG) As Ordered ONE (11:35)
[2021-10-28] MEDS ORDERED: ALBUTEROL SULFATE 2.5 MG/0.5 ML INH NEB SOLN INH ONE (11:35)
[2021-10-28] MEDS ORDERED: LIDOCAINE 2% 100MG/5ML SDV (FOR ANES.) As Ordered ONE ×2 (11:36→13:02)
[2021-10-28] MEDS ORDERED: propofoL 200 MG/20 ML VIAL As Ordered ONE ×2 (11:36→13:00)
[2021-10-28] MEDS ORDERED: LR 1,000 ML IV ONE (11:40)
[2021-10-28] MEDS ORDERED: ceFAZolin 1GM VIAL (J0690 PER 500MG) As Ordered ONE (11:45)
[2021-10-28] MEDS ORDERED: dexameTHASONE 4 MG/ML 1ML VIAL (J1100 PER 1MG) As Ordered ONE (12:33)
[2021-10-28] MEDS ORDERED: ONDANSETRON 4MG/2ML VIAL As Ordered ONE (12:34)
[2021-10-28] MEDS ORDERED: ACETAMINOPHEN 1000MG 100ML IV BTL (OFIRMEV) (J0131 PER 10MG) As Ordered ONE (12:50)
[2021-10-28] MEDS ORDERED: ACETAMINOPHEN TAB 650MG DOSE (2X325MG) PO PRN (13:35)
[2021-10-28] MEDS ORDERED: METOCLOPRAMIDE INJ 10MG/2ML VIAL (J2765 PER 1) IV PRN (13:40)
[2021-10-28] MEDS ORDERED: LR 1,000 ML IV SCH (13:40)
[2021-10-28] MEDS ORDERED: fentaNYL 100 MCG/2 ML INJECTION IV PRN (13:40)
[2021-10-28] MEDS ORDERED: ONDANSETRON 4MG/2ML VIAL IV PRN (13:40)
[2021-10-28] MEDS: oxyCODONE 5MG TAB PO PRN ×2 (13:57→14:36)
[2021-10-28] MEDS: MORPHINE 4 MG/ML 1ML VIAL/SYRINGE IV PRN ×2 (13:58→20:48)
[2021-10-28] MEDS ORDERED: ALBUTEROL SULFATE 2.5 MG/0.5 ML INH NEB SOLN NEB PRN (14:45)
[2021-10-28 14:51] LABS: BASO # 0.1 10^3/uL (0.0-0.2); BASO % 0.5 % (0.0-1.0); EOS # 0.1 10^3/uL (0.0-0.5); EOS % 0.5 % (0.0-3.0); HEMATOCRIT 40.8 % (36.0-47.0); LYMPH # 1.6 10^3/uL (1.5-5.0); LYMPH % 13.8 % (24.0-44.0); MEAN CORPUSCULAR HEMOGLOBIN 28.2 pg (27.0-33.0); MEAN CORPUSCULAR HGB CONC 31.9 g/dl (32.0-36.5); MEAN CORPUSCULAR VOLUME 88.5 fl (80.0-96.0); MONO # 0.4 10^3/uL (0.0-0.8); MONO % 3.4 % (2.0-8.0); NEUTROPHILS # 9.2 10^3/uL (1.5-8.5); NEUTROPHILS % 81.2 % (36.0-66.0); PLATELET COUNT, AUTOMATED 308 10^3/uL (150-450); RED BLOOD COUNT 4.61 10^6/uL (4.00-5.40); WHITE BLOOD COUNT 11.3 10^3/uL (4.0-10.0)
[2021-10-28 15:20] LABS: BLOOD UREA NITROGEN 13 MG/DL (7-18); CALCIUM LEVEL 8.7 MG/DL (8.5-10.1); CARBON DIOXIDE LEVEL 26 MEQ/L (21-32); CHLORIDE LEVEL 106 MEQ/L (98-107); CREATININE FOR GFR 0.78 MG/DL (0.55-1.30); GLOMERULAR FILTRATION RATE > 60.0 (>60); GLUCOSE, FASTING 104 MG/DL (70-100); MAGNESIUM LEVEL 2.1 MG/DL (1.8-2.4); PHOSPHORUS LEVEL 3.4 MG/DL (2.5-4.9); POTASSIUM SERUM 4.2 MEQ/L (3.5-5.1); SODIUM LEVEL 137 MEQ/L (136-145)
[2021-10-28] MEDS ORDERED: OMEP40CA5 PO (15:56)
[2021-10-28] MEDS ORDERED: DULO1CAP6 PO (15:56)
[2021-10-28] MEDS ORDERED: LISI10TA22 PO (15:56)
[2021-10-28] MEDS ORDERED: NAPR-885 PO (15:56)
[2021-10-28] MEDS ORDERED: ONDA-84 PO (15:56)
[2021-10-28] MEDS ORDERED: VITA200016 PO (15:56)
[2021-10-28] MEDS ORDERED: AMOX875T2 PO (15:56)
[2021-10-28] MEDS ORDERED: MONT10TA97 PO (15:56)
[2021-10-28] MEDS ORDERED: BUDE10.2 INH (15:56)
[2021-10-28] MEDS ORDERED: FERR325T19 PO (15:56)
[2021-10-28] MEDS ORDERED: ALBU8.5H INH (15:58)
[2021-10-28] MEDS ORDERED: HOME MED LIST COMPLETE! XX SCH (16:00)
[2021-10-28] MEDS: FERROUS SULFATE 325MG TAB PO SCH (16:44)
[2021-10-28] MEDS: MONTELUKAST 10 MG TAB PO SCH (16:45)
[2021-10-28] MEDS: DULoxetine 30MG CAPSULE (CYMBALTA) PO SCH (16:45)
[2021-10-28] MEDS: AMPICILLIN SOD/SULBACTAM SOD 3 GM in D5W MINI-BAG PLUS 100 ML IV SCH (17:17)
[2021-10-28] MEDS: SYMBICORT 160/4.5MCG INHALER 6GM INH SCH (19:20)
[2021-10-29] MEDS: AMPICILLIN SOD/SULBACTAM SOD 3 GM in D5W MINI-BAG PLUS 100 ML IV SCH ×4 (00:27→18:05)
[2021-10-29 02:00] VITALS: BP 107/60
[2021-10-29 06:00] VITALS: BP 115/71
[2021-10-29 06:27] LABS: HEMATOCRIT 40.3 % (36.0-47.0); HEMOGLOBIN 12.7 g/dl (12.0-15.5); MEAN CORPUSCULAR HEMOGLOBIN 28.2 pg (27.0-33.0); MEAN CORPUSCULAR HGB CONC 31.5 g/dl (32.0-36.5); MEAN CORPUSCULAR VOLUME 89.6 fl (80.0-96.0); PLATELET COUNT, AUTOMATED 329 10^3/uL (150-450); WHITE BLOOD COUNT 15.4 10^3/uL (4.0-10.0)
[2021-10-29 07:00] LABS: BLOOD UREA NITROGEN 15 MG/DL (7-18); C REACTIVE PROTEIN QUANTITATIV 1.82 MG/DL (0.00-0.30); CALCIUM LEVEL 8.9 MG/DL (8.5-10.1); CARBON DIOXIDE LEVEL 26 MEQ/L (21-32); CHLORIDE LEVEL 106 MEQ/L (98-107); CREATININE FOR GFR 0.79 MG/DL (0.55-1.30); GLOMERULAR FILTRATION RATE > 60.0 (>60); GLUCOSE, FASTING 110 MG/DL (70-100); MAGNESIUM LEVEL 2.3 MG/DL (1.8-2.4); POTASSIUM SERUM 4.5 MEQ/L (3.5-5.1); SODIUM LEVEL 139 MEQ/L (136-145)
[2021-10-29] MEDS: SYMBICORT 160/4.5MCG INHALER 6GM INH SCH ×2 (07:16→19:09)
[2021-10-29] MEDS: MONTELUKAST 10 MG TAB PO SCH (08:10)
[2021-10-29] MEDS: FERROUS SULFATE 325MG TAB PO SCH (08:10)
[2021-10-29] MEDS: DULoxetine 30MG CAPSULE (CYMBALTA) PO SCH (08:10)
[2021-10-29 10:00] VITALS: BP 126/78
[2021-10-29] MEDS: MORPHINE 4 MG/ML 1ML VIAL/SYRINGE IV PRN ×2 (10:23→18:57)
[2021-10-29] MEDS ORDERED: MICONAZOLE TOPICAL 2% CREAM 15GM XX PRN (12:35)
[2021-10-29] MEDS ORDERED: metroNIDAZOLE (FLAGYL) 500MG TABLET PO SCH (13:10)
[2021-10-29] MEDS ORDERED: LevoFLOXacin IV 750 MG in IV 1 EA IV SCH (13:10)
[2021-10-29] MEDS ORDERED: ENOXAPARIN 40MG/0.4ML SYRINGE (J1650 PER 10MG) SC SCH (13:30)
[2021-10-29] MEDS ORDERED: VANCOMYCIN HCL 1,000 MG, VIAL MATE ADAPTER 1 EACH in NS 250 ML IV ONE (14:00)
[2021-10-29] MEDS ORDERED: VANCOMYCIN HCL 1,000 MG, VIAL MATE ADAPTER 1 EACH in NS 250 ML IV SCH (15:00)
[2021-10-29 15:10] VITALS: BP 132/75
[2021-10-29] MEDS ORDERED: ALBUTEROL SULFATE 2.5 MG/0.5 ML INH NEB SOLN NEB STA (15:14)
[2021-10-29] MEDS ORDERED: methylPREDNISolone 125MG 2ML VIAL IV ONE (15:15)
[2021-10-29] MEDS ORDERED: AMPICILLIN SOD/SULBACTAM SOD 1.5 GM in D5W MINI-BAG PLUS 50 ML IV SCH (17:15)
[2021-10-29] MEDS ORDERED: diphenhydrAMINE 25MG CAP PO ONE (17:45)
[2021-10-29] MEDS ORDERED: AMPICILLIN SOD/SULBACTAM SOD 3 GM in D5W MINI-BAG PLUS 100 ML IV SCH (18:00)
[2021-10-29 19:00] VITALS: BP 162/92
[2021-10-29] MEDS ORDERED: LINEZOLID 600MG TABLET (ZYVOX) PO SCH (21:00)
[2021-10-30] MEDS: AMPICILLIN SOD/SULBACTAM SOD 3 GM in D5W MINI-BAG PLUS 100 ML IV SCH ×2 (00:27→05:00)
[2021-10-30 06:00] VITALS: BP 129/72
[2021-10-30 07:08] LABS: BASO # 0.1 10^3/uL (0.0-0.2); BASO % 0.3 % (0.0-1.0); HEMATOCRIT 39.1 % (36.0-47.0); HEMOGLOBIN 12.1 g/dl (12.0-15.5); LYMPH # 2.7 10^3/uL (1.5-5.0); LYMPH % 14.8 % (24.0-44.0); MEAN CORPUSCULAR HEMOGLOBIN 28.1 pg (27.0-33.0); MEAN CORPUSCULAR HGB CONC 30.9 g/dl (32.0-36.5); MEAN CORPUSCULAR VOLUME 90.9 fl (80.0-96.0); MONO # 1.8 10^3/uL (0.0-0.8); MONO % 9.7 % (2.0-8.0); NEUTROPHILS # 13.2 10^3/uL (1.5-8.5); NEUTROPHILS % 73.2 % (36.0-66.0); PLATELET COUNT, AUTOMATED 305 10^3/uL (150-450); WHITE BLOOD COUNT 18.1 10^3/uL (4.0-10.0)
[2021-10-30 07:10] LABS: BLOOD UREA NITROGEN 15 MG/DL (7-18); C REACTIVE PROTEIN QUANTITATIV 0.94 MG/DL (0.00-0.30); CALCIUM LEVEL 8.7 MG/DL (8.5-10.1); CARBON DIOXIDE LEVEL 28 MEQ/L (21-32); CHLORIDE LEVEL 106 MEQ/L (98-107); CREATININE FOR GFR 0.66 MG/DL (0.55-1.30); GLOMERULAR FILTRATION RATE > 60.0 (>60); GLUCOSE, FASTING 126 MG/DL (70-100); MAGNESIUM LEVEL 2.2 MG/DL (1.8-2.4); PHOSPHORUS LEVEL 3.8 MG/DL (2.5-4.9); POTASSIUM SERUM 4.6 MEQ/L (3.5-5.1); SODIUM LEVEL 138 MEQ/L (136-145)
[2021-10-30] MEDS: SYMBICORT 160/4.5MCG INHALER 6GM INH SCH (07:25)
[2021-10-30] MEDS: DULoxetine 30MG CAPSULE (CYMBALTA) PO SCH (10:16)
[2021-10-30 10:17] VITALS: BP 131/72
[2021-10-30] MEDS: MONTELUKAST 10 MG TAB PO SCH (10:17)
[2021-10-30] MEDS: FERROUS SULFATE 325MG TAB PO SCH (10:17)
== END 2021-10-30 11:12 | disposition home or self-care (01) | DRG 383 ==
LOC: M OR 09:31 → M MSPAV 15:22
PROVIDERS: ADMIT Orthopaedic Surgery Hand Surgery; ATTEND Orthopaedic Surgery Hand Surgery
PROC: 0X9D0ZZ Drainage of Right Lower Arm, Open Approach (ICD-10-PCS; principal; 2021-10-28 11:15)
DX: L03.113 Cellulitis of right upper limb (principal); I10 Essential (primary) hypertension; J45.909 Unspecified asthma, uncomplicated; G47.33 Obstructive sleep apnea (adult) (pediatric); K21.9 Gastro-esophageal reflux disease without esophagitis; F32.A Depression, unspecified; Z90.79 Acquired absence of other genital organ(s); Z90.49 Acquired absence of other specified parts of digestive tract; Z20.822 Contact with and (suspected) exposure to COVID-19; Z79.2 Long term (current) use of antibiotics; Z79.899 Other long term (current) drug therapy; Z88.1 Allergy status to other antibiotic agents; Z91.018 Allergy to other foods; Z91.013 Allergy to seafood; Z91.040 Latex allergy status; S51.851A Open bite of right forearm, initial encounter; W55.01XA Bitten by cat, initial encounter; Y92.9 Unspecified place or not applicable

== ENCOUNTER 2022-05-04 04:32 | Emergency (ER) | payer OTHER ==
[~2022-05-04] VITALS: Ht 172.7 cm; Wt 114.4 kg
[~2022-05-04 04:32] MED LIST changes: +ALBU2.5V10 NEB; +ALBU8.5H INH; -ALBU83IN NEB; +AMOX875T2 PO; +BACT800T5 PO; +BUDE10.2 INH; +CLEO300C2 PO; +DULO1CAP6 PO; +FERR325T19 PO; +IRON65TA2 PO; +MONT10TA97 PO; +NAPR-885 PO; +ONDA-84 PO; +PROAAER10 INH; +VITA200016 PO
[2022-05-04] MEDS ORDERED: TRUL0.5I SC (04:51)
[2022-05-04] MEDS ORDERED: methylPREDNISolone 125MG 2ML VIAL IV ONE (08:00)
[2022-05-04] MEDS ORDERED: IPRATROPIUM 0.5MG/ALBUTEROL 2.5MG INH SOL UD 3ML (DUONEB) NEB ONE (08:00)
[2022-05-04 09:00] LABS: BASO # 0.1 10^3/uL (0.0-0.2); BASO % 0.7 % (0.0-1.0); EOS # 0.2 10^3/uL (0.0-0.5); EOS % 1.5 % (0.0-3.0); HEMATOCRIT 42.3 % (36.0-47.0); HEMOGLOBIN 13.4 g/dl (12.0-15.5); LYMPH # 3.9 10^3/uL (1.5-5.0); MEAN CORPUSCULAR HEMOGLOBIN 28.3 pg (27.0-33.0); MEAN CORPUSCULAR HGB CONC 31.7 g/dl (32.0-36.5); MEAN CORPUSCULAR VOLUME 89.2 fl (80.0-96.0); MONO % 6.9 % (2.0-8.0); NEUTROPHILS # 9.7 10^3/uL (1.5-8.5); NEUTROPHILS % 64.2 % (36.0-66.0); PLATELET COUNT, AUTOMATED 311 10^3/uL (150-450); RED BLOOD COUNT 4.74 10^6/uL (4.00-5.40)
[2022-05-04 09:23] LABS: INR 0.94; PROTHROMBIN TIME 12.8 SECONDS (12.5-14.5)
[2022-05-04 09:25] LABS: D-DIMER QUANT 278.22 ng/ml (<500)
[2022-05-04 09:53] LABS: CK-MB VALUE MASS < 1.0 NG/ML (<3.6); CPK CREATINE PHOSPHOKINASE 56 U/L (26-192); MB/CK RELATIVE INDEX 1.79 (< OR =4)
[2022-05-04 09:54] LABS: ALBUMIN 3.5 GM/DL (3.2-5.2); ALT/SGPT 61 U/L (12-78); BILIRUBIN,DIRECT 0.2 MG/DL (0.0-0.2); BILIRUBIN,TOTAL 0.3 MG/DL (0.2-1.0); BLOOD UREA NITROGEN 17 MG/DL (7-18); CALCIUM LEVEL 9.3 MG/DL (8.5-10.1); CARBON DIOXIDE LEVEL 26 MEQ/L (21-32); CHLORIDE LEVEL 107 MEQ/L (98-107); CREATININE FOR GFR 0.87 MG/DL (0.55-1.30); GLOMERULAR FILTRATION RATE > 60.0 (>60); GLUCOSE, FASTING 96 MG/DL (70-100); POTASSIUM SERUM 4.2 MEQ/L (3.5-5.1); SODIUM LEVEL 139 MEQ/L (136-145); TOTAL PROTEIN 7.6 GM/DL (6.4-8.2)
[2022-05-04 10:49] LABS: CK-MB VALUE MASS < 1.0 NG/ML (<3.6); CPK CREATINE PHOSPHOKINASE 56 U/L (26-192); MB/CK RELATIVE INDEX 1.79 (< OR =4)
[2022-05-04] MEDS ORDERED: DOXY-350 PO (11:11)
[2022-05-04] MEDS ORDERED: MEDR4PAK PO (11:11)
[2022-05-04 11:26] VITALS: BP 139/87
== END 2022-05-04 11:27 | disposition home or self-care (01) ==
LOC: M ED 04:32
DX: J45.909 Unspecified asthma, uncomplicated (principal); J20.9 Acute bronchitis, unspecified; J06.9 Acute upper respiratory infection, unspecified; D72.829 Elevated white blood cell count, unspecified; R07.89 Other chest pain; E11.9 Type 2 diabetes mellitus without complications; I10 Essential (primary) hypertension; K21.9 Gastro-esophageal reflux disease without esophagitis; Z87.442 Personal history of urinary calculi; G62.9 Polyneuropathy, unspecified; D64.9 Anemia, unspecified; F41.9 Anxiety disorder, unspecified; F32.9 Major depressive disorder, single episode, unspecified; Z79.899 Other long term (current) drug therapy; Z88.0 Allergy status to penicillin; Z88.1 Allergy status to other antibiotic agents; Z91.018 Allergy to other foods; Z91.040 Latex allergy status; Z91.013 Allergy to seafood
CPT/HCPCS: 71046; 80048; 80076; 82550; 82553; 85025; 85379; 85610; 87486; 87581; 87633; 87798; 93005; 94640; 96374; 99284; J2930

== ENCOUNTER → 2022-05-17 | Outpatient (REF) | payer OTHER ==
[~2022-05-17] MED LIST changes: +DOXY-444 PO; +TRUL0.5I SC
[2022-05-17 18:08] LABS: BASO # 0.1 10^3/uL (0.0-0.2); BASO % 0.5 % (0.0-1.0); EOS # 0.2 10^3/uL (0.0-0.5); EOS % 1.4 % (0.0-3.0); HEMATOCRIT 42.3 % (36.0-47.0); HEMOGLOBIN 13.3 g/dl (12.0-15.5); LYMPH # 3.3 10^3/uL (1.5-5.0); LYMPH % 24.2 % (24.0-44.0); MEAN CORPUSCULAR HEMOGLOBIN 28.4 pg (27.0-33.0); MEAN CORPUSCULAR HGB CONC 31.4 g/dl (32.0-36.5); MEAN CORPUSCULAR VOLUME 90.2 fl (80.0-96.0); MONO % 7.4 % (2.0-8.0); NEUTROPHILS # 8.8 10^3/uL (1.5-8.5); NEUTROPHILS % 65.7 % (36.0-66.0); PLATELET COUNT, AUTOMATED 314 10^3/uL (150-450); RED BLOOD COUNT 4.69 10^6/uL (4.00-5.40); WHITE BLOOD COUNT 13.4 10^3/uL (4.0-10.0)
[2022-05-17 19:11] LABS: ERYTHROCYTE SEDIMENTATION RATE 42 mm/hr (0-20)
== END ==
LOC: M LAB REF 16:35
PROVIDERS: ATTEND Pediatrics
DX: D72.829 Elevated white blood cell count, unspecified (principal)

== ENCOUNTER → 2022-05-20 | Outpatient (CLI) | payer OTHER ==
[2022-05-20 10:22] LABS: BASO # 0.1 10^3/uL (0.0-0.2); BASO % 0.6 % (0.0-1.0); EOS # 0.2 10^3/uL (0.0-0.5); EOS % 1.6 % (0.0-3.0); HEMATOCRIT 38.8 % (36.0-47.0); HEMOGLOBIN 12.4 g/dl (12.0-15.5); LYMPH # 2.8 10^3/uL (1.5-5.0); LYMPH % 25.4 % (24.0-44.0); MEAN CORPUSCULAR HEMOGLOBIN 28.7 pg (27.0-33.0); MEAN CORPUSCULAR VOLUME 89.8 fl (80.0-96.0); MONO # 1.1 10^3/uL (0.0-0.8); MONO % 10.3 % (2.0-8.0); NEUTROPHILS # 6.7 10^3/uL (1.5-8.5); NEUTROPHILS % 61.5 % (36.0-66.0); PLATELET COUNT, AUTOMATED 275 10^3/uL (150-450); RED BLOOD COUNT 4.32 10^6/uL (4.00-5.40); WHITE BLOOD COUNT 10.8 10^3/uL (4.0-10.0)
== END ==
LOC: M LAB 09:15
PROVIDERS: ATTEND Orthopaedic Surgery Hand Surgery
DX: M79.631 Pain in right forearm (principal)

== ENCOUNTER → 2022-05-26 | Outpatient (CLI) | payer OTHER ==
[2022-05-26 08:52] LABS: BASO # 0.1 10^3/uL (0.0-0.2); BASO % 0.6 % (0.0-1.0); EOS # 0.1 10^3/uL (0.0-0.5); EOS % 1.4 % (0.0-3.0); HEMATOCRIT 39.9 % (36.0-47.0); HEMOGLOBIN 12.6 g/dl (12.0-15.5); LYMPH # 2.7 10^3/uL (1.5-5.0); LYMPH % 27.6 % (24.0-44.0); MEAN CORPUSCULAR HEMOGLOBIN 28.1 pg (27.0-33.0); MEAN CORPUSCULAR HGB CONC 31.6 g/dl (32.0-36.5); MEAN CORPUSCULAR VOLUME 89.1 fl (80.0-96.0); MONO # 0.8 10^3/uL (0.0-0.8); MONO % 8.5 % (2.0-8.0); NEUTROPHILS % 61.4 % (36.0-66.0); PLATELET COUNT, AUTOMATED 283 10^3/uL (150-450); RED BLOOD COUNT 4.48 10^6/uL (4.00-5.40); WHITE BLOOD COUNT 9.7 10^3/uL (4.0-10.0)
== END ==
LOC: M LAB 08:21
PROVIDERS: ATTEND Physician Assistant
DX: M79.631 Pain in right forearm (principal)

== ENCOUNTER 2022-07-11 22:05 | Emergency (ER) | payer OTHER ==
[~2022-07-11] VITALS: Ht 172.7 cm; Wt 111.1 kg
[2022-07-11 22:07] VITALS: BP 136/73
[2022-07-12] MEDS ORDERED: predniSONE 20 MG TAB PO ONE (00:40)
[2022-07-12] MEDS ORDERED: PRED20TA PO (00:50)
[2022-07-12] MEDS ORDERED: NIRM1TAB PO (00:50)
== END 2022-07-12 01:07 | disposition home or self-care (01) ==
LOC: M ED 22:05
DX: U07.1 COVID-19 (principal); J45.901 Unspecified asthma with (acute) exacerbation; Z20.822 Contact with and (suspected) exposure to COVID-19; E66.9 Obesity, unspecified; I10 Essential (primary) hypertension; K21.9 Gastro-esophageal reflux disease without esophagitis; D64.9 Anemia, unspecified; D41.9 Neoplasm of uncertain behavior of unspecified urinary organ; Z79.899 Other long term (current) drug therapy; Z88.0 Allergy status to penicillin; Z88.1 Allergy status to other antibiotic agents; Z91.040 Latex allergy status; Z91.018 Allergy to other foods; Z91.013 Allergy to seafood
CPT/HCPCS: 99282; J7512

== ENCOUNTER → 2022-08-18 | Outpatient (CLI) | payer OTHER ==
[~2022-08-18] MED LIST changes: +NIRM1TAB PO; +PRED20TA PO
[2022-08-18 10:33] LABS: BLOOD UREA NITROGEN 15 MG/DL (9-23); CREATININE FOR GFR 0.73 MG/DL (0.55-1.30); GLOMERULAR FILTRATION RATE > 60.0 (>60)
== END ==
LOC: M LAB 09:30
PROVIDERS: ATTEND Orthopaedic Surgery Hand Surgery
DX: M79.631 Pain in right forearm (principal)

== ENCOUNTER → 2022-08-20 | Outpatient (CLI) | payer OTHER ==
[~2022-08-20] MED LIST changes: +PROHANCE 279.3MG/ML 15ML VIAL As Ordered ONE; +PROHANCE 279.3MG/ML 5ML VIAL As Ordered ONE
== END ==
LOC: M RAD 08:05
PROVIDERS: ATTEND Orthopaedic Surgery Hand Surgery
DX: M79.631 Pain in right forearm (principal)
CPT/HCPCS: 73220; A9576

== ENCOUNTER → 2022-08-25 | Outpatient (REF) | payer OTHER ==
[~2022-08-25] MED LIST changes: -PROHANCE 279.3MG/ML 15ML VIAL As Ordered ONE; -PROHANCE 279.3MG/ML 5ML VIAL As Ordered ONE
[2022-08-25 17:45] LABS: BASO # 0.1 10^3/uL (0.0-0.2); BASO % 0.4 % (0.0-1.0); EOS # 0.1 10^3/uL (0.0-0.5); EOS % 0.8 % (0.0-3.0); HEMATOCRIT 40.6 % (36.0-47.0); HEMOGLOBIN 12.6 g/dl (12.0-15.5); LYMPH # 3.6 10^3/uL (1.5-5.0); LYMPH % 27.9 % (24.0-44.0); MEAN CORPUSCULAR VOLUME 90.2 fl (80.0-96.0); MONO # 1.1 10^3/uL (0.0-0.8); MONO % 8.8 % (2.0-8.0); NEUTROPHILS # 7.9 10^3/uL (1.5-8.5); NEUTROPHILS % 61.5 % (36.0-66.0); PLATELET COUNT, AUTOMATED 307 10^3/uL (150-450); WHITE BLOOD COUNT 12.9 10^3/uL (4.0-10.0)
[2022-08-25 18:32] LABS: CHOLESTEROL RISK RATIO 3.37 (<5); HDL CHOLESTEROL 45.1 MG/DL (>40)
[2022-08-25 19:22] LABS: HEMOGLOBIN A1c 6.4 % (4.0-6.0)
[2022-08-25 22:21] LABS: LDL CHOLESTEROL 89.1 MG/DL (<100)
== END ==
LOC: M LAB REF 16:39
PROVIDERS: ATTEND Pediatrics
DX: E11.69 Type 2 diabetes mellitus with other specified complication (principal)

== ENCOUNTER → 2022-08-31 | Outpatient (CLI) | payer OTHER ==
[~2022-08-31] MED LIST changes: +ALBU2.5V10 INH; +INCR1INH INH
== END ==
LOC: M LABSMTC 09:48
PROVIDERS: ATTEND Anesthesiology
DX: Z01.812 Encounter for preprocedural laboratory examination (principal)

== ENCOUNTER 2022-09-01 11:19 | Emergency (ER) | payer OTHER ==
[~2022-09-01] VITALS: Ht 172.7 cm; Wt 110.3 kg
[~2022-09-01 11:19] MED LIST changes: +MONT-5 PO; -SING10TA32 PO
[2022-09-01 12:00] LABS: BASO # 0.1 10^3/uL (0.0-0.2); BASO % 0.6 % (0.0-1.0); EOS # 0.2 10^3/uL (0.0-0.5); EOS % 1.4 % (0.0-3.0); HEMATOCRIT 40.2 % (36.0-47.0); HEMOGLOBIN 12.5 g/dl (12.0-15.5); LYMPH # 2.9 10^3/uL (1.5-5.0); LYMPH % 27.2 % (24.0-44.0); MEAN CORPUSCULAR HEMOGLOBIN 28.2 pg (27.0-33.0); MEAN CORPUSCULAR HGB CONC 31.1 g/dl (32.0-36.5); MEAN CORPUSCULAR VOLUME 90.5 fl (80.0-96.0); MONO # 0.9 10^3/uL (0.0-0.8); MONO % 8.5 % (2.0-8.0); NEUTROPHILS # 6.6 10^3/uL (1.5-8.5); NEUTROPHILS % 61.8 % (36.0-66.0); PLATELET COUNT, AUTOMATED 289 10^3/uL (150-450); RED BLOOD COUNT 4.44 10^6/uL (4.00-5.40); WHITE BLOOD COUNT 10.7 10^3/uL (4.0-10.0)
[2022-09-01 12:12] LABS: INR 0.97; PROTHROMBIN TIME 13.1 SECONDS (12.5-14.5)
[2022-09-01 12:29] LABS: D-DIMER QUANT < 270 ng/ml (<500)
[2022-09-01 12:30] LABS: LIPASE 31 U/L (12-53)
[2022-09-01 12:31] LABS: ALBUMIN 3.4 G/DL (3.2-5.2); ALKALINE PHOSPHATASE 89 U/L (46-116); ALT/SGPT 34 U/L (7.0-40); AST/SGOT 25 U/L (<34); BILIRUBIN,DIRECT 0.2 MG/DL (<0.4); BILIRUBIN,TOTAL 0.6 MG/DL (0.3-1.2); BLOOD UREA NITROGEN 15 MG/DL (9-23); CALCIUM LEVEL 9.3 MG/DL (8.5-10.1); CARBON DIOXIDE LEVEL 25 MMOL/L (20-31); CHLORIDE LEVEL 106 MMOL/L (98-107); CK-MB VALUE MASS < 1.0 NG/ML (<3.6); CPK CREATINE PHOSPHOKINASE 88 U/L (34-145); CREATININE FOR GFR 0.61 MG/DL (0.55-1.30); GLOMERULAR FILTRATION RATE > 60.0 (>60); GLUCOSE, FASTING 104 MG/DL (60-100); MB/CK RELATIVE INDEX 1.13 (< OR =4); POTASSIUM SERUM 4.1 MMOL/L (3.5-5.1); SODIUM LEVEL 138 MMOL/L (136-145)
[2022-09-01 14:45] VITALS: BP 130/74
[2022-09-01 18:10] LABS: TOTAL PROTEIN 6.9 G/DL (5.7-8.2)
== END 2022-09-01 14:49 | disposition home or self-care (01) ==
LOC: M ED 11:19
DX: R07.89 Other chest pain (principal); I10 Essential (primary) hypertension; K21.9 Gastro-esophageal reflux disease without esophagitis; Z88.0 Allergy status to penicillin; Z88.1 Allergy status to other antibiotic agents; Z91.040 Latex allergy status; Z79.899 Other long term (current) drug therapy

== ENCOUNTER → 2022-09-02 | Outpatient (REF) | payer OTHER ==
[~2022-09-02] MED LIST changes: +DOXY-443 PO; -MONT-5 PO; +SING10TA32 PO
[2022-09-02 12:33] LABS: BASO # 0.1 10^3/uL (0.0-0.2); BASO % 0.6 % (0.0-1.0); EOS # 0.2 10^3/uL (0.0-0.5); EOS % 1.6 % (0.0-3.0); HEMATOCRIT 39.8 % (36.0-47.0); HEMOGLOBIN 12.6 g/dl (12.0-15.5); LYMPH # 3.1 10^3/uL (1.5-5.0); LYMPH % 29.5 % (24.0-44.0); MEAN CORPUSCULAR HEMOGLOBIN 28.4 pg (27.0-33.0); MEAN CORPUSCULAR HGB CONC 31.7 g/dl (32.0-36.5); MEAN CORPUSCULAR VOLUME 89.8 fl (80.0-96.0); MONO # 1.2 10^3/uL (0.0-0.8); NEUTROPHILS % 56.7 % (36.0-66.0); PLATELET COUNT, AUTOMATED 302 10^3/uL (150-450); RED BLOOD COUNT 4.43 10^6/uL (4.00-5.40); WHITE BLOOD COUNT 10.6 10^3/uL (4.0-10.0)
[2022-09-02 13:10] LABS: ERYTHROCYTE SEDIMENTATION RATE 59 mm/hr (0-20)
== END ==
LOC: M LAB REF 11:58
PROVIDERS: ATTEND Pediatrics
DX: D72.829 Elevated white blood cell count, unspecified (principal)

== ENCOUNTER 2022-09-03 07:54 | Day surgery (SDC) | payer OTHER ==
[~2022-09-03] VITALS: Ht 172.7 cm; Wt 110.1 kg
[~2022-09-03 07:54] MED LIST changes: -DOXY-443 PO; +MONT-5 PO; -SING10TA32 PO
[2022-09-03] MEDS ORDERED: propofoL 200 MG/20 ML VIAL As Ordered ONE (08:21)
[2022-09-03] MEDS ORDERED: MIDAZOLAM INJ 2MG/2ML VIAL As Ordered ONE (08:21)
[2022-09-03] MEDS ORDERED: LIDOCAINE 2% 100MG/5ML SDV (FOR ANES.) As Ordered ONE (08:21)
[2022-09-03] MEDS ORDERED: fentaNYL 100 MCG/2 ML INJECTION As Ordered ONE ×2 (08:22→10:54)
[2022-09-03] MEDS ORDERED: LR 1,000 ML IV SCH ×2 (08:35→11:40)
[2022-09-03] MEDS ORDERED: LIDOCAINE 1% SDV 5ML VIAL SC PRN (08:35)
[2022-09-03] MEDS ORDERED: UNASYN 3GM VIAL As Ordered ONE (10:47)
[2022-09-03] MEDS ORDERED: ACETAMINOPHEN 1000MG 100ML IV BAG As Ordered ONE (11:15)
[2022-09-03] MEDS ORDERED: METOCLOPRAMIDE INJ 10MG/2ML VIAL As Ordered ONE (11:20)
[2022-09-03] MEDS ORDERED: ONDANSETRON 4MG 2ML VIAL As Ordered ONE (11:20)
[2022-09-03] MEDS ORDERED: KETOROLAC 60MG 2ML VIAL As Ordered ONE (11:20)
[2022-09-03] MEDS ORDERED: ONDANSETRON 4MG 2ML VIAL IV PRN (11:40)
[2022-09-03] MEDS ORDERED: TRAM50TA2 PO (11:46)
[2022-09-03] MEDS ORDERED: DOXY-443 PO (11:46)
[2022-09-03] MEDS: oxyCODONE 5MG TAB PO PRN ×2 (11:54→12:25)
[2022-09-03] MEDS: fentaNYL 100 MCG/2 ML INJECTION IV PRN ×4 (11:55→12:14)
[2022-09-03] MEDS ORDERED: ROPIvacaine 0.5% 30ML VIAL PN ONE (13:20)
[2022-09-03] MEDS ORDERED: LIDOCAINE 1% SDV 5ML VIAL PN ONE (13:20)
[2022-09-03] MEDS ORDERED: fentaNYL 100 MCG/2 ML INJECTION IV PRN (13:20)
[2022-09-03] MEDS: MIDAZOLAM INJ 2MG/2ML VIAL IV PRN ×2 (13:43→13:44)
[2022-09-03 15:05] VITALS: BP 139/85
== END 2022-09-03 15:37 | disposition home or self-care (01) ==
LOC: M SDC 07:54
PROVIDERS: ATTEND Orthopaedic Surgery Hand Surgery
DX: M79.631 Pain in right forearm (principal); I10 Essential (primary) hypertension; E11.9 Type 2 diabetes mellitus without complications; K21.9 Gastro-esophageal reflux disease without esophagitis; D64.9 Anemia, unspecified; F41.9 Anxiety disorder, unspecified; F32.A Depression, unspecified; J45.909 Unspecified asthma, uncomplicated; G47.33 Obstructive sleep apnea (adult) (pediatric); Z91.018 Allergy to other foods; Z91.013 Allergy to seafood; Z88.0 Allergy status to penicillin; Z88.1 Allergy status to other antibiotic agents; Z91.040 Latex allergy status; Z79.51 Long term (current) use of inhaled steroids; Z79.899 Other long term (current) drug therapy
CPT/HCPCS: 10060; 87070; 87075; 87102; 87116; 87205; 87206; 88304; J2250; J2405; J2765; J3010

== ENCOUNTER → 2022-10-04 | Outpatient (CLI) | payer OTHER ==
[~2022-10-04] MED LIST changes: +DOXY-443 PO
[2022-10-04 14:19] LABS: BASO # 0.1 10^3/uL (0.0-0.2); BASO % 0.5 % (0.0-1.0); EOS # 0.1 10^3/uL (0.0-0.5); EOS % 1.2 % (0.0-3.0); HEMATOCRIT 40.4 % (36.0-47.0); HEMOGLOBIN 12.4 g/dl (12.0-15.5); LYMPH # 3.5 10^3/uL (1.5-5.0); LYMPH % 29.9 % (24.0-44.0); MEAN CORPUSCULAR HGB CONC 30.7 g/dl (32.0-36.5); MEAN CORPUSCULAR VOLUME 91.2 fl (80.0-96.0); MONO # 1.1 10^3/uL (0.0-0.8); MONO % 9.6 % (2.0-8.0); NEUTROPHILS # 6.9 10^3/uL (1.5-8.5); NEUTROPHILS % 58.2 % (36.0-66.0); PLATELET COUNT, AUTOMATED 307 10^3/uL (150-450); RED BLOOD COUNT 4.43 10^6/uL (4.00-5.40); WHITE BLOOD COUNT 11.8 10^3/uL (4.0-10.0)
[2022-10-04 17:00] LABS: ERYTHROCYTE SEDIMENTATION RATE 45 mm/hr (0-20)
== END ==
LOC: M PLALAB 09:17
PROVIDERS: ATTEND Internal Medicine Infectious Disease
DX: S51.851A Open bite of right forearm, initial encounter (principal); X58.XXXA Exposure to other specified factors, initial encounter; Y92.9 Unspecified place or not applicable; Y93.9 Activity, unspecified; Y99.9 Unspecified external cause status

== ENCOUNTER → 2022-10-12 | Outpatient (CLI) | payer OTHER ==
[2022-10-12 11:30] LABS: BASO # 0.1 10^3/uL (0.0-0.2); BASO % 0.7 % (0.0-1.0); EOS # 0.1 10^3/uL (0.0-0.5); EOS % 1.1 % (0.0-3.0); HEMATOCRIT 39.1 % (36.0-47.0); HEMOGLOBIN 12.4 g/dl (12.0-15.5); LYMPH # 3.2 10^3/uL (1.5-5.0); MEAN CORPUSCULAR HEMOGLOBIN 28.1 pg (27.0-33.0); MEAN CORPUSCULAR HGB CONC 31.7 g/dl (32.0-36.5); MEAN CORPUSCULAR VOLUME 88.7 fl (80.0-96.0); MONO % 8.3 % (2.0-8.0); NEUTROPHILS % 61.4 % (36.0-66.0); PLATELET COUNT, AUTOMATED 302 10^3/uL (150-450); RED BLOOD COUNT 4.41 10^6/uL (4.00-5.40); WHITE BLOOD COUNT 11.4 10^3/uL (4.0-10.0)
[2022-10-12 12:25] LABS: ERYTHROCYTE SEDIMENTATION RATE 55 mm/hr (0-20)
== END ==
LOC: M LAB 10:36
PROVIDERS: ATTEND Orthopaedic Surgery Hand Surgery
DX: S51.851D Open bite of right forearm, subsequent encounter (principal)

== ENCOUNTER → 2022-11-02 | Outpatient (CLI) | payer OTHER | LOC: M PLAIMG 12:13 | PROVIDERS: ATTEND Internal Medicine Infectious Disease | DX: M54.2 Cervicalgia (principal); M54.16 Radiculopathy, lumbar region; R07.1 Chest pain on breathing ==

== ENCOUNTER → 2022-11-04 | Outpatient (CLI) | payer OTHER ==
[~2022-11-04] MED LIST changes: +METHACHOLINE KIT INH ONE
== END ==
LOC: M CARPUL 10:19
PROVIDERS: ATTEND Nurse Practitioner Adult Health
DX: J45.40 Moderate persistent asthma, uncomplicated (principal)
CPT/HCPCS: 94070; 95070; J7674

== ENCOUNTER 2022-11-27 17:06 | Emergency (ER) | payer OTHER ==
[~2022-11-27] VITALS: Ht 172.7 cm; Wt 109.1 kg
[~2022-11-27 17:06] MED LIST changes: -METHACHOLINE KIT INH ONE
[2022-11-27] MEDS ORDERED: MOME13HF4 (17:29)
[2022-11-27] MEDS ORDERED: NEOSPORIN OINT 0.9 GM PKT TOP ONE (20:20)
[2022-11-27 20:33] VITALS: BP 140/84
== END 2022-11-27 20:55 | disposition home or self-care (01) ==
LOC: M ED 17:06
DX: S80.812A Abrasion, left lower leg, initial encounter (principal); S90.412A Abrasion, left great toe, initial encounter; S90.32XA Contusion of left foot, initial encounter; W19.XXXA Unspecified fall, initial encounter; Y92.830 Public park as the place of occurrence of the external cause; Y93.02 Activity, running; E11.9 Type 2 diabetes mellitus without complications; G47.33 Obstructive sleep apnea (adult) (pediatric); J45.909 Unspecified asthma, uncomplicated; K21.9 Gastro-esophageal reflux disease without esophagitis; D64.9 Anemia, unspecified; Z79.4 Long term (current) use of insulin; Z79.899 Other long term (current) drug therapy; Z91.018 Allergy to other foods; Z88.0 Allergy status to penicillin; Z88.1 Allergy status to other antibiotic agents; Z91.040 Latex allergy status; Z91.013 Allergy to seafood

== ENCOUNTER 2022-12-02 12:47 | Inpatient (IN) | payer OTHER ==
[~2022-12-02] VITALS: Ht 172.7 cm; Wt 110.4 kg
[~2022-12-02 12:47] MED LIST changes: +MOME13HF4 INH
[2022-12-02] MEDS ORDERED: NS 1,000 ML IV ONE ×3 (13:20→15:00)
[2022-12-02 14:29] LABS: HEMATOCRIT 62.7 % (36.0-47.0); HEMOGLOBIN 19.8 g/dl (12.0-15.5); MEAN CORPUSCULAR HEMOGLOBIN 27.7 pg (27.0-33.0); MEAN CORPUSCULAR HGB CONC 31.6 g/dl (32.0-36.5); MEAN CORPUSCULAR VOLUME 87.6 fl (80.0-96.0); PLATELET COUNT, AUTOMATED 480 10^3/uL (150-450); RED BLOOD COUNT 7.16 10^6/uL (4.00-5.40)
[2022-12-02] MEDS ORDERED: ISOVUE-370 76% 100ML VIAL As Ordered ONE (14:30)
[2022-12-02 14:45] LABS: VENOUS BASE EXCESS -5.3 (-2.0-2.0); VENOUS HCO3 19.6 MMOL/L (23.0-27.0); VENOUS O2 SATURATION 93.1 % (60.0-80.0); VENOUS PARTIAL PRESSURE CO2 37.1 mmHg (38.0-50.0); VENOUS PARTIAL PRESSURE O2 70.9 mmHg (30.0-50.0); VENOUS STANDARD HCO3 20.1 MMOL/L; VENOUS TOTAL CO2 20.7 MMOL/L (24.0-28.0)
[2022-12-02 14:49] LABS: WHITE BLOOD COUNT 35.1 10^3/uL (4.0-10.0)
[2022-12-02 14:55] LABS: ALBUMIN 4.1 G/DL (3.2-5.2); BILIRUBIN,DIRECT 0.2 MG/DL (<0.4); BILIRUBIN,TOTAL 0.7 MG/DL (0.3-1.2); TOTAL PROTEIN 7.9 G/DL (5.7-8.2)
[2022-12-02 14:56] LABS: ACETONE/KETONE 0.5 MMOL/L (0.02-0.27)
[2022-12-02] MEDS ORDERED: KETOROLAC 30 MG/ML 1ML VIAL IV ONE (15:15)
[2022-12-02 15:21] LABS: LYMPHOCYTES 12 % (16-44); MONOCYTES 3 % (0-5); NEUTROPHILS 84 % (28-66)
[2022-12-02 15:22] LABS: PLATELET ESTIMATE INCREASED (NORMAL)
[2022-12-02] MEDS ORDERED: ACETAMINOPHEN TAB 650MG DOSE (2X325MG) PO PRN (15:45)
[2022-12-02] MEDS ORDERED: GLUCAGON INJ 1MG VIAL SC PRN (16:15)
[2022-12-02] MEDS ORDERED: GLUCOSE 4GM CHEW TABLET PO PRN (16:15)
[2022-12-02] MEDS ORDERED: DEXTROSE 50% 50ML SYRINGE IV PRN (16:15)
[2022-12-02] MEDS ORDERED: DICYCLOMINE 10 MG CAP PO PRN (16:30)
[2022-12-02] MEDS ORDERED: ONDANSETRON 4MG 2ML VIAL IV PRN (16:30)
[2022-12-02] MEDS ORDERED: MORPHINE 2 MG/ML 1ML VIAL IV PRN (16:30)
[2022-12-02] MEDS ORDERED: IBUP200T46 PO (17:08)
[2022-12-02] MEDS ORDERED: HOME MED LIST COMPLETE! XX SCH (17:15)
[2022-12-02] MEDS ORDERED: ALBUTEROL 90 MCG/ACT 8GM HFA INHALER INH PRN (17:25)
[2022-12-02] MEDS: INSULIN LISPRO (NovoLOG) PER UNIT SC SCH (17:30)
[2022-12-02 19:15] LABS: BASO # 0.1 10^3/uL (0.0-0.2); BASO % 0.4 % (0.0-1.0); HEMATOCRIT 54.6 % (36.0-47.0); LYMPH # 3.1 10^3/uL (1.5-5.0); LYMPH % 10.9 % (24.0-44.0); MEAN CORPUSCULAR HEMOGLOBIN 27.7 pg (27.0-33.0); MEAN CORPUSCULAR HGB CONC 30.8 g/dl (32.0-36.5); MEAN CORPUSCULAR VOLUME 90.1 fl (80.0-96.0); MONO % 3.4 % (2.0-8.0); NEUTROPHILS # 23.6 10^3/uL (1.5-8.5); NEUTROPHILS % 84.4 % (36.0-66.0); PLATELET COUNT, AUTOMATED 376 10^3/uL (150-450); RED BLOOD COUNT 6.06 10^6/uL (4.00-5.40)
[2022-12-02 19:20] LABS: HEMOGLOBIN 16.8 g/dl (12.0-15.5)
[2022-12-02 19:43] LABS: BLOOD UREA NITROGEN 14 MG/DL (9-23); CALCIUM LEVEL 7.9 MG/DL (8.5-10.1); CARBON DIOXIDE LEVEL 25 MMOL/L (20-31); CHLORIDE LEVEL 108 MMOL/L (98-107); CREATININE FOR GFR 0.85 MG/DL (0.55-1.30); GLOMERULAR FILTRATION RATE > 60.0 (>60); GLUCOSE, FASTING 108 MG/DL (60-100); POTASSIUM SERUM 3.8 MMOL/L (3.5-5.1); SODIUM LEVEL 142 MMOL/L (136-145)
[2022-12-02] MEDS ORDERED: LACTATED RINGER'S 1000 ML IV ONE (19:45)
[2022-12-02 20:00] VITALS: BP 118/60
[2022-12-02] MEDS ORDERED: INSULIN LISPRO (NovoLOG) PER UNIT SC SCH (21:00)
[2022-12-02] MEDS: LR 1,000 ML IV SCH (21:08)
[2022-12-02] MEDS: FLUTICASONE HFA 110MCG 12GM INHALER (FLOVENT) INH SCH (23:06)
[2022-12-02 23:19] VITALS: BP 117/60
[2022-12-03] MEDS: LR 1,000 ML IV SCH (02:05)
[2022-12-03 03:44] VITALS: BP 108/58
[2022-12-03 06:13] LABS: BASO % 0.2 % (0.0-1.0); EOS # 0.1 10^3/uL (0.0-0.5); EOS % 0.8 % (0.0-3.0); HEMATOCRIT 38.3 % (36.0-47.0); LYMPH # 4.1 10^3/uL (1.5-5.0); LYMPH % 24.1 % (24.0-44.0); MEAN CORPUSCULAR HEMOGLOBIN 27.8 pg (27.0-33.0); MEAN CORPUSCULAR HGB CONC 31.3 g/dl (32.0-36.5); MEAN CORPUSCULAR VOLUME 88.7 fl (80.0-96.0); MONO # 1.3 10^3/uL (0.0-0.8); MONO % 7.8 % (2.0-8.0); NEUTROPHILS # 11.2 10^3/uL (1.5-8.5); NEUTROPHILS % 66.6 % (36.0-66.0); PLATELET COUNT, AUTOMATED 296 10^3/uL (150-450); RED BLOOD COUNT 4.32 10^6/uL (4.00-5.40); WHITE BLOOD COUNT 16.8 10^3/uL (4.0-10.0)
[2022-12-03 06:37] LABS: BLOOD UREA NITROGEN 17 MG/DL (9-23); CALCIUM LEVEL 7.8 MG/DL (8.5-10.1); CARBON DIOXIDE LEVEL 24 MMOL/L (20-31); CHLORIDE LEVEL 108 MMOL/L (98-107); CREATININE FOR GFR 0.77 MG/DL (0.55-1.30); GLOMERULAR FILTRATION RATE > 60.0 (>60); GLUCOSE, FASTING 80 MG/DL (60-100); POTASSIUM SERUM 4.3 MMOL/L (3.5-5.1); SODIUM LEVEL 139 MMOL/L (136-145)
[2022-12-03 07:28] VITALS: BP 108/55
[2022-12-03] MEDS: INSULIN LISPRO (NovoLOG) PER UNIT SC SCH ×2 (07:30→11:51)
[2022-12-03] MEDS: FLUTICASONE HFA 110MCG 12GM INHALER (FLOVENT) INH SCH (07:52)
[2022-12-03] MEDS ORDERED: TIOTROPIUM INHALER/CAPSULE (SPIRIVA) INH SCH (08:00)
[2022-12-03] MEDS ORDERED: DULoxetine 30MG CAPSULE (CYMBALTA) PO SCH (09:00)
[2022-12-03] MEDS ORDERED: MONTELUKAST 10 MG TAB PO SCH (09:00)
[2022-12-03] MEDS ORDERED: ENOXAPARIN 40MG/0.4ML SYRINGE (J1650 PER 10MG) SC SCH (09:00)
[2022-12-03] MEDS ORDERED: PANTOPRAZOLE 40MG VIAL IV SCH (09:00)
[2022-12-03] MEDS ORDERED: ONDA4TAB6 PO (14:25)
[2022-12-03] MEDS ORDERED: LOPE2CAP PO (14:26)
== END 2022-12-03 15:30 | disposition home or self-care (01) | DRG 249 ==
LOC: M ED 12:47 → M ED INP 17:20 → M PCU 18:41
PROVIDERS: ADMIT Internal Medicine; ATTEND Internal Medicine
DX: A08.4 Viral intestinal infection, unspecified (principal); E87.20 Acidosis, unspecified; E11.22 Type 2 diabetes mellitus with diabetic chronic kidney disease; E86.0 Dehydration; I12.9 Hypertensive chronic kidney disease with stage 1 through stage 4 chronic kidney disease, or unspecified chronic kidney disease; K21.9 Gastro-esophageal reflux disease without esophagitis; J45.909 Unspecified asthma, uncomplicated; N18.9 Chronic kidney disease, unspecified; M48.00 Spinal stenosis, site unspecified; M54.50 Low back pain, unspecified; G89.29 Other chronic pain; M65.9 Synovitis and tenosynovitis, unspecified; Z79.899 Other long term (current) drug therapy; Z20.822 Contact with and (suspected) exposure to COVID-19; Z91.013 Allergy to seafood; Z91.018 Allergy to other foods; Z91.040 Latex allergy status; Z88.1 Allergy status to other antibiotic agents; Z90.79 Acquired absence of other genital organ(s); F39 Unspecified mood [affective] disorder

== ENCOUNTER → 2022-12-13 | Outpatient (REF) | payer OTHER ==
[~2022-12-13] MED LIST changes: +IBUP200T46 PO; +LOPE2CAP PO
[2022-12-13 14:50] LABS: BASO # 0.1 10^3/uL (0.0-0.2); BASO % 0.5 % (0.0-1.0); EOS # 0.1 10^3/uL (0.0-0.5); EOS % 1.1 % (0.0-3.0); HEMATOCRIT 38.4 % (36.0-47.0); LYMPH # 2.4 10^3/uL (1.5-5.0); LYMPH % 26.6 % (24.0-44.0); MEAN CORPUSCULAR HEMOGLOBIN 27.9 pg (27.0-33.0); MEAN CORPUSCULAR HGB CONC 31.3 g/dl (32.0-36.5); MEAN CORPUSCULAR VOLUME 89.3 fl (80.0-96.0); MONO # 0.8 10^3/uL (0.0-0.8); MONO % 8.8 % (2.0-8.0); NEUTROPHILS # 5.7 10^3/uL (1.5-8.5); NEUTROPHILS % 62.6 % (36.0-66.0); PLATELET COUNT, AUTOMATED 342 10^3/uL (150-450); WHITE BLOOD COUNT 9.1 10^3/uL (4.0-10.0)
[2022-12-13 14:56] LABS: ALBUMIN 3.6 G/DL (3.2-5.2); ALKALINE PHOSPHATASE 94 U/L (46-116); ALT/SGPT 68 U/L (7.0-40); AST/SGOT 18 U/L (<34); BILIRUBIN,TOTAL 0.5 MG/DL (0.3-1.2); BLOOD UREA NITROGEN 16 MG/DL (9-23); CALCIUM LEVEL 8.1 MG/DL (8.5-10.1); CARBON DIOXIDE LEVEL 27 MMOL/L (20-31); CHLORIDE LEVEL 108 MMOL/L (98-107); CHOLESTEROL LEVEL 154 MG/DL (<200); CHOLESTEROL RISK RATIO 3.78 (<5); CREATININE FOR GFR 0.66 MG/DL (0.55-1.30); GLOMERULAR FILTRATION RATE > 60.0 (>60); GLUCOSE, FASTING 88 MG/DL (60-100); HDL CHOLESTEROL 40.7 MG/DL (>40); LDL CHOLESTEROL 98.7 MG/DL (<100); NON-HDL-C 113.3 MG/DL; POTASSIUM SERUM 4.1 MMOL/L (3.5-5.1); SODIUM LEVEL 139 MMOL/L (136-145); TOTAL PROTEIN 6.8 G/DL (5.7-8.2); TRIGLYCERIDES LEVEL 73 MG/DL (<150)
[2022-12-13 15:33] LABS: HEMOGLOBIN A1c 5.9 % (4.0-6.0)
== END ==
LOC: M LAB REF 13:44
PROVIDERS: ATTEND Pediatrics
DX: E78.5 Hyperlipidemia, unspecified (principal); E11.69 Type 2 diabetes mellitus with other specified complication

== ENCOUNTER → 2022-12-15 | Outpatient (CLI) | payer OTHER ==
[2022-12-15 14:05] LABS: BASO # 0.1 10^3/uL (0.0-0.2); BASO % 0.5 % (0.0-1.0); EOS # 0.1 10^3/uL (0.0-0.5); EOS % 1.2 % (0.0-3.0); HEMOGLOBIN 12.3 g/dl (12.0-15.5); LYMPH # 2.1 10^3/uL (1.5-5.0); LYMPH % 20.1 % (24.0-44.0); MEAN CORPUSCULAR VOLUME 89.9 fl (80.0-96.0); MONO # 0.9 10^3/uL (0.0-0.8); MONO % 8.4 % (2.0-8.0); NEUTROPHILS # 7.1 10^3/uL (1.5-8.5); NEUTROPHILS % 69.4 % (36.0-66.0); PLATELET COUNT, AUTOMATED 338 10^3/uL (150-450); RED BLOOD COUNT 4.56 10^6/uL (4.00-5.40); WHITE BLOOD COUNT 10.3 10^3/uL (4.0-10.0)
[2022-12-15 14:17] LABS: ERYTHROCYTE SEDIMENTATION RATE 41 mm/hr (0-20)
[2022-12-15 14:38] LABS: ALBUMIN 3.9 G/DL (3.2-5.2); ALKALINE PHOSPHATASE 103 U/L (46-116); ALT/SGPT 52 U/L (7.0-40); AST/SGOT 17 U/L (<34); BILIRUBIN,TOTAL 0.5 MG/DL (0.3-1.2); BLOOD UREA NITROGEN 17 MG/DL (9-23); CALCIUM LEVEL 8.4 MG/DL (8.5-10.1); CARBON DIOXIDE LEVEL 28 MMOL/L (20-31); CHLORIDE LEVEL 106 MMOL/L (98-107); CREATININE FOR GFR 0.73 MG/DL (0.55-1.30); GLOMERULAR FILTRATION RATE > 60.0 (>60); GLUCOSE, FASTING 84 MG/DL (60-100); POTASSIUM SERUM 4.2 MMOL/L (3.5-5.1); SODIUM LEVEL 140 MMOL/L (136-145); TOTAL PROTEIN 6.9 G/DL (5.7-8.2)
[2022-12-15 14:42] LABS: URIC ACID 4.7 MG/DL (3.1-7.8)
== END ==
LOC: M PLALAB 09:17
PROVIDERS: ATTEND Internal Medicine Infectious Disease
DX: M65.9 Synovitis and tenosynovitis, unspecified (principal)

== ENCOUNTER → 2023-03-31 | Outpatient (CLI) | payer OTHER ==
[~2023-03-31] MED LIST changes: +MECL-209 PO; -MECL1TAB31 PO
== END ==
LOC: M PLAIMG 09:32
PROVIDERS: ATTEND Orthopaedic Surgery
DX: M47.896 Other spondylosis, lumbar region (principal); M51.26 Other intervertebral disc displacement, lumbar region

== ENCOUNTER 2023-04-21 15:00 | Emergency (ER) | payer OTHER ==
[2023-04-21 15:00] VITALS: TEMP 97.7
[~2023-04-21 15:00] MED LIST changes: -OXYB5TAB10 PO; +OXYB5TAB11 PO
[2023-04-21] MEDS ORDERED: DERMABOND TOPICAL SKIN ADHESIVE TOP ONE (17:05)
[2023-04-21 17:18] VITALS: BP 142/72; O2SAT 99
== END 2023-04-21 17:21 | disposition home or self-care (01) ==
LOC: M ED 15:00
DX: S61.511A Laceration without foreign body of right wrist, initial encounter (principal); W26.8XXA Contact with other sharp object(s), not elsewhere classified, initial encounter; I10 Essential (primary) hypertension; J45.909 Unspecified asthma, uncomplicated; N18.9 Chronic kidney disease, unspecified; Z87.442 Personal history of urinary calculi; Z88.1 Allergy status to other antibiotic agents; Z88.8 Allergy status to other drugs, medicaments and biological substances; Z91.013 Allergy to seafood; Z91.018 Allergy to other foods; Z79.52 Long term (current) use of systemic steroids; Z79.811 Long term (current) use of aromatase inhibitors; Z79.83 Long term (current) use of bisphosphonates; Z79.899 Other long term (current) drug therapy

== ENCOUNTER 2023-06-16 10:35 | Emergency (ER) | payer OTHER ==
[~2023-06-16] VITALS: Ht 172.7 cm; Wt 111.7 kg
[2023-06-16 11:44] VITALS: BP 140/74; TEMP 98.8; O2SAT 96
[2023-06-16] MEDS ORDERED: CETI-24 PO (12:12)
[2023-06-16] MEDS ORDERED: PRED20TA PO (12:12)
[2023-06-16 13:14] LABS: BASO # 0.1 10^3/uL (0.0-0.2); BASO % 0.6 % (0.0-1.0); EOS # 0.1 10^3/uL (0.0-0.5); HEMATOCRIT 40.2 % (36.0-47.0); HEMOGLOBIN 12.9 g/dl (12.0-15.5); LYMPH % 24.1 % (24.0-44.0); MEAN CORPUSCULAR HEMOGLOBIN 28.8 pg (27.0-33.0); MEAN CORPUSCULAR HGB CONC 32.1 g/dl (32.0-36.5); MEAN CORPUSCULAR VOLUME 89.7 fl (80.0-96.0); MONO # 0.9 10^3/uL (0.0-0.8); MONO % 7.4 % (2.0-8.0); NEUTROPHILS # 8.2 10^3/uL (1.5-8.5); NEUTROPHILS % 66.3 % (36.0-66.0); PLATELET COUNT, AUTOMATED 314 10^3/uL (150-450); RED BLOOD COUNT 4.48 10^6/uL (4.00-5.40); WHITE BLOOD COUNT 12.4 10^3/uL (4.0-10.0)
[2023-06-16 13:20] LABS: ALBUMIN 3.4 G/DL (3.2-5.2); ALKALINE PHOSPHATASE 89 U/L (46-116); ALT/SGPT 38 U/L (7.0-40); AST/SGOT 18 U/L (<34); BILIRUBIN,TOTAL 0.3 MG/DL (0.3-1.2); BLOOD UREA NITROGEN 13 MG/DL (9-23); CALCIUM LEVEL 8.9 MG/DL (8.5-10.1); CARBON DIOXIDE LEVEL 26 MMOL/L (20-31); CHLORIDE LEVEL 109 MMOL/L (98-107); CREATININE FOR GFR 0.54 MG/DL (0.55-1.30); GLOMERULAR FILTRATION RATE > 60.0 (>60); GLUCOSE, FASTING 94 MG/DL (60-100); POTASSIUM SERUM 4.3 MMOL/L (3.5-5.1); SODIUM LEVEL 141 MMOL/L (136-145); TOTAL PROTEIN 6.9 G/DL (5.7-8.2)
[2023-06-16] MEDS ORDERED: DOXY-443 PO (13:43)
[2023-06-16] MEDS ORDERED: TRIA1CR80 TOP (13:43)
== END 2023-06-16 13:54 | disposition home or self-care (01) ==
LOC: M ED 10:35
DX: L70.0 Acne vulgaris (principal); L30.9 Dermatitis, unspecified; K21.9 Gastro-esophageal reflux disease without esophagitis; N18.9 Chronic kidney disease, unspecified; E11.9 Type 2 diabetes mellitus without complications; Z88.1 Allergy status to other antibiotic agents; Z88.8 Allergy status to other drugs, medicaments and biological substances; Z91.012 Allergy to eggs; Z91.018 Allergy to other foods; Z91.048 Other nonmedicinal substance allergy status; Z79.52 Long term (current) use of systemic steroids; Z79.811 Long term (current) use of aromatase inhibitors; Z79.83 Long term (current) use of bisphosphonates; Z79.899 Other long term (current) drug therapy

== ENCOUNTER → 2023-09-02 | Outpatient (REF) | payer OTHER ==
[~2023-09-02] MED LIST changes: +CETI-24 PO; -OXYB5TAB11 PO; +OXYB5TAB14 PO; +TRIA1CR80 TOP
[2023-09-02 13:45] LABS: BLOOD UREA NITROGEN 14 MG/DL (9-23); CARBON DIOXIDE LEVEL 28 MMOL/L (20-31); CHLORIDE LEVEL 103 MMOL/L (98-107); CHOLESTEROL LEVEL 158 MG/DL (<200); CREATININE FOR GFR 0.69 MG/DL (0.55-1.30); GLOMERULAR FILTRATION RATE > 60.0 (>60); GLUCOSE, FASTING 78 MG/DL (60-100); HDL CHOLESTEROL 46.4 MG/DL (>40); LDL CHOLESTEROL 94.4 MG/DL (<100); NON-HDL-C 111.6 MG/DL; POTASSIUM SERUM 4.1 MMOL/L (3.5-5.1); SODIUM LEVEL 138 MMOL/L (136-145); TRIGLYCERIDES LEVEL 86 MG/DL (<150)
[2023-09-02 13:51] LABS: THYROID STIMULATING HORMONE 1.215 uIU/ML (0.55-4.78)
[2023-09-02 14:01] LABS: HEMOGLOBIN A1c 6.2 % (4.0-6.0)
[2023-09-02 14:28] LABS: CREATININE, URINE 203.8 MG/DL; MAU/CREAT RATIO 2.9 MCG/MG (0.0-30.0)
== END ==
LOC: M LAB REF 12:17
PROVIDERS: ATTEND Pediatrics
DX: E11.69 Type 2 diabetes mellitus with other specified complication (principal); I10 Essential (primary) hypertension; E78.5 Hyperlipidemia, unspecified

== ENCOUNTER → 2023-09-22 | Outpatient (REF) | payer OTHER ==
[~2023-09-22] MED LIST changes: +SPIR-10
[2023-09-22 15:18] LABS: BLOOD UREA NITROGEN 14 MG/DL (9-23); CALCIUM LEVEL 9.1 MG/DL (8.5-10.1); CARBON DIOXIDE LEVEL 27 MMOL/L (20-31); CHLORIDE LEVEL 104 MMOL/L (98-107); CREATININE FOR GFR 0.66 MG/DL (0.55-1.30); GLOMERULAR FILTRATION RATE > 60.0 (>60); GLUCOSE, FASTING 120 MG/DL (60-100); POTASSIUM SERUM 4.6 MMOL/L (3.5-5.1); SODIUM LEVEL 136 MMOL/L (136-145)
== END ==
LOC: M LAB REF 12:40
PROVIDERS: ATTEND Pediatrics
DX: L70.0 Acne vulgaris (principal)

== ENCOUNTER → 2023-11-17 | Outpatient (CLI) | payer OTHER ==
[~2023-11-17] MED LIST changes: +DOXY-323 PO; +DOXY-440 PO; -DOXY-443 PO; -DOXY-444 PO
[2023-11-17 12:47] LABS: PLATELET COUNT, AUTOMATED 308 10^3/uL (150-450)
[2023-11-17 13:09] LABS: INR 1.06; PROTHROMBIN TIME 13.5 SECONDS (12.5-14.5)
== END ==
LOC: M LAB 12:21
PROVIDERS: ATTEND Physician Assistant
DX: Z01.818 Encounter for other preprocedural examination (principal)

== ENCOUNTER → 2023-12-09 | Outpatient (CLI) | payer OTHER ==
[2023-12-09 11:35] LABS: BASO # 0.1 10^3/uL (0.0-0.2); BASO % 0.5 % (0.0-1.0); EOS # 0.1 10^3/uL (0.0-0.5); EOS % 0.7 % (0.0-3.0); HEMATOCRIT 42.5 % (36.0-47.0); HEMOGLOBIN 13.7 g/dl (12.0-15.5); LYMPH # 3.2 10^3/uL (1.5-5.0); LYMPH % 25.1 % (24.0-44.0); MEAN CORPUSCULAR HEMOGLOBIN 28.2 pg (27.0-33.0); MEAN CORPUSCULAR HGB CONC 32.2 g/dl (32.0-36.5); MEAN CORPUSCULAR VOLUME 87.4 fl (80.0-96.0); MONO % 7.4 % (2.0-8.0); NEUTROPHILS # 8.4 10^3/uL (1.5-8.5); NEUTROPHILS % 65.8 % (36.0-66.0); PLATELET COUNT, AUTOMATED 314 10^3/uL (150-450); RED BLOOD COUNT 4.86 10^6/uL (4.00-5.40); WHITE BLOOD COUNT 12.8 10^3/uL (4.0-10.0)
[2023-12-09 12:06] LABS: ALBUMIN 3.4 G/DL (3.2-5.2); ALKALINE PHOSPHATASE 94 U/L (46-116); ALT/SGPT 42 U/L (7.0-40); AST/SGOT 20 U/L (<34); BILIRUBIN,TOTAL 0.6 MG/DL (0.3-1.2); BLOOD UREA NITROGEN 14 MG/DL (9-23); CALCIUM LEVEL 9.4 MG/DL (8.5-10.1); CARBON DIOXIDE LEVEL 25 MMOL/L (20-31); CHLORIDE LEVEL 106 MMOL/L (98-107); CHOLESTEROL LEVEL 162 MG/DL (<200); CHOLESTEROL RISK RATIO 3.97 (<5); CREATININE FOR GFR 0.61 MG/DL (0.55-1.30); GLOMERULAR FILTRATION RATE > 60.0 (>60); GLUCOSE, FASTING 95 MG/DL (60-100); HCG, SERUM QUANTITATIVE < 2.6 MIU/ML (<4.2); HDL CHOLESTEROL 40.8 MG/DL (>40); LDL CHOLESTEROL 103.2 MG/DL (<100); NON-HDL-C 121.2 MG/DL; POTASSIUM SERUM 4.7 MMOL/L (3.5-5.1); SODIUM LEVEL 136 MMOL/L (136-145); TOTAL PROTEIN 7.1 G/DL (5.7-8.2); TRIGLYCERIDES LEVEL 90 MG/DL (<150)
== END ==
LOC: M LAB 10:50
PROVIDERS: ATTEND Physician Assistant
DX: L71.8 Other rosacea (principal)

== ENCOUNTER 2023-12-14 22:29 | Observation (INO) | payer OTHER ==
[~2023-12-14] VITALS: Ht 172.7 cm; Wt 114.0 kg
[~2023-12-14 22:29] MED LIST changes: +ONDA-282 PO; -ONDA4TAB6 PO
[2023-12-14 23:13] LABS: BASO % 0.3 % (0.0-1.0); EOS # 0.1 10^3/uL (0.0-0.5); EOS % 1.1 % (0.0-3.0); HEMATOCRIT 38.6 % (36.0-47.0); HEMOGLOBIN 12.4 g/dl (12.0-15.5); LYMPH % 31.6 % (24.0-44.0); MEAN CORPUSCULAR HEMOGLOBIN 27.9 pg (27.0-33.0); MEAN CORPUSCULAR HGB CONC 32.1 g/dl (32.0-36.5); MEAN CORPUSCULAR VOLUME 86.9 fl (80.0-96.0); MONO # 0.7 10^3/uL (0.0-0.8); MONO % 10.4 % (2.0-8.0); NEUTROPHILS # 3.5 10^3/uL (1.5-8.5); NEUTROPHILS % 56.3 % (36.0-66.0); PLATELET COUNT, AUTOMATED 294 10^3/uL (150-450); RED BLOOD COUNT 4.44 10^6/uL (4.00-5.40); WHITE BLOOD COUNT 6.3 10^3/uL (4.0-10.0)
[2023-12-14 23:34] LABS: ALBUMIN 3.1 G/DL (3.2-5.2); ALKALINE PHOSPHATASE 83 U/L (46-116); ALT/SGPT 37 U/L (7.0-40); AST/SGOT 15 U/L (<34); BILIRUBIN,TOTAL 0.3 MG/DL (0.3-1.2); BLOOD UREA NITROGEN 12 MG/DL (9-23); CALCIUM LEVEL 8.9 MG/DL (8.5-10.1); CARBON DIOXIDE LEVEL 26 MMOL/L (20-31); CHLORIDE LEVEL 110 MMOL/L (98-107); CREATININE FOR GFR 0.66 MG/DL (0.55-1.30); GLOMERULAR FILTRATION RATE > 60.0 (>60); GLUCOSE, FASTING 126 MG/DL (60-100); SODIUM LEVEL 141 MMOL/L (136-145); TOTAL PROTEIN 6.5 G/DL (5.7-8.2)
[2023-12-15] MEDS: MECLIZINE 25 MG TABLET PO ONE (03:46)
[2023-12-15] MEDS: NS 1,000 ML IV ONE ×2 (03:47→14:16)
[2023-12-15] MEDS: ACETAMINOPHEN *IV* 1,000 MG in IV 1 EA IV ONE (03:47)
[2023-12-15] MEDS: diazePAM 10MG/2ML SYRINGE IV ONE (05:27)
[2023-12-15] MEDS ORDERED: FIORICET TAB PO PRN (14:30)
[2023-12-15] MEDS ORDERED: ACETAMINOPHEN TAB 650MG DOSE (2X325MG) PO PRN (14:30)
[2023-12-15] MEDS: METOPROLOL TART 25 MG TABLET PO ONE (14:31)
[2023-12-15] MEDS ORDERED: TRUL10IN SC (14:43)
[2023-12-15] MEDS ORDERED: ADV500INH INH (14:43)
[2023-12-15] MEDS ORDERED: HOME MED LIST COMPLETE! XX SCH (14:45)
[2023-12-15] MEDS: REMDESIVIR 200 MG in NS 250 ML IV ONE (15:20)
[2023-12-15 15:25] VITALS: BP 141/102; TEMP 97.2; O2SAT 97
[2023-12-15 15:30] VITALS: BP 140/98
[2023-12-15 15:32] LABS: D-DIMER QUANT 0.33 ug/mL (<0.5); INR 0.97; PROTHROMBIN TIME 12.6 SECONDS (12.5-14.5)
[2023-12-15 15:42] LABS: MAGNESIUM LEVEL 1.8 MG/DL (1.8-2.4)
[2023-12-15 15:43] LABS: LDH LACTATE DEHYDROGENASE 160 U/L (120-246)
[2023-12-15 15:47] LABS: FERRITIN 76.1 NG/ML (7.3-270.7)
[2023-12-15 15:52] LABS: PROCALCITONIN <0.04 ng/ml
[2023-12-15] MEDS: ACETAMINOPHEN 500 MG TAB PO ONE (16:04)
[2023-12-15] MEDS: amLODIPine 5 MG TAB PO ONE (16:05)
[2023-12-15] MEDS: FIORICET TAB PO ONE (16:05)
[2023-12-15] MEDS: MORPHINE 4 MG/ML 1ML VIAL IV ONE (16:06)
[2023-12-15] MEDS: KETOROLAC 30 MG/ML 1ML VIAL IV ONE (16:06)
[2023-12-15 16:26] VITALS: O2SAT 96
[2023-12-15] MEDS ORDERED: MORPHINE 2 MG/ML 1ML VIAL IV PRN (17:00)
[2023-12-15] MEDS: MECLIZINE 25 MG TABLET PO SCH (17:11)
[2023-12-15] MEDS: DULoxetine 30MG CAPSULE (CYMBALTA) PO ONE (17:11)
[2023-12-15] MEDS: guaiFENesin ER TABLET 600 MG TAB PO SCH (18:00)
[2023-12-15] MEDS ORDERED: traZODone 25MG PER 1/2 TABLET PO PRN (18:05)
[2023-12-15 18:38] VITALS: BP_SYST 114; BP_SYST 120; BP_SYST 124; BP_DIAS 63; BP_DIAS 65
[2023-12-15] MEDS: HEPARIN SOD (PORCINE) 5000UNITS/ML 1ML VIAL/SYRINGE SQ SCH (20:18)
[2023-12-15] MEDS: ALBUTEROL 90 MCG/ACT 8GM HFA INHALER INH SCH (21:23)
[2023-12-15 21:30] VITALS: BP_SYST 118; BP_SYST 125; BP_SYST 130; BP_SYST 138; BP_DIAS 62; BP_DIAS 66; BP_DIAS 72; BP_DIAS 96; TEMP 98; O2SAT 96
[2023-12-16] VITALS (7 sets, daily range): BP systolic 123–124; BP diastolic 60–65; TEMP 97.2–97.3; O2SAT 93–96
[2023-12-16 07:42] LABS: ALBUMIN 2.9 G/DL (3.2-5.2); BILIRUBIN,DIRECT 0.2 MG/DL (<0.4); BILIRUBIN,TOTAL 0.4 MG/DL (0.3-1.2); TOTAL PROTEIN 6.1 G/DL (5.7-8.2)
[2023-12-16] MEDS: OMEPRAZOLE 20MG CAP PO SCH (08:31)
[2023-12-16] MEDS: DULoxetine 30MG CAPSULE (CYMBALTA) PO SCH (08:31)
[2023-12-16] MEDS: MONTELUKAST 10 MG TAB PO SCH (08:32)
[2023-12-16] MEDS: SCOPOLAMINE 1MG TRANSDERMAL PATCH TOP SCH (09:59)
[2023-12-16] MEDS: REMDESIVIR 100 MG in NS 250 ML IV SCH (16:04)
[2023-12-17 04:00] VITALS: BP 131/63; TEMP 97.5; O2SAT 97
[2023-12-17 05:58] LABS: HEMATOCRIT 37.5 % (36.0-47.0); MEAN CORPUSCULAR VOLUME 87.4 fl (80.0-96.0); PLATELET COUNT, AUTOMATED 282 10^3/uL (150-450); RED BLOOD COUNT 4.29 10^6/uL (4.00-5.40); WHITE BLOOD COUNT 7.9 10^3/uL (4.0-10.0)
[2023-12-17 06:25] LABS: BLOOD UREA NITROGEN 14 MG/DL (9-23); CALCIUM LEVEL 8.8 MG/DL (8.5-10.1); CARBON DIOXIDE LEVEL 27 MMOL/L (20-31); CHLORIDE LEVEL 107 MMOL/L (98-107); CREATININE FOR GFR 0.64 MG/DL (0.55-1.30); GLOMERULAR FILTRATION RATE > 60.0 (>60); GLUCOSE, FASTING 96 MG/DL (60-100); POTASSIUM SERUM 4.4 MMOL/L (3.5-5.1); SODIUM LEVEL 139 MMOL/L (136-145)
[2023-12-17 08:25] VITALS: BP 131/63
[2023-12-17] MEDS ORDERED: NIRM1TAB14 PO (10:03)
[2023-12-17] MEDS ORDERED: MECL-86 PO (10:03)
[2023-12-17] MEDS ORDERED: TRAN1DIS4 TOP (10:03)
== END 2023-12-17 11:20 | disposition home or self-care (01) ==
LOC: M ED 22:29 → M ED INP 12-15 13:47 → M MS5PR 12-15 15:10
PROVIDERS: ADMIT General Practice; ATTEND Family Medicine
DX: H81.20 Vestibular neuronitis, unspecified ear (principal); U07.1 COVID-19; R53.1 Weakness; E66.9 Obesity, unspecified; J45.909 Unspecified asthma, uncomplicated; G47.33 Obstructive sleep apnea (adult) (pediatric); N18.9 Chronic kidney disease, unspecified; I12.9 Hypertensive chronic kidney disease with stage 1 through stage 4 chronic kidney disease, or unspecified chronic kidney disease; M48.00 Spinal stenosis, site unspecified; J30.2 Other seasonal allergic rhinitis; Z79.899 Other long term (current) drug therapy; Z88.0 Allergy status to penicillin; Z88.1 Allergy status to other antibiotic agents; Z91.013 Allergy to seafood; Z91.040 Latex allergy status; Z91.018 Allergy to other foods
CPT/HCPCS: 36415; 70450; 70544; 70551; 71046; 80048; 80053; 80076; 82728; 83615; 83735; 84145; 85025; 85027; 85379; 85384; 85610; 85730; 86140; 87486; 87581; 87633; 87798; 93005; 94640; 96365; 96366; 96375; 96376; 99285; J0131; J0248; J1885; J3360

== ENCOUNTER → 2024-01-05 | Outpatient (CLI) | payer OTHER ==
[~2024-01-05] MED LIST changes: +ADV500INH INH; +MECL-86 PO; +NIRM1TAB14 PO; +TRAN1DIS4 TOP; +TRUL10IN SC
[2024-01-05 14:59] LABS: BASO # 0.1 10^3/uL (0.0-0.2); BASO % 0.4 % (0.0-1.0); EOS # 0.1 10^3/uL (0.0-0.5); EOS % 0.6 % (0.0-3.0); HEMATOCRIT 42.5 % (36.0-47.0); HEMOGLOBIN 13.4 g/dl (12.0-15.5); LYMPH # 3.8 10^3/uL (1.5-5.0); LYMPH % 22.8 % (24.0-44.0); MEAN CORPUSCULAR HEMOGLOBIN 28.4 pg (27.0-33.0); MEAN CORPUSCULAR HGB CONC 31.5 g/dl (32.0-36.5); MONO # 1.3 10^3/uL (0.0-0.8); MONO % 7.8 % (2.0-8.0); NEUTROPHILS # 11.1 10^3/uL (1.5-8.5); NEUTROPHILS % 66.7 % (36.0-66.0); PLATELET COUNT, AUTOMATED 311 10^3/uL (150-450); RED BLOOD COUNT 4.72 10^6/uL (4.00-5.40); WHITE BLOOD COUNT 16.7 10^3/uL (4.0-10.0)
[2024-01-05 15:17] LABS: HEMOGLOBIN A1c 6.3 % (4.0-6.0)
[2024-01-05 15:23] LABS: ALBUMIN 3.3 G/DL (3.2-5.2); ALKALINE PHOSPHATASE 111 U/L (46-116); ALT/SGPT 112 U/L (7.0-40); AST/SGOT 53 U/L (<34); BILIRUBIN,TOTAL 0.7 MG/DL (0.3-1.2); BLOOD UREA NITROGEN 20 MG/DL (9-23); CALCIUM LEVEL 9.3 MG/DL (8.5-10.1); CARBON DIOXIDE LEVEL 26 MMOL/L (20-31); CHLORIDE LEVEL 102 MMOL/L (98-107); CREATININE FOR GFR 0.69 MG/DL (0.55-1.30); GLOMERULAR FILTRATION RATE > 60.0 (>60); GLUCOSE, FASTING 76 MG/DL (60-100); POTASSIUM SERUM 4.6 MMOL/L (3.5-5.1); SODIUM LEVEL 135 MMOL/L (136-145); TOTAL PROTEIN 6.8 G/DL (5.7-8.2)
[2024-01-05 15:24] LABS: THYROID STIMULATING HORMONE 2.513 uIU/ML (0.55-4.78)
[2024-01-05 15:25] LABS: VITAMIN B12 LEVEL 306 PG/ML (211-911)
[2024-01-09 08:02] LABS: ALBUMIN SPEP 3.8 g/dL (3.8-4.8); ALPHA-1-GLOBULINS SO 0.3 g/dL (0.2-0.3); BETA 2 GLOBULIN 0.4 g/dL (0.2-0.5); BETA-GLOBULIN SO 0.5 g/dL (0.4-0.6)
[2024-01-09 13:03] LABS: IgG P18 AB REACTIVE; IgG P23 AB NON-REACTIVE; IgG P28 AB NON-REACTIVE; IgG P30 AB NON-REACTIVE; IgG P39 AB NON-REACTIVE; IgG P41 AB NON-REACTIVE; IgG P45 AB NON-REACTIVE; IgG P58 AB NON-REACTIVE; IgG P66 AB NON-REACTIVE; IgG P93 AB NON-REACTIVE; IgM P23 AB NON-REACTIVE; IgM P39 AB NON-REACTIVE; IgM P41 AB NON-REACTIVE; LYME IgG WB INTERPRETATION NEGATIVE (NEGATIVE); LYME IgM WB INTERPRETATION NEGATIVE (NEGATIVE)
[2024-01-09 16:58] LABS: LYME TOTAL ANTIBODY CIA <= 0.90 Index (<=0.90)
== END ==
LOC: M PLALAB 09:33
PROVIDERS: ATTEND Psychiatry & Neurology Neurology
DX: R26.81 Unsteadiness on feet (principal); D51.9 Vitamin B12 deficiency anemia, unspecified; R20.2 Paresthesia of skin; E07.9 Disorder of thyroid, unspecified; Z11.3 Encounter for screening for infections with a predominantly sexual mode of transmission

== ENCOUNTER 2024-01-10 23:15 | Emergency (ER) | payer OTHER ==
[~2024-01-10] VITALS: Ht 172.7 cm; Wt 113.2 kg
[2024-01-10 23:16] VITALS: TEMP 97.8
[2024-01-11 00:36] LABS: BASO # 0.1 10^3/uL (0.0-0.2); BASO % 0.6 % (0.0-1.0); EOS # 0.1 10^3/uL (0.0-0.5); EOS % 1.2 % (0.0-3.0); HEMATOCRIT 37.5 % (36.0-47.0); HEMOGLOBIN 11.6 g/dl (12.0-15.5); LYMPH # 3.1 10^3/uL (1.5-5.0); LYMPH % 32.9 % (24.0-44.0); MEAN CORPUSCULAR HEMOGLOBIN 27.8 pg (27.0-33.0); MEAN CORPUSCULAR HGB CONC 30.9 g/dl (32.0-36.5); MEAN CORPUSCULAR VOLUME 89.9 fl (80.0-96.0); MONO % 10.7 % (2.0-8.0); NEUTROPHILS # 5.1 10^3/uL (1.5-8.5); NEUTROPHILS % 54.2 % (36.0-66.0); PLATELET COUNT, AUTOMATED 271 10^3/uL (150-450); RED BLOOD COUNT 4.17 10^6/uL (4.00-5.40); WHITE BLOOD COUNT 9.3 10^3/uL (4.0-10.0)
[2024-01-11 00:56] LABS: ALBUMIN 3.1 G/DL (3.2-5.2); BILIRUBIN,DIRECT 0.1 MG/DL (<0.4); BILIRUBIN,TOTAL 0.4 MG/DL (0.3-1.2); TOTAL PROTEIN 6.3 G/DL (5.7-8.2)
[2024-01-11] MEDS ORDERED: ISOVUE-370 76% 100ML VIAL As Ordered ONE (01:45)
[2024-01-11] MEDS: KETOROLAC 30 MG/ML 1ML VIAL IV ONE (01:58)
[2024-01-11 04:00] VITALS: BP 121/72; O2SAT 97
[2024-01-11] MEDS ORDERED: MUPI2OI TOP (04:01)
== END 2024-01-11 04:22 | disposition home or self-care (01) ==
LOC: M ED 23:15
DX: L66.2 Folliculitis decalvans (principal); R10.9 Unspecified abdominal pain; K21.9 Gastro-esophageal reflux disease without esophagitis; J45.909 Unspecified asthma, uncomplicated; I12.9 Hypertensive chronic kidney disease with stage 1 through stage 4 chronic kidney disease, or unspecified chronic kidney disease; E11.9 Type 2 diabetes mellitus without complications; Z87.442 Personal history of urinary calculi; Z90.710 Acquired absence of both cervix and uterus; Z79.899 Other long term (current) drug therapy; Z79.4 Long term (current) use of insulin; Z88.0 Allergy status to penicillin; Z88.1 Allergy status to other antibiotic agents; Z91.018 Allergy to other foods; Z91.013 Allergy to seafood; Z91.040 Latex allergy status
CPT/HCPCS: 74177; 80047; 80076; 81001; 83690; 84702; 85025; 96374; 99284; J1885; Q9967

== ENCOUNTER → 2024-03-13 | Outpatient (CLI) | payer OTHER ==
[~2024-03-13] MED LIST changes: +ECOT81TA5 PO; +MUPI2OI TOP
[2024-03-13 09:17] LABS: ALBUMIN 3.2 G/DL (3.2-5.2); ALKALINE PHOSPHATASE 102 U/L (46-116); ALT/SGPT 32 U/L (7.0-40); AST/SGOT 20 U/L (<34); BILIRUBIN,TOTAL 0.3 MG/DL (0.3-1.2); BLOOD UREA NITROGEN 7 MG/DL (9-23); CALCIUM LEVEL 9.2 MG/DL (8.5-10.1); CARBON DIOXIDE LEVEL 27 MMOL/L (20-31); CHLORIDE LEVEL 109 MMOL/L (98-107); CHOLESTEROL LEVEL 144 MG/DL (<200); CREATININE FOR GFR 0.61 MG/DL (0.55-1.30); GLOMERULAR FILTRATION RATE > 60.0 (>60); GLUCOSE, FASTING 105 MG/DL (60-100); HDL CHOLESTEROL 35.1 MG/DL (>40); LDL CHOLESTEROL 84.7 MG/DL (<100); NON-HDL-C 108.9 MG/DL; POTASSIUM SERUM 4.1 MMOL/L (3.5-5.1); SODIUM LEVEL 141 MMOL/L (136-145); TOTAL PROTEIN 6.6 G/DL (5.7-8.2); TRIGLYCERIDES LEVEL 121 MG/DL (<150)
== END ==
LOC: M LAB 07:52
PROVIDERS: ATTEND Physician Assistant
DX: L70.0 Acne vulgaris (principal)

== ENCOUNTER → 2024-03-13 | Outpatient (REF) | payer OTHER | LOC: M SFHCDERM 08:29 | PROVIDERS: ATTEND Physician Assistant | DX: L70.0 Acne vulgaris (principal) ==

== ENCOUNTER 2024-03-14 17:19 | Emergency (ER) | payer OTHER ==
[~2024-03-14] VITALS: Ht 172.7 cm; Wt 111.5 kg
[~2024-03-14 17:19] MED LIST changes: -ECOT81TA5 PO
[2024-03-14] MEDS ORDERED: ECOT81TA5 PO (17:30)
[2024-03-14] MEDS: IBUPROFEN 600MG TAB PO ONE (19:05)
[2024-03-14] MEDS ORDERED: IBUP-1022 PO (19:23)
[2024-03-14 19:36] VITALS: BP 125/66; TEMP 98; O2SAT 99
== END 2024-03-14 19:39 | disposition home or self-care (01) ==
LOC: M ED 17:19
DX: M67.833 Other specified disorders of tendon, right wrist (principal); J44.9 Chronic obstructive pulmonary disease, unspecified; I10 Essential (primary) hypertension; E11.9 Type 2 diabetes mellitus without complications; Z79.4 Long term (current) use of insulin; Z79.899 Other long term (current) drug therapy; Z88.0 Allergy status to penicillin; Z88.1 Allergy status to other antibiotic agents; Z91.013 Allergy to seafood; Z91.040 Latex allergy status; Z91.018 Allergy to other foods

== ENCOUNTER → 2024-03-21 | Outpatient (REF) | payer OTHER ==
[~2024-03-21] MED LIST changes: +ECOT81TA5 PO
[2024-03-21 18:04] LABS: C REACTIVE PROTEIN QUANTITATIV 2.9 MG/DL (<1.0)
[2024-03-21 18:07] LABS: THYROID STIMULATING HORMONE 1.313 uIU/ML (0.55-4.78)
[2024-03-21 18:11] LABS: BASO # 0.1 10^3/uL (0.0-0.2); BASO % 0.6 % (0.0-1.0); EOS # 0.1 10^3/uL (0.0-0.5); EOS % 0.9 % (0.0-3.0); HEMATOCRIT 39.9 % (36.0-47.0); HEMOGLOBIN 12.5 g/dl (12.0-15.5); LYMPH # 2.6 10^3/uL (1.5-5.0); LYMPH % 27.3 % (24.0-44.0); MEAN CORPUSCULAR HEMOGLOBIN 27.1 pg (27.0-33.0); MEAN CORPUSCULAR HGB CONC 31.3 g/dl (32.0-36.5); MEAN CORPUSCULAR VOLUME 86.6 fl (80.0-96.0); MONO # 0.9 10^3/uL (0.0-0.8); MONO % 9.3 % (2.0-8.0); NEUTROPHILS # 5.7 10^3/uL (1.5-8.5); NEUTROPHILS % 61.4 % (36.0-66.0); PLATELET COUNT, AUTOMATED 329 10^3/uL (150-450); RED BLOOD COUNT 4.61 10^6/uL (4.00-5.40); WHITE BLOOD COUNT 9.3 10^3/uL (4.0-10.0)
== END ==
LOC: M LAB REF 16:44
PROVIDERS: ATTEND Pediatrics
DX: E11.69 Type 2 diabetes mellitus with other specified complication (principal); R79.82 Elevated C-reactive protein (CRP)

== ENCOUNTER → 2024-04-20 | Outpatient (CLI) | payer OTHER ==
[~2024-04-20] MED LIST changes: -DOXY-323 PO; +DOXY-441 PO
== END ==
LOC: M SOG 07:52
PROVIDERS: ATTEND Physician Assistant
DX: M25.521 Pain in right elbow (principal)

== ENCOUNTER 2024-06-11 20:30 | Observation (INO) | payer OTHER ==
[~2024-06-11] VITALS: Ht 172.7 cm; Wt 108.4 kg
[~2024-06-11 20:30] MED LIST changes: +CYMB1CAP5 PO; +METR-265 PO
[2024-06-11] MEDS ORDERED: ISOVUE-370 76% 100ML VIAL As Ordered ONE (23:06)
[2024-06-11 23:21] LABS: BASO # 0.1 10^3/uL (0.0-0.2); BASO % 0.5 % (0.0-1.0); EOS # 0.1 10^3/uL (0.0-0.5); HEMATOCRIT 42.8 % (36.0-47.0); HEMOGLOBIN 13.6 g/dl (12.0-15.5); LYMPH # 3.5 10^3/uL (1.5-5.0); LYMPH % 26.3 % (24.0-44.0); MEAN CORPUSCULAR HEMOGLOBIN 27.9 pg (27.0-33.0); MEAN CORPUSCULAR HGB CONC 31.8 g/dl (32.0-36.5); MEAN CORPUSCULAR VOLUME 87.7 fl (80.0-96.0); MONO % 7.2 % (2.0-8.0); NEUTROPHILS # 8.6 10^3/uL (1.5-8.5); NEUTROPHILS % 64.3 % (36.0-66.0); PLATELET COUNT, AUTOMATED 381 10^3/uL (150-450); RED BLOOD COUNT 4.88 10^6/uL (4.00-5.40); WHITE BLOOD COUNT 13.3 10^3/uL (4.0-10.0)
[2024-06-11 23:34] LABS: CK-MB VALUE MASS < 1.0 NG/ML (<3.6)
[2024-06-11 23:37] LABS: CPK CREATINE PHOSPHOKINASE 59 U/L (34-145); MB/CK RELATIVE INDEX 1.69 (< OR =4)
[2024-06-11 23:41] LABS: INR 0.98; PARTIAL THROMBOPLASTIN TIME 27.9 SECONDS (24.8-34.2); PROTHROMBIN TIME 13.3 SECONDS (12.5-14.5)
[2024-06-11] MEDS: ASPIRIN 81MG CHEW TABLET PO ONE (23:59)
[2024-06-12] MEDS: diazePAM 10MG/2ML SYRINGE IV ONE (00:09)
[2024-06-12] MEDS: CLOPIDOGREL 75 MG TAB PO ONE (01:37)
[2024-06-12] MEDS ORDERED: OMEP-173 PO (03:14)
[2024-06-12] MEDS ORDERED: IBUP80TA PO (03:14)
[2024-06-12] MEDS ORDERED: HOME MED LIST COMPLETE! XX SCH (03:20)
[2024-06-12] MEDS: TOPIRAMATE (TopAMAX) 25 MG TAB PO ONE (03:20)
[2024-06-12] MEDS: ATORVASTATIN 20 MG TAB PO ONE (03:20)
[2024-06-12] MEDS: CLOPIDOGREL 75 MG TAB PO STA ×2 (03:21)
[2024-06-12 05:19] VITALS: BP 149/91; TEMP 97.7; O2SAT 95
[2024-06-12 06:02] LABS: HEMATOCRIT 42.3 % (36.0-47.0); HEMOGLOBIN 13.6 g/dl (12.0-15.5); MEAN CORPUSCULAR HEMOGLOBIN 27.9 pg (27.0-33.0); MEAN CORPUSCULAR HGB CONC 32.2 g/dl (32.0-36.5); MEAN CORPUSCULAR VOLUME 86.9 fl (80.0-96.0); PLATELET COUNT, AUTOMATED 359 10^3/uL (150-450); RED BLOOD COUNT 4.87 10^6/uL (4.00-5.40); WHITE BLOOD COUNT 13.9 10^3/uL (4.0-10.0)
[2024-06-12] MEDS: ACETAMINOPHEN 325 MG TAB PO PRN (06:08)
[2024-06-12 06:31] LABS: THYROID STIMULATING HORMONE 2.618 uIU/ML (0.55-4.78)
[2024-06-12 06:34] LABS: ALBUMIN 3.6 G/DL (3.2-5.2); ALKALINE PHOSPHATASE 123 U/L (35-104); ALT/SGPT 50 U/L (7.0-40); AST/SGOT 23 U/L (<34); BILIRUBIN,TOTAL 0.6 MG/DL (0.3-1.2); BLOOD UREA NITROGEN 14 MG/DL (9-23); CALCIUM LEVEL 10.3 MG/DL (8.5-10.1); CARBON DIOXIDE LEVEL 26 MMOL/L (20-31); CHLORIDE LEVEL 104 MMOL/L (98-107); CREATININE FOR GFR 0.57 MG/DL (0.55-1.30); GLOMERULAR FILTRATION RATE > 60.0 (>60); GLUCOSE, FASTING 126 MG/DL (60-100); POTASSIUM SERUM 4.3 MMOL/L (3.5-5.1); SODIUM LEVEL 139 MMOL/L (136-145); TOTAL PROTEIN 7.5 G/DL (5.7-8.2)
[2024-06-12] MEDS: ALBUTEROL 90 MCG/ACT 8GM HFA INHALER INH SCH (07:50)
[2024-06-12] MEDS: ADVAIR HFA 230/21MCG INHALER INH SCH (07:50)
[2024-06-12 08:00] VITALS: BP 142/94; TEMP 97.5; O2SAT 95
[2024-06-12] MEDS: MONTELUKAST 10 MG TAB PO SCH (08:17)
[2024-06-12] MEDS: ENOXAPARIN 40MG/0.4ML SYRINGE (J1650 PER 10MG) SC SCH (08:17)
[2024-06-12] MEDS: DULoxetine 30MG CAPSULE (CYMBALTA) PO SCH ×2 (08:17→20:11)
[2024-06-12] MEDS: OMEPRAZOLE 20MG CAP PO SCH (08:17)
[2024-06-12 08:18] VITALS: BP 142/94
[2024-06-12 12:00] VITALS: BP 147/91; TEMP 97.5; O2SAT 95
[2024-06-12 12:24] LABS: PROCALCITONIN 0.05 ng/ml
[2024-06-12] MEDS: LR 1,000 ML IV ONE (12:25)
[2024-06-12 12:42] LABS: HEMOGLOBIN A1c 6.2 % (4.0-6.0)
[2024-06-12] MEDS: MECLIZINE 25 MG TABLET PO PRN (14:31)
[2024-06-12 16:00] VITALS: BP 161/97; TEMP 97.7; O2SAT 96
[2024-06-12] MEDS: KETOROLAC 30 MG/ML 1ML VIAL IV ONE (16:06)
[2024-06-12 20:00] VITALS: BP 127/57; TEMP 97; O2SAT 96
[2024-06-12] MEDS: metroNIDAZOLE (FLAGYL) 500MG TABLET PO SCH (20:11)
[2024-06-12] MEDS: AMITRIPTYLINE 10MG TABLET PO SCH (20:12)
[2024-06-12] MEDS: TOPIRAMATE (TopAMAX) 25 MG TAB PO SCH (20:12)
[2024-06-12] MEDS ORDERED: TOPIRAMATE (TopAMAX) 25 MG TAB PO SCH (21:00)
[2024-06-13] VITALS: BP 120/59; TEMP 97.2; O2SAT 96
[2024-06-13 04:00] VITALS: BP 122/58; TEMP 97.3; O2SAT 97
[2024-06-13 06:10] LABS: BASO # 0.1 10^3/uL (0.0-0.2); BASO % 0.5 % (0.0-1.0); EOS # 0.1 10^3/uL (0.0-0.5); EOS % 1.3 % (0.0-3.0); HEMATOCRIT 38.8 % (36.0-47.0); LYMPH # 2.8 10^3/uL (1.5-5.0); LYMPH % 25.7 % (24.0-44.0); MEAN CORPUSCULAR HEMOGLOBIN 27.6 pg (27.0-33.0); MEAN CORPUSCULAR HGB CONC 30.9 g/dl (32.0-36.5); MEAN CORPUSCULAR VOLUME 89.2 fl (80.0-96.0); MONO # 0.9 10^3/uL (0.0-0.8); MONO % 8.2 % (2.0-8.0); NEUTROPHILS # 6.9 10^3/uL (1.5-8.5); NEUTROPHILS % 63.7 % (36.0-66.0); PLATELET COUNT, AUTOMATED 313 10^3/uL (150-450); RED BLOOD COUNT 4.35 10^6/uL (4.00-5.40); WHITE BLOOD COUNT 10.9 10^3/uL (4.0-10.0)
[2024-06-13 06:38] LABS: BLOOD UREA NITROGEN 17 MG/DL (9-23); CALCIUM LEVEL 9.3 MG/DL (8.5-10.1); CARBON DIOXIDE LEVEL 27 MMOL/L (20-31); CHLORIDE LEVEL 105 MMOL/L (98-107); CHOLESTEROL LEVEL 152 MG/DL (<200); CHOLESTEROL RISK RATIO 3.42 (<5); CREATININE FOR GFR 0.68 MG/DL (0.55-1.30); GLOMERULAR FILTRATION RATE > 60.0 (>60); GLUCOSE, FASTING 119 MG/DL (60-100); HDL CHOLESTEROL 44.4 MG/DL (>40); LDL CHOLESTEROL 85.2 MG/DL (<100); NON-HDL-C 107.6 MG/DL; POTASSIUM SERUM 4.2 MMOL/L (3.5-5.1); SODIUM LEVEL 140 MMOL/L (136-145); TRIGLYCERIDES LEVEL 112 MG/DL (<150)
[2024-06-13 08:00] VITALS: BP 130/84; TEMP 97.7; O2SAT 95
[2024-06-13] MEDS: ASPIRIN 81MG ENTERIC TABLET PO SCH (08:32)
[2024-06-13] MEDS: CLOPIDOGREL 75 MG TAB PO SCH (08:32)
[2024-06-13] MEDS: ATORVASTATIN 20 MG TAB PO SCH (08:33)
[2024-06-13] MEDS ORDERED: ATOR40TA75 PO (10:58)
[2024-06-13] MEDS ORDERED: LISI20TA33 PO (10:58)
[2024-06-13] MEDS ORDERED: TOPA50TA8 PO (10:58)
[2024-06-13] MEDS ORDERED: ASPI81TAEC PO (10:58)
[2024-06-13] MEDS ORDERED: CLOP75TA2 PO (10:58)
[2024-06-13] MEDS ORDERED: AMIT10TA7 PO (10:58)
[2024-06-13 12:16] VITALS: BP 133/74; TEMP 97.5; O2SAT 96
== END 2024-06-13 12:22 | disposition home or self-care (01) ==
LOC: M ED 20:30 → M ED INP 06-12 04:05 → M MSPAV 06-12 05:11
PROVIDERS: ADMIT Student in an Organized Health Care Education/Training Program; ATTEND Internal Medicine
DX: H81.4 Vertigo of central origin (principal); R20.2 Paresthesia of skin; G43.909 Migraine, unspecified, not intractable, without status migrainosus; G62.9 Polyneuropathy, unspecified; D72.829 Elevated white blood cell count, unspecified; L71.9 Rosacea, unspecified; M54.50 Low back pain, unspecified; J30.2 Other seasonal allergic rhinitis; K21.9 Gastro-esophageal reflux disease without esophagitis; J45.909 Unspecified asthma, uncomplicated; I10 Essential (primary) hypertension; Z79.51 Long term (current) use of inhaled steroids; Z79.899 Other long term (current) drug therapy; Z91.018 Allergy to other foods; Z91.040 Latex allergy status; Z91.013 Allergy to seafood; Z88.0 Allergy status to penicillin
CPT/HCPCS: 36415; 70450; 70496; 70498; 70551; 71045; 80047; 80048; 80053; 80061; 82550; 82553; 83036; 84145; 84443; 84484; 85025; 85027; 85610; 85730; 86850; 86900; 86901; 93005; 93041; 93306; 94640; 94660; 94760; 96372; 96374; 96375; 97112; 97116; 97161; 99285; J1650; J1885; J3360; Q9967

== ENCOUNTER 2024-08-11 17:51 | Emergency (ER) | payer OTHER ==
[~2024-08-11] VITALS: Ht 172.7 cm; Wt 109.2 kg
[~2024-08-11 17:51] MED LIST changes: -ADV500INH INH; +ADVA1AER10 INH; +AMIT10TA7 PO; +ASPI81TAEC PO; +ATOR40TA75 PO; +CLOP75TA2 PO; +IBUP80TA PO; +LISI20TA33 PO; +TOPA50TA8 PO
[2024-08-11 19:59] LABS: BASO # 0.1 10^3/uL (0.0-0.2); BASO % 0.4 % (0.0-1.0); EOS # 0.1 10^3/uL (0.0-0.5); EOS % 0.6 % (0.0-3.0); HEMATOCRIT 38.8 % (36.0-47.0); HEMOGLOBIN 12.5 g/dl (12.0-15.5); LYMPH # 3.3 10^3/uL (1.5-5.0); MEAN CORPUSCULAR HEMOGLOBIN 28.5 pg (27.0-33.0); MEAN CORPUSCULAR HGB CONC 32.2 g/dl (32.0-36.5); MEAN CORPUSCULAR VOLUME 88.4 fl (80.0-96.0); MONO # 0.8 10^3/uL (0.0-0.8); MONO % 6.5 % (2.0-8.0); NEUTROPHILS # 7.6 10^3/uL (1.5-8.5); PLATELET COUNT, AUTOMATED 349 10^3/uL (150-450); RED BLOOD COUNT 4.39 10^6/uL (4.00-5.40); WHITE BLOOD COUNT 11.9 10^3/uL (4.0-10.0)
[2024-08-11] MEDS: methylPREDNISolone 125MG 2ML VIAL IV ONE (20:14)
[2024-08-11] MEDS: FAMOTIDINE 20MG/2ML VIAL IVP ONE (20:15)
[2024-08-11] MEDS: diphenhydrAMINE 50MG/ML VIAL IV ONE (20:15)
[2024-08-11 20:19] LABS: BLOOD UREA NITROGEN 14 MG/DL (9-23); CALCIUM LEVEL 8.6 MG/DL (8.5-10.1); CARBON DIOXIDE LEVEL 26 MMOL/L (20-31); CHLORIDE LEVEL 106 MMOL/L (98-107); GLOMERULAR FILTRATION RATE > 60.0 (>60); GLUCOSE, FASTING 74 MG/DL (60-100); POTASSIUM SERUM 4.6 MMOL/L (3.5-5.1); SODIUM LEVEL 142 MMOL/L (136-145)
[2024-08-11 20:41] LABS: C REACTIVE PROTEIN QUANTITATIV 2.08 MG/DL (<1.0); ERYTHROCYTE SEDIMENTATION RATE 68 mm/hr (0-20)
[2024-08-11] MEDS: MORPHINE 4 MG/ML 1ML VIAL IV ONE (21:01)
[2024-08-11 21:50] LABS: COMPLEMENT C4 32.4 MG/DL (12-36)
[2024-08-11] MEDS ORDERED: PRED20TA PO (22:14)
[2024-08-11] MEDS ORDERED: CLIN150C17 PO (22:14)
[2024-08-11] MEDS ORDERED: CETI-25 PO (22:14)
[2024-08-11] MEDS ORDERED: PERC5TAB12 PO (22:15)
[2024-08-11 22:19] VITALS: BP 138/76; TEMP 97.7
[2024-08-11 22:21] VITALS: O2SAT 98
== END 2024-08-11 22:24 | disposition home or self-care (01) ==
LOC: M ED 17:51 → EDBD 17:51 → M ED 22:24
DX: L23.81 Allergic contact dermatitis due to animal (cat) (dog) dander (principal); J30.81 Allergic rhinitis due to animal (cat) (dog) hair and dander; E11.9 Type 2 diabetes mellitus without complications; K21.9 Gastro-esophageal reflux disease without esophagitis; N18.9 Chronic kidney disease, unspecified; Z86.73 Personal history of transient ischemic attack (TIA), and cerebral infarction without residual deficits; J45.909 Unspecified asthma, uncomplicated; L71.9 Rosacea, unspecified; L20.9 Atopic dermatitis, unspecified; Z79.899 Other long term (current) drug therapy; Z88.0 Allergy status to penicillin; Z88.1 Allergy status to other antibiotic agents; Z91.040 Latex allergy status; Z91.013 Allergy to seafood; Z91.018 Allergy to other foods
CPT/HCPCS: 71045; 80048; 85025; 85652; 86140; 86160; 86161; 93005; 93041; 94760; 96374; 96375; 99285; J1200; J2919; S0028

== ENCOUNTER 2024-10-05 10:40 | Day surgery (SDC) | payer OTHER ==
[~2024-10-05] VITALS: Ht 172.7 cm; Wt 112.0 kg
[~2024-10-05 10:40] MED LIST changes: +CETI-25 PO; +CLIN150C17 PO; +PERC5TAB12 PO
[2024-10-05 11:23] LABS: HEMATOCRIT 39.7 % (36.0-47.0); HEMOGLOBIN 12.9 g/dl (12.0-15.5); MEAN CORPUSCULAR HEMOGLOBIN 29.1 pg (27.0-33.0); MEAN CORPUSCULAR HGB CONC 32.5 g/dl (32.0-36.5); MEAN CORPUSCULAR VOLUME 89.4 fl (80.0-96.0); PLATELET COUNT, AUTOMATED 342 10^3/uL (150-450); RED BLOOD COUNT 4.44 10^6/uL (4.00-5.40); WHITE BLOOD COUNT 12.9 10^3/uL (4.0-10.0)
[2024-10-05] MEDS ORDERED: LR 1,000 ML IV SCH ×2 (11:30→14:00)
[2024-10-05] MEDS ORDERED: KETOROLAC 30 MG/ML 1ML VIAL As Ordered ONE (11:50)
[2024-10-05] MEDS ORDERED: MIDAZOLAM INJ 2MG/2ML VIAL As Ordered ONE (11:50)
[2024-10-05] MEDS ORDERED: SUGAMMADEX SODIUM 500 MG/5 ML VIAL (BRIDION) As Ordered ONE (11:50)
[2024-10-05] MEDS ORDERED: fentaNYL 100 MCG/2 ML INJECTION As Ordered ONE (11:50)
[2024-10-05] MEDS ORDERED: LIDOCAINE 2% 100MG/5ML SDV (FOR ANES.) As Ordered ONE (11:50)
[2024-10-05] MEDS ORDERED: ROCURONIUM BROMIDE 50MG/5ML VIAL As Ordered ONE (11:50)
[2024-10-05] MEDS ORDERED: ONDANSETRON 4MG 2ML VIAL As Ordered ONE (11:50)
[2024-10-05] MEDS ORDERED: propofoL 200 MG/20 ML VIAL As Ordered ONE (11:51)
[2024-10-05] MEDS: diphenhydrAMINE 50MG/ML VIAL IV PRN (11:55)
[2024-10-05] MEDS ORDERED: diphenhydrAMINE 50MG/ML VIAL As Ordered ONE (13:06)
[2024-10-05] MEDS ORDERED: HYDROmorphone HCL 2MG/ML 1ML VIAL As Ordered ONE (13:08)
[2024-10-05] MEDS ORDERED: ONDANSETRON 4MG 2ML VIAL IV PRN (14:00)
[2024-10-05] MEDS: HYDROMORPHONE HCL 0.5 MG/ 0.5 ML SYRINGE IV PRN (14:23)
[2024-10-05] MEDS: oxyCODONE 5MG TAB PO PRN (14:24)
[2024-10-05] MEDS: fentaNYL 100 MCG/2 ML INJECTION IV PRN (15:11)
[2024-10-05] MEDS: SIMETHICONE 80MG CHEW TAB PO ONE (16:00)
[2024-10-05 17:16] VITALS: BP 148/77; TEMP 97.8; O2SAT 97
== END 2024-10-05 17:17 | disposition home or self-care (01) ==
LOC: M SDC 10:40
PROVIDERS: ATTEND Specialist
DX: R10.2 Pelvic and perineal pain (principal); N83.00 Follicular cyst of ovary, unspecified side; J30.2 Other seasonal allergic rhinitis; J45.909 Unspecified asthma, uncomplicated; I10 Essential (primary) hypertension; Z79.899 Other long term (current) drug therapy; Z91.018 Allergy to other foods; Z88.1 Allergy status to other antibiotic agents; Z88.0 Allergy status to penicillin; Z91.040 Latex allergy status; Z91.013 Allergy to seafood
CPT/HCPCS: 36415; 58661; 85027; 86850; 86900; 86901; 88305; J0665; J1100; J1171; J1200; J1885; J2250; J2405; J3010

== ENCOUNTER → 2025-01-10 | Outpatient (REF) | payer OTHER ==
[~2025-01-10] MED LIST changes: +AMIT10TA11 PO; -AMIT10TA7 PO; +SULF1TAB23 PO
== END ==
LOC: M SFHCDERM 16:33
PROVIDERS: ATTEND Physician Assistant
DX: L02.91 Cutaneous abscess, unspecified (principal)

== ENCOUNTER 2025-01-28 21:18 | Emergency (ER) | payer OTHER ==
[~2025-01-28] VITALS: Ht 172.7 cm; Wt 70.4 kg
[2025-01-28 21:21] VITALS: TEMP 97
[2025-01-28] MEDS: IBUPROFEN 600 MG TAB PO ONE (22:06)
[2025-01-28] MEDS ORDERED: HYDR-3713 PO (22:42)
[2025-01-28] MEDS ORDERED: BACI500O8 TOP (22:42)
[2025-01-28] MEDS: BOOSTRIX VACCINE (TETANUS/DIPHTH/ACEL. PERTUSSIS) 0.5 ML SYR IM ONE (22:49)
[2025-01-28 22:58] VITALS: BP 168/90; O2SAT 99
== END 2025-01-28 22:59 | disposition home or self-care (01) ==
LOC: M ED 21:18
DX: T23.151A Burn of first degree of right palm, initial encounter (principal); X15.2XXA Contact with hotplate, initial encounter; Y92.000 Kitchen of unspecified non-institutional (private) residence as the place of occurrence of the external cause; Y93.89 Activity, other specified; Y99.9 Unspecified external cause status; Z88.1 Allergy status to other antibiotic agents; I12.9 Hypertensive chronic kidney disease with stage 1 through stage 4 chronic kidney disease, or unspecified chronic kidney disease; N18.9 Chronic kidney disease, unspecified; Z86.73 Personal history of transient ischemic attack (TIA), and cerebral infarction without residual deficits; K21.9 Gastro-esophageal reflux disease without esophagitis; Z79.899 Other long term (current) drug therapy; Z23 Encounter for immunization; T31.0 Burns involving less than 10% of body surface

== ENCOUNTER → 2025-03-01 | Outpatient (REF) | payer OTHER ==
[~2025-03-01] MED LIST changes: +BACI500O8 TOP; +HYDR-3713 PO
[2025-03-01 16:59] LABS: BASO # 0.1 10^3/uL (0.0-0.2); BASO % 0.5 % (0.0-1.0); EOS # 0.1 10^3/uL (0.0-0.5); EOS % 0.5 % (0.0-3.0); LYMPH # 2.9 10^3/uL (1.5-5.0); LYMPH % 22.5 % (24.0-44.0); MONO # 0.8 10^3/uL (0.0-0.8); MONO % 6.4 % (2.0-8.0); NEUTROPHILS # 8.9 10^3/uL (1.5-8.5); NEUTROPHILS % 69.6 % (36.0-66.0); PLATELET COUNT, AUTOMATED 370 10^3/uL (150-450)
[2025-03-01 17:00] LABS: ALT/SGPT 27 U/L (7.0-40); AST/SGOT 21 U/L (<34); CALCIUM LEVEL 9.1 MG/DL (8.5-10.1); CARBON DIOXIDE LEVEL 26 MMOL/L (20-31); CHLORIDE LEVEL 104 MMOL/L (98-107); CHOLESTEROL LEVEL 175 MG/DL (<200); CHOLESTEROL RISK RATIO 3.13 (<5); CREATININE FOR GFR 0.62 MG/DL (0.55-1.30); GLOMERULAR FILTRATION RATE > 90.0 (>60); IRON (FE) 51 UG/DL (50-170); LDL CHOLESTEROL 104.1 MG/DL (<100); NON-HDL-C 119.1 MG/DL; PERCENT SATURATION 15.4 % (13.2-45.0); POTASSIUM SERUM 4.3 MMOL/L (3.5-5.1); SODIUM LEVEL 140 MMOL/L (136-145); TRIGLYCERIDES LEVEL 75 MG/DL (<150)
[2025-03-01 17:14] LABS: ESTIMATED AVERAGE GLUCOSE 126.0 MG/DL (60-110)
[2025-03-01 18:24] LABS: CREATININE, URINE 164.6 MG/DL
[2025-03-01 18:25] LABS: MALB URINE SIEMENS < 3.0 MG/L
== END ==
LOC: M LAB REF 16:15
PROVIDERS: ATTEND Pediatrics
DX: E11.69 Type 2 diabetes mellitus with other specified complication (principal); E78.5 Hyperlipidemia, unspecified; D50.8 Other iron deficiency anemias

== ENCOUNTER → 2025-06-14 | Outpatient (REF) | payer OTHER ==
[~2025-06-14] MED LIST changes: -IBUP-1022 PO; +IBUP600T42 PO; -NIRM1TAB14 PO; +NIRM1TAB16 PO; +SULF-7 PO; -SULF1TAB23 PO
[2025-06-14 18:56] LABS: CALCIUM LEVEL 8.5 MG/DL (8.5-10.1); CARBON DIOXIDE LEVEL 26 MMOL/L (20-31); CHLORIDE LEVEL 106 MMOL/L (98-107); CREATININE FOR GFR 0.54 MG/DL (0.55-1.30); GLOMERULAR FILTRATION RATE > 90.0 (>58); MAGNESIUM LEVEL 2.0 MG/DL (1.8-2.4); POTASSIUM SERUM 4.3 MMOL/L (3.5-5.1); PTH INTACT 42.3 PG/ML (18.5-88.0); SODIUM LEVEL 140 MMOL/L (136-145)
[2025-06-14 19:02] LABS: CPK CREATINE PHOSPHOKINASE 27 U/L (34-145)
[2025-06-14 19:20] LABS: ESTIMATED AVERAGE GLUCOSE 117.0 MG/DL (60-110)
== END ==
LOC: M LAB REF 16:24
PROVIDERS: ATTEND Pediatrics
DX: E11.69 Type 2 diabetes mellitus with other specified complication (principal); R25.2 Cramp and spasm